=== PATIENT | female | born 1950 | race Caucasian/White ===

== ENCOUNTER 2021-09-08 10:32 | Inpatient (IN) | payer MEDICARE, BC, SELFPAY ==
--- NOTE | ~2021-09-08 | CT_ITS ---
EXAMINATION: CT ABDOMEN AND PELVIS WITHOUT CONTRAST CLINICAL INFORMATION: Right lower abdominal pain radiating to the back. COMPARISON: None TECHNIQUE: Multidetector volumetric imaging was performed from the superior aspect of the liver through the pubic symphysis. Sagittal and coronal reformatted images were obtained on the technologist's workstation. This CT examination was performed using dose optimization techniques as appropriate, variously including the following: *Automated exposure control *Adjustment of mA and/or kV according to patient size (this includes techniques or standardized protocols for targeted exams where dose is matched to indication/reason for exam; i.e. extremities or head) *Use of iterative reconstruction technique DLP: 562 mGy-cm FINDINGS: LUNG BASES: The visualized lung bases are unremarkable. LIVER, GALLBLADDER, AND BILIARY TREE: The liver is normal in size, shape, and attenuation. No focal hepatic lesion or biliary ductal dilatation is present. Nonvisualized gallbladder, likely surgically absent. PANCREAS: Unremarkable. SPLEEN: Unremarkable. ADRENAL GLANDS: The left adrenal gland is slightly thickened without discrete mass. The right adrenal gland is unremarkable. KIDNEYS AND URETERS: The kidneys are normal in size, shape, and attenuation. No hydronephrosis, hydroureter, or calculi seen. No perinephric stranding. BLADDER: Unremarkable. GASTROINTESTINAL TRACT: Focal mural thickening, pericolonic inflammatory changes and pericolonic soft tissue densities are noted involving proximal part of the sigmoid colon. Note is made of few underlying colonic diverticuli and subtle extraluminal tiny air pockets, most consistent with focal diverticulitis complicated with microperforation. No evidence of any definite fluid collection or air-fluid level identified. No evidence of any obstruction is seen. Follow-up direct visualization following visualization of inflammation is recommended to exclude any possibility of underlying neoplasm. The remainder of the large bowel otherwise appear unremarkable. Nonvisualized appendix without any inflammatory changes around the cecum. The small bowel loops are decompressed. Small sliding hiatal hernia. The stomach is decompressed. ABDOMINAL WALL: No significant hernia is appreciated. LYMPH NODES: There are no pathologically enlarged retroperitoneal, mesenteric, pelvic and/or groin lymphadenopathy present. VASCULAR: Mild diffuse atherosclerotic calcific disease of the aorta. No evidence of any aneurysm. PELVIC VISCERA: No pelvic mass is present. Left hemipelvic abnormality as described under gastrointestinal tract. No evidence of any free fluid or free air. OSSEOUS STRUCTURES: Moderate diffuse osteopenia. No suspicious focal lesion. CT/CT abdomen pelvis wo con IMPRESSION: 1. Abnormal CT scan of the abdomen and pelvis showing evidence of focal mural thickening, underlying colonic diverticuli, pericolonic inflammatory changes and pericolonic soft tissue density associated with extraluminal tiny air pockets, consistent with acute proximal sigmoid colonic diverticulitis complicated with microperforation. No evidence of any pericolonic drainable fluid collection or abscess formation or fistula formation or obstruction. A follow-up colonoscopy/direct visualization is recommended to exclude any possibility of underlying neoplasm once the inflammation is control. 2. Mild thickening of the left adrenal gland, indeterminate etiology. 3. Nonvisualized gallbladder likely surgically absent. 4. Moderate diffuse osteopenia. This critical result was discussed with Dr. Lincoln at 4:13 PM on 09/08/2021 and it was ascertained that the content and urgency of the report was understood at the time of direct communication.
[2021-09-08 10:54] VITALS: BP 122/56; PULSE 76; RESP 18; TEMP 36.7; O2SAT 96; BMI 25.4
[2021-09-08 13:19] LABS: MANUAL DIFF FLAG NO
[2021-09-08 13:21] LABS: Appearance Urine CLEAR; Color Urine YELLOW; Glucose Urine UA NEG (NEG); Leukocyte Esterase Urine NEG (NEG); Nitrite Urine NEG (NEG); UACC Culture Trigger NO; Urine Blood TRACE (NEG); Urine Ketones 15 MG/DL (NEG); Urine Protein NEG (NEG-TRACE)
[2021-09-08 13:21] LABS: Basophils Percent Auto 0.1 % (0-2); Eosinophils Percent Auto 0.2 % (0-4); Hematocrit 44.6 % (37.0-47.0); Hemoglobin 14.9 g/dl (12.0-16.0); Imm Gran Abs Auto 0.04 X10*3/uL (0.00-0.03); Imm Gran Pct Auto 0.3 % (0.0-0.4); Lymphocytes Absolute Auto 1.4 X10*3/uL (1.2-4.9); Lymphocytes Percent Auto 10.3 % (20-40); Mean Corpuscular HGB Conc 33.4 g/dl (31.0-35.0); Mean Corpuscular Hemoglobin 29.7 pg (27.0-33.0); Mean Corpuscular Volume 88.8 fL (80.0-98.0); Mean Platelet Volume 9.3 fL (9.4-12.3); Monocytes Absolute Auto 0.7 X10*3/uL (0.1-1.2); Monocytes Percent Auto 5.3 % (2-11); Neutrophils Absolute Auto 11.5 x10*3/uL (2.0-8.3); Neutrophils Percent Auto 83.8 % (45-73); Platelet Count 241 X10*3/uL (160-400); Red Blood Count 5.02 X10*6/uL (4.20-5.50); Red Cell Distribution Width 12.2 % (11.0-16.0); White Blood Count 13.7 X10*3/uL (4.8-10.8)
[2021-09-08 13:29] LABS: RBC Urine 0-2 /HPF (0); Squamous Epithelial Cell Urine TRACE /LPF; WBC Urine 0 /HPF (0-4)
[2021-09-08 13:38] LABS: Alanine Aminotransferase 11 U/L (0-31); Albumin Level 4.4 g/dL (3.5-5.0); Alkaline Phosphatase 93 U/L (39-117); Anion Gap 12 (12-20); Aspartate Amino Transferase 12 U/L (5-31); Bilirubin Direct 0.3 mg/dL (0.0-0.5); Bilirubin Total 0.6 mg/dL (0.0-1.0); Blood Urea Nitrogen 8 mg/dL (9-16); Calcium 10.3 mg/dL (8.4-10.2); Carbon Dioxide 29 mmol/L (22-29); Chloride 102 mmol/L (96-108); Creatinine Clr Calc Pharmacy 72.1; Estimated Glomerular Filt Rate > 60; Glucose Random 121 mg/dL (60-115); Lipase 18 U/L (8-78); Sodium 139 mmol/L (135-145)
--- NOTE | 2021-09-08 14:10 | ED.ABDPAIN ---
HPI - Abdominal Pain General Chief Complaint: Abdominal Pain Stated Complaint: abd pain Time Seen by Provider: 09/08/21 14:10 Source: patient Mode of arrival: ambulatory Limitations: no limitations History of Present Illness HPI narrative: Right lower abdominal pain, recently had a UDS study and a urinary tract infection. NO fever, some nausea and diarrhea. Patient with right flank pain no history of kidney stones.shelbie MATTHEWS elicited complaint: abdominal pain and flank pain Onset (ago): week(s) Pain Consistency: constant Location: RLQ and R flank Severity: moderate Quality: other (pulsating) Radiation: R flank Associated symptoms: nausea Related Data Home Medications Medication Instructions Recorded Confirmed cholecalciferol (vitamin D3) 25 25 mcg PO DAILY 09/08/21 mcg (1,000 unit) capsule docusate sodium 100 mg capsule 100 mg PO DAILY 09/08/21 (Colace) evolocumab 140 mg/mL subcutaneous mg SUBCUT 09/08/21 pen injector ([employer]) levothyroxine 125 mcg tablet 125 mcg PO DAILY 09/08/21 trazodone 50 mg tablet 50 - 150 mg PO BEDTIME PRN 09/08/21 Allergies Allergy/AdvReac Type Severity Reaction Status Date / Time albuterol AdvReac Headache Verified 09/08/21 10:54 atorvastatin AdvReac Muscle Pain Verified 09/08/21 10:54 codeine AdvReac Nausea and Verified 09/08/21 10:54 Vomiting cortisone AdvReac Rash Verified 09/08/21 09:41 niacin AdvReac Itching, Verified 09/08/21 09:38 rash oxycodone AdvReac Headache Verified 09/08/21 09:38 scopolamine AdvReac Headache Verified 09/08/21 09:40 Review of Systems Constitutional: Reports no additional constitutional complaints Eyes: Reports no additional eye complaints Denies dizziness Cardiovascular: Reports no additional cardiovascular complaints Respiratory: Reports as per HPI Gastrointestinal: Reports no additional gastrointestinal complaints Genitourinary: Reports no additional female genitourinary complaints Musculoskeletal: Reports no additional musculoskeletal complaints Skin/Breast: Denies rash Reports system reviewed and no additional complaints, except as documented, Denies dizziness and Denies Sensory deficit (Neuro) Psychiatric: Denies anxiety Physical Exam Vital Signs: Vital Signs: Last Vital Signs Temp 98.1 F 09/08/21 10:54 Pulse 76 09/08/21 10:54 Resp 18 09/08/21 10:54 BP 122/56 L 09/08/21 10:54 Pulse Ox 96 09/08/21 10:54 Body Mass Index 25.4 Const: General: healthy appearing Nutritional Appearance: average body habitus Orientation/consciousness: oriented to person and patient oriented x3 Limitations: no limitations HENMT: Head: Yes normal to inspection Ears: external ears normal General nose exam: Normal external nose present Mouth: Normal oral and palatal mucosa present and oropharynx normal Throat: Yes posterior oropharynx normal Eyes: General: appearance normal, both eyes and all related structures Neck: Other: supple Neck: Yes normal visual inspection Chest: Chest palpation & inspection: normal inspection of the chest Resp: Auscultation: clear to auscultation bilaterally Cardio: Jugular venous distension: no JVD Rate: regular rate Rhythm: regular rhythm Heart sounds: S1 normal heart sound present and S2 normal heart sound present GI: Other: right lower abdominal pain no guarding Palpation (GI): Tenderness to palpation present (GI) Auscultation: normal bowel sounds : General: Yes no CVA tenderness Back/Spine/Pelvis: Back: no CVA tenderness Skin: General skin exam: no rashes or lesions noted Neuro: General: oriented to person and patient oriented x3 Cranial nerves: Yes CN's II-XII intact bilaterally Motor exam (neuro): 5/5 motor strength present throughout Sensory Exam: No Sensory deficit (Neuro) Extrem: General: Yes normal to inspection Psych: Appearance: grossly normal Course Course Course Narrative: patient with RLQ pain radiating to the back, and history of right sided diverticulitis, WBC 13.[address] scan Reevaluation(s) Reevaluation #1: CT showed microperforation of diverticulitis of sigmoid colon will admit to surgery Time: 16:17 Reevaluation #2: Discussed with Dr. Connor Time: 16:44 MDM - Abdominal Pain Lab Data Result diagrams: 09/08/21 13:11 09/08/21 13:11 Labs: Lab Results 09/08/21 09/08/21 09/08/21 Range/Units 13:11 13:11 13:15 WBC 13.7 H (4.8-10.8) X10*3/uL RBC 5.02 (4.20-5.50) X10*6/uL Hgb 14.9 (12.0-16.0) g/dl Hct 44.6 (37.0-47.0) % MCV 88.8 (80.0-98.0) fL MCH 29.7 (27.0-33.0) pg MCHC 33.4 (31.0-35.0) g/dl RDW 12.2 (11.0-16.0) % Plt Count 241 (160-400) X10*3/uL MPV 9.3 L (9.4-12.3) fL Immature Gran % (Auto) 0.3 (0.0-0.4) % Neut % (Auto) 83.8 H (45-73) % Lymph % (Auto) 10.3 L (20-40) % [place] % (Auto) 5.3 (2-11) % Eos % (Auto) 0.2 (0-4) % Baso % (Auto) 0.1 (0-2) % Lymph # (Auto) 1.4 (1.2-4.9) X10*3/uL [place] # (Auto) 0.7 (0.1-1.2) X10*3/uL Eos # (Auto) 0.0 (0.0-0.4) X10*3/uL Baso # (Auto) 0.0 (0.0-0.2) X10*3/uL Abs Immat Gran (auto) 0.04 H (0.00-0.03) X10*3/uL Absolute Neuts (auto) 11.5 H (2.0-8.3) x10*3/uL Absolute Nucleated RBC 0.000 (0.0-0.012) X10*3/uL Nucleated RBC % (auto) 0.0 (0.0-0.2) /100WBC Sodium 139 (135-145) mmol/L Potassium 4.0 (3.3-5.1) mmol/L Chloride 102 (96-108) mmol/L Carbon Dioxide 29 (22-29) mmol/L Anion Gap 12 (12-20) BUN 8 L (9-16) mg/dL Creatinine 0.72 (0.5-1.4) mg/dL Estim Creat Clear Calc 72.1 Estimated GFR > 60 Random Glucose 121 H (60-115) mg/dL Calcium 10.3 H (8.4-10.2) mg/dL Total Bilirubin 0.6 (0.0-1.0) mg/dL Direct Bilirubin 0.3 (0.0-0.5) mg/dL AST 12 (5-31) U/L ALT 11 (0-31) U/L Alkaline Phosphatase 93 (39-117) U/L Total Protein 7.0 (6.5-8.0) g/dL Albumin 4.4 (3.5-5.0) g/dL Lipase 18 (8-78) U/L Urine Color YELLOW Urine Appearance CLEAR Urine pH 7.0 (5.0-8.0) Ur Specific [place] 1.010 (1.005-1.025) Urine Protein NEG (NEG-TRACE) MG/DL Urine Glucose (UA) NEG (NEG) MG/DL Urine Ketones 15 (NEG) MG/DL Urine Blood TRACE (NEG) Urine Nitrite NEG (NEG) Ur Leukocyte Esterase NEG (NEG) Urine RBC 0-2 (0) /HPF Urine WBC 0 (0-4) /HPF Ur Squamous Epith Cells TRACE /LPF Urine Bacteria NONE /LPF Imaging Data CT scan - abdomen: Radiologist's impression: diverticulitis with microperforation of sigmoid colon Discharge Plan Discharge Clinical Impression: Diverticulitis Patient Disposition: Admitted As Inpatient COUNT INCLUDES THE [facility] Past Medical History Medical History Abdominal pain Breast cancer Diabetes Diverticulitis High cholesterol Hypothyroid UTI (urinary tract infection) Social History Social History Advance Directives: No Advance Directives Information Provided: No
[2021-09-08] MEDS: levoFLOXacin/D5W 500 MG/100 ML PIGGYBACK 100 MG IV (16:51)
--- NOTE | 2021-09-08 16:55 | PM.HPGS ---
History of Present Illness History of Present Illness Date of Service: 09/08/21 Chief complaint: Sigmoid diverticulitis w micro perforation Narrative: Viola Navarro is a 70 year old female presenting with complaints of abdominal pain in the right lower quadrant over the last several days. She reports alternating constipation and diarrhea and has been taking fresh fruit including grapes without much relief. She has a history of diverticulitis with pain in the left lower quadrant but currently reports mild pain the left lower quadrant but mainly pain in the right lower quadrant. She denies nausea, vomiting, fever, chills. She previously underwent a cholecystectomy. Upon presentation to the emergency department, the WBC was noted to be elevated. Subsequent CT of the abdomen pelvis revealed sigmoid diverticulitis with a micro perforation. No abscess could be identified. Patient is admitted to the surgical service for IV antibiotics. She has a history of benign liver lesions (focal nodular hyperplasia) for which she is following Gastroenterology. Her last colonoscopy was approximately 2 years ago. Review of Systems Review of Systems: Yes all other systems are reviewed and are negative Constitutional: Constitutional: Reports anorexia, Denies chills, Denies fever(s) and Denies night sweats Cardiovascular: Cardiovascular: Reports Abdominal Distension, Denies chest pain, Denies irregular heart rhythm, Denies palpitations and Denies dyspnea Respiratory: Respiratory: Denies chest congestion, Denies cough and Denies dyspnea Gastrointestinal: Gastrointestinal: Reports as per HPI, Reports abdominal pain, Denies hematochezia and Reports change in stool character Endocrine: Endocrine: Denies palpitations PMFSH Past Medical History Medical History Abdominal pain Breast cancer Diabetes Diverticulitis High cholesterol Hypothyroid UTI (urinary tract infection) Social History Social History Advance Directives: No Advance Directives Information Provided: No Meds Allergies Allergy/AdvReac Type Severity Reaction Status Date / Time albuterol AdvReac Headache Verified 09/08/21 10:54 atorvastatin AdvReac Muscle Pain Verified 09/08/21 10:54 codeine AdvReac Nausea and Verified 09/08/21 10:54 Vomiting cortisone AdvReac Rash Verified 09/08/21 09:41 niacin AdvReac Itching, Verified 09/08/21 09:38 rash oxycodone AdvReac Headache Verified 09/08/21 09:38 scopolamine AdvReac Headache Verified 09/08/21 09:40 Active Medications: Current Medications Levofloxacin (Levaquin) 500 mg in 100 mls @ 100 mls/hr IV ONCE ONE Stop: 09/08/21 17:15 Last Admin: 09/08/21 16:51 Dose: 100 mls/hr Documented by: Metronidazole (Flagyl) 500 mg in 100 mls @ 100 mls/hr IV ONCE ONE Stop: 09/08/21 17:15 Home Medications Medication Instructions Recorded Confirmed Last Taken Type cholecalciferol (vitamin D3) 25 25 mcg PO DAILY 09/08/21 Unknown History mcg (1,000 unit) capsule docusate sodium 100 mg capsule 100 mg PO DAILY 09/08/21 Unknown History (Colace) evolocumab 140 mg/mL subcutaneous mg SUBCUT 09/08/21 Unknown History pen injector ([employer]) levothyroxine 125 mcg tablet 125 mcg PO DAILY 09/08/21 Unknown History trazodone 50 mg tablet 50 - 150 mg PO BEDTIME PRN 09/08/21 Unknown History Physical Exam Vital Signs: Vital Signs: Last Vital Signs Temp 98.1 F 09/08/21 10:54 Pulse 76 09/08/21 10:54 Resp 18 09/08/21 10:54 BP 122/56 L 09/08/21 10:54 Pulse Ox 96 09/08/21 10:54 Body Mass Index 25.4 Const: General: cooperative, comfortable and well developed Nutritional Appearance: well nourished Orientation/consciousness: patient oriented x3 Limitations: no limitations HENMT: Head: Yes normocephalic and Yes atraumatic Ears: hearing grossly normal bilaterally Neck: Neck: Yes trachea midline, Yes supple and No lymphadenopathy Resp: Effort & Inspection: normal respiratory effort, no audible wheezes, no cough and no respiratory distress Auscultation: clear to auscultation bilaterally Cardio: Rate: regular rate Rhythm: regular rhythm Heart sounds: S1 normal heart sound present and S2 normal heart sound present GI: Inspection: Yes normal to inspection Palpation (GI): Soft to palpation, Tenderness to palpation present (GI) in the LLQ and in the RLQ, no guarding, not rigid, hepatosplenomegaly present and No Rebound tenderness present Percussion: Yes normal to percussion Auscultation: normal bowel sounds Rectal Exam - Female: deferred Skin: General skin exam: no rashes or lesions noted Neuro: General: patient oriented x3 Extrem: General: Yes no clubbing, cyanosis or edema Results Results Labs: Short CBC 09/08/21 Range/Units 13:11 WBC 13.7 H (4.8-10.8) X10*3/uL Hgb 14.9 (12.0-16.0) g/dl Hct 44.6 (37.0-47.0) % Plt Count 241 (160-400) X10*3/uL BMP 09/08/21 13:11 Sodium 139 Potassium 4.0 Chloride 102 Carbon Dioxide 29 BUN 8 L Creatinine 0.72 Calcium 10.3 H Liver Function 09/08/21 Range/Units 13:11 Total Bilirubin 0.6 (0.0-1.0) mg/dL Direct Bilirubin 0.3 (0.0-0.5) mg/dL AST 12 (5-31) U/L ALT 11 (0-31) U/L Alkaline Phosphatase 93 (39-117) U/L Albumin 4.4 (3.5-5.0) g/dL Urine 09/08/21 Range/Units 13:15 Urine Color YELLOW Urine Appearance CLEAR Urine pH 7.0 (5.0-8.0) Ur Specific [place] 1.010 (1.005-1.025) Urine Protein NEG (NEG-TRACE) MG/DL Urine Glucose (UA) NEG (NEG) MG/DL Abdomen CT scan report/results: image reviewed CT scan - pelvis: image reviewed Assessment and Plan (1) Perforation of sigmoid colon due to diverticulitis: Status: Acute 70-year-old female patient presenting with complaints of abdominal pain in the right lower quadrant found on workup to have sigmoid diverticulitis with a micro perforation. Patient has a prior history of diverticulitis at least 8-10 years ago but denies any ongoing abdominal symptoms. Her current symptoms are mainly located in the right lower quadrant and upon evaluation of the CT, the right colon appears to be moderately distended with stool which may account further current discomfort. She will be admitted to the surgical service for IV antibiotics. As this is her 2nd episode of diverticulitis we will attempt non operative management. If she does not improve or if the perforation seems to extend however surgical intervention may be required. Patient understands and agrees with the plan. Quality Stroke Does the patient have a stroke diagnosis?: No VTE Prior VTE?: No VTE Risk Level:: Surgical - moderate VTE Device Contraindication: N/A - Device Ordered VTE Drug Contraindication: N/A - Med Ordered Procedures Date of Service Date of Service: 09/08/21
[2021-09-08 18:04] LABS: COVID-19 Test Negative (Negative); IDNOW Serial# 9DD0AD1C
[2021-09-08] MEDS: metroNIDAZOLE/NS 500 MG/100 ML PIGGYBACK 100 MG IV (18:29)
[2021-09-08 18:54] VITALS: BP 130/72; PULSE 71; RESP 16; TEMP 37.4; O2SAT 94
--- NOTE | 2021-09-08 19:21 | PHA.MEDREC ---
Pharmacy Consult ? Medication Reconciliation Pharmacy has completed the medication reconciliation. Patient was taking anastrazole but told to hold. atha is due 09/09
[2021-09-08 19:56] VITALS: BP 126/80; PULSE 74; RESP 14; TEMP 36.8; O2SAT 97
[2021-09-08 20:09] LABS: Glucose, Whole Blood 103 mg/dL (60-115)
[2021-09-08] MEDS: Piperacillin Sodium/Tazobactam 3.375 GM in 0.9 % Sodium Chloride 50 ML IV (20:14)
[2021-09-08] MEDS: Heparin Sodium,Porcine 5,000 UNIT/ML VIAL 5000 UNIT SUBCUT (20:15)
[2021-09-08] MEDS: Morphine Sulfate 4 MG/ML CARTRIDGE IVPUSH (20:33)
[2021-09-08] MEDS: ondansetron HCL 4 MG/2 ML VIAL IVPUSH (20:33)
[2021-09-08] MEDS: Dextrose 5 % and Lactated Ring 1,000 ML 125 ML IVCONT (20:52)
--- NOTE | 2021-09-08 23:21 | MHC.CM.PN ---
CM met with admitted patient with bed assignment pending. IMM reviewed and signed per protocol 09/08/21@5660. No HCP on file. HCP reviewed, completed, and signed. Copies given and uploaded into [facility] and [employer]. Fully vaccinated with Pfizer and received the booster. Live with . Retired. Uses no DME or Services. D/C plan is home without services. CM to follow for d/c needs.
[2021-09-09] MEDS: 0.9 % Sodium Chloride Flush 3 ML SYRINGE IVFLUSH ×3 (00:02→23:50)
[2021-09-09] MEDS: Piperacillin Sodium/Tazobactam 3.375 GM in 0.9 % Sodium Chloride 50 ML IV ×5 (01:56→23:37)
[2021-09-09] MEDS: Zolpidem Tartrate 5 MG TABLET PO ×2 (01:56→23:48)
[2021-09-09 06:00] VITALS: BP 126/59; PULSE 66; RESP 15; TEMP 36.8; O2SAT 97
[2021-09-09] MEDS: Dextrose 5 % and Lactated Ring 1,000 ML 125 ML IVCONT ×3 (06:10→22:59)
[2021-09-09] MEDS: Morphine Sulfate 4 MG/ML CARTRIDGE IVPUSH (06:17)
[2021-09-09] MEDS: ondansetron HCL 4 MG/2 ML VIAL IVPUSH (06:18)
[2021-09-09 06:31] LABS: MANUAL DIFF FLAG NO
[2021-09-09 06:57] LABS: Basophils Percent Auto 0.3 % (0-2); Eosinophils Absolute Auto 0.1 X10*3/uL (0.0-0.4); Eosinophils Percent Auto 1.5 % (0-4); Hematocrit 39.5 % (37.0-47.0); Hemoglobin 13.2 g/dl (12.0-16.0); Imm Gran Abs Auto 0.01 X10*3/uL (0.00-0.03); Imm Gran Pct Auto 0.1 % (0.0-0.4); Lymphocytes Absolute Auto 1.4 X10*3/uL (1.2-4.9); Mean Corpuscular HGB Conc 33.4 g/dl (31.0-35.0); Mean Corpuscular Hemoglobin 29.9 pg (27.0-33.0); Mean Corpuscular Volume 89.4 fL (80.0-98.0); Mean Platelet Volume 9.5 fL (9.4-12.3); Monocytes Absolute Auto 0.6 X10*3/uL (0.1-1.2); Monocytes Percent Auto 8.5 % (2-11); Neutrophils Absolute Auto 4.7 x10*3/uL (2.0-8.3); Neutrophils Percent Auto 68.6 % (45-73); Platelet Count 211 X10*3/uL (160-400); Red Blood Count 4.42 X10*6/uL (4.20-5.50); Red Cell Distribution Width 12.2 % (11.0-16.0); White Blood Count 6.8 X10*3/uL (4.8-10.8)
[2021-09-09] MEDS: Heparin Sodium,Porcine 5,000 UNIT/ML VIAL 5000 UNIT SUBCUT ×2 (07:23→19:06)
[2021-09-09 07:32] VITALS: BP 121/59; PULSE 68; RESP 18; TEMP 36.6; O2SAT 97
--- NOTE | 2021-09-09 08:02 | PM.PNGS ---
Subjective Subjective Date of Service: 09/09/21 Interval history: Patient denies pain in the right lower quadrant, pain is mainly in the left lower quadrant, but overall much improved. She denies fever or chills. She feels hungry and denies nausea or vomiting. Has not had a bowel movement but is passing flatus. She remains boarding in the ED. Physical Exam Vital Signs: Vital Signs: Last Vital Signs Temp 97.8 F 09/09/21 07:32 Pulse 68 09/09/21 07:32 Resp 18 09/09/21 07:32 BP 121/59 L 09/09/21 07:32 Pulse Ox 97 09/09/21 07:32 Body Mass Index 25.4 Const: General: cooperative, no acute distress and well developed Nutritional Appearance: well nourished Orientation/consciousness: patient oriented x3 Limitations: no limitations HENMT: Head: Yes normocephalic and Yes atraumatic Ears: hearing grossly normal bilaterally Resp: Effort & Inspection: normal respiratory effort, no audible wheezes, no cough and no respiratory distress GI: Inspection: Yes normal to inspection Palpation (GI): Soft to palpation, nontender, no guarding, not rigid and No Rebound tenderness present Skin: General skin exam: no rashes or lesions noted, dry skin and no erythema Neuro: General: patient oriented x3 Extrem: General: Yes no clubbing, cyanosis or edema Procedures Date of Service Date of Service: 09/09/21 Progress Note: A&P Assessment and plan (1) Perforation of sigmoid colon due to diverticulitis: Status: Acute Assessment and Plan: 70-year-old female patient admitted with a 2nd episode of diverticulitis with a possible micro perforation noted by CT. Patient feels much improved and her WBC is normal. Will continue the antibiotics today and start her on a diet. Will check back later today and if she is more comfortable and tolerating a regular diet will switch to oral antibiotics and discharged to home. Patient understands and agrees with the plan. Fall Risk Details Current Medications: Current Medications Acetaminophen (Acetaminophen 325 Mg Tablet) 650 mg PO Q6H PRN PRN Reason: Pain, Mild (Pain Scale 1-3) Acetaminophen/Codeine Phosphate (Acetaminophen With Codeine # 3 Tablet) 1 tab PO Q4H PRN PRN Reason: Pain, Moderate (Pain Scale 4-6 Heparin Sodium (Porcine) (Heparin Sodium,Porcine 5,000 Unit/Ml Vial) 5,000 unit SUBCUT Q12H [facility] Last Admin: 09/09/21 07:23 Dose: 5,000 unit Documented by: Dextrose/Lactated Ringer's ([email or web address]) 1,000 mls @ 125 mls/hr IVCONT .Q8H [facility] Last Admin: 09/09/21 06:10 Dose: 125 mls/hr Documented by: Piperacillin Sod/Tazobactam (Sod 3.375 gm/ Sodium Chloride) 50 mls @ 100 mls/hr IV Q6H [facility] Last Admin: 09/09/21 07:24 Dose: 100 mls/hr Documented by: Morphine Sulfate (Morphine Sulfate 4 Mg/Ml Cartridge) 4 mg IVPUSH Q3H PRN; Protocol PRN Reason: Pain, Severe (Pain Scale 7-10) Last Admin: 09/09/21 06:17 Dose: 4 mg Documented by: Ondansetron HCl (Ondansetron Hcl 4 Mg/2 Ml Vial) 4 mg IVPUSH Q8H PRN PRN Reason: Nausea and Vomiting Last Admin: 09/09/21 06:18 Dose: 4 mg Documented by: Pharmacy Consult (Consult Rx Perform Med Rec) 1 each MISCELLANE ONCE PRN PRN Reason: Consult order Sodium Chloride (0.9 % Sodium Chloride Flush 3 Ml Syringe) 3 ml IVFLUSH QSHIFT [facility] Last Admin: 09/09/21 07:30 Dose: 3 ml Documented by: Zolpidem Tartrate (Zolpidem Tartrate 5 Mg Tablet) 5 mg PO BEDTIME PRN PRN Reason: Insomnia Last Admin: 09/09/21 01:56 Dose: 5 mg Documented by: Time Spent With Patient Time: Total time spent is greater than 50% in coordination of care (as documented) at patient's floor/unit and/or counseling patient: Time with patient: 15 - 24 minutes Quality Stroke Does the patient have a stroke diagnosis?: No VTE Prior VTE?: No VTE Risk Level:: Surgical - moderate VTE Device Contraindication: N/A - Device Ordered VTE Drug Contraindication: N/A - Med Ordered
[2021-09-09 16:00] VITALS: BP 108/59; PULSE 60; RESP 18; TEMP 36.3; O2SAT 98
[2021-09-09 20:00] VITALS: BP 118/61; PULSE 62; RESP 18; TEMP 36.7; O2SAT 98
[2021-09-09] MEDS: traZODone HCL 50 MG TABLET PO (21:02)
[2021-09-09] MEDS: Acetaminophen 325 MG TABLET 650 MG PO (22:10)
--- NOTE | 2021-09-09 23:51 | PC.NURSE ---
Patient asking for medication to facilitate BM
[2021-09-10] VITALS: BP 114/59; PULSE 58; RESP 18; TEMP 36.7; O2SAT 99
[2021-09-10 04:00] VITALS: BP 130/63; PULSE 73; RESP 18; TEMP 36.6; O2SAT 98
--- NOTE | 2021-09-10 06:30 | PC.NURSE ---
Patient c/o inability to sleep around 2330, requested IV be turned off for the night to avoiding pump beeping and disturbing her despite education. Patient agreed to have antibiotic infused first and Ambien administered. IVF held from midnight.
[2021-09-10] MEDS: Levothyroxine Sodium 125 MCG TABLET PO (06:35)
[2021-09-10] MEDS: Cholecalciferol (Vitamin D3) 25 MCG TABLET PO (07:37)
[2021-09-10] MEDS: Heparin Sodium,Porcine 5,000 UNIT/ML VIAL 5000 UNIT SUBCUT (07:37)
[2021-09-10] MEDS: Fluticasone Propionate Nasal 16 GM SPRAY 2 SPRAY NOSTRIL-B (07:37)
[2021-09-10] MEDS: Piperacillin Sodium/Tazobactam 3.375 GM in 0.9 % Sodium Chloride 50 ML IV (07:38)
[2021-09-10] MEDS: 0.9 % Sodium Chloride Flush 3 ML SYRINGE IVFLUSH (07:40)
[2021-09-10 08:00] VITALS: BP 110/54; PULSE 76; RESP 18; TEMP 36.1; O2SAT 95
--- NOTE | 2021-09-10 11:22 | MHC.CM.PN ---
PATIENT IS DISCHARGED HOME - SELF CARE. RN AWARE OF PLAN.
[2021-09-10 12:00] VITALS: BP 126/57; PULSE 69; RESP 17; TEMP 36.3; O2SAT 95
--- NOTE | 2021-09-10 13:34 | PM.PNGS ---
Subjective Subjective Date of Service: 09/10/21 Interval history: Feels better, still has some left lower quadrant discomfort. Tolerating solid diet. Had a loose bowel movement. Feels ready for discharge home. Physical Exam Vital Signs: Vital Signs: Last Vital Signs Temp 97.3 F 09/10/21 12:00 Pulse 69 09/10/21 12:00 Resp 17 09/10/21 12:00 BP 126/57 L 09/10/21 12:00 Pulse Ox 95 09/10/21 12:00 Body Mass Index 25.4 Const: General: cooperative, no acute distress, alert and awake Resp: Effort & Inspection: normal respiratory effort Auscultation: clear to auscultation bilaterally Cardio: Rate: regular rate Rhythm: regular rhythm GI: Other: Soft, nondistended, normal bowel sounds, mild left lower quadrant and lower midline tenderness without rebound, no palpable masses Skin: Other: Normal color, warm and dry Objective Data Active Medications Acetaminophen (Acetaminophen 325 Mg Tablet) 650 mg PO Q6H PRN PRN Reason: Pain, Mild (Pain Scale 1-3) Last Admin: 09/09/21 22:10 Dose: 650 mg Documented by: MINNIE Acetaminophen/Codeine Phosphate (Acetaminophen With Codeine # 3 Tablet) 1 tab PO Q4H PRN PRN Reason: Pain, Moderate (Pain Scale 4-6 Fluticasone Propionate (Fluticasone Propionate Nasal 16 Gm [place]anson) 2 spray NOSTRIL-B DAILY [facility] Last Admin: 09/10/21 07:37 Dose: 2 spray Documented by: ROLANDA Heparin Sodium (Porcine) (Heparin Sodium,Porcine 5,000 Unit/Ml Vial) 5,000 unit SUBCUT Q12H [facility] Last Admin: 09/10/21 07:37 Dose: 5,000 unit Documented by: ROLANDA Dextrose/Lactated Ringer's (D5lr) 1,000 mls @ 125 mls/hr IVCONT .Q8H [facility] Last Infusion: 09/10/21 07:12 Dose: 0 mls/hr Documented by: ROLANDA Piperacillin Sod/Tazobactam (Sod 3.375 gm/ Sodium Chloride) 50 mls @ 100 mls/hr IV Q6H [facility] Last Infusion: 09/10/21 08:30 Dose: 0 mls/hr Documented by: ROLANDA Levothyroxine Sodium (Levothyroxine Sodium 125 Mcg Tablet) 125 mcg PO DAILY@0600 [facility] Last Admin: 09/10/21 06:35 Dose: 125 mcg Documented by: CAN Meclizine HCl (Meclizine Hcl 25 Mg Tablet) 25 mg PO TID PRN PRN Reason: Dizziness Morphine Sulfate (Morphine Sulfate 4 Mg/Ml Cartridge) 4 mg IVPUSH Q3H PRN; Protocol PRN Reason: Pain, Severe (Pain Scale 7-10) Last Admin: 09/09/21 06:17 Dose: 4 mg Documented by: MADELINE Omeprazole (Omeprazole 20 Mg Capsule.Dr) 20 mg PO DAILY PRN PRN Reason: Acid Reflux Ondansetron HCl (Ondansetron Hcl 4 Mg/2 Ml Vial) 4 mg IVPUSH Q8H PRN PRN Reason: Nausea and Vomiting Last Admin: 09/09/21 06:18 Dose: 4 mg Documented by: MADELINE Pharmacy Consult (Consult Rx Perform Med Rec) 1 each MISCELLANE ONCE PRN PRN Reason: Consult order Sodium Chloride (0.9 % Sodium Chloride Flush 3 Ml Syringe) 3 ml IVFLUSH QSHIFT [facility] Last Admin: 09/10/21 07:40 Dose: 3 ml Documented by: ROLANDA Trazodone HCl (Trazodone Hcl 50 Mg Tablet) 50 mg PO BEDTIME [facility] Last Admin: 09/09/21 21:02 Dose: 50 mg Documented by: ODRISLibia Vitamin D (Cholecalciferol (Vitamin D3) 25 Mcg Tablet) 25 mcg PO DAILY [facility] Last Admin: 09/10/21 07:37 Dose: 25 mcg Documented by: ROLANDA Zolpidem Tartrate (Zolpidem Tartrate 5 Mg Tablet) 5 mg PO BEDTIME PRN PRN Reason: Insomnia Last Admin: 09/09/21 23:48 Dose: 5 mg Documented by: CAN Labs CBC & Chem 7: 09/09/21 06:26 09/08/21 13:11 Microbiology Microbiology Results: Microbiology 09/08/21 16:39 Blood Culture - Preliminary Blood - Venous No growth after 24 hours. 09/08/21 16:39 Blood Culture - Preliminary Blood - Venous No growth after 24 hours. Procedures Date of Service Date of Service: 09/10/21 Progress Note: A&P Assessment and plan (1) Diverticulitis: Status: Acute Assessment and Plan: 70-year-old female with sigmoid diverticulitis with micro perforation, improving on Zosyn. Ready for discharge. Will continue antibiotic therapy at home with Augmentin and will follow up with Dr. Connor in the office. Questions answered. She will call the office if she has any concerns or questions prior to her scheduled appointment with Dr. Connor. Fall Risk Details Current Medications: Current Medications Acetaminophen (Acetaminophen 325 Mg Tablet) 650 mg PO Q6H PRN PRN Reason: Pain, Mild (Pain Scale 1-3) Last Admin: 09/09/21 22:10 Dose: 650 mg Documented by: Acetaminophen/Codeine Phosphate (Acetaminophen With Codeine # 3 Tablet) 1 tab PO Q4H PRN PRN Reason: Pain, Moderate (Pain Scale 4-6 Fluticasone Propionate (Fluticasone Propionate Nasal 16 Gm Ranson) 2 spray NOSTRIL-B DAILY [facility] Last Admin: 09/10/21 07:37 Dose: 2 spray Documented by: Heparin Sodium (Porcine) (Heparin Sodium,Porcine 5,000 Unit/Ml Vial) 5,000 unit SUBCUT Q12H [facility] Last Admin: 09/10/21 07:37 Dose: 5,000 unit Documented by: Dextrose/Lactated Ringer's (D5lr) 1,000 mls @ 125 mls/hr IVCONT .Q8H [facility] Last Infusion: 09/10/21 07:12 Dose: Infused Documented by: Piperacillin Sod/Tazobactam (Sod 3.375 gm/ Sodium Chloride) 50 mls @ 100 mls/hr IV Q6H [facility] Last Infusion: 09/10/21 08:30 Dose: Infused Documented by: Levothyroxine Sodium (Levothyroxine Sodium 125 Mcg Tablet) 125 mcg PO DAILY@0600 [facility] Last Admin: 09/10/21 06:35 Dose: 125 mcg Documented by: Meclizine HCl (Meclizine Hcl 25 Mg Tablet) 25 mg PO TID PRN PRN Reason: Dizziness Morphine Sulfate (Morphine Sulfate 4 Mg/Ml Cartridge) 4 mg IVPUSH Q3H PRN; Protocol PRN Reason: Pain, Severe (Pain Scale 7-10) Last Admin: 09/09/21 06:17 Dose: 4 mg Documented by: Omeprazole (Omeprazole 20 Mg Capsule.Dr) 20 mg PO DAILY PRN PRN Reason: Acid Reflux Ondansetron HCl (Ondansetron Hcl 4 Mg/2 Ml Vial) 4 mg IVPUSH Q8H PRN PRN Reason: Nausea and Vomiting Last Admin: 09/09/21 06:18 Dose: 4 mg Documented by: Pharmacy Consult (Consult Rx Perform Med Rec) 1 each MISCELLANE ONCE PRN PRN Reason: Consult order Sodium Chloride (0.9 % Sodium Chloride Flush 3 Ml Syringe) 3 ml IVFLUSH QSHIFT [facility] Last Admin: 09/10/21 07:40 Dose: 3 ml Documented by: Trazodone HCl (Trazodone Hcl 50 Mg Tablet) 50 mg PO BEDTIME [facility] Last Admin: 09/09/21 21:02 Dose: 50 mg Documented by: Vitamin D (Cholecalciferol (Vitamin D3) 25 Mcg Tablet) 25 mcg PO DAILY [facility] Last Admin: 09/10/21 07:37 Dose: 25 mcg Documented by: Zolpidem Tartrate (Zolpidem Tartrate 5 Mg Tablet) 5 mg PO BEDTIME PRN PRN Reason: Insomnia Last Admin: 09/09/21 23:48 Dose: 5 mg Documented by: Time Spent With Patient Time: Total time spent is greater than 50% in coordination of care (as documented) at patient's floor/unit and/or counseling patient: Time with patient: less than 15 minutes Quality Stroke Does the patient have a stroke diagnosis?: No VTE Prior VTE?: No VTE Risk Level:: Surgical - moderate VTE Device Contraindication: N/A - Device Ordered VTE Drug Contraindication: N/A - Med Ordered
--- NOTE | 2021-09-14 14:48 | PM.DS ---
DS: Providers Provider Date of Service: 09/10/21 Date of admission: 09/08/21 17:01 Date of discharge: 09/10/21 Primary care physician: ERICK Brooke Admitting clinician: Juan Connor Discharging clinician: Juan Connor DS: Diagnosis Discharge Diagnosis (1) Perforation of sigmoid colon due to diverticulitis: Status: Acute DS: Summary Hospital Course Hospital Course: Viola Navarro is a 70 year old female presenting with complaints of abdominal pain in the right lower quadrant over several days prior to admission. She reports alternating constipation and diarrhea and has been taking fresh fruit including grapes without much relief.? She has a history of diverticulitis with pain in the left lower quadrant but currently reports mild pain the left lower quadrant but mostly in the right lower quadrant.? She denies nausea, vomiting, fever, chills.? She previously underwent a cholecystectomy.? Upon presentation to the emergency department, the WBC was noted to be elevated.? Subsequent CT of the abdomen pelvis revealed sigmoid diverticulitis with a micro perforation.? No abscess could be identified.? Patient is admitted to the surgical service for IV antibiotics.? She has a history of benign liver lesions (focal nodular hyperplasia) for which she is following Gastroenterology.? Her last colonoscopy was approximately 2 years ago. On examination the patient was noted to be tender in the right lower quadrant and left lower quadrant without rebound or guarding. She was made NPO and started on IV antibiotics with Zosyn. By the 2nd hospital day the patient felt improved with decreased abdominal pain especially in the right lower quadrant. She was subsequently started on a regular diet (low residual). On the 2nd day she developed slight increase in abdominal pain therefore she was observed for another 24 hours. On the 3rd hospital day however she felt improved with decreased abdominal pain. She was evaluated by Dr. Haney and subsequently discharged to home on oral antibiotics (Augmentin). She is instructed to follow-up in the office in approximately 1-2 weeks. She should return to the hospital should the pain return. Status at Discharge Functional status at discharge: independent ambulation Overall status at discharge: patient is back to baseline Time Spent with Patient Time attestation: Total time spent providing and/or coordinating discharge services: Discharge coordination time: Less than 30 minutes Quality: Stroke Does the patient have a stroke diagnosis?: No Physical Exam Vital Signs: Vital Signs: Last Vital Signs Temp 97.3 F 09/10/21 12:00 Pulse 69 09/10/21 12:00 Resp 17 09/10/21 12:00 BP 126/57 L 09/10/21 12:00 Pulse Ox 95 09/10/21 12:00 Body Mass Index 25.4 Const: Other: General: no acute distress and well developed Nutritional Appearance: well nourished Orientation/consciousness: patient oriented x3 Limitations: no limitations Resp: Effort & Inspection: normal respiratory effort Auscultation: clear to auscultation bilaterally GI: Inspection: Yes normal to inspection Palpation (GI): Soft to palpation, nontender, no guarding, hepatosplenomegaly present and No Rebound tenderness present Percussion: Yes normal to percussion Auscultation: normal bowel sounds Skin: General skin exam: no rashes or lesions noted Neuro: General: patient oriented x3 Extrem: General: Yes no clubbing, cyanosis or edema Discharge Plan Discharge Patient Disposition: Home, Self-Care Discharge Diagnosis: Acute sigmoid diverticulitis Referrals: Juan Connor MD [Physician] - 2 Weeks Carmine Chaparro PA [Primary Care Provider] - 1 Week Discharge Medications: New amoxicillin-pot clavulanate [Augmentin] 875-125 mg tablet 1 tab PO Q12H Qty: 20 RF: 0 Continued meclizine 25 mg Tablet 25 mg PO TID PRN (Reason: Dizziness) RF: 0 omeprazole 20 mg Capsule,Delayed Release(Dr/Ec) 20 mg PO DAILY PRN (Reason: Acid Reflux) RF: 0 fluticasone propionate 50 mcg/actuation [place],Suspension 2 spray INTRANASAL DAILY RF: 0 trazodone 50 mg tablet 50 mg PO BEDTIME RF: 0 levothyroxine 125 mcg tablet 125 mcg PO DAILY RF: 0 Repatha SureClick 140 mg/mL pen injector 140 mg subcut Q2W RF: 0 cholecalciferol (vitamin D3) 25 mcg (1,000 unit) capsule 25 mcg PO DAILY RF: 0 No Action ondansetron HCl 4 mg tablet 4 mg PO Q8H PRN (Reason: nausea and vomiting) Qty: 20 RF: 1 Discharge Orders: Discharge Order (Routine); Ordered 09/10/21 Ordered By: Elaine Haney Diet: other Activity on Discharge: No heavy lifting Stand Alone Forms: Patient Portal Discharge page Activity Restrictions/Additional Instructions: Follow a low residue diet until you see Dr. Connor in the office. Avoid strenuous activity and heavy lifting until cleared to resume by Dr. Connor. Care Plan Goals: Resolution of diverticulitis, return to usual activities Health Concerns: Acute sigmoid diverticulitis Plan of Treatment: Complete course of oral antibiotics, follow up in office with Dr. Connor Assessment: Improved Discharge Date/Time: 09/10/21 13:50
== END 2021-09-10 13:50 | disposition home or self-care (01) | DRG 392 ==
LOC: HO.ED 16:19 → HO.EDOVER 17:06 → HO.S3 09-09 12:36
PROVIDERS: Admitting Provider Surgery; Emergency Provider Emergency Medicine; PCP Physician Assistant Medical; Visit Provider Surgery
DX: K57.20 Diverticulitis of large intestine with perforation and abscess without bleeding (principal); E03.9 Hypothyroidism, unspecified; Z20.822 Contact with and (suspected) exposure to COVID-19; Z87.891 Personal history of nicotine dependence; Z88.5 Allergy status to narcotic agent; Z79.51 Long term (current) use of inhaled steroids; Z79.890 Hormone replacement therapy; Z79.899 Other long term (current) drug therapy
CPT/HCPCS: 36415; 74176; 80048; 80076; 81001; 82947; 83690; 85025; 87040; 87635; 96365; 96375; 99285; J1956; J2270; J2405; J2543

== ENCOUNTER → 2021-09-29 09:44 | Outpatient (BNVA) | payer MEDICARE, BC, SELFPAY | PROVIDERS: PCP Physician Assistant Medical; Referring Provider Physician Assistant Medical; Visit Provider Surgery | DX: K57.92 Diverticulitis of intestine, part unspecified, without perforation or abscess without bleeding (principal); R10.9 Unspecified abdominal pain | CPT/HCPCS: 99212 ==

== ENCOUNTER 2021-10-04 | Outpatient (REF) | payer MEDICARE, BC, SELFPAY ==
--- NOTE | ~2021-10-04 | CT_ITS ---
EXAMINATION: CT ABDOMEN AND PELVIS WITH CONTRAST CLINICAL INFORMATION: Abdominal pain. Diverticulitis. COMPARISON: 09/08/2021 TECHNIQUE: Multidetector volumetric images were obtained from the superior aspect of the liver through the pubic symphysis following administration 85 mL of Omnipaque 350 intravenous contrast. Sagittal and coronal reformatted images were obtained on the technologist's workstation. Oral contrast: Yes This CT examination was performed using dose optimization techniques as appropriate, variously including the following: *Automated exposure control *Adjustment of mA and/or kV according to patient size (this includes techniques or standardized protocols for targeted exams where dose is matched to indication/reason for exam; i.e. extremities or head) *Use of iterative reconstruction technique DLP: 403 mGy-cm FINDINGS: LUNG BASES: The visualized lung bases are unremarkable. LIVER, GALLBLADDER, AND BILIARY TREE: The liver is normal in size, shape, and attenuation. There is a region of hypoattenuation centrally in the liver which is of uncertain etiology. This measures higher than simple fluid attenuation. Area measures approximately 3.2 x 3 cm. No biliary ductal dilatation. The gallbladder is not seen. PANCREAS: Unremarkable. SPLEEN: Unremarkable. ADRENAL GLANDS: The right adrenal gland is unremarkable. 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 KIDNEYS AND URETERS: The kidneys are normal in size, shape, and attenuation. No hydronephrosis, hydroureter, or calculi seen. No perinephric stranding. BLADDER: Unremarkable. GASTROINTESTINAL TRACT: The stomach is unremarkable. Normal caliber of the small bowel. There is no obstruction. Colonic diverticulosis is present. The prior sigmoid diverticulitis has resolved. No colonic wall thickening is definitively seen at this time, although the sigmoid colon is decompressed which limits the evaluation. No free air. No significant free fluid. ABDOMINAL WALL: No significant hernia is appreciated. LYMPH NODES: Normal. VASCULAR: Normal caliber aorta with mild atherosclerotic calcification. PELVIC VISCERA: The uterus and adnexa are unremarkable. OSSEOUS STRUCTURES: No acute or suspicious osseous abnormality. Mild degenerative changes of the spine and hips. CT/CT abdomen pelvis w con IMPRESSION: 1. Colonic diverticulosis. Resolution of the prior diverticulitis. No acute inflammatory change. 2. Area of hypoattenuation centrally in the liver of uncertain etiology. This is not cystic in nature. It is possible that this is a geographic area of fatty infiltration. Consider nonemergent MRI evaluation. Fleischner guidelines were followed.
[2021-10-04] MEDS: Barium Sulfate Oral (Berry) 450 ML ORAL.SUSP 900 ML PO (08:39)
[2021-10-04] MEDS: iohexoL 350 MG/ML 100 ML INFUS..BTL IV (08:40)
== END 2021-10-04 00:01 | disposition home or self-care (01) ==
LOC: HO.CT
PROVIDERS: Visit Provider Surgery
DX: R10.9 Unspecified abdominal pain (principal); K57.92 Diverticulitis of intestine, part unspecified, without perforation or abscess without bleeding
CPT/HCPCS: 74177; Q9967

== ENCOUNTER → 2021-10-06 10:01 | Outpatient (BNVA) | payer MEDICARE, BC, SELFPAY | PROVIDERS: PCP Physician Assistant Medical; Referring Provider Physician Assistant Medical; Visit Provider Surgery | DX: K57.92 Diverticulitis of intestine, part unspecified, without perforation or abscess without bleeding (principal) | CPT/HCPCS: 99212 ==

== ENCOUNTER 2022-05-19 11:25 | Emergency (ER) | payer MEDICARE, BC, SELFPAY ==
--- NOTE | 2022-05-19 | ECG_ITS ---
Test Reason : DIZINESS Blood Pressure : / mmHG Vent. Rate : 060 BPM Atrial Rate : 060 BPM P-R Int : 180 ms QRS Dur : 094 ms QT Int : 406 ms P-R-T Axes : 065 019 038 degrees QTc Int : 406 ms Normal sinus rhythm Normal ECG No previous ECGs available Referred By: Generic ED Physician Electronically Signed By:Tom Zarate
--- NOTE | ~2022-05-19 | MR_ITS ---
EXAMINATION: MR BRAIN WITHOUT CONTRAST CLINICAL INFORMATION: Loss of balance. COMPARISON: None available. TECHNIQUE: MRI of the brain was obtained using routine sequences without contrast. FINDINGS: No focal restricted diffusion is demonstrated to suggest acute or subacute cerebral ischemia. No evidence of acute or chronic hemorrhagic products on heme-sensitive imaging. Scattered periventricular and deep white matter T2 FLAIR hyperintensities consistent with mild underlying microangiopathy. Proportional prominence of the ventricles and sulcal spaces without evidence of obstructive hydrocephalus. No abnormal mass effect. No midline shift. Normal appearance of the pituitary gland. Normal positioning of the cerebellar tonsils. Normal arterial and venous vascular flow voids are present. Normal, homogeneous marrow signal. Mild degenerative spondyloarthropathy of the visualized upper cervical spine. Mild mucosal thickening of the paranasal sinuses. Mild leftward nasal septal deviation. No signal abnormalities within the mastoids. MR/MR head/brain wo con IMPRESSION: 1. No acute intracranial abnormalities. 2. Mild underlying microangiopathy and generalized cerebral volume loss.
[2022-05-19 11:41] VITALS: BP 131/58; PULSE 63; RESP 16; TEMP 36.2; O2SAT 98; BMI 24.1
[2022-05-19 12:57] LABS: MANUAL DIFF FLAG NO
[2022-05-19 13:01] LABS: Basophils Percent Auto 0.4 % (0-2); Eosinophils Absolute Auto 0.1 X10*3/uL (0.0-0.4); Eosinophils Percent Auto 1.2 % (0-4); Hematocrit 46.1 % (37.0-47.0); Hemoglobin 15.4 g/dl (12.0-16.0); Imm Gran Abs Auto 0.02 X10*3/uL (0.00-0.03); Imm Gran Pct Auto 0.2 % (0.0-0.4); Lymphocytes Absolute Auto 1.7 X10*3/uL (1.2-4.9); Lymphocytes Percent Auto 20.1 % (20-40); Mean Corpuscular HGB Conc 33.4 g/dl (31.0-35.0); Mean Corpuscular Hemoglobin 29.6 pg (27.0-33.0); Mean Corpuscular Volume 88.7 fL (80.0-98.0); Mean Platelet Volume 9.6 fL (9.4-12.3); Monocytes Absolute Auto 0.5 X10*3/uL (0.1-1.2); Monocytes Percent Auto 5.9 % (2-11); Neutrophils Percent Auto 72.2 % (45-73); Platelet Count 211 X10*3/uL (160-400); Red Cell Distribution Width 12.1 % (11.0-16.0); White Blood Count 8.3 X10*3/uL (4.8-10.8)
[2022-05-19 13:16] LABS: Anion Gap 10 (12-20); Blood Urea Nitrogen 14 mg/dL (9-16); Calcium 10.5 mg/dL (8.4-10.2); Carbon Dioxide 32 mmol/L (22-29); Chloride 103 mmol/L (96-108); Creatinine Clr Calc Pharmacy 61.1; Estimated Glomerular Filt Rate > 60; Glucose Random 116 mg/dL (60-115); Potassium 5.3 mmol/L (3.3-5.1); Sodium 140 mmol/L (135-145)
[2022-05-19 13:22] LABS: Troponin-I High Sensitivity < 3.5 ng/L (<3.5-17.0)
[2022-05-19 13:29] LABS: Glucose, Whole Blood 102 mg/dL (60-115)
[2022-05-19 20:20] VITALS: BP 150/57; PULSE 63; RESP 18; O2SAT 97
--- NOTE | 2022-05-19 20:20 | PC.NURSE ---
describes severe dizziness, bumping into [place] . hx of meniers. steady gait. no neuro deficits noted.
--- NOTE | 2022-05-19 20:39 | ED.DIZZY ---
HPI - Dizziness General Chief Complaint: Dizziness Stated Complaint: high BP Time Seen by Provider: 05/19/22 20:27 Source: patient Mode of arrival: ambulatory Limitations: no limitations History of Present Illness HPI Narrative: 71-year-old female presents for 3 days of dizziness, loss of balance, and elevated blood pressure. She presented to physical therapy, noted to have elevated blood pressure today. Has not taken blood pressure medications today because of her dizziness. She has a history of Meniere's disease, but has not had a dizziness attack in multiple years. She has never had loss of balance. She does not report changes in vision, headache, chest pain or pressure, palpitations, abdominal pain, abdominal distention, fevers or chills. MD elicited complaint: difficulty walking, vertigo and disequilibrium Pertinent past history: Meniere's disease Onset (ago): day(s) (3) Timing: gradual onset Severity: moderate Description: room spinning , off-balance and difficulty walking History of similar symptoms: No Exacerbating factors: movement/ambulation Relieving factors: remaining still Associated neuro symptoms: gait ataxia Related Data Home Medications Medication Instructions Recorded Confirmed cholecalciferol (vitamin D3) 25 25 mcg PO DAILY 09/08/21 10/06/21 mcg (1,000 unit) capsule evolocumab 140 mg/mL subcutaneous 140 mg subcut Q2W 09/08/21 10/06/21 pen injector (Lukas Stephen) fluticasone propionate 50 2 spray intranasal DAILY 09/08/21 10/06/21 mcg/actuation nasal spray,suspension levothyroxine 125 mcg tablet 125 mcg PO DAILY 09/08/21 10/06/21 meclizine 25 mg tablet 25 mg PO TID PRN Dizziness 09/08/21 10/06/21 omeprazole 20 mg capsule,delayed 20 mg PO DAILY PRN Acid Reflux 09/08/21 10/06/21 release trazodone 50 mg tablet 50 mg PO BEDTIME 09/08/21 10/06/21 amoxicillin 500 mg capsule mg PO 10/06/21 10/06/21 methylprednisolone 4 mg tablets in 0 mg PO 10/06/21 10/06/21 a dose pack Previous Rx's Medication Instructions Recorded ondansetron HCl 4 mg tablet 4 mg PO Q8H PRN nausea and 09/11/21 vomiting #20 tabs Allergies Allergy/AdvReac Type Severity Reaction Status Date / Time albuterol AdvReac Headache Verified 11/23/21 12:40 atorvastatin AdvReac Muscle Pain Verified 11/23/21 12:40 codeine AdvReac Nausea and Verified 11/23/21 12:40 Vomiting cortisone AdvReac Rash Verified 11/23/21 12:40 niacin AdvReac Itching, Verified 11/23/21 12:40 rash oxycodone AdvReac Headache Verified 11/23/21 12:40 scopolamine AdvReac Headache Verified 11/23/21 12:40 Review of Systems Review of Systems: Constitutional: No Fever, No Chills ENT/Mouth: No Ear Pain, No Hoarseness, No sore throat Eyes: No Eye Pain, No Swelling, No Redness, No Foreign Body Cardiovascular: No Chest Pain, No SOB Respiratory: No Cough, No Dyspnea Gastrointestinal: No Nausea, No Vomiting, No Diarrhea, No abdominal Pain Genitourinary: No Dysuria, No Hematuria Musculoskeletal: positive joint pain, No Myalgias, No Joint Swelling Skin: No Skin lacerations, No rash Neuro: No Weakness, No Numbness, No Paresthesias, No Loss of Consciousness, positive Dizziness, No Headache, positive loss of balance Psych: No Anxiety/Panic, No Depression Heme/Lymph: no easy bruising, no Lymphadenopathy Endocrine: No Polyuria, No Polydipsia Yes all other systems are reviewed and are negative [facility] Past Medical History Attestation statement: The following information was validated with the patient. Source: old records reviewed Medical History Abdominal pain Breast cancer Diabetes Diverticulitis Diverticulitis High cholesterol Hypothyroid Perforation of sigmoid colon due to diverticulitis UTI (urinary tract infection) Surgical History History of back surgery History of cholecystectomy (1972) History of lumpectomy of right breast History of repair of right rotator cuff History of root canal procedure History of tonsillectomy Family History Family History Father Colon cancer Social History Social History Household Members: Spouse Housing: House Do you presently have visiting nurse or other home services: No Patient Tobacco Use Status: Former Tobacco user Quit Date: 50 years ago Tobacco use type: Cigarette Cigarette Packs Per Day: 0.5 Cigarettes Per Day: 10.0 Years Smoked: 7 Second Hand Smoke Exposure: No Advance Directives: Yes Advance Directives on File: Yes Advance Directives Date on File: 09/09/21 service: No Current occupational status: retired Physical Exam Vital Signs: Vital Signs: Last Vital Signs Temp 97.2 F 05/19/22 11:41 Pulse 60 05/19/22 21:24 Resp 21 H 05/19/22 21:24 BP 121/56 L 05/19/22 21:24 Pulse Ox 97 05/19/22 21:24 O2 Del Method 05/19/22 21:24 BMI result Body Mass Index 24.1 Appearance: Alert. Oriented X3. No acute distress. Eyes: Pupils equal, round and reactive to light. EOMI. ENT: Pharynx normal. Neck: Normal inspection. Neck supple. CVS: Normal heart rate and rhythm. Pulses normal. Respiratory: No respiratory distress. Breath sounds normal. Abdomen: Soft and nontender. Skin: Skin warm and dry. Normal skin color. Normal skin turgor. Extremities: Moves all extremities against resistance. Gait not tested for safety. Neuro: No motor deficit. No sensory deficit. Cranial nerves 2-12 intact. NIH Stroke Scale Level of Consciousness: Alert Level of Consciousness Questions: Answers both questions correctly Level of Consciousness Commands: Performs both tasks correctly Best Gaze: Normal Visual: No visual loss Facial Palsy: Normal Motor Arm (Right): No drift Motor Arm (Left): No drift Motor Leg (Right): No drift Motor Leg (Left): No drift Limb Ataxia: Absent Sensory: Normal Best Language: No aphasia Dysarthia: Normal Extinction and Inattention: No abnormality Score: 0 Course Course Course Narrative: 71-year-old female presents for 3 days of dizziness with loss of balance. Has a history of Meniere's disease, has not had dizziness in several years, and has never had loss of balance. Patient has been in the waiting room for 9 hours. 20:39 patient to MRI. Has had dizziness, loss of balance with a sudden onset that started 3 days ago. Patient does have a history of Meniere's disease but has not had any dizziness or loss of balance with previous episodes. Has not had dizziness in multiple years. Concern for posterior stroke at this time. Patient is outside the tPA window, has also been in the waiting room for 9 hours. Potassium is 5.3, patient is able to eat and drink without difficulty. EKG is normal sinus. Troponins 0. 22:42 MRI is negative for acute findings. Plan of care is for patient follow-up with her primary care physician and Neurology patient verbalized understanding of and agrees plan of care discharge home. Verbalized understanding of signs and symptoms indicating need for emergent intervention. MDM - Dizziness Differential Diagnosis Differential diagnosis: Likely benign paroxysmal positional vertigo, orthostatic hypotension, vertebral basilar insufficiency, cerebrovascular accident, acute vestibular neuronitis and transient cerebral ischemia Medical Records Attestation: I reviewed the patient's medical records. Lab Data Attestation: I reviewed the patient's lab results. Result diagrams: 05/19/22 12:52 05/19/22 12:52 Labs: Lab Results 05/19/22 05/19/22 05/19/22 Range/Units 12:49 12:52 12:52 WBC 8.3 (4.8-10.8) X10*3/uL RBC 5.20 (4.20-5.50) X10*6/uL Hgb 15.4 (12.0-16.0) g/dl Hct 46.1 (37.0-47.0) % MCV 88.7 (80.0-98.0) fL MCH 29.6 (27.0-33.0) pg MCHC 33.4 (31.0-35.0) g/dl RDW 12.1 (11.0-16.0) % Plt Count 211 (160-400) X10*3/uL MPV 9.6 (9.4-12.3) fL Immature Gran % (Auto) 0.2 (0.0-0.4) % Neut % (Auto) 72.2 (45-73) % Lymph % (Auto) 20.1 (20-40) % [place] % (Auto) 5.9 (2-11) % Eos % (Auto) 1.2 (0-4) % Baso % (Auto) 0.4 (0-2) % Lymph # (Auto) 1.7 (1.2-4.9) X10*3/uL [place] # (Auto) 0.5 (0.1-1.2) X10*3/uL Eos # (Auto) 0.1 (0.0-0.4) X10*3/uL Baso # (Auto) 0.0 (0.0-0.2) X10*3/uL Abs Immat Gran (auto) 0.02 (0.00-0.03) X10*3/uL Absolute Neuts (auto) 6.0 (2.0-8.3) x10*3/uL Absolute Nucleated RBC 0.000 (0.0-0.012) X10*3/uL Nucleated RBC % (auto) 0.0 (0.0-0.2) /100WBC Sodium 140 (135-145) mmol/L Potassium 5.3 H D (3.3-5.1) mmol/L Chloride 103 (96-108) mmol/L Carbon Dioxide 32 H (22-29) mmol/L Anion Gap 10 L (12-20) BUN 14 (9-16) mg/dL Creatinine 0.77 (0.5-1.4) mg/dL Estim Creat Clear Calc 61.1 Estimated GFR > 60 POC Glucose 102 (60-115) mg/dL Random Glucose 116 H (60-115) mg/dL Calcium 10.5 H (8.4-10.2) mg/dL Troponin I High Sens (<3.5-17.0) ng/L 05/19/22 Range/Units 12:52 WBC (4.8-10.8) X10*3/uL RBC (4.20-5.50) X10*6/uL Hgb (12.0-16.0) g/dl Hct (37.0-47.0) % MCV (80.0-98.0) fL MCH (27.0-33.0) pg MCHC (31.0-35.0) g/dl RDW (11.0-16.0) % Plt Count (160-400) X10*3/uL MPV (9.4-12.3) fL Immature Gran % (Auto) (0.0-0.4) % Neut % (Auto) (45-73) % Lymph % (Auto) (20-40) % [place] % (Auto) (2-11) % Eos % (Auto) (0-4) % Baso % (Auto) (0-2) % Lymph # (Auto) (1.2-4.9) X10*3/uL [place] # (Auto) (0.1-1.2) X10*3/uL Eos # (Auto) (0.0-0.4) X10*3/uL Baso # (Auto) (0.0-0.2) X10*3/uL Abs Immat Gran (auto) (0.00-0.03) X10*3/uL Absolute Neuts (auto) (2.0-8.3) x10*3/uL Absolute Nucleated RBC (0.0-0.012) X10*3/uL Nucleated RBC % (auto) (0.0-0.2) /100WBC Sodium (135-145) mmol/L Potassium (3.3-5.1) mmol/L Chloride (96-108) mmol/L Carbon Dioxide (22-29) mmol/L Anion Gap (12-20) BUN (9-16) mg/dL Creatinine (0.5-1.4) mg/dL Estim Creat Clear Calc Estimated GFR POC Glucose (60-115) mg/dL Random Glucose (60-115) mg/dL Calcium (8.4-10.2) mg/dL Troponin I High Sens < 3.5 (<3.5-17.0) ng/L Imaging Data MRI - head: Attestation: I personally reviewed and interpreted this imaging study as follows: Radiologist's impression: EXAMINATION: MR BRAIN WITHOUT CONTRAST CLINICAL INFORMATION: Loss of balance.? COMPARISON: None available.? TECHNIQUE: MRI of the brain was obtained using routine sequences without contrast. FINDINGS: No focal restricted diffusion is demonstrated to suggest acute or subacute cerebral ischemia. No evidence of acute or chronic hemorrhagic products on heme-sensitive imaging. Scattered periventricular and deep white matter T2 FLAIR hyperintensities consistent with mild underlying microangiopathy. Proportional prominence of the ventricles and sulcal spaces without evidence of obstructive hydrocephalus. No abnormal mass effect. No midline shift. Normal appearance of the pituitary gland. Normal positioning of the cerebellar tonsils. Normal arterial and venous vascular flow voids are present. Normal, homogeneous marrow signal. Mild degenerative spondyloarthropathy of the visualized upper cervical spine. Mild mucosal thickening of the paranasal sinuses. Mild leftward nasal septal deviation. No signal abnormalities within the mastoids. MR/MR head/brain wo con IMPRESSION: 1. No acute intracranial abnormalities. 2. Mild underlying microangiopathy and generalized cerebral volume loss. ECG Data Attestation: I personally reviewed and interpreted this ECG as follows: ECG interpretation date: 05/19/22 ECG interpretation time: 13:03 Prior ECG tracings: available for review Interpretation: Vent. rate 60 BPM AL interval 180 ms QRS duration 94 ms QT/QTc 406/406 ms P-R-T axes 65 19 38 Normal sinus rhythm Normal ECG No previous ECGs available Scores Heart Score History: -0- slightly suspicious ECG: -0- normal Age: -2- > or = 65 Risk factory: -0- no risk factors known Troponin: -0- < or = normal limit Score: 2 Risk: 1.7% Discharge Plan Discharge Clinical Impression: Dizziness Patient Disposition: Home, Self-Care Instructions: Vertigo (ED), Dizziness (ED) Additional Instructions: You were evaluated for dizziness loss of balance. MRI of the head is negative for acute findings. I have referred you for Dr. Gilman. Please call and request an appointment for evaluation. EKG is normal sinus. Cardiac enzymes are negative. Please drink plenty of fluids. Please follow-up with primary care physician. Prescriptions: No Action ondansetron HCl 4 mg tablet 4 mg PO Q8H PRN (Reason: nausea and vomiting) Qty: 20 1RF meclizine 25 mg Tablet 25 mg PO TID PRN (Reason: Dizziness) omeprazole 20 mg Capsule,Delayed Release(Dr/Ec) 20 mg PO DAILY PRN (Reason: Acid Reflux) fluticasone propionate 50 mcg/actuation [place],Suspension 2 spray INTRANASAL DAILY trazodone 50 mg tablet 50 mg PO BEDTIME levothyroxine 125 mcg tablet 125 mcg PO DAILY Repatha SureClick 140 mg/mL pen injector 140 mg subcut Q2W cholecalciferol (vitamin D3) 25 mcg (1,000 unit) capsule 25 mcg PO DAILY methylprednisolone 4 mg tablets,dose pack 0 mg PO amoxicillin 500 mg capsule PO Referrals: Gerald Gilman MD [Physician] - (Dizziness and loss of balance, negative MRI) Carmine Chaparro PA [Primary Care Provider] - 1 week (Follow-up for dizziness, negative MRI)
[2022-05-19 21:24] VITALS: BP 121/56; PULSE 60; RESP 21; O2SAT 97
== END 2022-05-19 23:06 | disposition home or self-care (01) ==
PROVIDERS: Emergency Provider Emergency Medicine; PCP Physician Assistant Medical
DX: R42 Dizziness and giddiness (principal); R27.0 Ataxia, unspecified; R26.81 Unsteadiness on feet; I10 Essential (primary) hypertension; E87.8 Other disorders of electrolyte and fluid balance, not elsewhere classified; E11.9 Type 2 diabetes mellitus without complications; E78.5 Hyperlipidemia, unspecified; Z87.891 Personal history of nicotine dependence
CPT/HCPCS: 36415; 70551; 80048; 82947; 84484; 85025; 93005; 99285

== ENCOUNTER 2025-05-20 09:43 | Outpatient (AMB) | payer MEDICARE, BC, SELFPAY ==
--- OUTSIDE RECORDS SUMMARY | 2025-05-11 06:15 | XMS_ITS ---
Author Organization [facility] Address [address] [place] [address] Care Team Providers Care Pearl Glue Operator Name Role Phone Carmine Castro Primary Care Provider Unav ailable Black, Skye Unavailable [phone] Isis Young Unavailable [phone] Encounters Encounter Location Date Provider Diagnosis [facility] [address] [place] [address] 05/11/2025 Isis Young Plan Of Treatment No Information Progress Notes * Viola NAVARRO MDOB:1949 (74 yo F)Acc No.[id number]:05/11/2025 Progress Notes Patient: Naeem RODRIGUEZise [place] Provider: Reji Young DPM :1950 A ge:74 Y S ex:Female Date:05/11/2025 Address:[address] [place] Pcp:ERICK Brooke Subjective: * Chief Complaints: * [...] Date: 05/11/2025 Generated for Paulina cody/Art/Olegarioransmitting on: 05/20/2025 10:18 AM EDT
--- OUTSIDE RECORDS SUMMARY | 2025-05-20 10:18 | XMS_ITS ---
Author Organization [facility] Address [address] [place] [address] Phone Care Team Providers Care Yacht Captain Name Role Phone Carmine Chaparro Primary Care Provider [phone] Active Problems Problem Noted Date Diagnosed Date Claudication of both lower extremities (CMS/[facility] V24) 01/29/2025 Assessment & Plan (01/29/2025 8:22 AM EDT): The patient is able to walk through her discomfort in both calfs, and I encouraged her to continue to do so to encourage formation of collateral circulation. We will evaluate this further with an arterial duplex with ELDER of both lower extremities and readdress as needed. Orders: Lipid panel with reflex to direct LDL; Future Vascular US duplex lower extremity arteries bilateral with ELDER; Future Mixed hyperlipidemia 01/29/2025 Assessment & Plan (01/29/2025 8:22 AM EDT): The patient's most recent lipid panel completed in September 2024 revealed an LDL of 39 and triglycerides of 226; she will continue with Repatha. We discussed lifestyle modifications including a diet low in simple carbohydrates and increasing activity as tolerated to assist with further decreasing her triglyceride levels; she is planning to increase her activity as the weather continues to get better and as such we will check a lipid panel mid-summer. I have reviewed with the patient the importance of a heart healthy lifestyle which includes eating a low-fat low-salt diet, getting regular exercise, maintaining a healthy weight, not smoking, and following up with routine medical care. Orders: Lipid panel with reflex to direct LDL; Future Vascular US duplex lower extremity arteries bilateral with ELDER; Future Lung nodule 11/04/2024 Adrenal nodule ([facility] V24) 11/04/2024 Breast cancer ([facility] V24, [facility] V28) 024 Diabetes mellitus ([facility] V24, [facility] V28) Diverticulitis 10/13/2024 Fatty liver 10/13/2024 Hyperparathyroidism ([place] [id number]) 10/07/2024 Parathyroid adenoma 10/07/2024 Age related osteoporosis 07/29/2024 Acute deep vein thrombosis ( DVT) of distal vein of left lower extremity ([facility] V24, [facility] V28) 08/10/2022 TRESSA (obstructive sleep apnea) 05/18/2022 Overview (10/13/2024): Home sleep study date: 05/08/2022 BMI 24.1 Diagnostic sleep study, even though less than 3 hours, showed sufficient respiratory disturbances to meet diagnostic criteria for obstructive sleep apnea JEROMY 24 events per hour. Average oxygen saturation was 90% and oxygen katey was 80%. Patient had desaturations below 88% for 119 minutes or 31% of the study. Last Assessment & Plan: Treatment: Auto CPAP 6 to 16 cm H2O sent to [facility]. Hyperparathyroidism ([facility] V24) 10/17/2021 Hand arthritis 10/08/2019 Type 2 diabetes mellitus wit hout complication, without long-term current use of insulin ([facility] V24, [facility] V28) 07/16/2019 Bilateral carotid bruits 05/14/2018 Gastroesophageal reflux disease without esophagi tis 04/02/2018 Family history of chronic ischemic heart disease 12/05/2011 Hypothyroidism 12/12/2005 Pure hypercholesterolemia 12/02/2005 Overview (10/13/2024): UNABLE TO TOLERATE MULTIPLE MEDS STATINS NIACIN ZETIA Last Assessment & Plan: Last Lipid panel as above LDL 83, 8 years ago LDL was in the 200s. On Repatha, can not tolerate statins. Her TG were elevated however she does tell me this was not fasting and did change a few things in her diet. She will adjust her diet and start walking again. Current Oncology Plans No current plan information found. Past Plans No past plan information found. Radiation Treatments * No radiation treatments are documented for this patient in [facility]. Treatments may have been administered in another system. Lifetime Dose Tracking * Chemical Lifetime Dose Automatic Entry Manual Entr y CTDIvol 17.99 mGy 17.99 mGy 0 mGy
--- OUTSIDE RECORDS SUMMARY | 2025-05-20 10:18 | XMS_ITS | Clinical Summary ---
Author Organization [facility] Address [address] [place] [address] Care Team Providers Care Nuclear Radiation Engineer Name Role Phone Carmine Chaparro PA-C Primary Care Provider Allergies Active Allergy Reactions Criticality Noted Date Comments Albuterol Other (See Comments) 09/15/2020 Headaches Atorvastatin Other (See Comments) 09/15/2020 Muscle weakness Cortisone Other (See Comments) 03/07/2019 Skin redness Niacin Itching,Rash Low 09/15/2020 Oxycodone 08/06/2019 Scopolamine 09/15/2020 Acetaminophen-Codeine 08/06/2019 Medications Medication Sig Dispensed Refills Start Date End Date Status ciclopirox (PENLAC) 8 % solution PLEASE SEE ATTACHED FOR DETAILED DIRECTIONS 0 04/30/2019 Active Levothyroxine Sodium 125 MCG CAPS Take 112 mcg by mouth. 0 01/14/2019 Active ONETOUCH DELICA LANCETS FINE MISC USE TO TEST BLOOD SUGAR ONCE DAILY 07/28/2019 Active ONETOUCH VERIO test strip USE TO CHECK BLOOD SUGARS ONCE DAILY 1 07/19/2019 Active omeprazole (PriLOSEC) 20 MG capsule Take 1 capsule (20 mg total) by mouth as needed. 0 Active fluticasone (FLONASE) 50 MCG/ACT nasal spray spray/apply 1 spray in each nostril daily. 0 Active meclizine (ANTIVERT) 25 MG tablet Take 1 tablet (25 mg total) by mouth as needed. 0 Active Evolocumab (REPATHA SC) Inject under the skin. 0 Active traZODone (DESYREL) 100 MG tablet Take 1.5 tablets (150 mg total) by mouth every night at bedtime. 0 Active estradiol (ESTRACE) 0.1 MG/GM vaginal cream Place 2 g vaginally daily. 0 Active cycloSPORINE (RESTASIS) 0.05 % ophthalmic emulsion 1 drop 2 (two) times a day. 0 Active Active Problems Problem Noted Date Diagnosed Date Age related osteoporosis 07/29/2024 Hand arthritis right 10/08/2019 Family History Medical History Relation Name Comments Anesthesia problems Brother Diabetes Brother Blood Clots Father Cancer Father Diabetes Father Heart disease Father Hyperlipidemia Father Arthritis Mother Heart disease Mother Hyperlipidemia Mother Hypertension Mother Rheumatologic disease Mother Relation Name Status Comments Brother Father Mother Social History Tobacco Use Types Packs/Day Years Used Date Smoking Tobacco: Former Cigarettes 0.5 1 1970 Smokeless Tobacco: Never Alcohol Use Standard Drinks/Week Comments Yes 3 (1 standard drink = 0.6 oz pur e alcohol) Sex and Gender Information Value Date Recorded Sex Assigned at Not on file Gender Identity Not on file Sexual Orientation Not on file Job Start Date Occupation Industry Not on file Not on file Not on file Last Filed Vital Signs Vital Sign Reading Time Taken Comments Blood Pressure 124/47 07/30/2024 1:08 PM EDT Pulse 77 07/30/2024 1:08 PM EDT Temperature 37.3 C (99.2 F) 07/30/2024 1:08 PM EDT Respiratory Rate - - Oxygen Saturation 100% 07/30/2024 1:08 PM EDT Inhaled Oxygen Concentration - - Weight 61.4 kg (135 lb 5.8 oz) 07/30/2024 1:08 P M EDT Height 163.8 cm (5' 4.5 ) 10/04/2023 8:56 AM EST Body Mass Index 22.88 10/04/2023 8:56 AM EST Plan of Treatment Health Maintenance Due Date Last Done Comments Hepatitis C Screening 1950 Depression Screening 1963 BMI Counseling 1969 Preventative Health Evaluation 1969 Colon Cancer Screening (Colonoscopy) 1996 Breast Cancer Screening (Mammogram) 2001 Fall Risk Assessment 2016 Osteoporosis Screening (DEXA Scan) 2016 COVID-19 Vaccine ( season) 2024 07/18/2022, 02/13/2022, 07/22/2021, Additional history exists Influenza Vaccine (#1) 2025 4, 06/22/2023, 07/19/2022 RSV Adult > 60+ Yrs or (1 - 1-dose 75+ series) 2026 DTap / Tdap / Td (3 - Td or Tdap) 07/19/2031 07/19/2021, 11/28/2010 Pneumococcal Vaccine Completed 04/02/2018, 01/19/20 17 Shingrix-Zoster Vaccine Completed 04/28/20 19, 02/14/2019, 02/13/2019 Hepatitis B Vaccines Aged Out No long er eligible based on patient's age to complete this topic RSV Ped < 20 months Aged Out No longe r eligible based on patient's age to complete this topic Care Teams Nuclear Radiation Engineer Relationship Specialty Start Date End Date Carmine Chaparro PA-C PCP - General Medical Services 04/13/21
--- NOTE | 2025-05-20 10:19 | A.OFFVIS_ITS ---
Vital Signs 05/20/25 10:20 Height 5 ft 5 in Weight 135 lb BMI 22.5 BP 131/60 Blood Pressure Location Lt brachial Position Sitting Respiration 18 Pulse 69 Pulse Source Pulse Oximeter Pulse Oximetry (%) 98 Oxygen Delivery Method Room Air Intake Visit Reasons: Age related osteoporosis Sewing Machine Operator Zipper Required: No Allergies albuterol Adverse Reaction (Verified 11/23/21 12:40) Headache atorvastatin Adverse Reaction (Verified 11/23/21 12:40) Muscle Pain codeine Adverse Reaction (Verified 11/23/21 12:40) Nausea and Vomiting cortisone Adverse Reaction (Verified 11/23/21 12:40) Rash niacin Adverse Reaction (Verified 11/23/21 12:40) Itching, rash oxycodone Adverse Reaction (Verified 05/15/25 13:22) Headache scopolamine Adverse Reaction (Verified 11/23/21 12:40) Headache HPI Comments Details: Viola Navarro is very pleasant 74 years old female who presents in my office with complains on lower back pain on the left side. She reports that her pain started many years ago she relates it to distant history of fall. She reports flexing forward aggravates her pain and prolonged sitting makes her pain worse. Because of her pain she can not sleep normally, but she can do activities of daily living, she can take care of herself, she can function normally. She re ports that weather changes and called aggravate her pain and she reports that application of cold compresses to her back makes her pain better. In terms of tissue damage he reports her pain as burning, dull, sore, hurting, aching, heavy, radiating sensation. She reports minimal radiation of the pain into the right lower extremity and the area of the hip thigh but not below that level. She also reports some discomfort in the groin. She had x-rays of her hip joint done and according to her it demonstrated no arthritis. She reports that MRI was performed on her back and results of the MRI dictated as below. She went for EMG which demonstrated radiculopathy of L5 on the left. She went for every year for physical therapy from 1825-7908. She reported no help from physical therapy. She tried NSAIDs without help she tried home exercise program which aggravated her pain only. Her past medical history significant for headaches, dizziness and fainting, asthma, diabetes which is diet controlled, her hemoglobin A1c is 5.9, history of UTIs, history of gallstones, and history of digestive problems. Her past surgical history significant for distant history of minimally invasive back surgery in 1985, shoulder surgery in 2018, tonsillectomy as a child gallbladder in 1972 parathyroid surgery in 2024 and lumpectomy and radiation for breast cancer in 2020. She admits smoking cigarettes 1/2 a pack per day, she admits drinking 2 drinks per month of cocktail 0 beer, she drinks 1 coffee a day and she denies recreational drugs. [facility] Medical History Abdominal pain Breast cancer Diabetes Diverticulitis Diverticulitis High cholesterol Hypothyroid Perforation of sigmoid colon due to diverticulitis UTI (urinary tract infection) Surgical History History of back surgery History of cholecystectomy (1972) History of lumpectomy of right breast History of repair of right rotator cuff History of root canal procedure History of tonsillectomy Family History Father Colon cancer Social History Household Members: Spouse Housing: House Do you presently have visiting nurse or other home services: No Patient Tobacco Use Status: Former Tobacco user Tobacco use type: Cigarette Cigarette Packs Per Day: 0.5 Cigarettes Per Day: 10.0 Years Smoked: 7 Second Hand Smoke Exposure: No Advance Directives Date on File: 09/09/21 service: No Current occupational status: retired Review of Systems Const All systems reviewed & are unremarkable except as noted in HPI and below ENT Reports Normal hearing present Neuro Reports Normal hearing present, Denies Abnormal speech present, Denies confusion and Denies Sensory deficit (Neuro) Psych Denies confusion Physical Exam Vital Signs: Last Vital Signs Pulse 69 05/20/25 10:20 Resp 18 05/20/25 10:20 BP 131/60 05/20/25 10:20 Pulse Ox 98 05/20/25 10:20 Oxygen Delivery Method Room Air 05/20/25 10:20 BMI result Body Mass Index 22.5 Const General: no acute distress; No confusion Orientation/consciousness: patient oriented x3 and No confusion Eyes General: appearance normal, both eyes and all related structures Pupils: Equal, round and reactive pupils present EOM: EOMs intact bilaterally Neck Neck: Yes full ROM Chest Chest palpation & inspection: normal inspection of the chest Resp Effort & Inspection: normal respiratory effort, able to speak in complete sentences, normal respiratory pattern, no audible wheezes and no cough Cardio Jugular venous distension: no JVD GI Inspection: Yes normal to inspection Back/Spine/Pelvis Other: Flexing forward and flexing backwards aggravate her pain however flexing forward aggravate her pain more than flexing backwards. Mark test is positive on the left, Gaenslen test is positive on the left, pelvis distraction test but not pelvic compression test is positive on the last, SLR is negative bilaterally, Lasegue test is negative bilaterally. Neuro General: patient oriented x3, gait normal and No confusion Cranial nerves: Yes CN's II-XII intact bilaterally, Yes Equal, round and reactive pupils present, Yes Normal hearing present and Yes Ability to bilaterally elevate shoulders present Speech: No Abnormal speech present Gait exam (Neuro): Normal gait present Motor exam (neuro): 5/5 motor strength present throughout Sensory Exam: No Sensory deficit (Neuro) Extrem General: No pedal edema Psych Speech and movement: Normal speech and movement present Affect: normal affect Attitude: cooperative Thought process: Normal thought process present Thought content: Normal thought content present Insight: Good insight present (Psych) Judgement: Good judgement present (Psych) Results Reviewed Results Reviewed: MRI lumbar spine without contrast 03/18/2024 Bones normal marrow signal is noted. Cord the cord appears within normal limits. Normal signal is noted. Facets: Mild degenerative changes in the posterior facets. Soft tissues visible soft tissues appear within normal limits. Lumbar spine levels: L1-L2 appears normal without significant changes no stenosis, L2-L3 minimal degenerative disc bulge and facet changes minimal spinal canal stenosis. Mild bilateral foraminal stenosis. L3-L4: Minimal degenerative disc bulge and facet changes with minimal spinal canal stenosis. Degenerative changes contribute to mild bilateral foraminal stenosis. L4-5 minimal degenerative disc bulge and degenerative changes in the posterior facets. Slight asymmetric effacement of the left lateral recess that may exert some mass effect on the budding left L5 nerve root. Mild spinal canal stenosis. Degenerative changes contribute to mild bilateral foraminal stenosis. L5-S1 degenerative disc osteophyte with minimal spinal canal stenosis. Degenerative changes contribute to mild bilateral foraminal stenosis. Assessment & Plan Assessment & Plan (1) Postlaminectomy syndrome: Code(s): M96.1 - Postlaminectomy syndrome, not elsewhere classified Category: Medical (2) Chronic pain syndrome: Code(s): G89.4 - Chronic pain syndrome Category: Medical (3) Sacroiliitis: Code(s): M46.1 - Sacroiliitis, not elsewhere classified Category: Medical (4) SI (sacroiliac) joint dysfunction: Code(s): M53.3 - Sacrococcygeal disorders, not elsewhere classified Category: Medical (5) Vertebrogenic low back pain: Code(s): M54.51 - Vertebrogenic low back pain Category: Medical Plan With complains on prolonged sitting pain and flexing forward pain my initial differential diagnosis for this patient would be sacroiliitis versus vertebra genic pain syndrome. She had remote history of laminotomy of the lumbar spine as well as L5 left radiculopathy chronic demonstrated on the EMG. However her strength of the bilateral lower extremities is equal and she reports no numbness in bilateral lower extremities, her gait is not changed. I offered the patient to go for diagnostic left sacroiliac joint injection. I also requested her to bring me the MRI of the lumbar spine disc for my personal evaluation to rule out Modic type changes in the lower lumbar vertebra. If the diagnostic left SI joint injection will not be helpful to control her pain I would consider intercept RFA if the Modic type changes are present in her lumbar spine. I will see this patient after diagnostic left sacroiliac joint injection and I will evaluate her MRI at that time. Coding Level of Care Code New Pt Level 3 (37523) Diagnoses Postlaminectomy syndrome M96.1 Chronic pain syndrome G89.4 Sacroiliitis M46.1 SI (sacroiliac) joint dysfunction M53.3 Vertebrogenic low back pain M54.51
--- OUTSIDE RECORDS SUMMARY | 2025-05-20 10:19 | XMS_ITS | Patient Health Record ---
Author Organization [facility] Address [address] [place] [address] Care Team Providers Care Senior Network Administrator Name Role Phone Jeff Lu Primary Care Provider Unavailabl e Allergies Allergen (clinical drug ingredient) Drug/Non Drug Allergy documented on EMR Reaction Allergy Type Onset Date Status Niacin rash Drug Allergy Active oxycodone Oxycodone HCl Unknown Drug Allergy Act corbin Cortisone Unknown Drug Allergy Active scopolamine Scopolamine Unknown Drug Allergy Act corbin albuterol Albuterol Unknown Drug Allergy Active atorvastatin Atorvastatin muscle weakness Drug Allergy Active cortisone Cortisone Unknown Drug Allergy Active Reason For Referral No Information Medications Medication SIG (Take, Route, Frequency, Duration) Notes Start Date End Date Status Repatha 140 MG/ML 1 ml Subcutaneous Active Triamcinolone & Emollient 1% lotion Active Levothyroxine Sodium 112 MCG 1 tablet in the morning on an empty stomach Orally Once a day Active Omeprazole 20 MG 1 capsule 30 minutes before morning meal Orally Once a day Active Estradiol 0.1 MG/GM as directed Vaginal Active Meclizine HCl 25 MG 1 tablet as needed Orally Once a day Active Vitamin D 25 MCG (1000 UT) 1 tablet Orally Once a day Active Fluticasone Propionate 50 MCG/ACT 2 sprays in each nostril Nasally Once a day Active Blood Glucose Monitor Active Glucose Blood - as directed In Vitro Active Amitriptyline HCl 10 MG 1 tablet at bedt yoli Orally Once a day Active One Touch Delica Lancets Active Plan Of Treatment No Information Insurance Providers Payer Name Payer Address Payer Phone Subscriber Number Group Number Insured Name Patient Relationship to Insured Coverage Start Date Coverage End Date [employer] of [place] [address] [place] [phone] [id number] Viola Navarro Self - patient is the insured [facility] [address] [place] [address] [phone] [id number] Viola Navarro Self - patient is the insured Medical (General) History Medical History History ICD Code Fungal nail infection Migraine headaches Family history of ischemic heart disease Positive PEPE (antinuclear antibody) Bilateral carotid bruits Hyperlipidemia Underactive thyroid Prolapse of vaginal wall Increased fasting blood sugar Type 2 diabetes mellitus wit hout complication, without long-term current use of insulin Arthritis Dysplastic nevus Diverticulosis of colon (without mention of hemorrhage) Acid reflux disease Surgical History Surgery Date(Month/Year) Historical Tonsillectomy Right Shoulder Surgery 2018 cholecystectomy 1970 Lumbar laminectomy 1986
[2025-05-20 10:20] VITALS: BP 131/60; PULSE 69; RESP 18; O2SAT 98; BMI 22.5
== END 2025-05-20 11:05 | disposition home or self-care (01) ==
LOC: HO.PMC 09:43
PROVIDERS: PCP Physician Assistant Medical; Referring Provider Physician Assistant Medical; Visit Provider Anesthesiology
DX: M96.1 Postlaminectomy syndrome, not elsewhere classified (principal); G89.4 Chronic pain syndrome; M46.1 Sacroiliitis, not elsewhere classified; M53.3 Sacrococcygeal disorders, not elsewhere classified; M54.51 Vertebrogenic low back pain
CPT/HCPCS: 99203

== ENCOUNTER → 2025-05-20 09:43 | Outpatient (BNVA) | payer MEDICARE, BC, SELFPAY | PROVIDERS: PCP Physician Assistant Medical; Referring Provider Physician Assistant Medical; Visit Provider Anesthesiology | DX: M96.1 Postlaminectomy syndrome, not elsewhere classified (principal); G89.4 Chronic pain syndrome; M46.1 Sacroiliitis, not elsewhere classified; M53.3 Sacrococcygeal disorders, not elsewhere classified; M54.51 Vertebrogenic low back pain | CPT/HCPCS: 99202 ==

== ENCOUNTER 2025-06-26 10:02 | Outpatient (AMB) | payer MEDICARE, BC, SELFPAY ==
--- OUTSIDE RECORDS SUMMARY | 2024-07-30 13:00 | XMS_ITS | Encounter Summary ---
Author Organization [employer] Address [address] [place] [address] Care Team Providers Care Insurance Claims Clerk Name Role Phone Carmine Chaparro Primary Care Provider Un available Encounter Details Date Type Department Care Team [...] your loved ones. For example, early childhood teacher or elderly care for an older [...] Orientation Straight 11/19/2024 3: 16 PM EST Travel History Travel Start Travel End [place] 05/24/2025 05/29/2025 documented as of this encounter Last Filed [...] 07/24/2025 12:00 PM EDT Ancillary Procedure [facility] - [facility] 101 300 [facility] 101 [place] [address] 07/30/2025 10:00 AM EDT Appointment [facility] [address] [address] 08/05/2025 9:30 AM EDT Office Visit Vascular Surgery - [place] [address] [place] [address] Ashley Ortiz MD [address] [place] [address] 08/27/2025 11:00 AM EDT Appointment [facility] at [facility] [address] [place] [address] 10/06/2025 9:30 AM EST Office Visit [facility] Hematology Oncology [address] [place] [address] Philly Cameron MD [address] [place] [address] 10/12/2025 11:00 AM EST Office Visit [facility] 444 [place] [address] Adriana Morgan PA 444 [place] [address] 01/27/2026 10:35 AM EDT Office Visit Pul[facility] 175 [facility] 200 [place] [phone] Liliana Jameson NP 230 [place] [address] 06/16/2026 1:30 PM EDT Office Visit [facility] [address] [place] [address] Ginna Del Real MD 230 [place] [address] documented as of this encounter Procedures Procedure Name Priority Date/Time Associated Diagnosis Comments ..MISCELLANEOUS REFERENCE LAB TEST 07/30/2024 documented in this encounter Results * Miscellaneous reference lab test (07/30/2024) us Provider Onbase LAB BLOOD ORDERABLES Final Re sult documented in this encounter Visit Diagnoses Diagnosis Age-related osteoporosis without current pathological fracture documented in this encounter Care Teams Insurance Claims Clerk Relationship Specialty Start Date End Date Carmine Chaparro PA PCP - General Internal Medicine 01/03/21 09/02/24 documented as of this encounter
--- OUTSIDE RECORDS SUMMARY | 2024-09-18 10:30 | XMS_ITS ---
Author Organization [facility] Address [address] [place] [address] Care Team Providers Care Dye Mixer Name Role Phone Carmine Castro Primary Care Provider Unav ailable Black, Skye Unavailable [phone] Isis Young Unavailable [phone] Medications Medication SIG (Take, Route, Frequency, Duration) [...] Active Encounters Encounter Location Date Provider Diagnosis [facility] [place] [address] [place] [address] 09/18/2024 Isis Young Plan Of Treatment No Information Progress Notes * Viola NAVARRO MDOB:1949 (74 yo F)Acc No.[id number]:09/18/2024 Progress Note Patient: Abbe Viloa SCHULER Libia Provider: Reji Young DPM :1950 A ge:73 Y S ex:Female Date:09/18/2024 Address:[address] [place] [address] , [facility] Pcp:ERICK Brooke Subjective: * Chief Complaints: * [...] 11/18/2023 Generated for Paulina cody/Art/Kelechi on: 0 06/26/2025 10:45 AM EDT
--- OUTSIDE RECORDS SUMMARY | 2025-05-11 06:15 | XMS_ITS ---
Author Organization [facility] Address [address] [place] [address] Care Team Providers Care Pediatric Physical Therapist Name Role Phone Carmine Castro Primary Care Provider Unav ailable Black, Skye Unavailable [phone] Isis Young Unavailable [phone] Encounters Encounter Location Date Provider Diagnosis [facility] [address] [place] [address] 05/11/2025 Isis Young Plan Of Treatment No Information Progress Notes * Viola NAVARRO MDOB:1949 (74 yo F)Acc No.[id number]:05/11/2025 Progress Notes Patient: Naeem RODRIGUEZise Libia Provider: Reji Young DPM :1950 A ge:74 Y S ex:Female Date:05/11/2025 Address:[address] [id number] Pcp:ERICK Brooke Subjective: * Chief Complaints: * [...] Date: 05/11/2025 Generated for Paulina cody/Art/Olegarioransmitting on: 06/26/2025 10:45 AM EDT
--- OUTSIDE RECORDS SUMMARY | 2025-06-26 10:45 | XMS_ITS | Clinical Summary ---
Author Organization [facility] Address [address] [place] [address] Care Team Providers Care Car Top Bolter Name Role Phone Carmine Chaparro PA-C Primary [...] age to complete this topic Care Teams Car Top Bolter Relationship Specialty Start Date End Date Carmine Chaparro PA-C PCP - General Medical Services 04/13/21
--- OUTSIDE RECORDS SUMMARY | 2025-06-26 10:45 | XMS_ITS ---
Author Organization [facility] Address [address] [place] [address] Phone Care Team Providers Care Business Developer Name Role Phone Carmine Chaparro Primary Care Provider [phone] Active Problems Problem Noted Date Diagnosed Date Claudication of both lower extremities ([facility] V24) 01/29/2025 Assessment & Plan [...] ELDER; Future Lung nodule 11/04/2024 Adrenal nodule ([facility] V24) 11/04/2024 Breast cancer ([facility] V24, [facility] V28) 024 Diabetes mellitus ([facility] V24, [facility] V28) Diverticulitis 10/13/2024 Fatty liver 10/13/2024 Hyperparathyroidism ([place] [id number]) 10/07/2024 Parathyroid adenoma 10/07/2024 Age related osteoporosis 07/29/2024 Acute deep vein thrombosis ( DVT) of distal vein of left lower extremity ([facility] V24, [facility] V28) 08/10/2022 TRESSA (obstructive sleep [...] 6 to 16 cm H2O sent to [facility] [place]. Hyperparathyroidism ([facility] V24) 10/17/2021 Hand arthritis 10/08/2019 Type 2 diabetes mellitus wit hout complication, without long-term current use of insulin ([facility] V24, [facility] V28) 07/16/2019 Bilateral carotid bruits [...] treatments are documented for this patient in [facility]. Treatments may have been administered in another system. Lifetime Dose Tracking * Chemical Lifetime Dose Automatic Entry Manual Entr y CTDIvol 17.99 mGy 17.99 mGy 0 mGy
--- OUTSIDE RECORDS SUMMARY | 2025-06-26 10:45 | XMS_ITS | Encounter Summary ---
Author Organization [place] [address] Care Team Providers Care Cell Tuber Hand Name Role Phone Carmine Chaparro Primary Care Provider [phone] Reason for Visit * Reason Onset Date Comments Nasal Congestion 06/26/2025 Epistaxis (Nose Bleed) 06/26/2025 Encounter Details Date Type Department Care Team ([facility] Contact Info) Description 06/26/2025 Telephone Adult Medicine [address] [phone] Carmine Chaparro PA [address] [place] [address] Social History Tobacco Use Types Packs/Day Years [...] your loved ones. For example, child care development specialist or elderly care for an older adult? [...] EST Travel History Travel Start Travel End [place] 05/24/2025 05/29/2025 documented as of this encounter Progress Notes * Celine Carroll RN - 06/26/2025 10:14 AM EDT Called to the # given and goes to busy signal Called to the home number, spoke with the and LM for the pt to call the office * Christine Pool - 06/26/2025 9:00 AM EDT Patient call requires triage: Symptoms patient is presenting: sinus infection? Getting some nose bleeds, crusty. Patient is asking to be seen. Using Neti Pot, saline spray. Uses a CPAP. How long has patient had these symptoms?: more than a week For ALL patients calling to schedule any appointment (routine, sick visit, follow up, consult, etc.) in the outpatient setting please ask the following questions: Do you have fever of higher than 101, sore throat with difficulty swallowing or severe shortness ofbreath? no If YES to any of these above symptoms, send a message to triage and do not book. Red dot. If no, an audio or video visit should be booked. Have you had close contact with someone with Coronavirus in the last 14 days? no Have you traveled abroad? no Have you traveled recently to another state outside of [place], [place], [place], [place], [place], [place], [place]? no o If yes, did you quarantine for 14 days or have a negative covid test? no If yes to any of the above, patient is not to be scheduled in office until after 14 day quarantine or negative covid test. If pain or injury related was it due to an accident at work or from a motor vehicle accident? If yes, date of accident/Injury: No If yes, gather 3rd green party insurance information Third Libertarian Information: not applicable PCP: ERICK Cortez Payor: MEDICARE / Plan: MEDICARE PART A & B / Product Type: Medicare / documented in this encounter Plan of Treatment Upcoming Encounters Date Type Department Care Team (Late st Contact Info) Description 07/24/2025 12:00 PM EDT Ancillary Procedure [facility] [address] [facility] [address] [place] [address] 07/30/2025 10:00 AM EDT Appointment Bone Density - [place] [address] [place] [address] 08/05/2025 9:30 AM EDT Office Visit Vascular Surgery - [place] [address] [place] [address] Ashley Ortiz MD [address] [place] [address] 08/27/2025 11:00 AM EDT [facility]ointment [facility] [address] [address] 10/06/2025 9:30 AM EST Office Visit [facility] Hematology Oncology [address] [place] [phone] Philly Cameron MD [address] [place] [address] 10/12/2025 11:00 AM EST Office Visit Endocrinology - [place] [address] [place] [address] Adriana Morgan PA [address] [place] [address] 01/27/2026 10:35 AM EDT Office Visit Pulmonolgy - [place] [address] [facility] [address] [place] [id number] Liliana Jameson NP [address] [place] [address] 06/16/2026 1:30 PM EDT Office Visit [facility] [place] [address] [place] [address] Ginna Del Real MD [address] [place] [address] documented as of this encounter Visit Diagnoses Not on filedocumented in this encounter Additional Health Concerns Assessment Noted Time PHQ-9 Depression Total Score: 0 04/22/20 25 10:32 AM EDT documented as of this encounter Care Teams Cell Tuber Hand Relationship Specialty Start Date End Date Carmine Chaparro PA [address] [place] [address] PCP - General Internal Medicine 09/03/24 documented as of this encounter
--- OUTSIDE RECORDS SUMMARY | 2025-06-26 10:45 | XMS_ITS | Clinical Summary ---
Author Organization [facility] Address [address] [place] [phone] Phone Care Team Providers Care Photographer Still Name Role Phone Carmine Chaparro Primary Care Provider [phone] Allergies Active Allergy Reactions Criticality Noted Date Comments Acetaminophen-Codeine Nausea And Vomiting 08/06 Albuterol Headache,Other 12/01/2014 SIDE EFFECT Headaches Atorvastatin Other,Weakness 01/25/2015 Muscle pain Muscle weakness Calcium Headache 10/09/2024 Cortisone Other 08/01/2017 Injection in hip : No rash, no trouble breathing, no vomiting or diarrhea She developed her menses 8 days after which lasted 10 days and weight loss for several days Also developed paresthesias after injection in foot Skin redness Ezetimibe 07/04/2024 Niacin Itching,Rash Low 12/12/2005 Within minutes developed hives and redness as soon as outdoor exposure. Oxycodone Headache 12/05/2007 Scopolamine Headache 08/01/2017 Severe migraine Medications meclizine (ANTIVERT) 25 mg tablet Take 1 tablet (25 mg total) by mouth as needed. Active blood sugar diagnostic (OrthobondTouch Verio test strips) test strip USE TO CHECK BLOOD SUGARS ONCE DAILY 07/19/20 Active lancets 30 gauge misc USE TO TEST BLOOD SUGAR ONCE DAILY 07/28/20 Active zoledronic acid (RECLAST) 5 mg/100 mL piggyback Infuse 100 mL (5 mg total) into a venous catheter 1 (one) time. 06/27/20 Active omeprazole (PriLOSEC) [address] capsule TAKE 1 CAPSULE BY MOUTH TWICE A DAY 180 capsule 1 09/26/20 Active cholecalciferol (VITAMIN D-3) 25 mcg (1,000 unit) capsule 2 capsules (2,000 Units total) 1 (one) time each day at the same time. 09/27/20 Active triamcinolone (KENALOG) 0.1 % lotion External for 30 Active ammonium lactate (AMLACTIN) 12 % cream 1 APPLICATION EXTERNALLY TWICE A DAY 30 DAYS for 30 Active sodium chloride (OCEAN) 0.65 % nasal spray Administer 1 spray into each nostril if needed for congestion. Active ondansetron ODT (ZOFRAN-ODT) 8 mg disintegrating tablet Dissolve 1 tablet (8 mg total) on top of the tongue every 8 (eight) hours if needed for nausea or vomiting. 12 tablet 11/25/19 Active cyclobenzaprine (FLEXERIL) 10 mg tablet Take 1 tablet (10 mg total) by mouth if needed. Active levothyroxine (SYNTHROID, LEVOTHROID) 125 mcg tablet TAKE 1 TABLET BY MOUTH EVERY DAY 90 tablet 1 02/20/20 25 Active evolocumab (Repatha SureClick) 140 mg/mL pen injector injectionIndications:C hest discomfort,Type 2 diabetes mellitus without complication, without long-term current use of insulin ([facility] V24, [facility] V28),Hypothyroidism, unspecified type,Hyperparathyroidi sm ([facility] V24),Acute deep vein thrombosis (DVT) of distal vein of left lower extremity ([facility] V24, [facility] V28),Age related osteoporosis, unspecified pathological fracture presence,Mixed hyperlipidemia Inject 1 mL (140 mg total) under the skin every 14 (fourteen) days. 6 mL 3 04/22/20 25 Active colesevelam (WelChoL) 625 mg tablet Take 2 tablets (1,250 mg total) by mouth 1 (one) time each day in the morning. Take with meal(s) and a liquid. 60 each 11 05/05/20 25 Active traZODone (DESYREL) 50 mg tablet Take 2 tablets (100 mg total) by mouth at bedtime as needed for sleep. 90 tablet 11 05/11/20 25 Active fluticasone propionate (FLONASE) 50 mcg/actuation nasal spray Administer 1 spray into each nostril 1 (one) time each day. spray/apply 1 spray in each nostril daily. 48 g 05/11/20 25 Active estradioL (ESTRACE) 0.01 % (0.1 mg/gram) vaginal cream 02/28/20 19 Active Active Problems Problem Noted Date Diagnosed Date Claudication of both lower extremities ([facility] V24) 01/29/2025 Assessment & Plan (01/29/2025 8:22 [...] ELDER; Future Lung nodule 11/04/2024 Adrenal nodule ([facility] V24) 11/04/2024 Breast cancer [place] [place], [facility] V28) 024 Diabetes mellitus ([facility] [place], [facility] [place]28) Diverticulitis 10/13/2024 Fatty liver 10/13/2024 Hyperparathyroidism ([facility] V24) 10/07/2024 Parathyroid adenoma 10/07/2024 Age related osteoporosis 07/29/2024 Acute deep vein thrombosis ( DVT) of distal vein of left lower extremity ([facility] V24, [facility] V28) 08/10/2022 TRESSA (obstructive sleep apnea) 05/18/2022 [...] cm H2O sent to [facility]. Hyperparathyroidism ([facility] V24) 10/17/2021 Hand arthritis 10/08/2019 Type 2 diabetes mellitus wit hout complication, without long-term current use of insulin ([facility] [place], [facility] [place]) 07/16/2019 Bilateral carotid bruits 05/14/2018 Gastroesophageal [...] adjust her diet and start walking again. Encounters Date Type Department Care Team Description 06/26/2025 Telephone Adult Medicine [address] [phone] Carmine Chaparro PA 06/10/2025 1:45 PM EDT Office Visit Breast Care Center [facility] [address] [place] [phone] Ginna Del Real MD History of invasive breast cancer (Primary Dx); History of therapeutic radiation; Acute back pain, unspecified back location, unspecified back pain laterality; Encounter for screening mammogram for malignant neoplasm of breast 05/07/2025 9:15 AM EDT Ancillary Procedure [facility] [address] [facility] [address] [place] [phone] Chest discomfort; Type 2 diabetes mellitus without complication, without long-term current use of insulin ([facility] V24, CMS/HCC V28); Hypothyroidism, unspecified type; Hyperparathyroidism (CMS/HCC V24); Acute deep vein thrombosis (DVT) of distal vein of left lower extremity (CMS/HCC V24, CMS/HCC V28); Age related osteoporosis, unspecified pathological fracture presence; Mixed hyperlipidemia 04/30/2025 11:30 AM EDT Consult Vascular Surgery - [place] [address] [facility] [address] [place] [phone] Ashley Ortiz MD Varicose veins of lower extremity with pain, bilateral (Primary Dx); Mixed hyperlipidemia 04/22/2025 10:30 AM EDT Office Visit Adult Medicine [address] [phone] Carmine Chaparro PA Chest discomfort (Primary Dx); Type 2 diabetes mellitus without complication, without long-term current use of insulin (CMS/HCC V24, CMS/HCC V28); Hypothyroidism, unspecified type; Hyperparathyroidism (CMS/HCC V24); Acute deep vein thrombosis (DVT) of distal vein of left lower extremity (CMS/HCC V24, CMS/HCC V28); Age related osteoporosis, unspecified pathological fracture presence; Mixed hyperlipidemia; SI joint arthritis ([facility] V24) from Last 3 Months Immunizations Name Administration Dates Next Due Influenza trivalent, 0.5mL ( Fluzone High-dose) 65yo and older 07/04/2024,07/10/2019,08/02/2018,07/19 Pfizer SARS-CoV-2 COVID-19, mRNA, LNP-S, preservative free 02/13/2022 Pneumococcal conjugate 13 va lent (Prevnar 13, PCV13) 2mo and older 01/18/2017 Pneumococcal polysaccharide 23 valent (Pneumovax 23) 2yo and older 04/02/2018 Td Tetanus diptheria (Tdvax) 7yo and older 07/19/2021 Tdap Tetanus diptheria acell ular pertussis (Boostrix; Adacel) 7yo and older 11/28/2010 Zoster Live 03/06/2013 Zoster recombinant (Shingrix ) 19yo and older 04/28/2019,02/14/2019,02/13/2019 Surgical History Surgery Date Site/Laterality Comments CHOLECYSTECTOMY 1970 PROCEDURE: HISTORICAL CHOLECYSTECTOMY TONSILLECTOMY PROCEDURE: HISTORICAL TONSILLECTOMY MOLE REMOVAL PROCEDURE: HISTORICAL MOLE (REMOVAL OF) COLONOSCOPY 03/07/2004 PROCEDURE: AK COLONOSCOPY FLX DX W/COLLJ SPEC WHEN PFRMD; COMMENT: diverticulosis SHOULDER SURGERY 2017 Right PROCEDURE: HISTORICAL SHOULDER SURGERY; COMMENT: dr. bang, RTC BACK SURGERY dr lou PROCEDURE: HISTORICAL BACK SURGERY; COMMENT: disc surgery laminectemy lumbar approx 1986, then 2013 APPENDECTOMY CATARACT EXTRACTION, BILATERAL Medical History Medical History Date Comments Pure hypercholesterolemia 12/12/2005 DX:Pur e hypercholesterolemia Generalized osteoarthrosis, involving hand 12/12/2005 DX:Generalized osteoarthrosi s, involving hand Migraine without aura, witho ut mention of intractable migraine without mention of status migrainosus 12/12/2005 DX:Migraine with out aura, without mention of intractable migraine without mention of status migrainosus Nevus, non-neoplastic DX:Nevus, non-neoplastic Unspecified hypothyroidism 12/12/2005 DX:Un specified hypothyroidism Vaginal prolapse 05/13/2012 DX:Vaginal prol apse Diverticulosis of colon (wit hout mention of hemorrhage) 06/03/2012 DX:Diverticulosis of colon ( without mention of hemorrhage) PEPE positive 03/06/2013 DX:PEPE positive; COMMENT: Of uncertain signig Impaired fasting glucose 03/10/2013 DX:Impa ired fasting glucose Gastroesophageal reflux dise ase without esophagitis 04/02/2018 DX:Gastroesophageal reflux d isease without esophagitis Malignant neoplasm of right breast in female, estrogen receptor positive (CMS/HCC V24, CMS/HCC V28) 09/20/2020 DX:Malignant neoplasm of ri ght breast in female, estrogen receptor positive (HCC) PONV (postoperative nausea a nd vomiting) Hyperparathyroidism (CMS/HCC V24) Family History Medical History Relation Name Comments Colon cancer Father Glaucoma Father Heart attack Father Arthritis Mother hx RA Basal cell carcinoma Mother Nose... probable BCC by pts. description Heart attack Mother cad, stent Breast cancer Other 1 m & p aunts& p aunts Breast cancer Other 2 Squamous cell carcinoma Son Blindness Neg Hx Cataracts Neg Hx Macular degeneration Neg Hx Strabismus Neg Hx Relation Name Status Comments Brother 1 Alive dm Brother 2 Alive Brother 3 Alive Brother 4 Alive Brother 5 Alive Father (Age 74) cancer col on, [place], DM Mother Alive rheumatoid arth ritis Other 1 m & p aunts& p aunts Other Other 2 Son Social History Tobacco Use Types Packs/Day Years Used Date Smoking Tobacco: Former Cigarettes 0.3 2.6 0 04/02/1967 - 10/29/1969 Smokeless Tobacco: Never Tobacco Cessation:Counseling Given: Not Answered Alcohol Use Standard Drinks/Week Comments Not Currently [...] care for your loved ones. For example, children teacher or elderly care for an older [...] Travel Start Travel End Polina 05/24/2025 05/29/2025 Obstetrics History Last Filed Vital Signs Vital Sign Reading Time Taken Comments Blood Pressure 98/60 06/10/2025 1:54 PM EDT Pulse 65 06/10/2025 1:54 PM EDT Temperature 36.8 C (98.2 F) 06/10/2025 1:54 PM EDT Respiratory Rate 14 04/22/2025 10:33 AM EDT Oxygen Saturation 95% 01/29/2025 7:45 AM EDT Inhaled Oxygen Concentration - - Weight 63 kg (139 lb) 06/10/2025 1:54 PM EDT Height 165.1 cm (5' 5 ) 05/07/2025 9:02 AM EDT Body Mass Index 23.13 05/07/2025 9:02 AM EDT Plan of Treatment Upcoming Encounters Date Type Department Care Team (Late st Contact Info) Description 07/24/2025 12:00 PM EDT Ancillary Procedure [facility] [address] [facility] [address] [place] [phone] 07/30/2025 10:00 AM EDT Appointment Bone Density - [place] [address] [place] [phone] 08/05/2025 9:30 AM EDT Office Visit Vascular Surgery - [place] [address] [facility] [address] [place] [phone] Ashley Ortiz MD [address] [place] [phone] 08/27/2025 11:00 AM EDT Appointment [facility] [address] [place] [phone] 10/06/2025 9:30 AM EST Office Visit [facility] Hematology Oncology [address] [place] [phone] Philly Perales MD [address] [place] [address] 10/12/2025 11:00 AM EST Office Visit Endocrinology - [place] [address] [place], [place] [phone] Adriana Morgan PA [address] [place], [place] 01/27/2026 10:35 AM EDT Office Visit Pulmonolgy - [place] [address] [facility] [address] [place] [phone] Liliana Jameson NP [address] [place] [phone] 06/16/2026 1:30 PM EDT Office Visit [facility] - [place] [address] [place] [phone] Ginna Del Real MD [address] [place] [phone] Health Maintenance Due Date Last Done Comments Diabetes: Annual Foot Exam 1961 Hepatitis A Vaccines (1 of 2 - Risk 2-dose series) 1970 Hepatitis B Vaccines (1 of 3 - Risk 3-dose series) 2011 RSV Immunization Adult Patients (1 - Risk 60-74 years 1-dose series) 2011 Medicare Annual Wellness Visit 10/07/2022 COVID-19 Vaccine ( season) 2024 07/19/2022, 07/18/2022, 02/13/2022, Additional history exists Influenza Vaccine (#1) 2025 , 06/30/2024, 06/22/2023, Additional history exists Diabetes: Annual Retina Eye Exam 10/02/2025 10/02/2024 Diabetes: Blood Sugar Control Test (HGBA1C) 10/22/2025 04/22/2025, 10/13/2024 Falls Risk Assessment 11/27/2025 11/27/2024 Diabetes: Annual Urine Albumin-Creatinine Ratio (uACR) 04/22/2026 04/22/2025, 10/13/2024 Diabetes: Annual GFR (Glomerular Filtration Rate) 04/22/2026 04/22/2025, 12/22/2024, 10/13/2024, Additional history exists Social Influencers of Health Screening 04/22/2026 04/22/2025 Breast Cancer Screening 08/26/2026 08/26/20, 08/23/2020, 08/17/2020, Additional history exists Colorectal Cancer Screening: Colonoscopy 11/02/2027 Postponed from 10/07/2022 (Not clinically appropriate to address at this time) Cholesterol Screening (Lipid Panel) 04/22/2030 04/22/2025, 02/10/2025, 10/13/2024 DTaP,Tdap,and Td Vaccines (3 - Td or Tdap) 07/19/2031 07/19/2021, 11/28/2010 Osteoporosis Screening (Bone Density Screening) 03/20/2033 03/20/2023, 07/07/2021, 10/30/2017 Pneumococcal Vaccine: 50+ Years Completed 04/02/2018, 01/18/2017 Zoster Vaccines Completed 04/28/2019, 01/27, 02/13/2019, Additional history exists Hepatitis C Screening Completed 10/13/2024 Depression Screening Completed 04/22/2025 HIB Vaccines Aged Out No longer eligi ble based on patient's age to complete this topic HPV Vaccines Aged Out No longer eligi ble based on patient's age to complete this topic IPV Vaccines Aged Out No longer eligi ble based on patient's age to complete this topic MMR Vaccines Aged Out No longer eligi ble based on patient's age to complete this topic Meningococcal ACWY Vaccine Aged Out N o longer eligible based on patient's age to complete this topic Meningococcal B Vaccine Aged Out No l onger eligible based on patient's age to complete this topic RSV Immunization Patients Under 20 months Aged Out No longer eligible b ased on patient's age to complete this topic Varicella Vaccines Aged Out No longer eligible based on patient's age to complete this topic Medical Devices Implanted Type Area Housekeeping Supervisor Hotel Device Identifier Shelf Expiration Date Model / Serial / Lot Dental Implants Dental Implants Bilateral: Mouth Hemostat Flour Collgn 1gm [facility] - na - [id number] Implanted:Qty : 1 on 11/27/2024 by Ginna Del Real MD at [facility] Hemostasis Left: Parathyroid CR BARD - DAVOL DIV 08/25/2027 [id number] / [id number] / [id number] Procedures Procedure Name Priority Date/Time Associated Diagnosis Comments STRESS TEST ONLY EXERCISE Routine 05/07/2025 9:21 AM EDT Chest discomfort Type 2 diabetes mellitus without complication, without long-term current use of insulin ([facility] V24, [facility] V28) Hypothyroidism, unspecified type Hyperparathyroidism ([facility] V24) Acute deep vein thrombosis (DVT) of distal vein of left lower extremity ([facility] V24, [facility] V28) Age related osteoporosis, unspecified pathological fracture presence Mixed hyperlipidemia LIPID PANEL WITH REFLEX TO DIRECT LDL Routine 04/22/2025 11:17 AM EDT Chest discomfort Type 2 diabetes mellitus without complication, without long-term current use of insulin ([facility] V24, [facility] V28) Hypothyroidism, unspecified type Hyperparathyroidism ([facility] V24) Acute deep vein thrombosis (DVT) of distal vein of left lower extremity ([facility] V24, [facility] V28) Age related osteoporosis, unspecified pathological fracture presence Mixed hyperlipidemia MICROALBUMIN CREATININE URINE RATIO Routine 04/22/2025 11:17 AM EDT Chest discomfort Type 2 diabetes mellitus without complication, without long-term current use of insulin ([facility] V24, [facility] V28) Hypothyroidism, unspecified type Hyperparathyroidism ([facility] V24) Acute deep vein thrombosis (DVT) of distal vein of left lower extremity ([facility] V24, [facility] V28) Age related osteoporosis, unspecified pathological fracture presence Mixed hyperlipidemia COMPREHENSIVE METABOLIC PANEL Routine 04/22/2025 11:17 AM EDT Chest discomfort Type 2 diabetes mellitus without complication, without long-term current use of insulin ([facility] V24, [facility] V28) Hypothyroidism, unspecified type Hyperparathyroidism ([facility] V[facility]) Acute deep vein thrombosis (DVT) of distal vein of left lower extremity ([facility] V24, [facility] V28) Age related osteoporosis, unspecified pathological fracture presence Mixed hyperlipidemia HEMOGLOBIN A1C Routine 04/22/2025 11:17 AM EDT Chest discomfort Type 2 diabetes mellitus without complication, without long-term current use of insulin ([facility] V[facility], [facility] V28) Hypothyroidism, unspecified type Hyperparathyroidism ([facility] V[facility]) Acute deep vein thrombosis (DVT) of distal vein of left lower extremity ([facility] V24, [facility] V28) Age related osteoporosis, unspecified pathological fracture presence Mixed hyperlipidemia PARATHYROID HORMONE INTACT Routine 04/22/2025 11:17 AM EDT Chest discomfort Type 2 diabetes mellitus without complication, without long-term current use of insulin ([facility] [place], [facility] V28) Hypothyroidism, unspecified type Hyperparathyroidism ([facility] V[facility]) Acute deep vein thrombosis (DVT) of distal vein of left lower extremity ([facility] V[facility], [facility] V28) Age related osteoporosis, unspecified pathological fracture presence Mixed hyperlipidemia THYROID STIMULATING HORMONE WITH REFLEX TO FREE T4 AND FREE T3 Routine 04/22/2025 11:17 AM EDT Chest discomfort Type 2 diabetes mellitus without complication, without long-term current use of insulin ([facility] V[facility], [facility] V[facility]) Hypothyroidism, unspecified type Hyperparathyroidism ([facility] V24) Acute deep vein thrombosis (DVT) of distal vein of left lower extremity ([facility] V[facility], [facility] V28) Age related osteoporosis, unspecified pathological fracture presence Mixed hyperlipidemia HEPATITIS C ANTIBODY Routine 10/13/2024 11:20 AM EST Hyperparathyroidism ([facility] V[facility]) Parathyroid adenoma Age related osteoporosis, unspecified pathological fracture presence Type 2 diabetes mellitus without complication, without long-term current use of insulin ([facility] V24, [facility] V28) Hypothyroidism, unspecified type Pure hypercholesterolemia TRESSA (obstructive sleep apnea) Fatty liver Adrenal adenoma, unspecified laterality Lung nodule Primary insomnia [facility] SCREENING DIGITAL Routine 08/26/2024 5:21 PM EDT [facility] DEXA AXIAL SKELETON Routine 03/20/2023 7:33 AM EDT Age-related osteoporosis without current pathological fracture from Last 3 Months or Most Recently Relevant to Health Maintenance Results * Exercise stress test (05/07/2025 9:21 AM EDT) Target HR 125 bpm CV STRESS ONLY Baseline HR 70 bpm CV STRES S ONLY Baseline SBP 112 mmHg CV STRE SS ONLY Baseline DBP 60 mmHg CV STRE SS ONLY O2 sat rest 97 % CV STRES S ONLY Peak HR 131 bpm CV STRESS ONLY Peak SBP 140 mmHg CV STRESS ONLY Peak DBP 80 mmHg CV STRESS ONLY Estimated workload 7.1 METS CV STRESS ONLY Rate Pressure Product 18,340.0 mmHg*bpm CV STRESS ONLY Percent HR 89 % CV STRESS ONLY Exercise/injec tion duration (min) 4 min CV STRESS ONLY Exercise/injec tion duration (sec) 31 sec CV STRESS ONLY Max HR Percent 89 % CV ST RESS ONLY Anatomical Region Laterality Modality Cardiac Diagnost ic Narrative 05/07/2025 11:27 AM EDT Normal exercise EKG stress test at a target heart rate and adequate functional capacity. Stress ECG was normal. Exercise capacity was above average. Normal blood pressure response. No chest pain reported. Stress Findings A Paulo protocol stress test was performed. Overall, the patient's exercise capacity was above average. The patient reached stage 2. Total stress time was 4 min and 31 sec. The patient's hemodynamic response was adequate for diagnosis. Blood pressure demonstrated a normal response. Heart rate demonstrated a normal response. Leg fatigue ECG 74-year-old female with past medical history significant for diabetes and hyperlipidemia who presents today for an exercise stress test in the setting of atypical chest discomfort with radiation to her scapula. She is not on any beta-blockers or calcium channel blockers. The ECG shows normal sinus rhythm. There were no arrhythmias during stress. There is no significant ST abnormalities during stress. There were no arrhythmias during recovery. The result of the stress ECG was negative for ischemia. Procedure Note Makenzie Hall NP / Ami Suárez MD - 05/07/2025 Normal exercise EKG stress test at a target heart rate and adequatefunctional capacity. Stress ECG was normal. Exercise capacity was above average. Normal blood pressure response.No chest pain reported. Carmine SUAREZ CV STRESS PROCEDURES Nanette l Result * Thyroid stimulating hormone with reflex to free t4 and free t3 (04/22/2025 11:17 AM EDT) TSH 3.76 0.40 - 4.00 mcIU/mL LAB CHEMISTRY METHOD 04/22/2025 7:13 PM EDT [facility] Blood Venous blood specimen / Unknown Venipuncture / Unknown 04/22/2025 11:17 AM EDT 04/22/2025 11:17 AM EDT Carmine SUAREZ LAB BLOOD ORDERABLES Nanette l Result [facility] [address] [place] [address], * (ABNORMAL) Lipid panel with reflex to direct LDL (04/22/2025 11:17 AM EDT) Cholesterol 166 0 - 200 mg/dL LAB CHEMISTRY METHOD 04/22/2025 5:01 PM EDT [facility] Triglycerides 179(H) 0 - 150 mg/dL LAB CHEMISTRY METHOD 04/22/2025 5:01 PM EDT [facility] HDL 65 >=40 mg/dL LAB CHEMISTRY METHOD 04/22/2025 5:01 PM EDT [facility] LDL Calculated 65 0 - 100 mg/dL LAB CHEMISTRY METHOD 04/22[facility]2025 5:[facility] VLDL Cholesterol [place] 35.8 mg/dL LAB CHEMISTRY METHOD 04/22/2025 5:01 PM [facility] Non HDL Chol. (LDL+VLDL) 101 <145 mg/dL LAB CHEMISTRY METHOD 04/22/2025 5:[facility] Chol/HDL Ratio 2.6 0.0 - 4.4 LAB CHEMISTRY METHOD 04/22/2025 5:01 PM [facility] Blood Venous blood specimen / Unknown Venipuncture / Unknown 04/22/2025 11:17 AM EDT 04/22/2025 11:17 AM EDT us Carmine SUAREZ LAB BLOOD ORDERABLES Nanette l Result [facility] [address] [place] [address], * Microalbumin creatinine urine ratio (04/22/2025 11:17 AM EDT) Creatinine, Urine 47.0 mg/dL LAB CHEMISTRY METHOD 04/22/2025 3:59 PM EDT [facility] Microalb, Ur 8.0 0.0 - 29.0 mg/L LAB CHEMISTRY METHOD 04/22/2025 3:59 PM EDT [facility] Microalb/Creat Ratio 17 <30 mg/g creat LAB CHEMISTRY METHOD 04/22/2025 3:59 PM EDT [facility] Urine Urine specimen obtained by clean catch procedure / Unknown Non-blood Collection / Unknown 04/22/2025 11:17 AM EDT 04/22/2025 11:17 AM EDT [facility] Girish Chaparro [place] LAB URINE ORDERABLES Nanette l Result Performing Organization Address City/[facility]/ZIP Co de Phone Number [facility] [address] [place] [address], [place] [phone] * Parathyroid hormone intact (04/22/2025 11:17 AM EDT) Pathologist [facility] PTH 51.9 18.5 - 88.0 pcg/mL LAB CHEMISTRY METHOD 04/22/2025 5:59 PM EDT [facility] Blood Venous blood specimen / Unknown Venipuncture / Unknown 04/22/2025 11:17 AM EDT 04/22/2025 11:17 AM EDT [facility] Girish Chaparro [place] LAB BLOOD ORDERABLES Nanette l Result Performing Organization Address City/[facility]/ZIP Co de Phone Number [facility] [address] [place] [address], [place] [phone] * Hemoglobin A1c (04/22/2025 11:17 AM EDT) Hemoglobin A1C 5.9 <6.5 % LAB CHEMISTRY METHOD 04/22/2025 2:37 PM EDT [facility] Mean Bld Glu Estim. 123 mg/dL LAB CHEMISTRY METHOD 04/22/2025 2:37 PM EDT [facility] Blood Venous blood specimen / Unknown Venipuncture / Unknown 04/22/2025 11:17 AM EDT 04/22/2025 11:17 AM EDT us Carmine SUAREZ LAB BLOOD ORDERABLES Nanette shelbie Result [facility] [address] [place] [address], * (ABNORMAL) Comprehensive metabolic panel (04/22/2025 11:17 AM EDT) Sodium 140 133 - 145 mmol/L LAB CHEMISTRY METHOD 04/22/2025 5:01 PM [facility] Potassium 4.3 3.5 - 5.5 mmol/L LAB CHEMISTRY METHOD 04/22/2025 5:01 PM [facility] Chloride 103 96 - 110 mmol/L LAB CHEMISTRY METHOD 04/22/2025 5:01 PM [facility] CO2 32 21 - 32 mmol/L LAB CHEMISTRY METHOD 04/22/2025 5:01 PM [facility] Anion Gap 5 3 - 11 LAB CHEMISTRY METHOD 04/22/2025 5:01 PM [facility] Glucose 85 70 - 100 mg/dL LAB CHEMISTRY METHOD 04/22/2025 5:01 PM [facility] BUN 19 5 - 25 mg/dL LAB CHEMISTRY METHOD 04/22/2025 5:01 PM [facility] Creatinine 0.67 0.50 - 1.10 mg/dL LAB CHEMISTRY METHOD 04/22/2025 5:01 PM [facility] eGFR 92 >=60 mL/min/1. 73m2 LAB CHEMISTRY METHOD 04/22/2025 5:01 PM [facility] Comment:Calculation based on the Chronic Kidney Disease Epidemiology Collaboration (CKD-EPI) equation refit without adjustment for race. BUN/Creatinine Ratio 28.4 LAB CHEMISTRY METHOD 04/22/2025 5:01 PM [facility] Calcium 9.1 8.5 - 10.5 mg/dL LAB CHEMISTRY METHOD 04/22[facility]25 [facility] AST (SGOT) 8(L) 10 - 42 unit/L LAB CHEMISTRY METHOD 04/22/2025 5:01 PM [facility] ALT (SGPT) 19 10 - 60 unit/L LAB CHEMISTRY METHOD 04/22/2025 5:01 PM [facility] Alkaline Phosphatase 44 42 - 121 unit/L LAB CHEMISTRY METHOD 04/22/2025 5:[facility] Total Protein 7.2 6.0 - 8.0 g/dL LAB CHEMISTRY METHOD 04/22/2025 5:01 PM [facility] Albumin 4.2 3.2 - 5.0 g/dL LAB CHEMISTRY METHOD 04/22/2025 5:01 PM [facility] Total Bilirubin 0.4 0.0 - 1.4 mg/dL LAB CHEMISTRY METHOD 04/22/2025 5:01 PM [facility] Blood Venous blood specimen / Unknown Venipuncture / Unknown 04/22/2025 11:17 AM EDT 04/22/2025 11:17 AM EDT Carmine SUAREZ LAB BLOOD ORDERABLES Nanette l Result [facility] [address] [place] [address], * Hepatitis C antibody (10/13/2024 11:20 AM EST) Hepatitis C Antibody Negative Negative LAB CHEMISTRY METHOD 10/13/2024 8:04 PM EST [facility] Blood Venous blood specimen / Unknown Venipuncture / Unknown 10/13/2024 11:20 AM EST 10/13/2024 11:20 AM EST Carmine SUAREZ LAB BLOOD ORDERABLES Nanette l Result [facility] [address] [place] [address], * JUANA SCREENING DIGITAL (08/26/2024 5:21 PM EDT) Anatomical Region Laterality Modality Mammography 08/26/2024 1:49 PM EDT Narrative 08/26/2024 5:21 PM EDT [facility] Diagnostic Imaging Department [address] [place] [address] Patient: VAUGHN FU /Age/Sex: 1950 - 73 - F Unit#: [id number] Location/Status: SPDIMAM/REG CLI Mnemonic/Ordering Site: [facility] Ordering Physician: ISIAH MCCORMACK [facility] Screening Digital - 08/26/24 - [id number] Report Status:Signed EXAM: SCREENING MAMMOGRAPHY, BILATERAL HISTORY: SCREENING. Personal history of right breast cancer. Previous reports indicate lumpectomy radiation and chemotherapy for right breast cancer. Family history of breast cancer. COMPARISON: 08/17/2023, 08/15/2022, 08/11/2021, 08/17/2020, 08/11/2020 TECHNIQUE: Synthesized CC and MLO projections of each breast. Tomosynthesis of each breast in the CC and MLO projections. ADDITIONAL IMAGING: None Computer-aided detection was employed with the iCAD profound AI 3-D. TISSUE DENSITY: There are scattered areas of fibroglandular density. (BI-RADS category B) FINDINGS: RIGHT BREAST: No suspicious mass. The postoperative change from lumpectomy has nearly completely resolved. No additional suspicious right breast findings LEFT BREAST: No suspicious mass. No suspicious calcification. No distortion. No additional suspicious left breast findings IMPRESSION: No mammographic evidence of malignancy. No suspicious interval change. A negative mammogram in the presence of a clinically suspicious palpable abnormality does not preclude the possibility of malignancy or alter the indications for biopsy. ASSESSMENT: BI-RADS 2: BENIGN RECOMMENDATION(S): 1: Routine screening mammogram BILATERAL in 1 year. Dictating Physician: Renetta PICKENS BRET MD Electronically Signed by: Renetta PICKENS BRET MD Dic Date/Time: 08/26/241712 Sign date/Time: 08/26/241720 Procedure Note Steven Pickens MD - 08/30/2024 [facility] Diagnostic Imaging Department [address] [place] [address] Patient: VAUGHN FU Libia SernaB./Age/Sex: 1950 - 73 - F Unit#: [id number] [facility]ing Site[facility] Ordering Physician: ISIAH MCCORMACK [facility] Screening Digital - 08/26/24 - [id number] Report Status:Signed EXAM: SCREENING MAMMOGRAPHY, BILATERAL HISTORY: SCREENING. Personal history of right breast cancer. Previous reports indicate lumpectomy radiation and chemotherapy for right breastcancer. Family history of breast cancer. COMPARISON: 08/17/2023, 08/15/2022, 08/11/2021, 08/17/2020, 08/11/2020 TECHNIQUE: Synthesized CC and MLO projections of each breast.Tomosynthesis of each breast in the CC and MLO projections. ADDITIONAL IMAGING: None Computer-aided detection was employed with the iCAD profound AI 3-D. TISSUE DENSITY: There are scattered areas of fibroglandular density.(BI-RADS category B) FINDINGS: RIGHT BREAST: No suspicious mass. The postoperative change from lumpectomy has nearly completely resolved. No additional suspicious right breast findings LEFT BREAST: No suspicious mass. No suspicious calcification. No distortion. Noadditional suspicious left breast findings IMPRESSION: No mammographic evidence of malignancy. No suspicious interval change. A negative mammogram in the presence of a clinically suspicious palpable abnormality does not preclude the possibility of malignancy or alter the indications for biopsy. ASSESSMENT: BI-RADS 2: BENIGN RECOMMENDATION(S): 1: Routine screening mammogram BILATERAL in 1 year. Dictating Physician: Renetta PICKENS BRET MD Electronically Signed by: Renetta PICKENS BRET MD Dic Date/Time: 08/26/241712 Sign date/Time: 08/26/24 172 us Isiah Mccormack MD IMG BI PROCEDURES Final Resu lt * JUANA DEXA AXIAL SKELETON (03/20/2023 7:33 AM EDT) Anatomical Region Laterality Modality Mammography 03/19/2023 1:45 PM EDT Narrative 03/20/2023 7:33 AM EDT [facility] Diagnostic Imaging Department [address] [place] [address] Patient: FU,VAUGHNSHABBIR Reza D.O.B./Age/Sex: 1950 - 72 - F Unit#: [id number] Location/Status: [facility] CLI Mnemonic[facility] Ordering Physician: PHILLY PERALES MD [facility] Dexa Axial Skeleton - 03/19/231424 HISTORY: The patient is a 72-year-old postmenopausal female with clinical concern for metabolic bone disease. FINDINGS: Dual energy x-ray absorptiometry of the lumbar spine and femurs is performed. The mean bone mineral density at L1-L4 is 0.949 gm/cm2 which is 80% of that of young normals and 98% of that of age matched controls. This yields a T-score of -1.9 and a Z-score of -0.2 which is diagnostic of osteopenia. The mean bone mineral density of the femurs bilaterally is 0.714 gm/cm2 which is 71% of that of young normals and 88% of that of age matched controls. This yields a T-score of -2.3 and a Z-score of -0.7 which is diagnostic of osteopenia. However, the T-score of the right femoral neck is -2.6 which is diagnostic of osteoporosis. IMPRESSION: 1. Osteoporosis. 2. FRAX analysis yields a 10-year probability of major osteoporotic fracture of 25.2% and a 10-year probability of hip fracture of 11.2%. Code 03510 Dictating Physician: PATRICE HOBSON MD Electronically Signed by: PATRICE HOBSON MD Dic Date/Time: 03/20/23731 Sign date/Time: 03/20/23732 Procedure Note Patrice Hobson MD - 11/30/2023 [facility] Diagnostic Imaging Department [address] [place], [place] [id number] Patient: VAUGHN UF /Age/Sex: 1950 72 - F Unit#: [id number] Location/Status: SPDIMAM/REG CLI [facility] Ordering Physician: PHILLY PERALES MD [facility] Dexa Axial Skeleton - 03/19/231424 HISTORY: The patient is a 72-year-old postmenopausal female withclinical concern for metabolic bone disease. FINDINGS: Dual energy x-ray absorptiometry of the lumbar spine and femursis performed. The mean bone mineral density at L1-L4 is 0.949 gm/cm2 which is80% of that of young normals and 98% of that of age matched controls. Thisyields a T-score of -1.9 and a Z-score of -0.2 which is diagnostic of osteopenia. The mean bone mineral density of the femurs bilaterally is 0.714 gm/ec9pjlmn is 71% of that of young normals and 88% of that of age matched controls.This yields a T-score of -2.3 and a Z-score of -0.7 which is diagnostic of osteopenia. However, the T-score of the right femoral neck is -2.6 whichis diagnostic of osteoporosis. IMPRESSION: 1. Osteoporosis. 2. FRAX analysis yields a 10-year probability of major osteoporoticfracture of 25.2% and a 10-year probability of hip fracture of 11.2%. Code 86287 Dictating Physician: PATRICE HOBSON MD Electronically Signed by: PATRICE HOBSON MD Dic Date/Time: 03/20/2332 Sign date/Time: 03/20/23732 Philly Perales MD IM BI PROCEDURES Final Resu lt from Last 3 Months or Most Recently Relevant to Health Maintenance Insurance MEDICARE [facility] Advance Directives Documents on File Type Date Recorded Patient Continuity Editor Expl anation Power of Gun Number 11/27/2024 6:05 AM HCP Health Care Decision (hx) 08/15/2022 HE ALTH CARE PROXY Health Care Decision (hx) 08/15/2022 HE ALTH CARE PROXY Health Care Decision (hx) 08/15/2022 HE ALTH CARE PROXY Health Care Decision (hx) 08/15/2022 HE ALTH CARE PROXY Health Care Decision (hx) 08/15/2022 HE ALTH CARE PROXY Health Care Decision (hx) 08/15/2022 HE ALTH CARE PROXY Health Care Decision (hx) 08/15/2022 HE ALTH CARE PROXY Health Care Decision (hx) 08/15/2022 HE ALTH CARE PROXY Health Care Decision (hx) 08/15/2022 HE ALTH CARE PROXY * Full Code - Default (Latest Code Status on File) Date Activated Date Inactivated Comments 11/27/2024 6:25 AM 11/27/2024 3:10 PM This is orde r is used when code status has not been discussed with the patient, or code status is otherwise unknown/unconfirmed To update the patient's code status, place a code status order. Do not modify or discontinue any currently active code status orders. Care Teams Photographer Still Relationship Specialty Start Date End Date Carmine Chaparro PA [address] [place] [address] PCP - General Internal Medicine 09/03/24
--- OUTSIDE RECORDS SUMMARY | 2025-06-26 10:46 | XMS_ITS | Patient Health Record ---
Author Organization [facility] Address [address] [place] [address] Care Team Providers Care Land Surveyor Manager Name Role Phone Carmine Castro Primary Care Provider Unav ailable Black, Skye Unavailable [phone] YoungIsis santo Unavailable [phone] Allergies Allergen (clinical drug ingredient) Drug/Non Drug Allergy documented on EMR Reaction Allergy Type Onset Date Status codeine Codeine Sulfate nausea and vomiting Drug Allergy Active oxycodone Oxycodone HCl headache Drug Allergy Act corbin albuterol Albuterol headache Drug Allergy Active atorvastatin Atorvastatin muscle weakness Drug Allergy Active cortisone Cortisone other Drug Allergy Active niacin Niacin rash Drug Allergy Active scopolamine Scopolamine headache Drug Allergy Act corbin Results Component Value Reference Range Notes HEMOGLOBIN A1C (GLYCOHEMOGLO BIN) Reviewed date:04/17/2025 09:58:57 AM Interpretation: Performing Lab: Notes/Report: HEMOGLOBIN A1C % (HH) 5.7 Reason For Referral No Information Medications Medication SIG (Take, Route, Frequency, Duration) Notes Start Date End Date Status Ketoconazole PRN Active Ammonium Lactate 12 % 1 APPLICATION EXTERNALLY TWICE A DAY 30 DAYS; Duration: 30 Active Clindamycin HCl PRN Acti ve Vitamin D (Cholecalciferol) 25 MCG (1000 UT) 1 capsule Orally Once a day; Duration: 30 day(s) 09/27/2020 Active Reclast Active traZODone HCl 100 MG 1 tablet at bedtime Orally Once a day Active Amitriptyline HCl 10 MG Oral; Duration: 90 Not-Taking [place] Saline Nasal Gel Active Triamcinolone Acetonide 0.1 % External; Duration: 30 PRN Active Anastrozole 1 MG 1 tablet Orally Once a day; Duration: 30 day(s) Not-Taking Repatha SureClick 140 MG/ML Subcutaneous; Duration: 84 Active Omeprazole 40 MG 1 capsule 30 minutes before morning meal Orally Once a day PRN Active Estradiol Not-Taking Ondansetron 4 MG 1 tablet on the tongue and allow to dissolve Orally Once a day; Duration: 30 day(s) Active Cyclobenzaprine HCl 10 MG 1 tablet at bedtime as needed Orally Once a day; Duration: 30 day(s) Active Restasis MultiDose 0.05 % 1 drop into affected eye Ophthalmic Twice a day Active Raloxifene HCl Not-T aking Fluticasone Propionate 50 MCG/ACT Nasal; Duration: 90 PRN Active Amoxicillin-Pot Clavulanate 875-125 MG as directed Orally Not-Taking Meclizine HCl 25 MG 1 tablet as needed Orally Once a day; Duration: 30 day(s) PRN 09/27/2020 Active Exemestane Not-Takin g Levothyroxine Sodium 125 MCG Oral; Duration: 90 Active eliquis 5 mg twice a day Not-T aking Cephalexin 500 MG 1 capsule Orally every 12 hrs; Duration: 10 days Not-Taking Immunizations Vaccine Route Administration Date Status Comme nts Influenza Unknown 06/29/2021 Administered Influenza Unknown 06/30/2024 Administered COVID-19 Pfizer BioNTech Vaccine Unknown 07/22/2021 Administered 1st 12/06/2020 2nd 01/08/21 Social History Tobacco Use: Social History Observation Description Date Details (start date - stop date) Never Smoker NA - NA Alcohol Screen Question Answer Notes Did you have a drink contain ing alcohol in the past year? Yes How often did you have a dri nk containing alcohol in the past year? Monthly or less (1 point) Points 1 Interpretation Negative Tobacco use other than smoking: Question Answer Notes Are you an other tobacco user? 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.521) Active confirmed Problem Information temporarily unavailable Primary osteoarthritis, right ankle and foot (M19.071) Active confirmed Problem Information temporarily unavailable Non-pressure chronic ulcer of other part of left foot with fat layer exposed (L97.522) Active confirmed Problem Information temporarily unavailable Other hammer toe(s) (acquired), right foot (M20.41) Active confirmed Problem Information temporarily unavailable Type 2 diabetes mellitus with diabetic polyneuropathy (E11.42) Active confirmed Problem Information temporarily unavailable PlantarFlexion of metatarsal of left foot (M21.6X2) Active confirmed Problem Information temporarily unavailable Arthritis of joint of lesser toe, left (M19.072) Active confirmed Problem Information temporarily unavailable Arthritis of joint of lesser toe, right (M19.071) Active confirmed Vital Signs Blood pressure diastolic 70 mm Hg 04/17/2025 Height 5ft 5in in 04/17/2025 Blood pressure systolic 126 mm Hg 04/17/2025 Weight 135 lbs 04/17/2025 BMI 22.46 kg/m2 04/17/2025 Procedures Procedure Date Ordered Date Performed Result Body Sit e [id number] 04/17/2025 N/A Encounters Encounter Location Date [facility] [address] [facility]/06/2024 Isis Young Dystrophic nail L60.3 and Type 2 diabetes mellitus with diabetic polyneuropathy E11.42 [facility] [address] [address] 04/17/2025 Isis Young Ingrown nail L60.[address] [address] 09/18/2024 Skye [facility]pedes [facility] [address] 04/17/2025 Isis Young [address] [address] 05/08/2025 Skye Cespedes Assessments Encounter Date Diagnosis (ICD Code) Assessment Notes Treatment Notes Treatment Clinical Notes Section Notes 10/06/2024 Dystrophic nail (ICD-10 - L60.3) 04/17/2025 Ingrown nail (ICD-10 - L60.0) 10/06/2024 Type 2 diabetes mellitus with diabetic polyneuropathy (ICD-10 - E11.42) Plan Of Treatment Pending Test Test Name Order Date [id number] Plate 09/30/2020 35454-Xwvkyhve Plate 06/05/2022 [id number] 08/11/2021 52204-TFO 04/17/2025 01478- Debride <25 sq cm 09/12/2021 78894- Debride <25 sq cm 10/14/2020 [id number]-FOGIDHN SKIN/TISSUE 08/29/2021 78189- I&D ABSCESS-COMPLICATED,MULTI 02/2023 70764-WKAE SKIN LESIONS, 2 TO 4 06/11/20 19097-BNKI NAIL(S) 06/11/2023 02718-IOZX NAIL(S) 06/05/2022 87354-MVUI NAIL(S) 12/04/2022 Insurance Providers Payer Name Payer Address Payer Phone Subscriber Number Group Number Insured Name Patient Relationship to Insured Coverage Start Date Coverage End Date Medicare National [employer] [address] [place] [address] [id number] Viola Navarro Self - patient is the insured [facility] [address] [place] [address] [id number] Alfred Navarro Spouse - patient is the spouse of the insured Medical (General) History Medical History History ICD Code Arthritis Back,Hip,and Knee pain Cancer Cataracts Diabetic Diverticulosis Gall bladder problems Menieres disease Reflux ( GERD) chronic sinusitis thyroid Measles DVT- Oct 2022 Surgical History Surgery Date(Month/Year) gall bladder 1973 rotator cuff tear repair 2018 laminectomy 1989 tonsillectomy lumpectomy 09/02/2020 colonoscopy parathyroid 10/2024 Hospitalization History Reason Date(Month/Year) Libby Villarreal- blood clot left leg 2024 [facility]- acute sigmoid diverticu litis- complications with a micropherferation 09/08/21-09/10/21
--- OUTSIDE RECORDS SUMMARY | 2025-06-26 10:46 | XMS_ITS ---
Author Name [facility] Organization Unknown Care Team Organization Name Specialty Phone Email Start Date End Da te [facility] ACO 06/17/2025 [facility] 03/31/2023 [facility] Carmine Chaparro Primary Care 03/05/2023 [facility] Sallie, PROVIDER Primary Care 01/03/202305/29 [facility] Annamaria Darnell Primary Care 09/05/2022 06/16/20 [facility] ABHI PERDOMO Primary Care
--- OUTSIDE RECORDS SUMMARY | 2025-06-26 10:46 | XMS_ITS | Patient Health Record ---
Author Organization [facility] Address [address] [place] [address] Care Team Providers Care Curtain Stitcher Name Role Phone Jeff Lu Primary Care Provider Unavailabl e Allergies Allergen (clinical drug ingredient) Drug/Non Drug Allergy documented on EMR Reaction Allergy Type Onset Date Status niacin Niacin rash Drug Allergy Active oxycodone Oxycodone [...] of [place] [address] [place] [phone] [id number] Navarro , Voila Self - patient is the insured [facility] [address] [place] [address] [phone] [id number] Viola Navarro Self - patient is the [...] Surgery Date(Month/Year) Historical Tonsillectomy Right Shoulder Surgery 2017 cholecystectomy 1970 Lumbar laminectomy 1986
[2025-06-26 10:54] VITALS: BP 116/64; PULSE 68; TEMP 36.7; O2SAT 96; BMI 23.1
--- NOTE | 2025-06-26 10:54 | MHC.OFFWIV ---
Intake Vital Signs 06/26/25 10:54 Height 5 ft 5 in Weight 139 lb BMI 23.1 BP 116/64 Blood Pressure Location Lt brachial Position Sitting Pulse 68 Pulse Source Pulse Oximeter Temp 98.1 F Temp Source Oral Pulse Oximetry (%) 96 Oxygen Delivery Method Room Air Intake Visit Reasons: EP infection in nose from CPAP??? Intake Note: pt presents with weeping and painful sore to left nostril Patient Tobacco Use Status: Former Tobacco user Allergies calcium Allergy (Unknown, Verified 06/26/25 10:56) Headache ezetimibe Allergy (Unknown, Verified 06/26/25 10:56) Unknown albuterol Adverse Reaction (Verified 06/26/25 10:56) Headache atorvastatin Adverse Reaction (Verified 06/26/25 10:56) Muscle Pain codeine Adverse Reaction (Verified 06/26/25 10:56) Nausea and Vomiting cortisone Adverse Reaction (Verified 06/26/25 10:56) Rash niacin Adverse Reaction (Verified 06/26/25 10:56) Itching, rash oxycodone Adverse Reaction (Verified 06/26/25 10:56) Headache scopolamine Adverse Reaction (Verified 06/26/25 10:56) Headache Do you need a note to return to daycare/school/sports/work: No HPI EP infection in nose from CPAP??? HPI Details This is a 74-year-old female patient who presents to the walk-in clinic today with report of possible infected area in her left nostril. She states that she recently got new CPAP equipment, and did not clean it prior to use. She states that she started to get irritation in her left nostril about 2 weeks ago. She has since used a Neti-pot, however did not used any distilled water, so feels this may be contributing to the problem. Area in her left nostril is now tender, and patient states there is a scab, and she can at times feel a little bit of drainage/bleeding from it. She is having a little bit of pain on the outside of her nose, however no facial pain or swelling. Denies any fevers/chills. [facility] Medical History TRESSA (obstructive sleep apnea) Lung nodule Hand arthritis GERD with apnea without esophagitis Fatty liver Claudication of both lower extremities Bilateral carotid bruits Age related osteoporosis Adrenal nodule DVT (deep venous thrombosis) Perforation of sigmoid colon due to diverticulitis Diverticulitis Diverticulitis UTI (urinary tract infection) Diabetes High cholesterol Breast cancer Hypothyroid Abdominal pain Surgical History History of root canal procedure History of tonsillectomy History of back surgery History of lumpectomy of right breast History of repair of right rotator cuff History of cholecystectomy (1972) Family History Father Colon cancer Social History Household Members: Spouse Housing: House Do you presently have visiting nurse or other home services: No Patient Tobacco Use Status: Former Tobacco user Tobacco use type: Cigarette Cigarette Packs Per Day: 0.5 Cigarettes Per Day: 10.0 Years Smoked: 7 Second Hand Smoke Exposure: No Advance Directives Date on File: 09/09/21 service: No Current occupational status: retired Review of Systems Const All systems reviewed & are unremarkable except as noted in HPI and below Physical Exam Vital Signs: Last Vital Signs Temp 98.1 F 06/26/25 10:54 Pulse 68 06/26/25 10:54 BP 116/64 06/26/25 10:54 Pulse Ox 96 06/26/25 10:54 Oxygen Delivery Method Room Air 06/26/25 10:54 BMI result Body Mass Index 23.1 Const General: cooperative, healthy appearing, comfortable and no acute distress HEENT Head: Yes normal to inspection Ears: hearing grossly normal bilaterally General nose exam: Normal external nose present and Abnormal mucous membranes and turbinates present erythematous on the left (no discharge noted) Face and sinus: Yes normal facial exam and Yes sinuses nontender Mouth: Normal oral and palatal mucosa present Throat: Yes posterior oropharynx normal Neck Neck: Yes no lymphadenopathy Resp Effort & Inspection: normal respiratory effort Skin General skin exam: no rashes or lesions noted Extrem General: Yes no clubbing, cyanosis or edema Psych Appearance: grossly normal Mental Status: mental status grossly normal Speech and movement: Normal speech and movement present Assessment & Plan Assessment & Plan (1) Infected nasal abrasion: Code(s): S00.31XA - Abrasion of nose, initial encounter; L08.9 - Local infection of the skin and subcutaneous tissue, unspecified Qualifiers: Encounter type: initial encounter Qualified Code(s): S00.31XA - Abrasion of nose, initial encounter; L08.9 - Local infection of the skin and subcutaneous tissue, unspecified Plan This appears to be an infection in her left Nare. There is no drainage at this time. I will start her on mupirocin ointment to apply b.i.d., however we discussed that if symptoms worsen or area starts to feel/appear larger, or if she develops any fevers or facial pain, she should return to clinic or go to the emergency department for evaluation. We discussed importance of using proper equipment/water for Neti pot, and also cleaning/sterilizing CPAP equipment regularly per manufacture's recommendations. She verbalizes understanding and agrees to plan. Medications: New mupirocin 2% (Centany) 1 appl topical BID 22 grams 1RF 5 days L73.9 - Follicular disorder, unspecified Coding Level of Care Code Est Pt Level 4 (92874) Diagnoses Abrasion of nose with infection, initial encounter S00.31XA; L08.9 Encounter type: initial encounter
== END 2025-06-26 11:25 | disposition home or self-care (01) ==
PROVIDERS: PCP Physician Assistant Medical; Visit Provider Nurse Practitioner Family
DX: S00.31XA Abrasion of nose, initial encounter (principal); L08.9 Local infection of the skin and subcutaneous tissue, unspecified

== ENCOUNTER → 2025-06-26 10:02 | Outpatient (BNVA) | payer MEDICARE, BC, SELFPAY | PROVIDERS: PCP Physician Assistant Medical; Visit Provider Nurse Practitioner Family | DX: S00.31XA Abrasion of nose, initial encounter (principal); L08.9 Local infection of the skin and subcutaneous tissue, unspecified | CPT/HCPCS: 99212 ==

== ENCOUNTER 2025-07-02 13:12 | Outpatient (AMB) | payer MEDICARE, BC, SELFPAY ==
--- OUTSIDE RECORDS SUMMARY | 2024-07-30 13:00 | XMS_ITS | Encounter Summary ---
Author Organization [place] [address] Care Team Providers Care Nutritional Services Director Name Role Phone Carmine Chaparro Primary [...] care for your loved ones. For example, assistant child care teacher or elderly care for an older [...] Description 07/24/2025 12:00 PM EDT Ancillary Procedure [facility] - [facility] 101 300 [facility] 101 [place] [address] 07/30/2025 10:00 AM EDT Appointment [facility] [address] [address] 08/05/2025 9:30 AM EDT Office Visit Vascular Surgery - [place] [address] [place] [address] Ashley Ortiz MD [address] [place] [address] 08/27/2025 11:00 AM EDT Appointment [facility] 271 [place] [address] 10/06/2025 9:30 AM EST Office Visit [facility] Hematology Oncology [address] [place] [address] Philly Cameron MD 271 [place] [address] 10/12/2025 11:00 AM EST Office Visit Endocrinology - [place] [address] [place] [address] Adriana Morgan PA 444 [place] [address] 01/27/2026 10:35 AM EDT Office Visit Pul[facility]gy [facility] 175 [facility] 200 [place] [address] Liliana Jameson NP 230 [place] [address] 06/16/2026 1:30 PM EDT Office Visit Breast Care Center [facility] 271 [place] [address] Ginna Del Real MD 230 [place] [address] documented as of this encounter Procedures Procedure Name Priority Date/Time Associated Diagnosis Comments ..MISCELLANEOUS REFERENCE LAB TEST 07/30/2024 documented in this encounter Results * Miscellaneous reference lab test (07/30/2024) us Provider Onbase LAB BLOOD ORDERABLES Final Re sult documented in this encounter Visit Diagnoses Diagnosis Age-related osteoporosis without current pathological fracture documented in this encounter Care Teams Nutritional Services Director Relationship Specialty Start Date End Date Carmine Chaparro PA PCP - General Internal Medicine 01/03/21 09/02/24 documented as of this encounter
--- OUTSIDE RECORDS SUMMARY | 2024-09-18 10:30 | XMS_ITS ---
Author Organization [facility] Address [address] [place] [address] Care Team Providers Care Costumer Assistant Name Role Phone Carmine Castro Primary Care Provider Unav ailable Black, Skye Unavailable [phone] Isis Young Unavailable [phone] Medications Medication SIG (Take, Route, Frequency, Duration) [...] Active Encounters Encounter Location Date Provider Diagnosis [facility] [place] [address] [place] [address] 09/18/2024 Isis Young Plan Of Treatment No Information Progress Notes * Viola NAVARRO MDOB:1949 (74 yo F)Acc No.[id number]:09/18/2024 Progress Note Patient: Abbe Viola SCHULER Lib[place] Provider: Reji Young DPM :1950 A ge:73 Y S ex:Female Date:09/18/2024 Address:[address] [place] [address] , [facility] Pcp:ERICK Brooke Subjective: * Chief Complaints: * [...] provider. Sign off status: Pending * Provider: Rjei Young DPM Date: 11/18/2023 Generated for Paulina cody/Art/Kelechi on: 0 07/02/2025 02:28 PM EDT
--- OUTSIDE RECORDS SUMMARY | 2025-05-11 06:15 | XMS_ITS ---
Author Organization [facility] Address [address] [place] [address] Care Team Providers Care Buffing Wheel Former Machine Name Role Phone Carmine Castro Primary Care Provider Unav ailable Black, Skye Unavailable [phone] Isis Young Unavailable [phone] Encounters Encounter Location Date Provider Diagnosis [facility] [address] [place] [address] 05/11/2025 Isis Young Plan Of Treatment No Information Progress Notes * Viola NAVARRO MDOB:1949 (74 yo F)Acc No.[id number]:05/11/2025 Progress Notes Patient: Naeem RODRIGUEZise [place] Provider: Reji Young DPM :1950 A ge:74 Y S ex:Female Date:05/11/2025 Address:[address] [place] Pcp:ERICK Brooke Subjective: * Chief Complaints: * * Medical History: Objective: * Vitals: Assessment: Plan: * Treatment: * Images: * The named appointment provid er may or may not be the originator of this progress note, and it is not deemed complete until electronically signed by the appointment provider. Sign off status: Pending * Provider: Reji Young DPM Date: 05/11/2025 Generated for Paulina cody/Art/Olegarioransmitting on: 07/02/2025 02:27 PM EDT
--- NOTE | 2025-07-02 13:27 | A.OFFVIS_ITS ---
Vital Signs 07/02/25 13:28 Height 5 ft 5 in Weight 139 lb 8 oz BMI 23.2 BP 104/64 Blood Pressure Location Rt brachial Position Sitting Pulse 74 Pulse Source Pulse Oximeter Pulse Oximetry (%) 95 Oxygen Delivery Method Room Air Intake Visit Reasons: ENP - Insomnia Intake Note: Patient presents pals nurse Insomnia. HST done 04/2022(AHI-24, MABEL 80%)On CPAP. Patient DME is [facility]. Patient states she uses machine every night. goes to bed around 9 and wakes up around 3:30am and is wide awake(like she just drank coffee). No fatigue during the day. States some forgetfulness. Accompanied by: Self / Same As Patient Allergies calcium Allergy (Unknown, Verified 07/02/25 13:32) Headache ezetimibe Allergy (Unknown, Verified 07/02/25 13:32) Unknown albuterol Adverse Reaction (Verified 07/02/25 13:32) Headache atorvastatin Adverse Reaction (Verified 07/02/25 13:32) Muscle Pain codeine Adverse Reaction (Verified 07/02/25 13:32) Nausea and Vomiting cortisone Adverse Reaction (Verified 07/02/25 13:32) Rash niacin Adverse Reaction (Verified 07/02/25 13:32) Itching, rash oxycodone Adverse Reaction (Verified 07/02/25 13:32) Headache scopolamine Adverse Reaction (Verified 07/02/25 13:32) Headache HPI Comments Details: 74 year old female referred to us by her pcp for an evaluation of sleep apnea. April 2022 TRESSA on cpap, DME is [facility] [place] Sep 2019 She had r. breast cancer with lumpectomy and radiation in remission. [facility]. She goes to bed at 9pm and falls asleep at 9:30 then wakes up at 12:30am to 3:30am, will fall back asleep after watching tv. Continues to have multiple arousals for weeks. Sleep has improved by 2 hours since using her cpap and she says she feels refreshed when she uses her cpap. When she takes her trazadone 100mg po at night she can have about 8 hours of sleep. She has daily morning headaches which go away with coffee. She has dizziness which can last all day. She has GERD and takes omeprazole 40mg po daily. She has hypothyroidism taking Levothyroxine 125mcg po daily. Her memory is poor she has difficulty remembering appointments, tasks, directions and names of people. She has difficulty with recalling words, loses attention and focus easily. She had a lower Back injury Laminectomy L5 in 1986- Sacro-iliac joint pain and now receives novacaine injections, tried cortisone with no improvement.RLS symptoms r. foot burst of heat on the plantar surface, like a heating pad is placed there, spreads out. Denies paresthesias. Had 2 DVTs on L. leg, superficial, treated with eliquis March 2025, and wears compression stockings. [facility] Medical History TRESSA (obstructive sleep apnea) Lung nodule Hand arthritis GERD with apnea without esophagitis Fatty liver Claudication of both lower extremities Bilateral carotid bruits Age related osteoporosis Adrenal nodule DVT (deep venous thrombosis) Perforation of sigmoid colon due to diverticulitis Diverticulitis Diverticulitis UTI (urinary tract infection) Diabetes High cholesterol Breast cancer Hypothyroid Abdominal pain Surgical History History of root canal procedure History of tonsillectomy History of back surgery History of lumpectomy of right breast History of repair of right rotator cuff History of cholecystectomy (1972) Family History Father Colon cancer Social History Household Members: Spouse Housing: House Do you presently have visiting nurse or other home services: No Patient Tobacco Use Status: Former Tobacco user Tobacco use type: Cigarette Cigarette Packs Per Day: 0.5 Cigarettes Per Day: 10.0 Years Smoked: 7 Second Hand Smoke Exposure: No Advance Directives Date on File: 09/09/21 service: No Current occupational status: retired Physical Exam Vital Signs: Last Vital Signs Pulse 74 07/02/25 13:28 BP 104/64 07/02/25 13:28 Pulse Ox 95 07/02/25 13:28 Oxygen Delivery Method Room Air 07/02/25 13:28 BMI result Body Mass Index 23.2 Const General: cooperative, comfortable and no acute distress Nutritional Appearance: average body habitus Orientation/consciousness: patient oriented x3 HEENT Face and sinus: Yes face symmetric (l. eye meibomian gland / ptosis) Teeth and gingiva: other (mallampti score of 4) Neck Neck: Yes full ROM Neuro General: patient oriented x3 and moves all extremities Cranial nerves: Yes Facial sensation intact/muscles of mastication intact, Yes Normal accommodation reflex present, Yes Normal facial strength present, Yes Midline tongue present, Yes Ability to bilaterally rotate head present and Yes Ability to bilaterally elevate shoulders present Cognition (Neuro): normal cognition Gait exam (Neuro): Normal gait present Motor exam (neuro): 5/5 motor strength present throughout and Normal motor muscle tone present throughout Psych Appearance: well kempt Mental Status: mental status grossly normal Thought process: Normal thought process present Thought content: Normal thought content present Assessment & Plan Assessment & Plan (1) Excessive daytime sleepiness: Code(s): G47.19 - Other hypersomnia Category: Medical (2) RLS (restless legs syndrome): Code(s): G25.81 - Restless legs syndrome Category: Medical (3) Bilateral headaches: Code(s): R51.9 - Headache, unspecified Category: Medical (4) Insomnia: Code(s): G47.00 - Insomnia, unspecified Category: Medical Qualifiers: Insomnia type: unspecified Qualified Code(s): G47.00 - Insomnia, unspecified Plan PSG to evaluate for insomnia and excessive daytime sleepiness. H/O Menieres Disease, pt education provided re: dietary modifications and Jon maneuvers with PT - Vestibular Headaches will monitor Orders: Orders RT PSG in-lab sleep study Today G25.81 - Restless legs syndrome, G47.19 - Other hypersomnia Patient Instructions: Sleep Hygiene provided: set a scheduled bedtime and wake time to help regulate the circadian rhythm and balance the release of pituitary hormones. Sleep in a dark room, temperatures below 68 degrees, and no devices n bed. Limit caffeinated products 6 hours prior to bed, and limit fluids 2-4 hours prior to bed. Gentle night yoga, diffusing essential oils, and playing soft music can be relaxing. Coding Level of Care Code New Pt Level 4 (28225) Diagnoses Excessive daytime sleepiness G47.19 RLS (restless legs syndrome) G25.81 Bilateral headaches R51.9 Insomnia, unspecified type G47.00 Insomnia type: unspecified Sleep Questionnaire Difficulty falling asleep: No Difficulty staying asleep?: Yes Number of arousals: 2-3 Snoring: Yes Witnessed apneas: Yes Gasping arousals: Yes Nocturia: No GERD: Yes Vivid dreams: No Acting out dreams: No Abnormal behavior in sleep: No Abnormal movements in sleep: No Morning headaches: No (dizziness) Excessive daytime sleepiness: No Daytime naps: No Restless legs: Yes Hallucinations: No Sleep paralysis: No Drop attacks: No Sleep Study: Yes () CPAP: Yes
[2025-07-02 13:28] VITALS: BP 104/64; PULSE 74; O2SAT 95; BMI 23.2
--- OUTSIDE RECORDS SUMMARY | 2025-07-02 14:28 | XMS_ITS | Encounter Summary ---
Author Organization [facility] Address [address] [place] [address] Care Team Providers Care Wine Cellar Stock Clerk Name Role Phone Carmine Chaparro Primary Care Provider [phone] Reason for Visit * Reason Onset Date Comments DME-cpap order 07/01/2025 Encounter Details Date Type Department Care Team ([facility] st Contact Info) Description 07/01/[address] [place] [address] Lea Anderson MA Social History Tobacco Use Types Packs/Day Years [...] for your loved ones. For example, child psychology teacher or elderly care for an older [...] PM EST documented as of this encounter Progress Notes * Lea Grider MA - 07/01/2025 8:16 AM EDT Order sent to [facility] documented in this encounter Plan of Treatment Upcoming Encounters Date Type Department Care Team (Late st Contact Info) Description 07/24/2025 12:00 PM EDT Ancillary Procedure [facility] - [facility] [address] [place] [address] 07/30/2025 10:00 AM EDT Appointment Bone Density - [place] [address] [place] [phone] 08/05/2025 9:30 AM EDT Office Visit Vascular Surgery - [place] [address] [place] [address] Ashley Ortiz MD [address] [place] [address] 08/27/2025 11:00 AM EDT Appointment [facility] [address] [place] [address] 10/06/2025 9:30 AM EST Office Visit [facility] Hematology Oncology [address] [place] [phone] Philly Cameron MD [address] [place] [address] 10/12/2025 11:00 AM EST Office Visit Endocrinology - [address] [phone] Adriana Morgan PA [address] [place], [place] 01/27/2026 10:35 AM EDT Office Visit Pulmonolgy - [place] [address] [facility] [address] [place] [phone] Liliana Jameson NP [address] [place] [address] 06/16/2026 1:30 PM EDT Office Visit [address] [phone] Ginna Del Real MD [address] [place] [phone] documented as of this encounter Visit Diagnoses Not on filedocumented in this encounter Additional Health Concerns Assessment Noted Time PHQ-9 Depression Total Score: 0 04/22/20 10:32 AM EDT documented as of this encounter Care Teams Wine Cellar Stock Clerk Relationship Specialty Start Date End Date Carmine Chaparro PA [address] [place] [address] PCP - General Internal Medicine 09/03/24 documented as of this encounter
--- OUTSIDE RECORDS SUMMARY | 2025-07-02 14:28 | XMS_ITS | Encounter Summary ---
Author Organization [place] [address] Care Team Providers Care Gate Agent Name Role Phone Carmine Chaparro Primary Care Provider [phone] Reason for Visit * Reason Onset Date Comments Nasal Congestion 06/26/2025 Epistaxis (Nose Bleed) 06/26/2025 Encounter Details Date Type Department Care Team ([facility] Contact Info) Description 06/26/2025 Telephone Adult Medicine [address] [phone] Carmine Chaparro PA [address] [place] [address] Social History Tobacco Use Types Packs/Day Years [...] care for your loved ones. For example, housekeeper child care or elderly care for an older adult? [...] traveled recently to another state outside of [place], [place], [place], [place], [place], [place], [place]? no o If yes, did you quarantine [...] of accident/Injury: No If yes, gather 3rd democrat insurance information Third Republican Information: not applicable PCP: ERICK Cortez Payor: MEDICARE / Plan: MEDICARE PART A & B / Product Type: Medicare / documented in this encounter Plan of Treatment Upcoming Encounters Date Type Department Care Team (Late st Contact Info) Description 07/24/2025 12:00 PM EDT Ancillary Procedure [facility] - [facility] [address] [place] [address] 07/30/2025 10:00 AM EDT Appointment Bone Density - [place] [address] [place] [address] 08/05/2025 9:30 AM EDT Office Visit Vascular Surgery - [place] [address] [facility] [address] [place] [address] Ashley Ortiz MD [address] [place], [place] 08/27/2025 11:00 AM EDT Appointment [facility] at [address] [phone] 10/06/2025 9:30 AM EST Office Visit [facility] Hematology Oncology [address] [place] [phone] Philly Cameron MD [address] [place] [address] 10/12/2025 11:00 AM EST Office Visit Endocrinology - [address] [phone] Adriana Morgan PA [address] [place] [address] 01/27/2026 10:35 AM EDT Office Visit Pulmonolgy - [place] 175 [facility] [address] [place] [phone] Liliana Jameson NP [address] [place], [place] 06/16/2026 1:30 PM EDT Office Visit [facility] - [place] [address] [place] [address] Ginna Del Real MD [address] [place], [place] documented as of this encounter Visit Diagnoses Not on filedocumented in this encounter Additional Health Concerns Assessment Noted Time PHQ-9 Depression Total Score: 0 04/22/20 25 10:32 AM EDT documented as of this encounter Care Teams Gate Agent Relationship Specialty Start Date End Date Carmine Chaparro PA [address] [place] [address] PCP - General Internal Medicine 09/03/24 documented as of this encounter
--- OUTSIDE RECORDS SUMMARY | 2025-07-02 14:28 | XMS_ITS | Clinical Summary ---
Author Organization [facility] Address [address] [place] [phone] Phone Care Team Providers Care Captain Room Service Name Role Phone Carmine Chaparro Primary Care Provider [phone] Allergies Active Allergy Reactions Criticality Noted Date [...] mouth as needed. Active blood sugar diagnostic (UlympixTouch Verio test strips) test strip USE TO [...] complication, without long-term current use of insulin ([facility] V24, [facility] V28),Hypothyroidism, unspecified type,Hyperparathyroidi sm ([facility] V24),Acute deep vein thrombosis (DVT) of distal vein of left lower extremity ([facility] V24, [facility] V28),Age related osteoporosis, unspecified pathological fracture presence,Mixed [...] Diagnosed Date Claudication of both lower extremities ([facility] V24) 01/29/2025 Assessment & Plan [...] US duplex lower extremity arteries bilateral with LEDER; Future Mixed hyperlipidemia 01/29/2025 Assessment & Plan [...] ELDER; Future Lung nodule 11/04/2024 Adrenal nodule ([facility] [place]) 11/04/2024 Breast cancer ([facility] V24, [facility] V28) 024 Diabetes mellitus ([facility] V24, [facility] V28) Diverticulitis 10/13/2024 Fatty liver 10/13/2024 Hyperparathyroidism ([facility] V24) 10/07/2024 Parathyroid adenoma 10/07/2024 Age related osteoporosis 07/29/2024 Acute deep vein thrombosis ( DVT) of distal vein of left lower extremity ([facility] V24, [facility] V28) 08/10/2022 TRESSA (obstructive sleep apnea) 05/18/2022 [...] 6 to 16 cm H2O sent to [facility]. Hyperparathyroidism ([facility] V24) 10/17/2021 Hand arthritis 10/08/2019 Type 2 diabetes mellitus wit hout complication, without long-term current use of insulin ([facility] V24, [facility] V28) 07/16/2019 Bilateral carotid bruits 05/14/2018 Gastroesophageal [...] Encounters Date Type Department Care Team Description 07/01/2025 Telephone Pulmonolgy - [place] [address] [facility] [address] [place] [phone] Joaquín Cheo [place], [place] 06/26/2025 Telephone Adult Medicine [address] [phone] Carmine Chaparro PA 06/10/2025 1:45 PM EDT Office Visit [facility] [address] [place] [phone] Ginna Del Real MD History of invasive breast cancer (Primary Dx); History of therapeutic radiation; Acute back pain, unspecified back location, unspecified back pain laterality; Encounter for screening mammogram for malignant neoplasm of breast 05/07/2025 9:15 AM EDT Ancillary Procedure [facility] - [facility] [address] [facility] [address] [place] [phone] Chest discomfort; Type 2 diabetes mellitus without complication, without long-term current use of insulin ([facility] V24, CMS/HCC V28); Hypothyroidism, unspecified type; Hyperparathyroidism (CMS/HCC V24); Acute deep vein thrombosis (DVT) of distal vein of left lower extremity (CMS/HCC V24, CMS/HCC V28); Age related osteoporosis, unspecified pathological fracture presence; Mixed hyperlipidemia 04/30/2025 11:30 AM EDT Consult Vascular Surgery - [place] [address] [facility] [address] [place] [phone] Ashley Ortiz MD Varicose veins of lower extremity with pain, bilateral (Primary Dx); Mixed hyperlipidemia 04/22/2025 10:30 AM EDT Office Visit Adult Medicine [address] [phone] Carmine Chaparro PA Chest discomfort (Primary Dx); Type 2 diabetes mellitus without complication, without long-term current use of insulin (CMS/HCC V24, CMS/HCC V28); Hypothyroidism, unspecified type; Hyperparathyroidism (CMS/HCC V24); Acute deep vein thrombosis (DVT) of distal vein of left lower extremity (CMS/HCC V24, CMS/HCC V28); Age related osteoporosis, unspecified pathological fracture presence; Mixed hyperlipidemia; SI joint arthritis (CMS/HCC V24) from Last 3 Months Immunizations Name [...] HISTORICAL MOLE (REMOVAL OF) COLONOSCOPY 03/07/2004 PROCEDURE: [place] COLONOSCOPY FLX DX W/COLLJ SPEC WHEN PFRMD; COMMENT: diverticulosis SHOULDER SURGERY 2018 Right PROCEDURE: HISTORICAL SHOULDER SURGERY; COMMENT: dr. [...] right breast in female, estrogen receptor positive ([facility] V24, [facility] V28) 09/20/2020 DX:Malignant neoplasm of ri ght breast in female, estrogen receptor positive (HCC) PONV (postoperative nausea a nd vomiting) Hyperparathyroidism ([facility] V24) Family History Medical History Relation Name [...] Alive Father (Age 74) cancer col on, MD, DM Mother Alive rheumatoid arth ritis Other [...] Orientation Straight 11/19/2024 3: 16 PM EST Obstetrics History Last Filed Vital Signs Vital [...] Description 07/24/2025 12:00 PM EDT Ancillary Procedure [facility] - [facility] [address] [facility] 101 [place] [address] 07/30/2025 10:00 AM EDT Appointment Bone Density - [place] [address] [place] [address] 08/05/2025 9:30 AM EDT Office Visit Vascular Surgery - [place] 300 [facility] [address] [place] [address] Ashley Ortiz MD [address] [place] [address] 08/27/2025 11:00 AM EDT Appointment [facility] [address] [place] [address] 10/06/2025 9:30 AM EST Office Visit [facility] Hematology Oncology [address] [place] [phone] Philly Perales MD [address] [place] [address] 10/12/2025 11:00 AM EST Office Visit Endocrinology - [place] [address] [place] [address] Adriana Morgan PA [address] [place] [address] 01/27/2026 10:35 AM EDT Office Visit Pulmonolgy - [place] 175 [facility] 200 [place] [phone] Liliana Jameson NP [address] [place] [address] 06/16/2026 1:30 PM EDT Office Visit Breast Care Center - [place] [address] [place] [phone] Ginna Del Real MD [address] [place] [phone] Health Maintenance Due Date Last Done Comments Diabetes: Annual Foot Exam 1961 Hepatitis A Vaccines (1 of 2 - Risk 2-dose series) 1970 Hepatitis B Vaccines (1 of 3 - Risk 3-dose series) 2011 RSV Immunization Adult Patients (1 - Risk 60-74 years 1-dose series) 2011 Medicare Annual Wellness Visit 10/07/2022 COVID-19 Vaccine ( season) 2025 07/19/2022, 07/18/2022, 02/13/2022, Additional history exists Influenza [...] this topic Medical Devices Implanted Type Area Machinist/Machine Builder Device Identifier Shelf Expiration Date Model / Serial / Lot Dental Implants Dental Implants Bilateral: Mouth Hemostat Flour Collgn 1gm [facility] - [id number] Implanted:Qty : 1 on 11/27/2024 by Ginna Del Real MD at [facility] Hemostasis Left: Parathyroid CR BARD - DAVOL DIV 08/25/2027 [id number] / SNA / [id number] Procedures Procedure Name Priority Date/Time Associated Diagnosis Comments STRESS TEST ONLY EXERCISE Routine 05/07/2025 9:21 AM EDT Chest discomfort Type 2 diabetes mellitus without complication, without long-term current use of insulin (CMS/HCC V24, CMS/HCC V28) Hypothyroidism, unspecified type Hyperparathyroidism (CMS/HCC V24) Acute deep vein thrombosis (DVT) of distal vein of left lower extremity (CMS/HCC V24, CMS/HCC V28) Age related osteoporosis, unspecified pathological fracture presence Mixed hyperlipidemia LIPID PANEL WITH REFLEX TO DIRECT LDL Routine 04/22/2025 11:17 AM EDT Chest discomfort Type 2 diabetes mellitus without complication, without long-term current use of insulin ([facility] V24, [facility] V28) Hypothyroidism, unspecified type Hyperparathyroidism ([facility] V24) Acute deep vein thrombosis (DVT) of distal vein of left lower extremity ([facility] V24, [facility] V28) Age related osteoporosis, unspecified pathological fracture presence Mixed hyperlipidemia MICROALBUMIN CREATININE URINE RATIO Routine 04/22/2025 11:17 AM EDT Chest discomfort Type 2 diabetes mellitus without complication, without long-term current use of insulin ([facility] V24, [facility] V28) Hypothyroidism, unspecified type Hyperparathyroidism ([facility] V24) Acute deep vein thrombosis (DVT) of distal vein of left lower extremity ([facility] V24, [facility] V28) Age related osteoporosis, unspecified pathological fracture presence Mixed hyperlipidemia COMPREHENSIVE METABOLIC PANEL Routine 04/22/2025 11:17 AM EDT Chest discomfort Type 2 diabetes mellitus without complication, without long-term current use of insulin ([facility] V24, [facility] V28) Hypothyroidism, unspecified type Hyperparathyroidism ([facility] V24) Acute deep vein thrombosis (DVT) of distal vein of left lower extremity ([facility] V24, [facility] V28) Age related osteoporosis, unspecified pathological fracture presence Mixed hyperlipidemia HEMOGLOBIN A1C Routine 04/22/2025 11:17 AM EDT Chest discomfort Type 2 diabetes mellitus without complication, without long-term current use of insulin ([facility] V24, [facility] V28) Hypothyroidism, unspecified type Hyperparathyroidism ([facility] V24) Acute deep vein thrombosis (DVT) of distal vein of left lower extremity ([facility] V24, [facility] V28) Age related osteoporosis, unspecified pathological fracture presence Mixed hyperlipidemia PARATHYROID HORMONE INTACT Routine 04/22/2025 11:17 AM EDT Chest discomfort Type 2 diabetes mellitus without complication, without long-term current use of insulin ([facility] V24, [facility] V28) Hypothyroidism, unspecified type Hyperparathyroidism ([facility] V24) Acute deep vein thrombosis (DVT) of distal vein of left lower extremity ([facility] V24, [facility] V28) Age related osteoporosis, unspecified pathological fracture presence Mixed hyperlipidemia THYROID STIMULATING HORMONE WITH REFLEX TO FREE T4 AND FREE T3 Routine 04/22/2025 11:17 AM EDT Chest discomfort Type 2 diabetes mellitus without complication, without long-term current use of insulin ([facility] V24, [facility] V28) Hypothyroidism, unspecified type Hyperparathyroidism ([facility] V24) Acute deep vein thrombosis (DVT) of distal vein of left lower extremity ([facility] V24, [facility] V28) Age related osteoporosis, unspecified pathological fracture presence Mixed hyperlipidemia HEPATITIS C ANTIBODY Routine 10/13/2024 11:20 AM EST Hyperparathyroidism ([facility] V24) Parathyroid adenoma Age related osteoporosis, unspecified pathological fracture presence Type 2 diabetes mellitus without complication, without long-term current use of insulin ([facility] V24, [facility] V28) Hypothyroidism, unspecified type Pure hypercholesterolemia TRESSA (obstructive sleep apnea) Fatty liver Adrenal adenoma, unspecified laterality Lung nodule Primary insomnia [facility] SCREENING DIGITAL Routine 08/26/2024 5:21 PM EDT [facility] DEXA AXIAL SKELETON Routine 03/20/2023 7:33 [...] LAB CHEMISTRY METHOD 04/22/2025 7:13 PM EDT [facility] Blood Venous blood specimen / Unknown Venipuncture / Unknown 04/22/2025 11:17 AM EDT 04/22/2025 11:17 AM EDT Carmine SUAREZ LAB BLOOD ORDERABLES Nanette l Result [facility] [address] [place] [address], [place] [phone] * (ABNORMAL) Lipid panel with reflex to direct LDL (04/22/2025 11:17 AM EDT) Cholesterol 166 0 - 200 mg/dL LAB CHEMISTRY METHOD 04/22/2025 5:01 PM EDT [facility] Triglycerides 179(H) 0 - 150 mg/dL LAB CHEMISTRY METHOD 04/22/2025 5:01 PM EDT [facility] HDL 65 >=40 mg/dL LAB CHEMISTRY METHOD 04/22/2025 5:01 PM EDT [facility] LDL Calculated 65 0 - 100 mg/dL LAB CHEMISTRY METHOD 04/22/2025 5:01 PM EDT [facility] VLDL Cholesterol [place] 35.8 mg/dL LAB CHEMISTRY METHOD 04/22/2025 5:01 PM EDT [facility] Non HDL Chol. (LDL+VLDL) 101 <145 mg/dL LAB CHEMISTRY METHOD 04/22/2025 5:01 PM EDT [facility] Chol/HDL Ratio 2.6 0.0 - 4.4 LAB CHEMISTRY METHOD 04/22/2025 5:01 PM T [facility] Blood Venous blood specimen / Unknown Venipuncture / Unknown 04/22/2025 11:17 AM EDT 04/22/2025 11:17 AM EDT Carmine SUAREZ LAB BLOOD ORDERABLES Nanette l Result [facility] [address] [place] [address], [place] [phone] * Microalbumin creatinine urine ratio (04/22/2025 11:17 AM EDT) Creatinine, Urine 47.0 mg/dL LAB CHEMISTRY METHOD 04/22/2025 3:59 PM EDT [facility] Microalb, Ur 8.0 0.0 - 29.0 mg/L LAB CHEMISTRY METHOD 04/22/2025 3:59 PM EDT [facility] Microalb/Creat Ratio 17 <30 mg/g creat LAB CHEMISTRY METHOD 04/22/2025 3:59 PM EDT [facility] Urine Urine specimen obtained by clean catch procedure / Unknown Non-blood Collection / Unknown 04/22/2025 11:17 AM EDT 04/22/2025 11:17 AM EDT Carmine SUAREZ LAB URINE ORDERABLES Nanette l Result [facility] [address] [place] [address], [place] [phone] * Parathyroid hormone intact (04/22/2025 11:17 AM EDT) PTH 51.9 18.5 - 88.0 pcg/mL LAB CHEMISTRY METHOD 04/22/2025 5:59 PM EDT [facility] Blood Venous blood specimen / Unknown Venipuncture / Unknown 04/22/2025 11:17 AM EDT 04/22/2025 11:17 AM EDT Carmine SUAREZ LAB BLOOD ORDERABLES Nanette l Result [facility] [address] [place] [address], [place] [phone] * Hemoglobin A1c (04/22/2025 11:17 AM EDT) Hemoglobin A1C 5.9 <6.5 % LAB CHEMISTRY METHOD 04/22/2025 2:37 PM EDT [facility] Mean Bld Glu Estim. 123 mg/dL LAB CHEMISTRY METHOD 04/22/2025 2:37 PM EDT [facility] Blood Venous blood specimen / Unknown Venipuncture / Unknown 04/22/2025 11:17 AM EDT 04/22/2025 11:17 AM EDT Carmine SUAREZ LAB BLOOD ORDERABLES Nanette morfin Result [facility] [address] [place] [address], [place] [phone] * (ABNORMAL) Comprehensive metabolic panel (04/22/2025 11:17 AM EDT) Sodium 140 133 - 145 mmol/L LAB CHEMISTRY METHOD 04/22/2025 5:01 PM [facility] Potassium 4.3 3.5 - 5.5 mmol/L LAB CHEMISTRY METHOD 04/22/2025 5:01 PM [facility] Chloride 103 96 - 110 mmol/L LAB CHEMISTRY METHOD 04/22/2025 5:01 PM [facility] CO2 32 21 - 32 mmol/L LAB CHEMISTRY METHOD 04/22/2025 5:01 PM [facility] Anion Gap 5 3 - 11 LAB CHEMISTRY METHOD 04/22/2025 5:01 PM [facility] Glucose 85 70 - 100 mg/dL LAB CHEMISTRY METHOD 04/22/2025 5:01 PM [facility] BUN 19 5 - 25 mg/dL LAB CHEMISTRY METHOD 04/22/2025 5:01 PM [facility] Creatinine 0.67 0.50 - 1.10 mg/dL LAB CHEMISTRY METHOD 04/22/2025 5:01 PM [facility] eGFR 92 >=60 mL/min/1. 73m2 LAB CHEMISTRY METHOD 04/22/2025 5:01 PM [facility] Comment:Calculation based on the Chronic Kidney Disease Epidemiology Collaboration (CKD-EPI) equation refit without adjustment for race. BUN/Creatinine Ratio 28.4 LAB CHEMISTRY METHOD 04/22/2025 5:01 PM [facility] Calcium 9.1 8.5 - 10.5 mg/dL LAB CHEMISTRY METHOD 04/22/2025 5:01 PM [facility] AST (SGOT) 8(L) 10 - 42 unit/L LAB CHEMISTRY METHOD 04/22/2025 5:01 PM [facility] ALT (SGPT) 19 10 - 60 unit/L LAB CHEMISTRY METHOD 04/22/2025 5:01 PM [facility] Alkaline Phosphatase 44 42 - 121 unit/L LAB CHEMISTRY METHOD 04/22/2025 5:01 PM [facility] Total Protein 7.2 6.0 - 8.0 g/dL LAB CHEMISTRY METHOD 04/22/2025 5:01 PM [facility] Albumin 4.2 3.2 - 5.0 g/dL LAB CHEMISTRY METHOD 04/22/2025 5:01 PM [facility] Total Bilirubin 0.4 0.0 - 1.4 mg/dL LAB CHEMISTRY METHOD 04/22/2025 5:01 PM [facility] Blood Venous blood specimen / Unknown Venipuncture / Unknown 04/22/2025 11:17 AM EDT 04/22/2025 11:17 AM EDT Carmine SUAREZ LAB BLOOD ORDERABLES Nanette l Result [facility] [address] [place] [address], * Hepatitis C antibody (10/13/2024 11:20 AM EST) Hepatitis C Antibody Negative Negative LAB CHEMISTRY METHOD 10/13/2024 8:04 PM EST [facility] Blood Venous blood specimen / Unknown Venipuncture / Unknown 10/13/2024 11:20 AM EST 10/13/2024 11:20 AM EST us Carmine SUAREZ LAB BLOOD ORDERABLES Nanette morfin Result [facility] [address] [place] [address], * JUANA SCREENING DIGITAL (08/26/2024 5:21 PM EDT) Anatomical Region Laterality Modality Mammography 08/26/2024 1:49 PM EDT Narrative 08/26/2024 5:21 PM EDT [facility] Diagnostic Imaging Department [address] [place] [address] Patient: VAUGHN FU /Age/Sex: 1950 - 73 - F Unit#: [id number] Location/Status: [facility] Mnemonic/Ordering Site: [facility] Ordering Physician: ISIAH MCCORMACK Juana Screening Digital - 08/26/24 - [id number] Report Status:Signed EXAM: SCREENING MAMMOGRAPHY, BILATERAL HISTORY: [...] Procedure Note Steven Pickens MD - 08/30/2024 [facility] Diagnostic Imaging Department [address] [place] [address] Patient: VAUGHN FU D.O.B./Age/Sex: 1950 - 73 - F Unit#: [id number] Location/Status: [facility]/REG CLI Mnemonic/Ordering Site: [facility] Ordering Physician: ISIAH MCCORMACK Juana Screening Digital - 08/26/24 - [id number] Report Status:Signed EXAM: SCREENING MAMMOGRAPHY, BILATERAL HISTORY: SCREENING. Personal history of right breast cancer. Previous reports indicate lumpectomy radiation and chemotherapy for right breastcancer. Family history of breast cancer. COMPARISON: 08/17/2023, 08/15/2022, 08/11/2021, 08/17/2020, 08/11/2020 TECHNIQUE: Synthesized CC and MLO projections of each breast.Tomosynthesis of each breast in the CC and MLO projections. ADDITIONAL IMAGING: None Computer-aided detection was employed with the [employer] AI 3-D. TISSUE DENSITY: There are scattered [...] MD Dic Date/Time: 08/26/241712 Sign date/Time: 08/26/241720 us Isiah Mccormack MD IMG BI PROCEDURES Final Resu lt * JUANA DEXA AXIAL SKELETON (03/20/2023 7:33 AM EDT) Anatomical Region Laterality Modality Mammography 03/19/2023 1:45 PM EDT Narrative 03/20/2023 7:33 AM EDT [facility] Diagnostic Imaging Department [address] [place] [id number] Patient: VAUGHN FU/Age/Sex: 1950 - 72 - F Unit#: [id number] Location/Status: [facility]/REG CLI Mnemonic[facility] Ordering Physician: PHILLY PERALES MD Juana Dexa [...] probability of hip fracture of 11.2%. Code 89636 Dictating Physician: PATRICE HOBSON MD Electronically Signed by: PATRICE HOBSON MD Dic Date/Time: 03/20/23731 Sign date/Time: 03/20/23732 Procedure Note Patrice Hobson MD - 11/30/2023 [facility] Diagnostic Imaging Department [address] [place], [place] [phone] Patient: VAUGHN FU /Age/Sex: 1950 - 72 - F Unit#: [id number] Location/Status: [facility] CLI Mnemonic/Ordering Site: [facility] Ordering Physician: PHILLY PERALES MD [facility] Dexa Axial Skeleton - 03/19/231424 HISTORY: [...] density of the femurs bilaterally is 0.714 gm/[id number] is 71% of that of young normals [...] probability of hip fracture of 11.2%. Code 56825 Dictating Physician: PATRICE HOBSON MD Electronically Signed by: PATRICE HOBSON MD Dic Date/Time: 03/20/23 0732 Sign date/Time: 03/20/23 0733 Philly Perales MD IMG BI PROCEDURES Final Resu lt from Last 3 Months or Most Recently Relevant to Health Maintenance Insurance MEDICARE [facility] Advance Directives Documents on File Type Date Recorded Patient Philosophy Faculty Expl anation Power of Cra Officer 11/27/2024 6:05 AM HCP Health Care Decision [...] currently active code status orders. Care Teams Captain Room Service Relationship Specialty Start Date End Date Carmine Chaparro PA [address] [place] [address] PCP - General Internal Medicine 09/03/24
--- OUTSIDE RECORDS SUMMARY | 2025-07-02 14:28 | XMS_ITS ---
Author Organization [facility] Address [address] [place] [address] Phone Care Team Providers Care Vibrator Operator Name Role Phone Carmine Chaparro Primary Care Provider [phone] Active Problems Problem Noted Date Diagnosed Date Claudication of both lower extremities (CMS/[facility] V24) 01/29/2025 Assessment & Plan (01/29/2025 8:22 [...] ELDER; Future Lung nodule 11/04/2024 Adrenal nodule ([facility] V24) 11/04/2024 Breast cancer ([facility] V24, [facility] V28) 024 Diabetes mellitus ([facility] V24, [facility] V28) Diverticulitis 10/13/2024 Fatty liver 10/13/2024 Hyperparathyroidism ([place] 132714) 10/07/2024 Parathyroid adenoma 10/07/2024 Age related osteoporosis 07/29/2024 Acute deep vein thrombosis ( DVT) of distal vein of left lower extremity ([facility] V24, [facility] V28) 08/10/2022 TRESSA (obstructive sleep apnea) 05/18/2022 [...] 6 to 16 cm H2O sent to [facility]. Hyperparathyroidism ([facility] V24) 10/17/2021 Hand arthritis 10/08/2019 Type 2 diabetes mellitus wit hout complication, without long-term current use of insulin ([facility] V24, [facility] V28) 07/16/2019 Bilateral carotid bruits 05/14/2018 Gastroesophageal [...] treatments are documented for this patient in [facility]. Treatments may have been administered in another system. Lifetime Dose Tracking * Chemical Lifetime Dose Automatic Entry Manual Entr y CTDIvol 17.99 mGy 17.99 mGy 0 mGy
--- OUTSIDE RECORDS SUMMARY | 2025-07-02 14:28 | XMS_ITS | Clinical Summary ---
Author Organization [facility] Address [address] [place] [address] Care Team Providers Care Consumer Marketing Manager Name Role Phone Carmine Chaparro PA-C Primary [...] age to complete this topic Care Teams Consumer Marketing Manager Relationship Specialty Start Date End Date Carmine Chaparro PA-C PCP - General Medical Services 04/13/21
--- OUTSIDE RECORDS SUMMARY | 2025-07-02 14:29 | XMS_ITS | Patient Health Record ---
Author Organization [facility] Address [address] [place] [address] Care Team Providers Care Drill Press Set Up Operator Name Role Phone Jeff Lu Primary Care [...] of [place] [address] [place] [phone] [id number] Navarro , Viola Self - patient is the insured [facility] [address] [place] [address] [phone] [id number] Viola Navarro Self - patient is the [...]
--- OUTSIDE RECORDS SUMMARY | 2025-07-02 14:29 | XMS_ITS | Patient Health Record ---
[facility] Address [address] [address] Care Team Providers Care Cam Maker Name Role Phone Carmine Castro Primary Care Provider Unav ailable Black, Skye Unavailable [phone] YoungIsis santo Unavailable [phone] Allergies Allergen (clinical drug ingredient) Drug/Non Drug [...] HCl 10 MG Oral; Duration: 90 Not-Taking Wilson Saline Nasal Gel Active Triamcinolone Acetonide 0.1 [...] Ordered Date Performed Result Body Sit e [id number] 04/17/2025 N/A Encounters Encounter Location Date Provider Diagnosis [facility] [address] 10/06/2024 Isis Young Dystrophic nail L60.3 and Type 2 diabetes mellitus with diabetic [facility]neuropathy E11.42 [facility] [address] [address] 04/17/2025 Isis Young Ingrown nail L60.[address] [address] 09/18/2024 [facility]e [facility]pedes [facility] [address] 04/17/2025 Isis Young [address] [address] 05/08/2025 Skye Cespedes Assessments Encounter Date Diagnosis (ICD Code) Assessment Notes Treatment Notes Treatment Clinical Notes Section Notes 10/06/2024 Dystrophic nail (ICD-10 - L60.3) 04/17/2025 Ingrown nail (ICD-10 - L60.0) 10/06/2024 Type 2 diabetes mellitus with diabetic polyneuropathy (ICD-10 - E11.42) Plan Of Treatment Pending Test Test Name Order Date [id number] Plate 09/30/2020 [id number] Plate 06/05/2022 [id number] 08/11/2021 [id number] 04/17/2025 66250- Debride <25 sq cm 09/12/2021 48097- Debride <25 sq cm 10/14/2020 [id number] SKIN/TISSUE 08/29/2021 68262- I&D ABSCESS-COMPLICATED,MULTI 02/2023 77654-CSBM SKIN LESIONS, 2 TO 4 06/11/20 98325-SZOD NAIL(S) 06/11/2023 17295-YAYY NAIL(S) 06/05/2022 74863-DRDC NAIL(S) 12/04/2022 Insurance Providers Payer Name Payer Address Payer Phone Subscriber Number Group Number Insured Name Patient Relationship to Insured Coverage Start Date Coverage End Date [employer] [address] [place] [address] [id number] Viola Navarro Self - patient is the insured [facility] [address] [place] [address] [id number] Alfred Navarro Spouse - patient is the [...] Libby Villarreal- blood clot left leg 2024 [facility]- acute sigmoid diverticu litis- complications with a micropherferation 09/08/21-09/10/21
== END 2025-07-02 14:48 | disposition home or self-care (01) ==
LOC: HO.HSMS 13:12
PROVIDERS: PCP Physician Assistant Medical; Visit Provider Physician Assistant Medical
DX: G47.19 Other hypersomnia (principal); G25.81 Restless legs syndrome; R51.9 Headache, unspecified; G47.00 Insomnia, unspecified
CPT/HCPCS: 99204

== ENCOUNTER → 2025-07-02 13:12 | Outpatient (BNVA) | payer MEDICARE, BC, SELFPAY | PROVIDERS: PCP Physician Assistant Medical; Visit Provider Physician Assistant Medical | DX: G47.00 Insomnia, unspecified (principal); R51.9 Headache, unspecified; G25.81 Restless legs syndrome; G47.19 Other hypersomnia | CPT/HCPCS: 99202 ==

== ENCOUNTER 2025-07-07 12:29 | Outpatient (REF) | payer MEDICARE, BC, SELFPAY ==
--- OUTSIDE RECORDS SUMMARY | 2024-07-30 13:00 | XMS_ITS | Encounter Summary ---
Author Organization [employer] Address [address] [place] [address] Care Team Providers Care Assembler Fluorescent Lights Name Role Phone Carmine Chaparro Primary Care Provider +1 [phone] Encounter Details Date Type Department Care Team [...] for your loved ones. For example, child care lead teacher or elderly care for an [...] Description 07/24/2025 12:00 PM EDT Ancillary Procedure [facility] - [facility] 101 300 [facility] 101 [place] [address] 07/30/2025 10:00 AM EDT Appointment [facility] [address] [address] 08/05/2025 9:30 AM EDT Office Visit Vascular Surgery - [place] [address] [place] [address] Ashley Ortiz MD [address] [place] [phone] 08/27/2025 11:00 AM EDT Appointment [facility] at [address] [phone] 10/06/2025 9:30 AM EST Office Visit [facility] Hematology Oncology [address] [place] [phone] Philly Cameron MD [address] [place] [address] 10/12/2025 11:00 AM EST Office Visit Endocrinology [facility] 444 [place] [address] Adriana Morgan PA [address] [place] [address] 01/27/2026 10:35 AM EDT Office Visit Pul[facility]olgy [facility] 175 [facility] 200 [place] [address] Liliana Jameson NP [address] [place] [phone] 06/16/2026 1:30 PM EDT Office Visit Breast Care Center [facility] 271 [place] [phone] Ginna Del Real MD [address] [place] [phone] documented as of this encounter Procedures Procedure Name Priority Date/Time Associated Diagnosis Comments ..MISCELLANEOUS REFERENCE LAB TEST 07/30/2024 documented in this encounter Results * Miscellaneous reference lab test (07/30/2024) us Provider Onbase LAB BLOOD ORDERABLES Final Re sult documented in this encounter Visit Diagnoses Diagnosis Age-related osteoporosis without current pathological fracture documented in this encounter Care Teams Assembler Fluorescent Lights Relationship Specialty Start Date End Date Carmine Chaparro PA PCP - General Internal Medicine 01/03/21 09/02/24 documented as of this encounter
--- OUTSIDE RECORDS SUMMARY | 2024-09-18 10:30 | XMS_ITS ---
Author Organization [facility] Address [address] [place] [address] Care Team Providers Care Acquisition Professional Name Role Phone Carmine Castro Primary Care Provider Unav ailable Black, Skye Unavailable [phone] Isis Young Unavailable [phone] Medications Medication SIG (Take, Route, Frequency, Duration) [...] Active Encounters Encounter Location Date Provider Diagnosis [facility] [place] [address] [place] [address] 09/18/2024 Isis Young Plan Of Treatment No Information Progress Notes * Viola NAVARRO MDOB:1949 (74 yo F)Acc No.[id number]:09/18/2024 Progress Note Patient: Abbe Viola SCHULER [place] Provider: Reji Young DPM :1950 A ge:73 Y S ex:Female Date:09/18/2024 Address:[address] [place] [address] , [facility] Pcp:ERICK Brooke Subjective: * Chief Complaints: * [...] 11/18/2023 Generated for Paulina cody/Art/Kelechi on: 0 07/07/2025 02:52 PM EDT
--- OUTSIDE RECORDS SUMMARY | 2025-05-11 06:15 | XMS_ITS ---
Author Organization [facility] Address [address] [place] [address] Care Team Providers Care Director Of Consumer Affairs Name Role Phone Carmine Castro Primary Care Provider Unav ailable Black, Skye Unavailable [phone] Isis Young Unavailable [phone] Encounters Encounter Location Date Provider Diagnosis [facility] [address] [place] [address] 05/11/2025 Isis Young Plan Of Treatment No Information Progress Notes * Viola NAVARRO MDOB:1949 (74 yo F)Acc No.[id number]:05/11/2025 Progress Notes Patient: Naeem RODRIGUEZise Libia Provider: Reji Young DPM :1950 A ge:74 Y S ex:Female Date:05/11/2025 Address:[address] [place] Pcp:ERICK Brooke Subjective: * Chief Complaints: * [...] Date: 05/11/2025 Generated for Paulina cody/Art/Olegarioransmitting on: 07/07/2025 02:52 PM EDT
[2025-07-07 12:55] LABS: Hematocrit 44.0 % (37.0-47.0); Hemoglobin 15.3 g/dl (12.0-16.0); Mean Corpuscular HGB Conc 34.8 g/dl (31.0-35.0); Mean Corpuscular Hemoglobin 30.4 pg (27.0-33.0); Mean Corpuscular Volume 87.3 fL (80.0-98.0); NRBC Abs Auto 0.000 X10*3/uL (0.0-0.012); NRBC Pct Auto 0.0 /100WBC (0.0-0.2); Platelet Count 246 X10*3/uL (160-400); Red Blood Count 5.04 X10*6/uL (4.20-5.50); White Blood Count 8.7 X10*3/uL (4.8-10.8)
[2025-07-07 13:03] LABS: Hemoglobin A1C 157.8898 umol/L; Total Hemoglobin (HGBA1C) 3822.4415 umol/L
[2025-07-07 13:14] LABS: Alanine Aminotransferase 12 U/L (0-31); Albumin Level 4.9 g/dL (3.5-5.0); Alkaline Phosphatase 47 U/L (39-117); Anion Gap 14 (12-20); Aspartate Amino Transferase 18 U/L (5-31); Blood Urea Nitrogen 14 mg/dL (9-16); Calcium 9.5 mg/dL (8.4-10.2); Carbon Dioxide 29 mmol/L (22-29); Chloride 105 mmol/L (96-108); Estimated Glomerular Filt Rate > 60; Magnesium 2.3 mg/dL (1.6-2.6); Potassium 5.0 mmol/L (3.3-5.1); Sodium 143 mmol/L (135-145); Total Protein 7.5 g/dL (6.5-8.0)
[2025-07-07 13:29] LABS: Ferritin 131 ng/mL (10-250)
[2025-07-07 13:42] LABS: Folate 12.1 ng/mL (> or = 4.0); Vitamin B12 525 pg/mL (200-900)
--- OUTSIDE RECORDS SUMMARY | 2025-07-07 14:52 | XMS_ITS | Clinical Summary ---
Author Organization [facility] Address [address] [place] [phone] Phone Care Team Providers Care Industrial Registered Nurse Name Role Phone Carmine Chaparro Primary Care Provider [phone] Allergies Active Allergy Reactions Criticality Noted Date [...] mouth as needed. Active blood sugar diagnostic (MemoropTouch Verio test strips) test strip USE TO [...] complication, without long-term current use of insulin ([facility] V24, [facility] V28),Hypothyroidism, unspecified type,Hyperparathyroidi sm ([facility] V24),Acute deep vein thrombosis (DVT) of distal vein of left lower extremity ([facility] V24, [facility] V28),Age related osteoporosis, unspecified pathological [...] Diagnosed Date Claudication of both lower extremities ([facility] V24) 01/29/2025 Assessment & Plan [...] ELDER; Future Lung nodule 11/04/2024 Adrenal nodule ([facility] V24) 11/04/2024 Breast cancer ([facility] V24, [facility] V28) 024 Diabetes mellitus ([facility] V24, [facility] V28) Diverticulitis 10/13/2024 Fatty liver 10/13/2024 Hyperparathyroidism ([facility] V24) 10/07/2024 Parathyroid adenoma 10/07/2024 Age related osteoporosis 07/29/2024 Acute deep vein thrombosis ( DVT) of distal vein of left lower extremity ([facility] V24, [facility] V28) 08/10/2022 TRESSA (obstructive sleep apnea) 05/18/2022 [...] cm H2O sent to [facility]. Hyperparathyroidism ([facility] V24) 10/17/2021 Hand arthritis 10/08/2019 Type 2 diabetes mellitus wit hout complication, without long-term current use of insulin ([facility] V24, [facility] V28) 07/16/2019 Bilateral carotid bruits 05/14/2018 Gastroesophageal [...] Care Team Description 07/01/2025 Telephone Pulmonolgy - [place] [address] [facility] [address] [place] [phone] Joaquín Cheo [place], [place] 06/26/2025 Telephone Adult Medicine [address] [phone] Carmine Chaparro PA 06/10/2025 1:45 PM EDT Office Visit [facility] [address] [place] [phone] Ginna Del Real MD History of invasive breast cancer (Primary Dx); History of therapeutic radiation; Acute back pain, unspecified back location, unspecified back pain laterality; Encounter for screening mammogram for malignant neoplasm of breast 05/07/2025 9:15 AM EDT Ancillary Procedure [facility] [address] [facility] [address] [place] [phone] Chest discomfort; Type 2 diabetes mellitus without complication, without long-term current use of insulin ([facility] V24, CMS/HCC V28); Hypothyroidism, unspecified type; Hyperparathyroidism (CMS/HCC V24); Acute deep vein thrombosis (DVT) of distal vein of left lower extremity (CMS/HCC V24, CMS/HCC V28); Age related osteoporosis, unspecified pathological fracture presence; Mixed hyperlipidemia 04/30/2025 11:30 AM EDT Consult Vascular Surgery - [place] [address] [facility] [address] [place] [phone] Ashley Ortiz MD Varicose veins of lower extremity with pain, bilateral (Primary Dx); Mixed hyperlipidemia 04/22/2025 10:30 AM EDT Office Visit Adult Medicine [address] [phone] Carmine Chaparro PA Chest discomfort (Primary Dx); [...] HISTORICAL MOLE (REMOVAL OF) COLONOSCOPY 03/07/2004 PROCEDURE: [place] COLONOSCOPY FLX DX W/COLLJ SPEC WHEN PFRMD; [...] right breast in female, estrogen receptor positive ([facility] V24, [facility] V28) 09/20/2020 DX:Malignant neoplasm of ri ght breast in female, estrogen receptor positive (HCC) PONV (postoperative nausea a nd vomiting) Hyperparathyroidism ([facility] V24) Family History Medical History [...] Alive Father (Age 74) cancer col on, [place], DM Mother Alive rheumatoid arth ritis Other [...] your loved ones. For example, child care teacher or elderly care for [...] Procedure [facility] [address] [facility] [address] [place] [address] 07/30/2025 10:00 AM EDT Appointment Bone Density - [place] [address] [place] [address] 08/05/2025 9:30 AM EDT Office Visit Vascular Surgery - [place] [address] [facility] [address] [place] [phone] Ashley Ortiz MD [address] [place] [phone] 08/27/2025 11:00 AM EDT Appointment [facility] [address] [place] [address] 10/06/2025 9:30 AM EST Office Visit [facility] Hematology Oncology [address] [place] [phone] Philly Perales MD [address] [place] [address] 10/12/2025 11:00 AM EST Office Visit Endocrinology - [place] [address] [place] [address] Adriana Morgan PA [address] [place] [address] 01/27/2026 10:35 AM EDT Office Visit Pulmonolgy - [place] [address] [facility] [address] [place] [phone] Liliana Jameson NP [address] [place] [phone] 06/16/2026 1:30 PM EDT Office Visit [facility] Care [address] [phone] Ginna Del Real MD [address] [place] [phone] Health Maintenance Due Date Last Done [...] this topic Medical Devices Implanted Type Area Rn Clinical Research Device Identifier Shelf Expiration Date Model / Serial / Lot Dental Implants Dental Implants Bilateral: Mouth Hemostat Flour Collgn [facility] [id number] Implanted:Qty : 1 on 11/27/2024 by Ginna Del Real MD at [facility] Hemostasis Left: Parathyroid CR BARD - DAVOL DIV 08/25/2027 [id number] / SNA / [id number] Procedures Procedure Name Priority Date/Time Associated Diagnosis Comments STRESS TEST ONLY EXERCISE Routine 05/07/2025 9:21 AM EDT Chest discomfort Type 2 diabetes mellitus without complication, without long-term current use of insulin ([facility] V24, [facility] V28) Hypothyroidism, unspecified type Hyperparathyroidism ([facility] V24) Acute deep vein thrombosis (DVT) of distal vein of left lower extremity ([facility] V24, [facility] V28) Age related osteoporosis, unspecified pathological fracture presence Mixed hyperlipidemia LIPID PANEL WITH REFLEX TO DIRECT LDL Routine 04/22/2025 11:17 AM EDT Chest discomfort Type 2 diabetes mellitus without complication, without long-term current use of insulin ([facility] V24, [facility] V28) Hypothyroidism, unspecified type Hyperparathyroidism ([facility] V24) Acute deep vein thrombosis (DVT) of distal vein of left lower extremity ([facility] V24, [facility] V28) Age related osteoporosis, unspecified pathological fracture presence Mixed hyperlipidemia MICROALBUMIN CREATININE URINE RATIO Routine 04/22/2025 11:17 AM EDT Chest discomfort Type 2 diabetes mellitus without complication, without long-term current use of insulin ([facility] V24, [facility] V28) Hypothyroidism, unspecified type Hyperparathyroidism ([facility] V24) Acute deep vein thrombosis (DVT) of distal vein of left lower extremity ([facility] V24, [facility] V28) Age related osteoporosis, unspecified pathological fracture presence Mixed hyperlipidemia COMPREHENSIVE METABOLIC PANEL Routine 04/22/2025 11:17 AM EDT Chest discomfort Type 2 diabetes mellitus without complication, without long-term current use of insulin ([facility] V24, [facility] V28) Hypothyroidism, unspecified type Hyperparathyroidism ([facility] V24) Acute deep vein thrombosis (DVT) of distal vein of left lower extremity ([facility] V24, [facility] V28) Age related osteoporosis, unspecified pathological fracture presence Mixed hyperlipidemia HEMOGLOBIN A1C Routine 04/22/2025 11:17 AM EDT Chest discomfort Type 2 diabetes mellitus without complication, without long-term current use of insulin ([facility] V24, [facility] V28) Hypothyroidism, unspecified type Hyperparathyroidism ([facility] V24) Acute deep vein thrombosis (DVT) of distal vein of left lower extremity ([facility] V24, [facility] V28) Age related osteoporosis, unspecified pathological fracture presence Mixed hyperlipidemia PARATHYROID HORMONE INTACT Routine 04/22/2025 11:17 AM EDT Chest discomfort Type 2 diabetes mellitus without complication, without long-term current use of insulin ([facility] V24, [facility] V28) Hypothyroidism, unspecified type Hyperparathyroidism ([facility] V24) Acute deep vein thrombosis (DVT) of distal vein of left lower extremity ([facility] V24, [facility] V28) Age related osteoporosis, unspecified pathological fracture presence Mixed hyperlipidemia THYROID STIMULATING HORMONE WITH REFLEX TO FREE T4 AND FREE T3 Routine 04/22/2025 11:17 AM EDT Chest discomfort Type 2 diabetes mellitus without complication, without long-term current use of insulin ([facility] V24, [facility] V28) Hypothyroidism, unspecified type Hyperparathyroidism ([facility] V24) Acute deep vein thrombosis (DVT) of distal vein of left lower extremity ([facility] V24, [facility] V28) Age related osteoporosis, unspecified pathological fracture presence Mixed hyperlipidemia HEPATITIS C ANTIBODY Routine 10/13/2024 11:20 AM EST Hyperparathyroidism ([facility] V24) Parathyroid adenoma Age related osteoporosis, unspecified pathological fracture presence Type 2 diabetes mellitus without complication, without long-term current use of insulin ([facility] V24, [facility] V28) Hypothyroidism, unspecified type Pure hypercholesterolemia TRESSA (obstructive sleep apnea) Fatty liver Adrenal adenoma, unspecified laterality Lung nodule Primary insomnia [facility] SCREENING DIGITAL Routine 08/26/2024 5:21 PM EDT [facility] DEXA AXIAL SKELETON Routine 03/20/2023 7:33 AM [...] Normal blood pressure response.No chest pain reported. us Carmine SUAREZ CV STRESS PROCEDURES Nanette l Result * Thyroid stimulating hormone with reflex to free t4 and free t3 (04/22/2025 11:17 AM EDT) TSH 3.76 0.40 - 4.00 mcIU/mL LAB CHEMISTRY METHOD 04/22/2025 7:[address] [facility] Blood Venous blood specimen / Unknown Venipuncture / Unknown 04/22/2025 11:17 AM EDT 04/22/2025 11:17 AM EDT us Carmine SUAREZ LAB BLOOD ORDERABLES Nanette l Result [facility] [address] [place] [address], [place] [phone] * (ABNORMAL) Lipid panel with reflex to direct LDL (04/22/2025 11:17 AM EDT) Cholesterol 166 0 - 200 mg/dL LAB CHEMISTRY METHOD 04/22/2025 5:01 PM EDT [facility] Triglycerides 179(H) 0 - 150 mg/dL LAB CHEMISTRY METHOD 04/22/2025 5:01 PM EDT [facility] HDL 65 >=40 mg/dL LAB CHEMISTRY METHOD 04/22/2025 5:01 PM EDT [facility] LDL Calculated 65 0 - 100 mg/dL LAB CHEMISTRY METHOD 04/22/2025 5:01 PM EDT [facility] VLDL Cholesterol [place] 35.8 mg/dL LAB CHEMISTRY METHOD 04/22/2025 5:01 PM EDT [facility] Non HDL Chol. (LDL+VLDL) 101 <145 mg/dL LAB CHEMISTRY METHOD 04/22/2025 5:01 PM EDT [facility] Chol/HDL Ratio 2.6 0.0 - 4.4 LAB CHEMISTRY METHOD 04/22/2025 5:01 PM [facility] Blood Venous blood specimen / Unknown Venipuncture / Unknown 04/22/2025 11:17 AM EDT 04/22/2025 11:17 AM EDT Carmine SUAREZ LAB BLOOD ORDERABLES Nanette l Result [facility] [address] [place] [address], [place] [phone] * Microalbumin creatinine urine ratio (04/22/2025 11:17 AM EDT) Creatinine, Urine 47.0 mg/dL LAB CHEMISTRY METHOD 04/22/2025 3:59 PM EDT [facility] Microalb, Ur 8.0 0.0 - 29.0 mg/L LAB CHEMISTRY METHOD 04/22/2025 3:59 PM EDT [facility] Microalb/Creat Ratio 17 <30 mg/g creat LAB CHEMISTRY METHOD 04/22/2025 3:59 PM EDT [facility] Urine Urine specimen obtained by clean catch procedure / Unknown Non-blood Collection / Unknown 04/22/2025 11:17 AM EDT 04/22/2025 11:17 AM EDT Carmine SUAREZ LAB URINE ORDERABLES Nanette l Result Performing Organization Address City/[facility]/ZIP Co de Phone Number [facility] [address] [place] [address], * Parathyroid hormone intact (04/22/2025 11:17 AM EDT) [facility] PTH 51.9 18.5 - 88.0 pcg/mL LAB CHEMISTRY METHOD 04/22/2025 5:59 PM EDT [facility] Blood Venous blood specimen / Unknown Venipuncture / Unknown 04/22/2025 11:17 AM EDT 04/22/2025 11:17 AM EDT Carmine SUAREZ LAB BLOOD ORDERABLES Nanette l Result [facility] [address] [place] [address], * Hemoglobin A1c (04/22/2025 11:17 AM EDT) [facility] Hemoglobin A1C 5.9 <6.5 % LAB CHEMISTRY METHOD 04/22/2025 2:37 PM EDT [facility] Mean Bld Glu Estim. 123 mg/dL LAB CHEMISTRY METHOD 04/22/2025 2:37 PM [facility] Blood Venous blood specimen / Unknown Venipuncture / Unknown 04/22/2025 11:17 AM EDT 04/22/2025 11:17 AM EDT us Carmine SUAREZ LAB BLOOD ORDERABLES Nanette l Result [facility] [address] [place] [address], [place] [phone] * (ABNORMAL) Comprehensive metabolic panel (04/22/2025 11:17 AM EDT) Sodium 140 133 - 145 mmol/L LAB CHEMISTRY METHOD 04/22/2025 5:01 PM [facility] Potassium 4.3 3.5 - 5.5 mmol/L LAB CHEMISTRY METHOD 04/22/2025 5:01 PM [facility] Chloride 103 96 - 110 mmol/L LAB CHEMISTRY METHOD 04/22/2025 5:01 PM [facility] CO2 32 21 - 32 mmol/L LAB CHEMISTRY METHOD 04/22/2025 5:01 PM [facility] Anion Gap 5 3 - 11 LAB CHEMISTRY METHOD 04/22/2025 5:01 PM [facility] Glucose 85 70 - 100 mg/dL LAB CHEMISTRY METHOD 04/22/2025 5:01 PM [facility] BUN 19 5 - 25 mg/dL LAB CHEMISTRY METHOD 04/22/2025 5:01 PM [facility] Creatinine 0.67 0.50 - 1.10 mg/dL LAB CHEMISTRY METHOD 04/22/2025 5:01 PM [facility] eGFR 92 >=60 mL/min/1. 73m2 LAB CHEMISTRY METHOD 04/22/2025 5:01 PM [facility] Comment:Calculation based on the Chronic Kidney Disease Epidemiology Collaboration (CKD-EPI) equation refit without adjustment for race. BUN/Creatinine Ratio 28.4 LAB CHEMISTRY METHOD 04/22/2025 5:01 PM [facility] Calcium 9.1 8.5 - 10.5 mg/dL LAB CHEMISTRY METHOD 04/22/2025 5:01 PM [facility] AST (SGOT) 8(L) 10 - 42 unit/L LAB CHEMISTRY METHOD 04/22/2025 5:01 PM [facility] ALT (SGPT) 19 10 - 60 unit/L LAB CHEMISTRY METHOD 04/22/2025 5:01 PM [facility] Alkaline Phosphatase 44 42 - 121 unit/L LAB CHEMISTRY METHOD 04/22/2025 5:01 PM [facility] Total Protein 7.2 6.0 - 8.0 g/dL LAB CHEMISTRY METHOD 04/22/2025 5:01 PM [facility] Albumin 4.2 3.2 - 5.0 g/dL LAB CHEMISTRY METHOD 04/22/2025 5:01 PM [facility] Total Bilirubin 0.4 0.0 - 1.4 mg/dL LAB CHEMISTRY METHOD 04/22/2025 5:01 PM [facility] Blood Venous blood specimen / Unknown Venipuncture / Unknown 04/22/2025 11:17 AM EDT 04/22/2025 11:17 AM EDT us Carmine SUAREZ LAB BLOOD ORDERABLES Nanette l Result [facility] [address] [place] [address], * Hepatitis C antibody (10/13/2024 11:20 AM EST) Hepatitis C Antibody Negative Negative LAB CHEMISTRY METHOD 10/13/2024 8:04 PM EST [facility] Blood Venous blood specimen / Unknown Venipuncture / Unknown 10/13/2024 11:20 AM EST 10/13/2024 11:20 AM EST Carmine SUAREZ LAB BLOOD ORDERABLES Nanette l Result [facility] [address] [place] [address], * JUANA SCREENING DIGITAL (08/26/2024 5:21 PM EDT) Anatomical Region Laterality Modality Mammography 08/26/2024 1:49 PM EDT Narrative 08/26/2024 5:21 PM EDT [facility] Diagnostic Imaging Department [address] [place] [address] Patient: VAUGHN FU/Age/Sex: 1950 - 73 - F Unit#: [id number] [facility] Ordering Physician: ISIAH MCCORMACK Juana Screening Digital - 08/26/24 - [id number] Report Status:Signed EXAM: SCREENING MAMMOGRAPHY, BILATERAL HISTORY: [...] Procedure Note Steven Pickens MD - 08/30/2024 [facility] Diagnostic Imaging Department [address] [place] [address] Patient: VAUGHN FU D.O.B./Age/Sex: 1950 - 73 - F Unit#: [id number] [facility] Mnemonic/Ordering Site: [facility] Ordering Physician: ISIAH MCCORMACK Juana Screening Digital - 08/26/24 - [id number] Report Status:Signed EXAM: SCREENING MAMMOGRAPHY, BILATERAL HISTORY: SCREENING. Personal history of right breast cancer. Previous reports indicate lumpectomy radiation and chemotherapy for right breastcancer. Family history of breast cancer. COMPARISON: 08/17/2023, 08/15/2022, 08/11/2021, 08/17/2020, 08/11/2020 TECHNIQUE: Synthesized CC and MLO projections of each breast.Tomosynthesis of each breast in the CC and MLO projections. 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 TISSUE DENSITY: There are scattered [...] PM EDT Narrative 03/20/2023 7:33 AM EDT [facility] Diagnostic Imaging Department [address] [place] [address] Patient: VAUGHN FU /Age/Sex: 1950 72 - F Unit#: [id number] Location/Status: [facility]AM/REG CLI Mnemonic[facility] Ordering Physician: PHILLY PERALES MD Juana Dexa Axial Skeleton - 03/19/23 - 1424 HISTORY: The patient is a 72-year-old postmenopausal [...] probability of hip fracture of 11.2%. Code 06836 Dictating Physician: PATRICE HOBSON MD Electronically Signed by: PATRICE HOBSON MD Dic Date/Time: 03/20/23731 Sign date/Time: 03/20/23732 Procedure Note Patrice Hobson MD - 11/30/2023 [facility] Diagnostic Imaging Department [address] [place] [address] Patient: VAUGHN FU./Age/Sex: 1950 - F Unit#: [id number] Location/Status: SPDIMAM/REG CLI Mnemonic[facility] Ordering Physician: PHILLY PERALES MD Juana Dexa [...] density of the femurs bilaterally is 0.714 gm/[id number] is 71% of that of young normals [...] probability of hip fracture of 11.2%. Code 22573 Dictating Physician: PATRICE HOBSON MD Electronically Signed by: PATRICE HOBSON MD Dic Date/Time: 03/20/23731 Sign date/Time: 03/20/23732 Philly Perales MD IMG BI PROCEDURES Final Resu lt from Last 3 Months or Most Recently Relevant to Health Maintenance Insurance MEDICARE [facility] Advance Directives Documents on File Type Date Recorded Patient Supervisor Pipeline Expl anation Power of Sports Agent 11/27/2024 6:05 AM HCP Health Care Decision [...] currently active code status orders. Care Teams Industrial Registered Nurse Relationship Specialty Start Date End Date Carmine Chaparro PA [address] [place] [address] PCP - General Internal Medicine 09/03/24
--- OUTSIDE RECORDS SUMMARY | 2025-07-07 14:52 | XMS_ITS ---
Author Organization [facility] Address [address] [place] [address] Phone Care Team Providers Care Traffic Maintenance Officer Name Role Phone Carmine Chaparro Primary Care Provider [phone] Active Problems Problem Noted Date Diagnosed Date Claudication of both lower extremities ([facility] V24) 01/29/2025 Assessment & Plan (01/29/2025 8:22 [...] ELDER; Future Lung nodule 11/04/2024 Adrenal nodule ([facility] V24) 11/04/2024 Breast cancer ([facility] V24, [facility] V28) 024 Diabetes mellitus ([facility] V24, [facility] V28) Diverticulitis 10/13/2024 Fatty liver 10/13/2024 Hyperparathyroidism ([place] [id number]) 10/07/2024 Parathyroid adenoma 10/07/2024 Age related osteoporosis 07/29/2024 Acute deep vein thrombosis ( DVT) of distal vein of left lower extremity ([facility] V24, [facility] V28) 08/10/2022 TRESSA (obstructive sleep apnea) 05/18/2022 [...] 6 to 16 cm H2O sent to [facility]. Hyperparathyroidism ([facility] V24) 10/17/2021 Hand arthritis 10/08/2019 Type 2 diabetes mellitus wit hout complication, without long-term current use of insulin ([facility] V24, [facility] V28) 07/16/2019 Bilateral carotid bruits 05/14/2018 Gastroesophageal [...] treatments [facility]. Treatments may have been administered in another system. Lifetime Dose Tracking * Chemical Lifetime Dose Automatic Entry Manual Entr y CTDIvol 17.99 mGy 17.99 mGy 0 mGy
--- OUTSIDE RECORDS SUMMARY | 2025-07-07 14:52 | XMS_ITS | Clinical Summary ---
Author Organization [facility] Address [address] [place] [address] Care Team Providers Care Medical Assembly Name Role Phone Carmine Chaparro PA-C Primary [...] (DEXA Scan) 2016 COVID-19 Vaccine ( season) 2025 07/18/2022, 02/13/2022, 07/22/2021, Additional history exists Influenza [...] age to complete this topic Care Teams Medical Assembly Relationship Specialty Start Date End Date Carmine Chaparro PA-C PCP - General Medical Services 04/13/21
--- OUTSIDE RECORDS SUMMARY | 2025-07-07 14:52 | XMS_ITS | Encounter Summary ---
Author Organization [place] [address] Care Team Providers Care Qa Tester Name Role Phone Carmine Chaparro Primary Care Provider [phone] Reason for Visit * Reason Onset Date Comments Nasal Congestion 06/26/2025 Epistaxis (Nose Bleed) 06/26/2025 Encounter Details Date Type Department Care Team ([facility] Contact Info) Description 06/26/2025 Telephone Adult Medicine [address] [phone] Carmine Chaparro PA [address] [place] [phone] Social History Tobacco Use Types Packs/Day Years [...] for your loved ones. For example, child neurologist or elderly care for an older adult? [...] traveled recently to another state outside of [place], [place], [place], [place], [place], [place], [place]? no o If yes, did you quarantine [...] Description 07/24/2025 12:00 PM EDT Ancillary Procedure [facility] [address] [facility] 101 [place] [address] 07/30/2025 10:00 AM EDT Appointment Bone Density - [place] [address] [place] [address] 08/05/2025 9:30 AM EDT Office Visit Vascular Surgery - [place] [address] [facility] [address] [place] [address] Ashley Ortiz MD [address] [place] [phone] 08/27/2025 11:00 AM EDT [facility]ment [facility] [address] [phone] 10/06/2025 9:30 AM EST Office Visit [facility] Hematology Oncology [address] [place] [phone] Philly Cameron MD [address] [place] [address] 10/12/2025 11:00 AM EST Office Visit [place]ocr[place]ology [facility] [address] [place] [address] Adriana Morgan PA [address] [place] [address] 01/27/2026 10:35 AM EDT Office Visit Pulmonolgy - [place] 175 [facility] 200 [place] [phone] Liliana Jameson NP [address] [place] [phone] 06/16/2026 1:30 PM EDT Office Visit [facility] [place] [address] [place] [address] Ginna Del Real MD [address] [place] [phone] documented as of this encounter Visit Diagnoses Not on filedocumented in this encounter Additional Health Concerns Assessment Noted Time PHQ-9 Depression Total Score: 0 04/22/20 10:32 AM EDT documented as of this encounter Care Teams Qa Tester Relationship Specialty Start Date End Date Carmine Chaparro PA [address] [place] [address] PCP - General Internal Medicine 09/03/24 documented as of this encounter
--- OUTSIDE RECORDS SUMMARY | 2025-07-07 14:52 | XMS_ITS | Patient Health Record ---
Author Organization [facility] Address [address] [facility] [address] [place] [address] Care Team Providers Care Safety Counselor Name Role Phone Jeff Lu Primary Care [...] of [place] [address] [place] [address] [phone] [id number] Navarro , Viola Self - patient is the insured [facility] and [facility] [address] [place] [address] [phone] [id number] Viola Navarro Self - patient is the [...]
--- OUTSIDE RECORDS SUMMARY | 2025-07-07 14:53 | XMS_ITS | Patient Health Record ---
Author Organization [facility] Address [address] [facility] [place] [address] Care Team Providers Care Gut Carrier Name Role Phone Carmine Castro Primary Care Provider Unav ailable Black, Skye Unavailable [phone] YoungIsis santo Unavailable [phone] Allergies Allergen (clinical drug ingredient) Drug/Non Drug [...] HCl 10 MG Oral; Duration: 90 Not-Taking Neches Saline Nasal Gel Active Triamcinolone Acetonide 0.1 [...] Ordered Date Performed Result Body Sit e 56264-LXE 04/17/2025 N/A Encounters Encounter Location Date Provider Diagnosis [facility] [address] 10/06/2024 Isis Young Dystrophic nail L60.3 and Type 2 diabetes mellitus with diabetic polyneuropathy E11.42 [facility] [address] [address] 04/17/2025 Isis Young Ingrown nail L60.[address] [address] 09/18/2024 Skye Cespedes [facility] [address] 04/17/2025 Isis Young [address] [address] 05/08/2025 Skye Cespedes Assessments Encounter Date Diagnosis (ICD Code) Assessment Notes Treatment Notes Treatment Clinical Notes Section Notes 10/06/2024 Dystrophic nail (ICD-10 - L60.3) 04/17/2025 Ingrown nail (ICD-10 - L60.0) 10/06/2024 Type 2 diabetes mellitus with diabetic polyneuropathy (ICD-10 - E11.42) Plan Of Treatment Pending Test Test Name Order Date 64791-Voepfbau Plate 09/30/2020 [id number]-Umsgalsm Plate 06/05/2022 [id number] 08/11/2021 36019-TRC 04/17/2025 67611- Debride <25 sq cm 09/12/2021 19312- Debride <25 sq cm 10/14/2020 [id number] SKIN/TISSUE 08/29/2021 14415- I&D ABSCESS-COMPLICATED,MULTI 02/2023 02611-VVJK SKIN LESIONS, 2 TO 4 06/11/20 73475-IYDY NAIL(S) 06/11/2023 26761-BESU NAIL(S) 06/05/2022 72519-RWFH NAIL(S) 12/04/2022 Insurance Providers Payer Name Payer Address Payer Phone Subscriber Number Group Number Insured Name Patient Relationship to Insured Coverage Start Date Coverage End Date Medicare [employer] [address] [place] [address] [id number] Viola Naavrro Self - patient is the insured [facility] [address] [place] [address] [id number] Alfred Navarro Spouse - patient is the [...] Libby Villarreal- blood clot left leg 2024 [facility]- acute sigmoid diverticu litis- complications with a micropherferation 09/08/21-09/10/21
== END 2025-07-07 12:30 | disposition home or self-care (01) ==
LOC: HO.LAB 12:29
PROVIDERS: PCP Physician Assistant Medical; Visit Provider Physician Assistant Medical
DX: R53.82 Chronic fatigue, unspecified (principal); G47.9 Sleep disorder, unspecified; Z13.1 Encounter for screening for diabetes mellitus; Z13.6 Encounter for screening for cardiovascular disorders
CPT/HCPCS: 36415; 80053; 82306; 82607; 82728; 82746; 83036; 83090; 83735; 83921; 84207; 84425; 84443; 85027

== ENCOUNTER 2025-07-11 10:19 | Outpatient (AMB) | payer MEDICARE, BC, SELFPAY ==
--- OUTSIDE RECORDS SUMMARY | 2024-07-30 13:00 | XMS_ITS | Encounter Summary ---
Author Organization [employer] Address [address] [place] [address] Care Team Providers Care Lost Charge Card Clerk Name Role Phone Carmine Chaparro Primary Care Provider +1 [phone] Encounter Details Date Type Department Care Team [...] for your loved ones. For example, child center assistant or elderly care for an older adult? [...] Description 07/24/2025 12:00 PM EDT Ancillary Procedure [facility] - [facility] 101 300 [facility] 101 [place] [address] 07/30/2025 10:00 AM EDT Appointment [facility] [address] [address] 08/05/2025 9:30 AM EDT Office Visit Vascular Surgery - [place] [address] [place] [address] Ashley Ortiz MD [address] [place] [phone] 08/27/2025 11:00 AM EDT [facility]ointment [facility] at [address] [phone] 10/06/2025 9:30 AM EST Office Visit [facility] Hematology Oncology [address] [place] [address] Philly Cameron MD [address] [place] [address] 10/12/2025 11:00 AM EST Office Visit [facility]ocrinology [facility] 444 [place] [address] Adriana Morgan PA [address] [place] [address] 01/27/2026 10:35 AM EDT Office Visit Pulmonolgy [facility] 175 [facility] 200 [place] [address] Liliana Jameson NP 230 [place] [phone] 06/16/2026 1:30 PM EDT Office Visit [facility] [address] [place] [phone] Ginna Del Real MD [address] [place] [phone] documented as of this encounter Procedures Procedure Name Priority Date/Time Associated Diagnosis Comments ..MISCELLANEOUS REFERENCE LAB TEST 07/30/2024 documented in this encounter Results * Miscellaneous reference lab test (07/30/2024) us Provider Onbase LAB BLOOD ORDERABLES Final Re sult documented in this encounter Visit Diagnoses Diagnosis Age-related osteoporosis without current pathological fracture documented in this encounter Care Teams Lost Charge Card Clerk Relationship Specialty Start Date End Date Carmine Chaparro PA PCP - General Internal Medicine 01/03/21 09/02/24 documented as of this encounter
--- OUTSIDE RECORDS SUMMARY | 2024-09-18 10:30 | XMS_ITS ---
Author Organization [facility] Address [address] [place] [address] Care Team Providers Care Senior Talent Management Consultant Name Role Phone Carmine Castro Primary Care Provider Unav ailable Black, Skye Unavailable [phone] Isis Young Unavailable [phone] Medications Medication SIG (Take, Route, Frequency, Duration) [...] Active Encounters Encounter Location Date Provider Diagnosis [facility] [place] [address] [place] [address] 09/18/2024 Isis Young Plan Of Treatment No Information Progress Notes * Viola NAVARRO MDOB:1949 (74 yo F)Acc No.[id number]:09/18/2024 Progress Note Patient: Abbe Viola SCHULER Libia Provider: Reji Young DPM :1950 A ge:73 Y S ex:Female Date:09/18/2024 Address:[address] [place] [address] , [facility] Pcp:ERICK Brooke Subjective: * Chief Complaints: * [...] 11/18/2023 Generated for Paulina cody/Art/Kelechi on: 0 07/11/2025 10:20 AM EDT
--- OUTSIDE RECORDS SUMMARY | 2025-05-11 06:15 | XMS_ITS ---
Author Organization [facility] Address [address] [place] [address] Care Team Providers Care Clinical Rehabilitation Liaison Name Role Phone Carmine Castro Primary Care Provider Unav ailable Black, Skye Unavailable [phone] Isis Young Unavailable [phone] Encounters Encounter Location Date Provider Diagnosis [facility] [address] [place] [address] 05/11/2025 Isis Young Plan Of Treatment No Information Progress Notes * Viola NAVARRO MDOB:1949 (74 yo F)Acc No.[id number]:05/11/2025 Progress Notes Patient: Naeem RODRIGUEZise [place] Provider: Reji Young DPM :1950 A ge:74 Y S ex:Female Date:05/11/2025 Address:[address] [place] Pcp:ERICK Brooke Subjective: * Chief Complaints: * [...] Date: 05/11/2025 Generated for Paulina cody/Art/eTransmitting on: 07/11/2025 10:20 AM EDT
--- OUTSIDE RECORDS SUMMARY | 2025-07-11 10:20 | XMS_ITS | Encounter Summary ---
Author Organization [place] [address] Care Team Providers Care Keyboard Teacher Name Role Phone Carmine Chaparro Primary Care Provider [phone] Reason for Visit * Reason Onset Date Comments Nasal Congestion 06/26/2025 Epistaxis (Nose Bleed) 06/26/2025 Encounter Details Date Type Department Care Team ([facility] Contact Info) Description 06/26/2025 Telephone Adult Medicine [address] [phone] Carmine Chaparro PA [address] [place] [address] Social History Tobacco Use Types Packs/Day Years [...] traveled recently to another state outside of [place], [place], [place], [place], [place], [place], [place]? no o If yes, did you quarantine [...] of accident/Injury: No If yes, gather 3rd constitution party insurance information Third Green Party Information: not applicable PCP: ERICK Cortez Payor: MEDICARE / Plan: MEDICARE PART A & B / Product Type: Medicare / documented in this encounter Plan of Treatment Upcoming Encounters Date Type Department Care Team (Late st Contact Info) Description 07/24/2025 12:00 PM EDT Ancillary Procedure [facility] [address] [facility] [address] [place] [address] 07/30/2025 10:00 AM EDT Appointment Bone Density - [place] [address] [place] [address] 08/05/2025 9:30 AM EDT Office Visit Vascular Surgery - [place] 300 [facility] [address] [place] [address] Ashley Ortiz MD [address] [place] [phone] 08/27/2025 11:00 AM EDT Appointment [facility] [address] [address] 10/06/2025 9:30 AM EST Office Visit [facility] Hematology Oncology [address] [place] [phone] Philly Cameron MD [address] [place] [address] 10/12/2025 11:00 AM EST Office Visit Endocrinology [facility] [address] [place] [address] Adriana Morgan PA [address] [place] [address] 01/27/2026 10:35 AM EDT Office Visit Pulmonolgy - [place] [address] [facility] 200 [place] [phone] Liliana Jameson NP [address] [place] [phone] 06/16/2026 1:30 PM EDT Office Visit [facility] [place] [address] [place] [address] Ginna Del Real MD [address] [place] [phone] documented as of this encounter Visit Diagnoses Not on filedocumented in this encounter Additional Health Concerns Assessment Noted Time PHQ-9 Depression Total Score: 0 04/22/20 10:32 AM EDT documented as of this encounter Care Teams Keyboard Teacher Relationship Specialty Start Date End Date Carmine Chaparro PA [address] [place] [address] PCP - General Internal Medicine 09/03/24 documented as of this encounter
--- OUTSIDE RECORDS SUMMARY | 2025-07-11 10:21 | XMS_ITS | Clinical Summary ---
Author Organization [facility] Address [address] [place] [phone] Phone Care Team Providers Care Foreign Clerk Name Role Phone Carmine Chaparro Primary Care Provider [phone] Allergies Active Allergy Reactions Criticality Noted Date [...] mouth as needed. Active blood sugar diagnostic (CashCashPinoyTouch Verio test strips) test strip USE TO [...] of insulin ([facility] V24, [facility] V28),Hypothyroidism, unspecified type,Hyperparathyroidi sm ([facility] V24),Acute deep vein thrombosis (DVT) of distal vein of left lower extremity ([facility] V24, [facility] V28),Age related osteoporosis, unspecified pathological fracture presence,Mixed [...] Diagnosed Date Claudication of both lower extremities ([facility] V24) 01/29/2025 Assessment & Plan (01/29/2025 [...] ELDER; Future Lung nodule 11/04/2024 Adrenal nodule ([facility] V24) 11/04/2024 Breast cancer ([facility] V24, [facility] V28) 024 Diabetes mellitus ([facility] V24, [facility] V28) Diverticulitis 10/13/2024 Fatty liver 10/13/2024 Hyperparathyroidism ([facility] V24) 10/07/2024 Parathyroid adenoma 10/07/2024 Age related osteoporosis 07/29/2024 Acute deep vein thrombosis ( DVT) of distal vein of left lower extremity ([facility] V24, [facility] V28) 08/10/2022 TRESSA (obstructive [...] 6 to 16 cm H2O sent to [facility]. Hyperparathyroidism ([facility] V24) 10/17/2021 Hand arthritis 10/08/2019 Type 2 diabetes mellitus wit hout complication, without long-term current use of insulin ([facility] V24, [facility] V28) 07/16/2019 Bilateral carotid [...] Care Team Description 07/01/2025 Telephone Pulmonolgy - [place] [address] [facility] [address] [place] [phone] Joaquín Cheo [place], [place] 06/26/2025 Telephone Adult Medicine [address] [phone] Carmine Chaparro PA 06/10/2025 1:45 PM EDT Office Visit [facility] [address] [place] [phone] Ginna Del Real MD History of invasive breast cancer (Primary Dx); History of therapeutic radiation; Acute back pain, unspecified back location, unspecified back pain laterality; Encounter for screening mammogram for malignant neoplasm of breast 05/07/2025 9:15 AM EDT Ancillary Procedure [facility] - [facility] [address] [facility] [address] [place] [phone] Chest discomfort; Type 2 diabetes mellitus without complication, without long-term current use of insulin ([facility] V24, CMS/HCC V28); Hypothyroidism, unspecified type; Hyperparathyroidism (CMS/HCC V24); Acute deep vein thrombosis (DVT) of distal vein of left lower extremity (CMS/HCC V24, CMS/HCC V28); Age related osteoporosis, unspecified pathological fracture presence; Mixed hyperlipidemia 04/30/2025 11:30 AM EDT Consult Vascular Surgery - [place] [address] [facility] [address] [place] [phone] Ashley Ortiz MD Varicose veins of lower extremity with pain, bilateral (Primary Dx); Mixed hyperlipidemia 04/22/2025 10:30 AM EDT Office Visit Adult Medicine [address] [phone] Carmine Chaparro PA Chest discomfort (Primary Dx); [...] HISTORICAL MOLE (REMOVAL OF) COLONOSCOPY 03/07/2004 PROCEDURE: WY COLONOSCOPY FLX DX W/COLLJ SPEC WHEN PFRMD; [...] right breast in female, estrogen receptor positive ([facility] V24, [facility] V28) 09/20/2020 DX:Malignant neoplasm of ri ght breast in female, estrogen receptor positive (HCC) PONV (postoperative nausea a nd vomiting) Hyperparathyroidism ([facility] V24) Family History Medical History Relation Name [...] Alive Father (Age 74) cancer col on, [place], DM Mother Alive rheumatoid arth ritis Other [...] Description 07/24/2025 12:00 PM EDT Ancillary Procedure [facility] - [facility] [address] [facility] [address] [place] [address] 07/30/2025 10:00 AM EDT Appointment Bone Density - [place] [address] [place] [address] 08/05/2025 9:30 AM EDT Office Visit Vascular Surgery - [place] 300 [facility] [address] [place] [phone] Ashley Ortiz MD [address] [place] [phone] 08/27/2025 11:00 AM EDT Appointment [facility] [address] [place] [address] 10/06/2025 9:30 AM EST Office Visit [facility] Hematology Oncology [address] [place] [phone] Philly Perales MD [address] [place] [address] 10/12/2025 11:00 AM EST Office Visit Endocrinology - [place] [address] [place] [phone] Adriana Morgan PA [address] [place] [address] 01/27/2026 10:35 AM EDT Office Visit Pulmonolgy - [place] 175 [facility] [address] [place] [phone] Liliana Jameson NP [address] [place] [phone] 06/16/2026 1:30 PM EDT Office Visit [facility] [address] [phone] Ginna Del Real MD [address] [place] [phone] Health Maintenance Due Date Last Done [...] this topic Medical Devices Implanted Type Area Cork Pressing Machine Operator Device Identifier Shelf Expiration Date Model / Serial / Lot Dental Implants Dental Implants Bilateral: Mouth Hemostat Flour Collgn [facility] [id number] Implanted:Qty : 1 on 11/27/2024 by Ginna Del Real MD at [facility] Hemostasis Left: Parathyroid CR BARD - DAVOL DIV 08/25/2027 [id number] / SNA / [id number] Procedures Procedure Name Priority Date/Time Associated Diagnosis Comments EXTERNAL CLINICAL LAB 07/07/2025 STRESS TEST ONLY EXERCISE Routine 05/07/2025 9:21 AM EDT Chest discomfort Type 2 diabetes mellitus without complication, without long-term current use of insulin ([facility] V24, [facility] V28) Hypothyroidism, unspecified type Hyperparathyroidism ([facility] V24) Acute deep vein thrombosis (DVT) of distal vein of left lower extremity ([facility] V24, [facility] V28) Age related osteoporosis, unspecified pathological fracture presence Mixed hyperlipidemia LIPID PANEL WITH REFLEX TO DIRECT LDL Routine 04/22/2025 11:17 AM EDT Chest discomfort Type 2 diabetes mellitus without complication, without long-term current use of insulin ([facility] V24, [facility] V28) Hypothyroidism, unspecified type Hyperparathyroidism ([facility] V24) Acute deep vein thrombosis (DVT) of distal vein of left lower extremity ([facility] V24, [facility] V28) Age related osteoporosis, unspecified pathological fracture presence Mixed hyperlipidemia MICROALBUMIN CREATININE URINE RATIO Routine 04/22/2025 11:17 AM EDT Chest discomfort Type 2 diabetes mellitus without complication, without long-term current use of insulin ([facility] V24, [facility] V28) Hypothyroidism, unspecified type Hyperparathyroidism ([facility] V24) Acute deep vein thrombosis (DVT) of distal vein of left lower extremity ([facility] V24, [facility] V28) Age related osteoporosis, unspecified pathological fracture presence Mixed hyperlipidemia COMPREHENSIVE METABOLIC PANEL Routine 04/22/2025 11:17 AM EDT Chest discomfort Type 2 diabetes mellitus without complication, without long-term current use of insulin ([facility] V24, [facility] V28) Hypothyroidism, unspecified type Hyperparathyroidism ([facility] V24) Acute deep vein thrombosis (DVT) of distal vein of left lower extremity ([facility] V24, [facility] V28) Age related osteoporosis, unspecified pathological fracture presence Mixed hyperlipidemia HEMOGLOBIN A1C Routine 04/22/2025 11:17 AM EDT Chest discomfort Type 2 diabetes mellitus without complication, without long-term current use of insulin ([facility] V24, [facility] V28) Hypothyroidism, unspecified type Hyperparathyroidism ([facility] V24) Acute deep vein thrombosis (DVT) of distal vein of left lower extremity ([facility] V24, [facility] V28) Age related osteoporosis, unspecified pathological fracture presence Mixed hyperlipidemia PARATHYROID HORMONE INTACT Routine 04/22/2025 11:17 AM EDT Chest discomfort Type 2 diabetes mellitus without complication, without long-term current use of insulin ([facility] V24, [facility] V28) Hypothyroidism, unspecified type Hyperparathyroidism ([facility] V24) Acute deep vein thrombosis (DVT) of distal vein of left lower extremity ([facility] V24, [facility] V28) Age related osteoporosis, unspecified pathological fracture presence Mixed hyperlipidemia THYROID STIMULATING HORMONE WITH REFLEX TO FREE T4 AND FREE T3 Routine 04/22/2025 11:17 AM EDT Chest discomfort Type 2 diabetes mellitus without complication, without long-term current use of insulin ([facility] V24, [facility] V28) Hypothyroidism, unspecified type Hyperparathyroidism ([facility] V24) Acute deep vein thrombosis (DVT) of distal vein of left lower extremity ([facility] V24, [facility] V28) Age related osteoporosis, unspecified pathological fracture presence Mixed hyperlipidemia HEPATITIS C ANTIBODY Routine 10/13/2024 11:20 AM EST Hyperparathyroidism ([facility] V24) Parathyroid adenoma Age related osteoporosis, unspecified pathological fracture presence Type 2 diabetes mellitus without complication, without long-term current use of insulin ([facility] V24, [facility] V28) Hypothyroidism, unspecified type Pure hypercholesterolemia TRESSA (obstructive sleep apnea) Fatty liver Adrenal adenoma, unspecified laterality Lung nodule Primary insomnia [facility] SCREENING DIGITAL Routine 08/26/2024 5:21 PM EDT [facility] DEXA AXIAL SKELETON Routine 03/20/2023 7:33 AM EDT Age-related osteoporosis without current pathological fracture from Last 3 Months or Most Recently Relevant to Health Maintenance Results * External clinical lab (07/07/2025) us Provider [facility] LAB BLOOD ORDERABLES Fin al Result * Exercise stress test (05/07/2025 9:21 AM [...] us Carmine SUAREZ CV STRESS PROCEDURES Nanette morfin Result * Thyroid stimulating hormone with reflex to free t4 and free t3 (04/22/2025 11:17 AM EDT) TSH 3.76 0.40 - 4.00 mcIU/mL LAB CHEMISTRY METHOD 04/22/2025 7:13 PM EDT [facility] Blood Venous blood specimen / Unknown Venipuncture / Unknown 04/22/2025 11:17 AM EDT 04/22/2025 11:17 AM EDT Carmine SUAREZ LAB BLOOD ORDERABLES Nanette l Result [facility] [address] [place] [address], * (ABNORMAL) Lipid panel with reflex to direct LDL (04/22/2025 11:17 AM EDT) Cholesterol 166 0 - 200 mg/dL LAB CHEMISTRY METHOD 04/22/2025 5:01 PM EDT [facility] Triglycerides 179(H) 0 - 150 mg/dL LAB CHEMISTRY METHOD 04/22/2025 5:01 PM EDT [facility] HDL 65 >=40 mg/dL LAB CHEMISTRY METHOD 04/22/2025 5:01 PM EDT [facility] LDL Calculated 65 0 - 100 mg/dL LAB CHEMISTRY METHOD 04/22/2025 5:01 PM EDT [facility] VLDL Cholesterol [place] 35.8 mg/dL LAB CHEMISTRY METHOD 04/22/2025 5:01 PM EDT [facility] Non HDL Chol. (LDL+VLDL) 101 <145 mg/dL LAB CHEMISTRY METHOD 04/22/2025 5:01 PM EDT [facility] Chol/HDL Ratio 2.6 0.0 - 4.4 LAB CHEMISTRY METHOD 04/22/2025 5:01 PM EDT [facility] Blood Venous blood specimen / Unknown Venipuncture / Unknown 04/22/2025 11:17 AM EDT 04/22/2025 11:17 AM EDT Carmine SUAREZ LAB BLOOD ORDERABLES Nanette l Result [facility] [address] [place] [address], [place] [phone] * Microalbumin creatinine urine ratio (04/22/2025 11:17 AM EDT) Creatinine, Urine 47.0 mg/dL LAB CHEMISTRY METHOD 04/22/2025 3:59 PM EDT [facility] Microalb, Ur 8.0 0.0 - 29.0 mg/L LAB CHEMISTRY METHOD 04/22/2025 3:59 PM EDT [facility] Microalb/Creat Ratio 17 <30 mg/g creat LAB CHEMISTRY METHOD 04/22/2025 3:59 PM EDT [facility] Urine Urine specimen obtained by clean catch procedure / Unknown Non-blood Collection / Unknown 04/22/2025 11:17 AM EDT 04/22/2025 11:17 AM EDT Carmine SUAREZ LAB URINE ORDERABLES Nanette l Result [facility] [address] [place] [address], * Parathyroid hormone intact (04/22/2025 11:17 AM EDT) PTH 51.9 18.5 - 88.0 pcg/mL LAB CHEMISTRY METHOD 04/22/2025 5:59 PM EDT [facility] Blood Venous blood specimen / Unknown Venipuncture / Unknown 04/22/2025 11:17 AM EDT 04/22/2025 11:17 AM EDT Carmine SUAREZ LAB BLOOD ORDERABLES Nanette l Result [facility] [address] [place] [address], [place] [phone] * Hemoglobin A1c (04/22/2025 11:17 AM EDT) [facility] Hemoglobin A1C 5.9 <6.5 % LAB CHEMISTRY METHOD 04/22/2025 2:37 PM EDT [facility] Mean Bld Glu Estim. 123 mg/dL LAB CHEMISTRY METHOD 04/22/2025 2:37 PM [facility] Blood Venous blood specimen / Unknown Venipuncture / Unknown 04/22/2025 11:17 AM EDT 04/22/2025 11:17 AM EDT Carmine SUAREZ LAB BLOOD ORDERABLES Nanette l Result [facility] [address] [place] [address], [place] [phone] * (ABNORMAL) Comprehensive metabolic panel (04/22/2025 11:17 AM EDT) [facility] Sodium 140 133 - 145 mmol/L LAB CHEMISTRY METHOD 04/22/2025 5:01 PM [facility] Potassium 4.3 3.5 - 5.5 mmol/L LAB CHEMISTRY METHOD 04/22/2025 5:01 PM [facility] Chloride 103 96 - 110 mmol/L LAB CHEMISTRY METHOD 04/22/2025 5:01 PM [facility] CO2 32 21 - 32 mmol/L LAB CHEMISTRY METHOD 04/22/2025 5:01 PM [facility] Anion Gap 5 3 - 11 LAB CHEMISTRY METHOD 04/22/2025 5:01 PM [facility] Glucose 85 70 - 100 mg/dL LAB CHEMISTRY METHOD 04/22/2025 5:01 PM [facility] BUN 19 5 - 25 mg/dL LAB CHEMISTRY METHOD 04/22/2025 5:01 PM [facility] Creatinine 0.67 0.50 - 1.10 mg/dL LAB CHEMISTRY METHOD 04/22/2025 5:01 PM [facility] eGFR 92 >=60 mL/min/1. 73m2 LAB CHEMISTRY METHOD 04/22/2025 5:01 PM [facility] Comment:Calculation based on the Chronic Kidney Disease Epidemiology Collaboration (CKD-EPI) equation refit without adjustment for race. BUN/Creatinine Ratio 28.4 LAB CHEMISTRY METHOD 04/22/2025 5:01 PM [facility] Calcium 9.1 8.5 - 10.5 mg/dL LAB CHEMISTRY METHOD 04/22/2025 5:01 PM [facility] AST (SGOT) 8(L) 10 - 42 unit/L LAB CHEMISTRY METHOD 04/22/2025 5:01 PM [facility] ALT (SGPT) 19 10 - 60 unit/L LAB CHEMISTRY METHOD 04/22/2025 5:01 PM [facility] Alkaline Phosphatase 44 42 - 121 unit/L LAB CHEMISTRY METHOD 04/22/2025 5:01 PM [facility] Total Protein 7.2 6.0 - 8.0 g/dL LAB CHEMISTRY METHOD 04/22/2025 5:01 PM [facility] Albumin 4.2 3.2 - 5.0 g/dL LAB CHEMISTRY METHOD 04/22/2025 5:01 PM [facility] Total Bilirubin 0.4 0.0 - 1.4 mg/dL LAB CHEMISTRY METHOD 04/22/2025 5:01 PM [facility] Blood Venous blood specimen / Unknown Venipuncture / Unknown 04/22/2025 11:17 AM EDT 04/22/2025 11:17 AM EDT us Carmine SUAREZ LAB BLOOD ORDERABLES Nanette l Result [facility] [address] [place] [address], * Hepatitis C antibody (10/13/2024 11:20 AM EST) Hepatitis C Antibody Negative Negative LAB CHEMISTRY METHOD 10/13/2024 8:04 PM EST [facility] Blood Venous blood specimen / Unknown Venipuncture / Unknown 10/13/2024 11:20 AM EST 10/13/2024 11:20 AM EST us Carmine SUAREZ LAB BLOOD ORDERABLES Nanette morfin Result [facility] [address] [place] [address], * JUANA SCREENING DIGITAL (08/26/2024 5:21 PM EDT) Anatomical Region Laterality Modality Mammography 08/26/2024 1:49 PM EDT Narrative 08/26/2024 5:21 PM EDT [facility] Diagnostic Imaging Department [address] [place] [address] Patient: VAUGHN FU D.O.B./Age/Sex: 1950 - 73 - F Unit#: [id number] Location/Status: SPDIMAM/REG CLI Mnemonic/Ordering Site: [facility] Ordering Physician: ISIAH MCCORMACK Juana Screening Digital - 08/26/24 - 5379 Report Status:Signed EXAM: SCREENING MAMMOGRAPHY, BILATERAL HISTORY: [...] None Computer-aided detection was employed with the iWatt[employer] Tapactive AI 3-D. TISSUE DENSITY: There are scattered [...] Dic Date/Time: 08/26/241712 Sign date/Time: 08/26/24 172 Procedure Note Steven Pickens MD - 08/30/2024 [facility] Diagnostic Imaging Department [address] [place] [id number] Patient: RADHA FUSHABBIR Gr/Age/Sex: 1950 - 73 - F Unit#: [id number] Location/Status: SPDIMAM/REG CLI Mnemonic/Ordering Site: DIGUT/SPMAM Ordering Physician: ISIAH MCCORMACK Juana Screening Digital - 08/26/24 - [id number] Report Status:Signed EXAM: SCREENING MAMMOGRAPHY, BILATERAL HISTORY: SCREENING. Personal history of right breast cancer. Previous reports indicate lumpectomy radiation and chemotherapy for right breastcancer. Family history of breast cancer. COMPARISON: 08/17/2023, 08/15/2022, 08/11/2021, 08/17/2020, 08/11/2020 TECHNIQUE: Synthesized CC and MLO projections of each breast.Tomosynthesis of each breast in the CC and MLO projections. ADDITIONAL IMAGING: None Computer-aided detection was employed with the iWattD Tapactive AI 3-D. TISSUE DENSITY: There are scattered [...] PM EDT Narrative 03/20/2023 7:33 AM EDT [facility] Diagnostic Imaging Department [address] [place], [place] [id number] Patient: VAUGHN FU Libia SernaB./Age/Sex: 1950 - F Unit#: [id number] Location/Status: SPDIMAM/REG CLI Mnemonic/Ordering Site: MAMDEXAAX/[facility]AM Ordering Physician: PHILLY PERALES MD Juana Dexa [...] probability of hip fracture of 11.2%. Code 12230 Dictating Physician: PATRICE HOBSON MD Electronically Signed by: PATRICE HOBSON MD Dic Date/Time: 03/20/23731 Sign date/Time: 03/20/23732 Procedure Note Patrice Hobson MD - 11/30/2023 [facility] Diagnostic Imaging Department [address] [place] [address] Patient: TANKVAUGHN Reza D.O.B./Age/Sex: 1950 - 72 - F Unit#: [id number] [facility] CLI Mnemonic/Ordering Site: [facility] Ordering Physician: PHILLY PERALES MD [facility] Dexa Axial Skeleton - 03/19/23 - 9531 HISTORY: The patient is a 72-year-old postmenopausal [...] density of the femurs bilaterally is 0.714 gm/mu8tyymd is 71% of that of young normals [...] probability of hip fracture of 11.2%. Code 62794 Dictating Physician: PATRICE HOBSON MD Electronically Signed by: PATRICE HOBSON MD Dic Date/Time: 03/20/2332 Sign date/Time: 03/20/23732 Philly Perales MD IMG BI PROCEDURES Final Resu lt from Last 3 Months or Most Recently Relevant to Health Maintenance Insurance MEDICARE [facility] Advance Directives Documents on File Type Date Recorded Patient Felt Strip Finisher Expl anation Power of Plane Tableman 11/27/2024 6:05 AM HCP Health Care Decision [...] currently active code status orders. Care Teams Foreign Clerk Relationship Specialty Start Date End Date Carmine Chaparro PA [address] [place] [address] PCP - General Internal Medicine 09/03/24
--- OUTSIDE RECORDS SUMMARY | 2025-07-11 10:21 | XMS_ITS | Patient Health Record ---
Author Organization [facility] Address [address] [facility] [address] [place] [address] Care Team Providers Care Application Designer Name Role Phone Jeff Lu Primary Care [...] of [place] [address] [place] [phone] [id number] Navarro , Viola Self - patient is the insured [facility] and [facility] [address] [place] [address] [phone] [id number] Viola Navarro Self - patient is the [...]
--- OUTSIDE RECORDS SUMMARY | 2025-07-11 10:21 | XMS_ITS | Clinical Summary ---
Author Organization [facility] Address [address] [place] [address] Care Team Providers Care Tier Truck Driver Name Role Phone Carmine Chaparro PA-C Primary [...] age to complete this topic Care Teams Tier Truck Driver Relationship Specialty Start Date End Date Carmine Chaparro PA-C PCP - General Medical Services 04/13/21
--- OUTSIDE RECORDS SUMMARY | 2025-07-11 10:21 | XMS_ITS ---
Author Organization [facility] Address [address] [place] [address] Phone Care Team Providers Care Mud Car Worker Name Role Phone Carmine Chaparro Primary Care Provider [phone] Active Problems Problem Noted Date Diagnosed Date [...] Adrenal nodule ([facility] V24) 11/04/2024 Breast cancer ([facility] V24, [facility] V28) 024 Diabetes mellitus ([facility] V24, [facility] V28) Diverticulitis 10/13/2024 Fatty liver 10/13/2024 Hyperparathyroidism ([place] [id number]) 10/07/2024 Parathyroid adenoma 10/07/2024 Age related osteoporosis 07/29/2024 Acute deep vein thrombosis ( DVT) of distal vein of left lower extremity ([facility] V24, [facility] V28) 08/10/2022 TRESSA (obstructive sleep [...] 6 to 16 cm H2O sent to [facility]. Hyperparathyroidism ([facility] V24) 10/17/2021 Hand arthritis 10/08/2019 Type 2 diabetes mellitus wit hout complication, without long-term current use of insulin ([facility] V24, [facility] V28) 07/16/2019 Bilateral carotid bruits [...] treatments are documented for this patient in [facility]. Treatments may have been administered in another system. Lifetime Dose Tracking * Chemical Lifetime Dose Automatic Entry Manual Entr y CTDIvol 17.99 mGy 17.99 mGy 0 mGy
--- OUTSIDE RECORDS SUMMARY | 2025-07-11 10:21 | XMS_ITS | Patient Health Record ---
Author [facility] Address [address] [place] [address] Care Team Providers Care Home Care Provider Name Role Phone Carmine Castro Primary Care Provider Unav ailable Black, Skye Unavailable [phone] YoungIsis santo Unavailable [phone] Allergies Allergen (clinical drug ingredient) Drug/Non Drug [...] HCl 10 MG Oral; Duration: 90 Not-Taking [place] Saline Nasal Gel Active Triamcinolone Acetonide 0.1 [...] Ordered Date Performed Result Body Sit e [id number] 04/17/2025 N/A Encounters Encounter Location Date Provider [facility] [address] 10/06/2024 Isis Escamillaaker Dystrophic nail L60.3 and Type 2 diabetes mellitus with diabetic polyneuropathy E11.42 [facility] [address] [address] 04/17/2025 Isis Young Ingrown nail L60.[address] [address] 09/18/2024 Skye Cespedes [facility] [address] 04/17/2025 Isis Young [address] [address] 05/08/2025 Skye Cespedes Assessments Encounter Date Diagnosis (ICD Code) Assessment Notes Treatment Notes Treatment Clinical Notes Section Notes 04/17/2025 Ingrown nail (ICD-10 - L60.0) 10/06/2024 Dystrophic nail (ICD-10 - L60.3) 10/06/2024 Type 2 diabetes mellitus with diabetic polyneuropathy (ICD-10 - E11.42) Plan Of Treatment Pending Test Test Name Order Date [id number] Plate 09/30/2020 [id number]-Xjzspcbn Plate 06/05/2022 [id number] 04/17/2025 [id number]-RRI 08/11/2021 34513- Debride <25 sq cm 10/14/2020 29169- Debride <25 sq cm 09/12/2021 [id number] SKIN/TISSUE 08/29/2021 07274- I&D ABSCESS-COMPLICATED,MULTI 02/2023 55145-WMBU SKIN LESIONS, 2 TO 4 06/11/20 03965-STTG NAIL(S) 06/11/2023 [id number] NAIL(S) 12/04/2022 [id number] NAIL(S) 06/05/2022 Insurance Providers Payer Name Payer Address Payer Phone Subscriber Number Group Number Insured Name Patient Relationship to Insured Coverage Start Date Coverage End Date [employer] [address] [place] [address] [id number] Viola Navarro Self - patient is the insured [facility] [address] [place] [address] [id number] Alfred Navarro Spouse - patient is the [...] Libby Villarreal- blood clot left leg 2024 [facility]- acute sigmoid diverticu litis- complications with a micropherferation 09/08/21-09/10/21
[2025-07-11 10:33] VITALS: BP 100/62; PULSE 78; RESP 15; TEMP 36.6; O2SAT 98; BMI 23.5
--- NOTE | 2025-07-11 10:33 | AM.OFFWIN_ITS ---
Intake Vital Signs 07/11/25 10:33 Height 5 ft 5 in Weight 141 lb BMI 23.5 BP 100/62 Blood Pressure Location Rt brachial Position Sitting Respiration 15 Pulse 78 Pulse Source Pulse Oximeter Temp 97.9 F Temp Source Oral Pulse Oximetry (%) 98 Oxygen Delivery Method Room Air Intake Visit Reasons: EP-Back pain W/ incontinence Intake Note: Pt is here today c/o back pain and issues with urinary incontience Patient Tobacco Use Status: Former Tobacco user Allergies calcium Allergy (Unknown, Verified 07/11/25 10:34) Headache ezetimibe Allergy (Unknown, Verified 07/11/25 10:34) Unknown albuterol Adverse Reaction (Verified 07/11/25 10:34) Headache atorvastatin Adverse Reaction (Verified 07/11/25 10:34) Muscle Pain codeine Adverse Reaction (Verified 07/11/25 10:34) Nausea and Vomiting cortisone Adverse Reaction (Verified 07/11/25 10:34) Rash niacin Adverse Reaction (Verified 07/11/25 10:34) Itching, rash oxycodone Adverse Reaction (Verified 07/11/25 10:34) Headache scopolamine Adverse Reaction (Verified 07/11/25 10:34) Headache HPI HPI Comments History of Present Illness Details This is a 74-year-old female presenting for evaluation of back pain and new incontinence. Patient states she has had lower back pain for approximately the past 4 weeks that has been worsening. Patient describes the pain as an aching sensation that does not radiate into her lower extremities. Patient has not been taking any medication for treatment of her discomfort and denies any injury or trauma preceding the onset of her symptoms 4 weeks ago. Patient does have a remote history of a L5 discectomy but denies any complications or concerns since the time of that surgery. Patient comes today because she woke up this morning and was incontinent of both stool and urine that has never happened to her previously. Patient denies any decreased sensation in her lower extremities bilaterally, denies any saddle paresthesias and also denies any recent fevers, chills or illness. 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 Fatty liver Claudication of both lower extremities Bilateral carotid bruits Age related osteoporosis Adrenal nodule DVT (deep venous thrombosis) Perforation of sigmoid colon due to diverticulitis Diverticulitis Diverticulitis UTI (urinary tract infection) Diabetes High cholesterol Breast cancer Hypothyroid Abdominal pain Surgical History History of root canal procedure History of tonsillectomy History of back surgery History of lumpectomy of right breast History of repair of right rotator cuff History of cholecystectomy (1972) Family History Father Colon cancer Social History Household Members: Spouse Housing: House Do you presently have visiting nurse or other home services: No Patient Tobacco Use Status: Former Tobacco user Tobacco use type: Cigarette Cigarette Packs Per Day: 0.5 Cigarettes Per Day: 10.0 Years Smoked: 7 Second Hand Smoke Exposure: No Advance Directives Date on File: 09/09/21 service: No Current occupational status: retired Review of Systems Const All systems reviewed & are unremarkable except as noted in HPI and below Denies body aches, Denies chills, Denies fatigue, Denies fever(s), Denies frequent falls and Denies weakness Eyes Reports no additional complaints ENT Reports no additional complaints Card Reports no additional complaints GI Reports fecal incontinence (once this morning) and Reports other Denies difficulty voiding, Denies nocturia, Denies dysuria, Reports urinary incontinence (once this morning), Denies urinary urgency and Denies vaginal discharge Musc Denies abnormal gait and Reports back pain (worsening over past 4 weeks) Skin/Breast Reports system reviewed and no additional complaints, except as documented Neuro Reports no additional complaints, Denies abnormal gait, Denies frequent falls, Denies focal weakness, Denies radicular pain, Denies paresthesias and Denies weakness Psych Reports no additional complaints Endo Denies fatigue Physical Exam Vital Signs: Last Vital Signs Temp 97.9 F 07/11/25 10:33 Pulse 78 07/11/25 10:33 Resp 15 07/11/25 10:33 BP 100/62 07/11/25 10:33 Pulse Ox 98 07/11/25 10:33 Oxygen Delivery Method Room Air 07/11/25 10:33 BMI result Body Mass Index 23.5 Const General: cooperative, healthy appearing, comfortable, no acute distress, well developed, alert, awake and Physically active; No ill appearing Nutritional Appearance: well nourished Orientation/consciousness: patient oriented x3 Limitations: no limitations and No physical limitations GI Palpation (GI): Soft to palpation, nontender and no guarding Rectal Exam - Female: deferred General: Yes Bimanual renal exam normal bilaterally, Yes bladder normal to palpation and Yes no CVA tenderness Bimanual exam- vagina & uterus: bladder normal to palpation Back/Spine/Pelvis Back: no CVA tenderness Thoracic/Lumbar Spine: thoracic and lumbar spine normal to inspection, Thoracic/lumbar spine scar(s), thoraco-lumbar ROM normal (normal ROM, pain when transitioning from supine to sitting), pain with thoraco-lumbar ROM, No paraspinal muscle tenderness, No thoracic spinal tenderness and No lumbar spinal tenderness Skin General skin exam: no rashes or lesions noted Neuro General: patient oriented x3, tone normal, moves all extremities and Normal light touch and pain sensation Cognition (Neuro): normal cognition Gait exam (Neuro): Normal gait present Motor exam (neuro): 5/5 motor strength present throughout and Normal motor muscle tone present throughout Psych Appearance: grossly normal Mental Status: mental status grossly normal Insight: Good insight present (Psych) Judgement: Good judgement present (Psych) Results AMB Urinalysis, Automated UA Leukoctes 0 [place]/uL Last Edit by Linda Martin CMA on 07/11/25 10:58 UA Nitrite Negative Last Edit by Linda Martin CMA on 07/11/25 10:58 UA Urobilinogen 0.2 mg/dL Last Edit by Linda Martin CMA on 07/11/25 10:58 UA Protein 0 mg/dL Last Edit by Linda Martin CMA on 07/11/25 10:58 UA pH 6.0 Last Edit by Linda Martin CMA on 07/11/25 10:58 UA Blood 0 [place]/uL Last Edit by Linda Martin CMA on 07/11/25 10:58 UA Specific [place] 1.005 Last Edit by Linda Martin CMA on 07/11/25 10:58 UA Ketone Negative Last Edit by Linda Martin CMA on 07/11/25 10:58 UA Bilirubin 0 mg/dL Last Edit by Linda Martin CMA on 07/11/25 10:58 UA Glucose 0 mg/dL Last Edit by Linda Martin CMA on 07/11/25 10:58 Results Reviewed Results Reviewed: Urinalysis is not consistent with an acute urinary tract infection. Assessment & Plan Assessment & Plan (1) Bladder incontinence: Comment: Urinalysis is not consistent with an acute urinary tract infection. Code(s): R32 - Unspecified urinary incontinence Qualifiers: Urinary Incontinence type: unspecified incontinence Qualified Code(s): R32 - Unspecified urinary incontinence Plan: Patient's history coupled with her examination is concerning for an evolving cauda equina. Rectal exam is deferred at this time as the patient will be referred to the [facility] for ongoing management and care. Expect called to KAREEM Tate at 11:14am. (2) Bowel incontinence: Comment: Single episode, patient states this has never occurred before. Code(s): R15.9 - Full incontinence of feces Qualifiers: Fecal incontinence type: unspecified Qualified Code(s): R15.9 - Full incontinence of feces Plan: Patient's history coupled with her examination is concerning for an evolving cauda equina. Rectal exam is deferred at this time as the patient will be referred to the [facility] for ongoing management and care. Expect called to KAREEM Tate at 11:14am. (3) Lumbar pain: Comment: Pain is not reproducible upon examination. Code(s): M54.50 - Low back pain, unspecified Plan: Patient's history coupled with her examination is concerning for an evolving cauda equina. Rectal exam is deferred at this time as the patient will be referred to the [facility] for ongoing management and care. Expect called to KAREEM Tate at 11:14am. Orders: Orders AMB Urinalysis Automated Today Z13.9 - Encounter for screening, unspecified Coding Level of Care Code Est Pt Level 4 (34396) Diagnoses Urinary incontinence, unspecified type R32 Urinary Incontinence type: unspecified incontinence Incontinence of feces, unspecified fecal incontinence type R15.9 Fecal incontinence type: unspecified Lumbar pain M54.50 Time Spent (min) 25
== END 2025-07-11 11:19 | disposition home or self-care (01) ==
LOC: HO.HMCWIC 10:19
PROVIDERS: PCP Physician Assistant Medical; Visit Provider Physician Assistant
DX: R32 Unspecified urinary incontinence (principal); R15.9 Full incontinence of feces; M54.50 Low back pain, unspecified; Z13.9 Encounter for screening, unspecified

== ENCOUNTER → 2025-07-11 10:19 | Outpatient (BNVA) | payer MEDICARE, BC, SELFPAY | PROVIDERS: PCP Physician Assistant Medical; Visit Provider Physician Assistant | DX: M54.50 Low back pain, unspecified (principal); R32 Unspecified urinary incontinence; R15.9 Full incontinence of feces | CPT/HCPCS: 81003; 99212 ==

== ENCOUNTER 2025-07-11 11:26 | Emergency (ER) | payer MEDICARE, BC, SELFPAY ==
--- NOTE | ~2025-07-11 | MR_ITS ---
CLINICAL HISTORY: worsening low back pain with incontinence MR lumbar spine without gadolinium Comparison: None Findings: Normal alignment. No acute fracture or pathologic bone lesion. Cauda equina and conus medullaris within normal limits. L4-5: Minimal broad-based disc bulge with minimal central canal stenosis and no significant foraminal stenosis. Mild facet arthropathy. L5-S1: Right central annular fissure. Minimal broad-based disc bulge with minimal central canal stenosis and mild bilateral neural foraminal stenosis. Mild impingement of the exiting L5 nerve. Paraspinous musculature intact. The filum terminale is at L2-3. L3-4: Right paracentral annular fissure. Mild facet arthropathy. IMPRESSION: 1. Mild bilateral neural foraminal stenosis at L5-S1 with mild impingement on the exiting L5 nerves. 2. Minimal disc bulges at L4-5 and L5-S1 with minimal central canal stenosis. 3. Right central annular fissure at L5-S1 and right paracentral annular fissure at L3-4. 4. Mild facet arthropathy at L3-4. This document has been electronically signed by: Sylvester Avelar MD on 07/11/2025 15:30:06
[2025-07-11 11:32] VITALS: BP 123/60; PULSE 74; RESP 18; TEMP 36.8; O2SAT 97; BMI 23.6
--- NOTE | 2025-07-11 11:33 | ED_ITS ---
HPI - General Adult General Chief complaint: Back Pain/Injury Stated complaint: back issue Time Seen by Provider: 07/11/25 11:39 Source: patient Mode of arrival: ambulatory Limitations: no limitations History of Present Illness ED Provider: MARIA LUISA ARGUELLO PA-C HPI narrative: 74-year-old female with pmhx significant for diverticulitis, SI joint dysfunction, restless legs syndrome presents to the ED today for evaluation of lower back pain x1 month. She reports pain has been constant since onset. Pain is localized to her lower back with occasional radiation into her right thigh/ groin. She has not been taking anything for her pain over the last month. Reports taking one dose of Motrin yesterday. She report she was on the toilet passing a BM this morning. She thought she had finished defecating when she stood up and found that she was still passing a BM. SHe did not realize. No other episodes of bowel or bladder incontinence. No retention. Reports following with pain management. She has an upcoming appointment with them on (in 5 days). Patient is status post minimally invasive back surgery in 1985. Denies hx IVDU. Denies saddle anesthesia, numbness/tingling/weakness of the LEs. Related Data Home Medications ?Medication ?Instructions ?Recorded ?Confirmed cholecalciferol (vitamin D3) 25 25 mcg PO DAILY 10/06/21 mcg (1,000 unit) capsule levothyroxine 125 mcg tablet 125 mcg PO DAILY 09/08/21 10/06/21 ammonium lactate 12 % topical cream 1 appl topical MARIO LY 05/20/25 evolocumab 140 mg/mL subcutaneous 140 mg subcut Q2W pen injector (Lukas Stephen) meclizine 25 mg tablet 25 mg PO DAILY PRN 05/20/25 omeprazole 40 mg capsule,delayed 40 mg PO DAILY release salt irrigation solution no.1 spray intranasal 5 sodium chloride 0.65 % nasal spray 1 spray intranasal ONCE PRN 06/25/25 aerosol (Nasal [place] (sodium chloride)) clindamycin phosphate 1 % topical 1 appl topical DAILY 06/26/25 gel cyclobenzaprine 10 mg tablet 10 mg PO BEDTIME PRN 05/30 07/23 fluticasone propionate 50 1 spray intranasal DAILY PRN 06/26/25 mcg/actuation nasal spray,suspension (Flonase Allergy Relief) trazodone 50 mg tablet 100 mg PO BEDTIME 06/26/25 zoledronic acid 5 mg/100 mL in ea IV .yearly 06/26/25 mannitol 5 %-water intravenous piggybck (Reclast) Previous Rx's ?Medication ?Instructions ?Recorded ondansetron HCl 4 mg tablet 4 mg PO Q8H PRN nausea and 09/11/21 vomiting #20 tabs mupirocin 2 % topical ointment 1 appl topical BID 5 da ys #22 grams 06/26/25 (Centany) lidocaine 5 % topical patch 1 patch topical DAILY #15 ea 07/11/25 (Lidoderm) prednisone 20 mg tablet 40 mg (2 x 20 mg) PO DAILY 4 days 07/11/25 #8 tabs Allergies Allergy/AdvReac Type Severity Reaction Status Date / Time calcium Allergy Unknown Headache Verified 07/16/25 10:13 ezetimibe Allergy Unknown Unknown Verified 07/16/25 10:13 albuterol AdvReac Headache Verified 07/16/25 10:13 atorvastatin AdvReac Muscle Pain Verified 07/16/25 10:13 codeine AdvReac Nausea and Verified 07/16/25 10:13 Vomiting cortisone AdvReac Rash Verified 07/16/25 10:13 niacin AdvReac Itching, Verified 07/16/25 10:13 rash oxycodone AdvReac Headache Verified 07/16/25 10:13 scopolamine AdvReac Headache Verified 07/16/25 10:13 Review of Systems 2 Review of Systems: Yes all other systems are reviewed and are negative [facility] Past Medical History Attestation statement: The following information was validated with the patient. Source: old records reviewed and nursing notes reviewed Medical History TRESSA (obstructive sleep apnea) Lung nodule Hand arthritis GERD with apnea without esophagitis Fatty liver Claudication of both lower extremities Bilateral carotid bruits Age related osteoporosis Adrenal nodule DVT (deep venous thrombosis) Perforation of sigmoid colon due to diverticulitis Diverticulitis Diverticulitis UTI (urinary tract infection) Diabetes High cholesterol Breast cancer Hypothyroid Abdominal pain Surgical History History of root canal procedure History of tonsillectomy History of back surgery History of lumpectomy of right breast History of repair of right rotator cuff History of cholecystectomy (1972) Family History Family History Father Colon cancer Social History Social History Household Members: Spouse Housing: House Do you presently have visiting nurse or other home services: No Patient Tobacco Use Status: Former Tobacco user Tobacco use type: Cigarette Cigarette Packs Per Day: 0.5 Cigarettes Per Day: 10.0 Years Smoked: 7 Second Hand Smoke Exposure: No Advance Directives Date on File: 09/09/21 service: No Current occupational status: retired Physical Exam ED Vital Signs: Vital Signs - 24 hr 07/11/25 11:32 07/11/25 12:02 07/11/25 14:26 Temperature 98.3 F 98.1 F Pulse Rate 74 66 56 Respiratory Rate 18 16 18 Blood Pressure 123/60 123/46 L 131/46 L Pulse Oximetry 97 97 98 Oxygen Delivery Method Room Air Room Air Room Air 07/11/25 16:23 Temperature 98.1 F Pulse Rate 56 Respiratory Rate 18 Blood Pressure 131/46 L Pulse Oximetry 98 Oxygen Delivery Method Room Air BMI result Body Mass Index 23.6 vital signs stable, afebrile General: Well appearing, in no acute distress. Skin: Warm, dry, intact. No rashes or lesions. Head: Normocephalic, atraumatic. EENT: Hearing is intact b/l. Conjunctiva clear. PERRLA. EOM intact. Moist mucous membranes.? Neck: Supple without LAD Cardiac: Chest wall symmetric. RRR Lungs: Normal respiratory effort without accessory muscle use. CTA bilaterally Back: No midline spinous or paraspinal tenderness. No step off deformity. positive straight leg raise on right. Rectal exam performed with Joyce SUAREZ student present in room to leather dresser. patient declining any other chaparone. slightly decreased rectal sphincter tone. No external masses or lesions. no palpable stool in rectal vault. Ext: Upper and lower extremities atraumatic, without tenderness, deformity, swelling or erythema Neuro: AOx3. Normal speech. Strength 5/5 intact throughout. No saddle anesthesia. Sensation intact to light touch. NV intact distally. Ambulating with steady gait Course Course Course Narrative: Rapid medical examination performed in triage by Angelita Higgins PA-C. Patient is a 74 year old assigned female at presenting to the emergency department with low back pain and incontinence that is new. Patient states she has had back pain over the last month and felt like she needed to go to the bathroom but couldn't. Patient states that she woke up this morning with incontinence. Detailed physical exam and review of systems are deferred to the medication manager. Labs ordered. Patient placed back in the waiting room pending room availability and results. Reevaluation(s) Reevaluation #1: CBC without leukocytosis or left shift. No anemia. H&H stable. Chemistry without acute electrolyte abnormality requiring intervention. No MARIBEL. Random glucose 120 without gap. Liver function WNL. Inflammatory markers WNL. Urine without infection. MRI lumbar spine showing mild bilateral neural foraminal stenosis at L5/S1 with mild impingement on the exiting L5 nerves, minimal disc bulges at L4/5 and L5/S1 with minimal central canal stenosis, right central annular fissure at L5/S1 and right paracentral annular fissure at L3/4, mild facet arthropathy at L3/4. Patient has a lumbar radiculopathy. Treated with Toradol and lidocaine in the ED with improvement. She is able to stand and ambulate without discomfort. She has a follow up with pain management this week. Advised to follow up. I feel she is stable for discharge home at this time. Patient has remained stable throughout ED visit today. Discussed worrisome signs and symptoms and when to return to the ED. All questions answered at this time. Patient is agreeable with disposition and stable for discharge. Medications Administered Discontinued Medications Generic Name Dose Route Start Last Admin Trade Name Freq PRN Reason Stop Dose Admin Ketorolac Tromethamine 15 mg 07/11/25 13:25 07/11/25 14:14 Ketorolac Tromethamine 15 Mg/Ml Vial IVPUSH 07/11/25 13:26 15 mg ONCE ONE Administration Lidocaine 1 patch 07/11/25 13:27 07/11/25 14:15 Lidocaine 4 % Patch Adh..Patch TRANSDERMA 07/11/25 13:28 1 patch ONCE ONE Administration Protocol Medical Decision Making Medical Decision Making MDM Narrative: 74-year-old female with pmhx significant for diverticulitis, SI joint dysfunction, restless legs syndrome presents to the ED today for evaluation of lower back pain x1 month. vital signs stable. afebrile. on exam, there is no midline spinous or paraspinal tenderness. No step off deformity. positive straight leg raise on right. Rectal exam performed with Joyce PA student present in room to leather dresser. patient declining any other leather dresser. slightly decreased rectal sphincter tone. No external masses or lesions. no palpable stool in rectal vault. Differential diagnosis includes MSK sprain/strain, sciatica, lumbar radiculopathy, arthritis, cauda equina, UTI. Unlikely epidural abscess, Guillain-Ivins, cord compression. Plan for labs, UA, MRI lumbar spine, pain control and re-evaluation. Differential Diagnosis Differential Diagnoses: The differential diagnosis associated with the presentation includes as above. Admission/Observation not indicated. Lab Data MDM Lab Attestation statement: I reviewed the patient's lab results. as above. 07/11/25 11:59 07/11/25 11:59 Labs: Lab Results 07/11/25 Range/Units 11:59 WBC 8.5 (4.8-10.8) X10*3/uL RBC 4.63 (4.20-5.50) X10*6/uL Hgb 14.0 (12.0-16.0) g/dl Hct 40.6 (37.0-47.0) % MCV 87.7 (80.0-98.0) fL MCH 30.2 (27.0-33.0) pg MCHC 34.5 (31.0-35.0) g/dl RDW 12.1 (11.0-16.0) % Plt Count 231 (160-400) X10*3/uL MPV 9.4 (9.4-12.3) fL Immature Gran % (Auto) 0.2 (0.0-0.4) % Neut % (Auto) 72.2 (45-73) % Lymph % (Auto) 19.6 L (20-40) % [place] % (Auto) 6.8 (2-11) % Eos % (Auto) 0.8 (0-4) % Baso % (Auto) 0.4 (0-2) % Lymph # (Auto) 1.7 (1.2-4.9) X10*3/uL [place] # (Auto) 0.6 (0.1-1.2) X10*3/uL Eos # (Auto) 0.1 (0.0-0.4) X10*3/uL Baso # (Auto) 0.0 (0.0-0.2) X10*3/uL Abs Immat Gran (auto) 0.02 (0.00-0.03) X10*3/uL Absolute Neuts (auto) 6.1 (2.0-8.3) x10*3/uL Absolute Nucleated RBC 0.000 (0.0-0.012) X10*3/uL Nucleated RBC % (auto) 0.0 (0.0-0.2) /100WBC ESR 2 (0-20) MM/HR Hold Purple Top SEE NOTE Sodium 141 (135-145) mmol/L Potassium 4.6 (3.3-5.1) mmol/L Chloride 103 (96-108) mmol/L Carbon Dioxide 28 (22-29) mmol/L Anion Gap 15 (12-20) BUN 15 (9-16) mg/dL Creatinine 0.72 (0.5-1.4) mg/dL Estim Creat Clear Calc 62.6 Estimated GFR > 60 Random Glucose 120 H (60-115) mg/dL Calcium 9.2 (8.4-10.2) mg/dL Magnesium 2.2 (1.6-2.6) mg/dL Total Bilirubin 0.3 (0.0-1.0) mg/dL AST 22 (5-31) U/L ALT 10 (0-31) U/L Alkaline Phosphatase 42 (39-117) U/L C-Reactive Protein 0.15 (< or = 0.50) mg/dL Total Protein 6.8 (6.5-8.0) g/dL Albumin 4.4 (3.5-5.0) g/dL Independent Interpretation I performed an independent interpretation of an: MRI Interpretation: MRI lumbar spine w/o encroachment on cauda nerve roots, no abscess Radiology Impression Discussion of test interpretation with radiology: I have reviewed the radiologist's reading. Radiologist Impression: Procedure(s): MR lumbar spine wo con Accession Number(s): [id number] cc: Maria Luisa Arguello; Carmine Chaparro~ Reason for Exam: worsening low back pain with incontinence CLINICAL HISTORY: worsening low back pain with incontinence MR lumbar spine without gadolinium Comparison: None Findings: Normal alignment. No acute fracture or pathologic bone lesion. Cauda equina and conus medullaris within normal limits. L4-5: Minimal broad-based disc bulge with minimal central canal stenosis and no significant foraminal stenosis. Mild facet arthropathy. L5-S1: Right central annular fissure. Minimal broad-based disc bulge with minimal central canal stenosis and mild bilateral neural foraminal stenosis. Mild impingement of the exiting L5 nerve. Paraspinous musculature intact. The filum terminale is at L2-3. L3-4: Right paracentral annular fissure. Mild facet arthropathy. IMPRESSION: 1. Mild bilateral neural foraminal stenosis at L5-S1 with mild impingement on the exiting L5 nerves. 2. Minimal disc bulges at L4-5 and L5-S1 with minimal central canal stenosis. 3. Right central annular fissure at L5-S1 and right paracentral annular fissure at L3-4. 4. Mild facet arthropathy at L3-4. This document has been electronically signed by: Sylvester Avelar MD on 07/11/2025 15:30:06 External Record Review External record reviewed: Inpatient record Prescription Management I considered prescription management with: Pain Medication Chronic Conditions Patient?s care impacted by: Other (chronic back pain) Social Determinants Patient?s care significantly limited by Social Determinants of Health including: Other Social Determinant of Health Critical Care Time Critical Care Time Critical Care Time: Yes Total Critical Care Time: 31 Attestation: Critical care time in the amount of 31 minutes has been provided to the patient in terms of direct patient care, frequent reevaluation, review and interpretation of medical data and results, and management of potentially life- threatening conditions. This is all outside of any medical procedures. Discharge Plan Discharge Clinical Impression: Lumbar radiculopathy Patient Disposition: Home, Self-Care Instructions: Lumbar Radiculopathy (ED) Additional Instructions: Your work up today is reassuring. The MRI of your low back shows the following: IMPRESSION: 1. Mild bilateral neural foraminal stenosis at L5-S1 with mild impingement on the exiting L5 nerves. 2. Minimal disc bulges at L4-5 and L5-S1 with minimal central canal stenosis. 3. Right central annular fissure at L5-S1 and right paracentral annular fissure at L3-4. 4. Mild facet arthropathy at L3-4. This does not require acute emergent intervention at this time. I am sending you home with a steroid (prednisone). As discussed, please monitor your sugars at home. If you find that these are elevating, please discontinue prednisone. I am also sending lidocaine patches to your pharmacy. You may take Tylenol/Motrin at home as needed. Keep your follow up appointment with pain management on . Return with any new or worsening symptoms. In the case of an emergency call 911. Prescriptions: New prednisone 20 mg tablet 40 mg PO DAILY 4 Days Qty: 8 0RF lidocaine [Lidoderm] 5 % adhesive patch,medicated 1 patch topical DAILY Qty: 15 0RF Rx Instructions: leave on most painful area for up to 12 hrs No Action ondansetron HCl 4 mg tablet 4 mg PO Q8H PRN (Reason: nausea and vomiting) Qty: 20 1RF levothyroxine 125 mcg tablet 125 mcg PO DAILY cholecalciferol (vitamin D3) 25 mcg (1,000 unit) capsule 25 mcg PO DAILY trazodone 50 mg tablet 100 mg PO BEDTIME Nasal [place] (sodium chloride) 0.65 % aerosol,spray 1 spray intranasal ONCE PRN clindamycin phosphate 1 % gel 1 appl topical DAILY mupirocin [Centany] 2 % ointment 1 appl topical BID 5 Days Qty: 22 1RF omeprazole 40 mg capsule,delayed release(DR/EC) 40 mg PO DAILY meclizine 25 mg tablet 25 mg PO DAILY PRN ammonium lactate 12 % cream 1 appl topical DAILY salt irrigation solution no.1 Aerosol intranasal Repatha SureClick 140 mg/mL pen injector 140 mg subcut Q2W cyclobenzaprine 10 mg tablet 10 mg PO BEDTIME PRN fluticasone propionate [Flonase Allergy Relief] 50 mcg/actuation spray,suspension 1 spray intranasal DAILY PRN Rx Instructions: administer into each nostril zoledronic [id number] [Reclast] 5 mg/100 mL piggyback IV .yearly Referrals: Carmine Chaparro PA [Primary Care Provider, Internal Medicine] Interventions: ED Discharge Assessment Last Done: 07/11/25 16:23 Discharge Date/Time: 07/11/25 16:25 Print Language: Persian
[2025-07-11 12:02] VITALS: BP 123/46; PULSE 66; RESP 16; O2SAT 97
[2025-07-11 12:08] LABS: MANUAL DIFF FLAG NO
[2025-07-11 12:12] LABS: Hematocrit 40.6 % (37.0-47.0); Hemoglobin 14.0 g/dl (12.0-16.0); Imm Gran Abs Auto 0.02 X10*3/uL (0.00-0.03); Imm Gran Pct Auto 0.2 % (0.0-0.4); Lymphocytes Absolute Auto 1.7 X10*3/uL (1.2-4.9); Mean Corpuscular HGB Conc 34.5 g/dl (31.0-35.0); Mean Corpuscular Hemoglobin 30.2 pg (27.0-33.0); Mean Corpuscular Volume 87.7 fL (80.0-98.0); NRBC Abs Auto 0.000 X10*3/uL (0.0-0.012); NRBC Pct Auto 0.0 /100WBC (0.0-0.2); Platelet Count 231 X10*3/uL (160-400); Red Blood Count 4.63 X10*6/uL (4.20-5.50); White Blood Count 8.5 X10*3/uL (4.8-10.8)
[2025-07-11 12:31] LABS: Alanine Aminotransferase 10 U/L (0-31); Albumin Level 4.4 g/dL (3.5-5.0); Alkaline Phosphatase 42 U/L (39-117); Anion Gap 15 (12-20); Aspartate Amino Transferase 22 U/L (5-31); Blood Urea Nitrogen 15 mg/dL (9-16); Calcium 9.2 mg/dL (8.4-10.2); Carbon Dioxide 28 mmol/L (22-29); Chloride 103 mmol/L (96-108); Creatinine Clr Calc Pharmacy 62.6; Estimated Glomerular Filt Rate > 60; Magnesium 2.2 mg/dL (1.6-2.6); Potassium 4.6 mmol/L (3.3-5.1); Sodium 141 mmol/L (135-145); Total Protein 6.8 g/dL (6.5-8.0)
[2025-07-11] MEDS: Lidocaine 4 % Patch ADH..PATCH 1 PATCH TRANSDERMA (14:15)
[2025-07-11 14:26] VITALS: BP 131/46; PULSE 56; RESP 18; TEMP 36.7; O2SAT 98
[2025-07-11 16:23] VITALS: BP 131/46; PULSE 56; RESP 18; TEMP 36.7; O2SAT 98
== END 2025-07-11 16:25 | disposition home or self-care (01) ==
PROVIDERS: Physician Assistant Medical; Emergency Provider Emergency Medicine; PCP Physician Assistant Medical
DX: M54.16 Radiculopathy, lumbar region (principal); M54.50 Low back pain, unspecified; E11.9 Type 2 diabetes mellitus without complications; E03.9 Hypothyroidism, unspecified; Z79.899 Other long term (current) drug therapy
CPT/HCPCS: 36415; 72148; 80053; 83735; 85025; 85652; 86140; 96374; 99284; J1885

== ENCOUNTER → 2025-07-11 11:55 | Outpatient (BNV) | payer MEDICARE, BC, SELFPAY | PROVIDERS: Emergency Provider Emergency Medicine; PCP Physician Assistant Medical; Visit Provider Radiology Diagnostic Radiology | DX: M51.A4 Intervertebral annulus fibrosus defect, small, lumbosacral region (principal) | CPT/HCPCS: 72148 ==

== ENCOUNTER 2025-07-14 06:30 | Outpatient (REF) | payer MEDICARE, BC, SELFPAY ==
--- OUTSIDE RECORDS SUMMARY | 2024-07-30 13:00 | XMS_ITS | Encounter Summary ---
Author Organization [employer] Address [address] [place] [address] Care Team Providers Care Dramatic Director Name Role Phone Carmine Chaparro Primary Care Provider +1 [phone] Encounter Details Date Type Department Care Team (Latest Contact Info) Description 07/30/2024 1:00 PM EDT Hospital Encounter TH HISTORIC ENCOUNTERS EASTERN CONVERSION ONLY Age-related osteoporosis without current pathological fracture Social History Tobacco Use Types Packs/Day Years Used Date Smoking Tobacco: Former Cigarettes 0.3 2.6 0 04/02/1967 - 10/29/1969 Smokeless Tobacco: Never Alcohol Use Standard Drinks/Week Comments Not Currently 0 (1 standard drink = 0.6 oz pur e alcohol) rarely Housing Instability Answer Date Recorde d Are you worried that in the next 2 months you may not have stable housing? No 04/22/2025 Food Access & Nutrition Answer Date Rec orded Do you have access to a vari ety of food including fruits and vegetables? Yes 04/22/2025 Health Literacy Answer Date Recorded How often do you need to hav e someone help you when you read instructions, pamphlets, or other written material from your doctor or pharmacy? Never 04/22/2025 Caregiver: How often do you need to have someone help you when you read instructions, pamphlets, or other written material from your doctor or pharmacy? Not on file 04/22/2025 Financial Risk Answer Date Recorded How hard is it for you to pa y for the very basics like food, housing, medical care, and air conditioning / heating? Not very hard 04/22/2025 Transportation Answer Date Recorded Has the lack of transportati on kept you from meetings, work, or from getting things needed for daily living? No Has the lack of transportati on kept you from medical appointments or from getting medications? No 04/22/2025 Social Isolation Answer Date Recorded How often do you feel lonely or isolated from th ose around you? Never 04/22/2025 Food Risk Answer Date Recorded Within the past 12 months we worried whether our food would run out before we got money to buy more. Never true 04/22/2025 Within the past 12 months th e food we bought just didn't last and we didn't have money to get more. Never true 04/22/2025 Dependent Care Answer Date Recorded Do you need help finding or paying for care for your loved ones. For example, children's librarian or elderly care for an older adult? No 04/22/2025 Education Answer Date Recorded Do you think completing more education or training, like finishing a GED, going to college, or learning a trade, would be helpful for you? N/A 04/22/2025 Employment and Income Answer Date Recor ded During the last four weeks, have you been actively looking for work? No 04/22/2025 Living Situation Answer Date Recorded What is your living situation? 0 04/22/2025 Interpersonal Safety Answer Date Record ed Physical Abuse 11/27/2024 Verbal Abuse 11/27/2024 Comments No Sex and Gender Information [...] Care Team (Late st Contact Info) Description 07/24/2025 12:00 PM EDT Ancillary Procedure [facility] - [facility] 101 300 [facility] 101 [place] [address] 07/30/2025 10:00 AM EDT Appointment [facility] [address] [address] 08/05/2025 9:30 AM EDT Office Visit Vascular Surgery - [place] [address] [place] [address] Ashley Ortiz MD [address] [place] [phone] 08/27/2025 11:00 AM EDT [facility]ointment [facility] [address] [phone] 10/06/2025 9:30 AM EST Office Visit [facility] Hematology Oncology [address] [place] [phone] Philly Cameron MD [address] [place] [address] 10/12/2025 11:00 AM EST Office Visit [facility]ocrinology [facility] [address] [place] [address] Adriana Morgan PA 444 [place] [address] 01/27/2026 10:35 AM EDT Office Visit Pulmon[facility] 175 [facility] 200 [place] [address] Liliana Jameson NP 230 [place] [phone] 06/16/2026 1:30 PM EDT Office Visit Breast [facility] Center [facility] [address] [place] [phone] Ginna Del Real MD 230 [place] [phone] documented as of this encounter Procedures Procedure Name Priority Date/Time Associated Diagnosis Comments ..MISCELLANEOUS REFERENCE LAB TEST 07/30/2024 documented in this encounter Results * Miscellaneous reference lab test (07/30/2024) us Provider Onbase LAB BLOOD ORDERABLES Final Re sult documented in this encounter Visit Diagnoses Diagnosis Age-related osteoporosis without current pathological fracture documented in this encounter Care Teams Dramatic Director Relationship Specialty Start Date End Date Carmine Chaparro PA PCP - General Internal Medicine 01/03/21 09/02/24 documented as of this encounter
--- OUTSIDE RECORDS SUMMARY | 2024-09-18 10:30 | XMS_ITS ---
Author Organization [facility] Address [address] [place] [address] Care Team Providers Care Superintendent Meter Tests Name Role Phone Carmine Castro Primary Care Provider Unav ailable Black, Skye Unavailable [phone] Isis Young Unavailable [phone] Medications Medication SIG (Take, Route, Frequency, Duration) [...] Active Encounters Encounter Location Date Provider Diagnosis [facility] [place] [address] [place] [address] 09/18/2024 Isis Young Plan Of Treatment No Information Progress Notes * Viola NAVARRO MDOB:1949 (74 yo F)Acc No.[id number]:09/18/2024 Progress Note Patient: Abbe Viola SCHULER [place] Provider: Reji Young DPM :1950 A ge:73 Y S ex:Female Date:09/18/2024 Address:[address] [place] [address] , [facility] Pcp:ERICK Brooke Subjective: * Chief Complaints: * [...] Date: 11/18/2023 Generated for Paulina cody/Art/Kelechi on: 0 07/14/2025 06:32 AM EDT
--- OUTSIDE RECORDS SUMMARY | 2025-05-11 06:15 | XMS_ITS ---
Author Organization [facility] Address [address] [place] [address] Care Team Providers Care Career Technical Counselor Name Role Phone Carmine Castro Primary Care Provider Unav ailable Black, Skye Unavailable [phone] Isis Young Unavailable [phone] Encounters Encounter Location Date Provider Diagnosis [facility] [address] [place] [address] 05/11/2025 Isis Young Plan Of Treatment No Information Progress Notes * Viola NAVARRO MDOB:1949 (74 yo F)Acc No.[id number]:05/11/2025 Progress Notes Patient: Naeem RODRIGUEZise Libia Provider: Reji Young DPM :1950 A ge:74 Y S ex:Female Date:05/11/2025 Address:[address] [place] Pcp:ERICK Brooke Subjective: * Chief Complaints: * * Medical History: Objective: * Vitals: Assessment: Plan: * Treatment: * Images: * The named appointment provid er may or may not be the originator of this progress note, and it is not deemed complete until electronically signed by the appointment provider. Sign off status: Pending * Provider: Reji Young DPM Date: 05/11/2025 Generated for Paulina cody/Art/eTransmitting on: 07/14/2025 06:32 AM EDT
--- NOTE | ~2025-07-14 | FL_ITS ---
EXAMINATION: FL GUIDANCE ONLY HISTORY: M53.3 - Sacrococcygeal disorders, not elsewhere classified COMPARISON: None available. TECHNIQUE: Fluoroscopy time: 8.2 seconds. Cumulative Dose: 2.78 mGy. Images: 2. FINDINGS: Fluoroscopic spot films of the left hemipelvis demonstrate a needle and contrast material in the region of the sacroiliac joint. FL/FL guidance in treatment room IMPRESSION: Fluoroscopy during procedure. Please see procedure report for additional information. Electronically signed by: Jamel Zuleta MD 07/14/2025 02:27 PM EDT
--- OUTSIDE RECORDS SUMMARY | 2025-07-14 06:32 | XMS_ITS ---
Author Organization [facility] Address [address] [place] [address] Phone Care Team Providers Care High Raw Sugar Boiler Name Role Phone Carmine Chaparro Primary Care Provider [phone] Active Problems Problem Noted Date Diagnosed Date Claudication of both lower extremities (CMS/[facility] V24) 01/29/2025 Assessment & Plan (01/29/2025 8:22 AM EDT): The patient is able to walk through her discomfort in both calfs, and I encouraged her to continue to do so to encourage formation of collateral circulation. We will evaluate this further with an arterial duplex with ELDRE of both lower extremities and readdress as [...] ELDER; Future Lung nodule 11/04/2024 Adrenal nodule ([facility] V24) 11/04/2024 Breast cancer ([facility] V24, [facility] V28) 024 Diabetes mellitus ([facility] V24, [facility] V28) Diverticulitis 10/13/2024 Fatty liver 10/13/2024 Hyperparathyroidism ([place] 232094) 10/07/2024 Parathyroid adenoma 10/07/2024 Age related osteoporosis 07/29/2024 Acute deep vein thrombosis ( DVT) of distal vein of left lower extremity ([facility] V24, [facility] V28) 08/10/2022 TRESSA (obstructive sleep apnea) 05/18/2022 [...] 6 to 16 cm H2O sent to [facility] [place]. Hyperparathyroidism ([facility] V24) 10/17/2021 Hand arthritis 10/08/2019 Type 2 diabetes mellitus wit hout complication, without long-term current use of insulin ([facility] V24, [facility] V28) 07/16/2019 Bilateral carotid bruits 05/14/2018 Gastroesophageal [...] treatments are documented for this patient in [facility]. Treatments may have been administered in another system. Lifetime Dose Tracking * Chemical Lifetime Dose Automatic Entry Manual Entr y CTDIvol 17.99 mGy 17.99 mGy 0 mGy
--- OUTSIDE RECORDS SUMMARY | 2025-07-14 06:32 | XMS_ITS | Clinical Summary ---
Author Organization [facility] Address [address] [place] [phone] Phone Care Team Providers Care Auto Fleet Maintenance Manager Name Role Phone Carmine Chaparro Primary Care Provider [phone] Allergies Active Allergy Reactions Criticality Noted Date [...] mouth as needed. Active blood sugar diagnostic (NewHoundTouch Verio test strips) test strip USE TO [...] complication, without long-term current use of insulin ([facility] V24, [facility] V28),Hypothyroidism, unspecified type,Hyperparathyroidi sm ([facility] V24),Acute deep vein thrombosis (DVT) of distal vein of left lower extremity ([facility] V24, [facility] V28),Age related osteoporosis, unspecified pathological [...] Diagnosed Date Claudication of both lower extremities ([facility] V24) 01/29/2025 Assessment & Plan [...] ELDER; Future Lung nodule 11/04/2024 Adrenal nodule ([facility] V24) 11/04/2024 Breast cancer ([facility] V24, [facility] V28) 024 Diabetes mellitus ([facility] V24, [facility] V28) Diverticulitis 10/13/2024 Fatty liver 10/13/2024 Hyperparathyroidism ([facility] V24) 10/07/2024 Parathyroid adenoma 10/07/2024 Age related osteoporosis 07/29/2024 Acute deep vein thrombosis ( DVT) of distal vein of left lower extremity ([facility] V24, [facility] V28) 08/10/2022 TRESSA (obstructive sleep apnea) 05/18/2022 [...] cm H2O sent to [facility]. Hyperparathyroidism ([facility] V24) 10/17/2021 Hand arthritis 10/08/2019 Type 2 diabetes mellitus wit hout complication, without long-term current use of insulin ([facility] V24, [facility] V28) 07/16/2019 Bilateral carotid bruits 05/14/2018 Gastroesophageal [...] Care Team Description 07/01/2025 Telephone Pulmonolgy - [place] [address] [facility] [address] [place] [phone] Joaquín Cheo [place], [place] 06/26/2025 Telephone Adult Medicine [address] [phone] Carmine Chaparro PA 06/10/2025 1:45 PM EDT Office Visit [facility] [address] [place] [phone] Ginna Del Real MD History of invasive breast cancer (Primary Dx); History of therapeutic radiation; Acute back pain, unspecified back location, unspecified back pain laterality; Encounter for screening mammogram for malignant neoplasm of breast 05/07/2025 9:15 AM EDT Ancillary Procedure [facility] - [facility] [address] [facility] [address] [place] [phone] Chest discomfort; Type 2 diabetes mellitus without complication, without long-term current use of insulin ([facility] V24, CMS/HCC V28); Hypothyroidism, unspecified type; Hyperparathyroidism (CMS/HCC V24); Acute deep vein thrombosis (DVT) of distal vein of left lower extremity (CMS/HCC V24, CMS/HCC V28); Age related osteoporosis, unspecified pathological fracture presence; Mixed hyperlipidemia 04/30/2025 11:30 AM EDT Consult Vascular Surgery - [place] [address] [facility] [address] [place] [phone] Ashley Ortiz MD Varicose veins of lower extremity with pain, bilateral (Primary Dx); Mixed hyperlipidemia 04/22/2025 10:30 AM EDT Office Visit Adult Medicine [address] [phone] Carmine Chaparro PA Chest discomfort (Primary Dx); [...] HISTORICAL MOLE (REMOVAL OF) COLONOSCOPY 03/07/2004 PROCEDURE: TN COLONOSCOPY FLX DX W/COLLJ SPEC WHEN PFRMD; [...] right breast in female, estrogen receptor positive ([facility] V24, [facility] V28) 09/20/2020 DX:Malignant neoplasm of ri ght breast in female, estrogen receptor positive (HCC) PONV (postoperative nausea a nd vomiting) Hyperparathyroidism ([facility] V24) Family History Medical History [...] Alive Father (Age 74) cancer col on, [place], DM Mother Alive rheumatoid arth ritis Other [...] for your loved ones. For example, child welfare counselor or elderly care for an older adult? [...] Description 07/24/2025 12:00 PM EDT Ancillary Procedure [facility] - [facility] [address] [facility] [address] [place] [address] 07/30/2025 10:00 AM EDT Appointment Bone Density - [place] [address] [place] [address] 08/05/2025 9:30 AM EDT Office Visit Vascular Surgery - [place] 300 [facility] [address] [place] [phone] Ashley Ortiz MD [address] [place] [phone] 08/27/2025 11:00 AM EDT Appointment [facility] [address] [place] [address] 10/06/2025 9:30 AM EST Office Visit [facility] Hematology Oncology [address] [place] [phone] Philly Perales MD [address] [place] [address] 10/12/2025 11:00 AM EST Office Visit Endocrinology - [place] [address] [place] [address] Adriana Morgan PA [address] [place] [address] 01/27/2026 10:35 AM EDT Office Visit Pulmonolgy - [place] 175 [facility] [address] [place] [phone] Liliana Jameson NP [address] [place] [phone] 06/16/2026 1:30 PM EDT [facility] Visit [facility] [address] [phone] Ginna Del Real MD [address] [place] [phone] Health Maintenance Due Date Last Done [...] this topic Medical Devices Implanted Type Area Electrical Manager Device Identifier Shelf Expiration Date Model / Serial / Lot Dental Implants Dental Implants Bilateral: Mouth Hemostat Flour Collgn [facility] [id number] Implanted:Qty : 1 on 11/27/2024 by Ginna Del Real MD at [facility] Hemostasis Left: Parathyroid CR BARD - DAVOL DIV 08/25/2027 [id number] / SNA / [id number] Procedures Procedure Name Priority Date/Time Associated Diagnosis Comments EXTERNAL CLINICAL LAB 07/07/2025 STRESS TEST ONLY EXERCISE Routine 05/07/2025 9:21 AM EDT Chest discomfort Type 2 diabetes mellitus without complication, without long-term current use of insulin ([facility] V24, [facility] V28) Hypothyroidism, unspecified type Hyperparathyroidism ([facility] V24) Acute deep vein thrombosis (DVT) of distal vein of left lower extremity ([facility] V24, [facility] V28) Age related osteoporosis, unspecified pathological fracture presence Mixed hyperlipidemia LIPID PANEL WITH REFLEX TO DIRECT LDL Routine 04/22/2025 11:17 AM EDT Chest discomfort Type 2 diabetes mellitus without complication, without long-term current use of insulin ([facility] V24, [facility] V28) Hypothyroidism, unspecified type Hyperparathyroidism ([facility] V24) Acute deep vein thrombosis (DVT) of distal vein of left lower extremity ([facility] V24, [facility] V28) Age related osteoporosis, unspecified pathological fracture presence Mixed hyperlipidemia MICROALBUMIN CREATININE URINE RATIO Routine 04/22/2025 11:17 AM EDT Chest discomfort Type 2 diabetes mellitus without complication, without long-term current use of insulin ([facility] V24, [facility] V28) Hypothyroidism, unspecified type Hyperparathyroidism ([facility] V24) Acute deep vein thrombosis (DVT) of distal vein of left lower extremity ([facility] V24, [facility] V28) Age related osteoporosis, unspecified pathological fracture presence Mixed hyperlipidemia COMPREHENSIVE METABOLIC PANEL Routine 04/22/2025 11:17 AM EDT Chest discomfort Type 2 diabetes mellitus without complication, without long-term current use of insulin ([facility] V24, [facility] V28) Hypothyroidism, unspecified type Hyperparathyroidism ([facility] V24) Acute deep vein thrombosis (DVT) of distal vein of left lower extremity ([facility] V24, [facility] V28) Age related osteoporosis, unspecified pathological fracture presence Mixed hyperlipidemia HEMOGLOBIN A1C Routine 04/22/2025 11:17 AM EDT Chest discomfort Type 2 diabetes mellitus without complication, without long-term current use of insulin ([facility] V24, [facility] V28) Hypothyroidism, unspecified type Hyperparathyroidism ([facility] V24) Acute deep vein thrombosis (DVT) of distal vein of left lower extremity ([facility] V24, [facility] V28) Age related osteoporosis, unspecified pathological fracture presence Mixed hyperlipidemia PARATHYROID HORMONE INTACT Routine 04/22/2025 11:17 AM EDT Chest discomfort Type 2 diabetes mellitus without complication, without long-term current use of insulin ([facility] V24, [facility] V28) Hypothyroidism, unspecified type Hyperparathyroidism ([facility] V24) Acute deep vein thrombosis (DVT) of distal vein of left lower extremity ([facility] V24, [facility] V28) Age related osteoporosis, unspecified pathological fracture presence Mixed hyperlipidemia THYROID STIMULATING HORMONE WITH REFLEX TO FREE T4 AND FREE T3 Routine 04/22/2025 11:17 AM EDT Chest discomfort Type 2 diabetes mellitus without complication, without long-term current use of insulin ([facility] V24, [facility] V28) Hypothyroidism, unspecified type Hyperparathyroidism ([facility] V24) Acute deep vein thrombosis (DVT) of distal vein of left lower extremity ([facility] V24, [facility] V28) Age related osteoporosis, unspecified pathological fracture presence Mixed hyperlipidemia HEPATITIS C ANTIBODY Routine 10/13/2024 11:20 AM EST Hyperparathyroidism ([facility] V[facility]) Parathyroid adenoma Age related osteoporosis, unspecified pathological fracture presence Type 2 diabetes mellitus without complication, without long-term current use of insulin ([facility] V24, [facility] V28) Hypothyroidism, unspecified type Pure hypercholesterolemia TRESSA (obstructive sleep apnea) Fatty liver Adrenal adenoma, unspecified laterality Lung nodule Primary insomnia [facility] SCREENING DIGITAL Routine 08/26/2024 5:21 PM EDT [facility] DEXA AXIAL SKELETON Routine 03/20/2023 [...] l Result [facility] [address] [place] [address], * (ABNORMAL) Lipid panel with reflex to [...] l Result [facility] [address] [place] [address], [place] [phone] * Microalbumin creatinine urine ratio (04/22/2025 11:17 [...] l Result [facility] [address] [place] [address], * Parathyroid hormone intact (04/22/2025 11:17 AM EDT) PTH 51.9 18.5 - 88.0 pcg/mL LAB CHEMISTRY METHOD 04/22/2025 5:59 PM EDT [facility] Blood Venous blood specimen / Unknown Venipuncture / Unknown 04/22/2025 11:17 AM EDT 04/22/2025 11:17 AM EDT Carmine SUAREZ LAB BLOOD ORDERABLES Nanette l Result [facility] [address] [place] [address], [place] [phone] * Hemoglobin A1c (04/22/2025 11:17 AM EDT) [facility] Hemoglobin A1C 5.9 <6.5 % LAB CHEMISTRY METHOD 04/22/2025 2:37 PM EDT [facility] Mean Bld Glu Estim. 123 mg/dL LAB CHEMISTRY METHOD 04/22/2025 2:37 PM [facility] Blood Venous blood specimen / Unknown Venipuncture / Unknown 04/22/2025 11:17 AM EDT 04/22/2025 11:17 AM EDT Carmine SUAREZ LAB BLOOD ORDERABLES Nanette l Result [facility] [address] [place] [address], [place] [phone] * (ABNORMAL) Comprehensive metabolic panel (04/22/2025 11:17 AM EDT) [facility] Sodium 140 133 - 145 mmol/L LAB CHEMISTRY METHOD 04/22/2025 5:01 PM [facility] Potassium 4.3 3.5 - 5.5 mmol/L LAB CHEMISTRY METHOD 04/22/2025 5:01 PM [facility] Chloride 103 96 - 110 mmol/L LAB CHEMISTRY METHOD 04/22/2025 5:01 PM [facility] CO2 32 21 - 32 mmol/L LAB CHEMISTRY METHOD 04/22/2025 5:01 PM [facility] Anion Gap 5 3 - 11 LAB CHEMISTRY METHOD 04/22/2025 5:01 PM [facility] Glucose 85 70 - 100 mg/dL LAB CHEMISTRY METHOD 04/22/2025 5:01 PM [facility] BUN 19 5 - 25 mg/dL LAB CHEMISTRY METHOD 04/22/2025 5:01 PM [facility] Creatinine 0.67 0.50 - 1.10 mg/dL LAB CHEMISTRY METHOD 04/22/2025 5:01 PM [facility] eGFR 92 >=60 mL/min/1. 73m2 LAB CHEMISTRY METHOD 04/22/2025 5:01 PM [facility] Comment:Calculation based on the Chronic Kidney Disease Epidemiology Collaboration (CKD-EPI) equation refit without adjustment for race. BUN/Creatinine Ratio 28.4 LAB CHEMISTRY METHOD 04/22/2025 5:01 PM [facility] Calcium 9.1 8.5 - 10.5 mg/dL LAB CHEMISTRY METHOD 04/22/2025 5:01 PM [facility] AST (SGOT) 8(L) 10 - 42 unit/L LAB CHEMISTRY METHOD 04/22/2025 5:01 PM [facility] ALT (SGPT) 19 10 - 60 unit/L LAB CHEMISTRY METHOD 04/22/2025 5:01 PM [facility] Alkaline Phosphatase 44 42 - 121 unit/L LAB CHEMISTRY METHOD 04/22/2025 5:01 PM [facility] Total Protein 7.2 6.0 - 8.0 g/dL LAB CHEMISTRY METHOD 04/22/2025 5:01 PM [facility] Albumin 4.2 3.2 - 5.0 g/dL LAB CHEMISTRY METHOD 04/22/2025 5:01 PM [facility] Total Bilirubin 0.4 0.0 - 1.4 mg/dL LAB CHEMISTRY METHOD 04/22/2025 5:01 PM [facility] Blood Venous blood specimen / Unknown Venipuncture / Unknown 04/22/2025 11:17 AM EDT 04/22/2025 11:17 AM EDT us Carmine SUAREZ LAB BLOOD ORDERABLES Nanette l Result [facility] [address] [place] [address], * Hepatitis C antibody (10/13/2024 11:20 AM EST) Hepatitis C Antibody Negative Negative LAB CHEMISTRY METHOD 10/13/2024 8:04 PM EST [facility] Blood Venous blood specimen / Unknown Venipuncture / Unknown 10/13/2024 11:20 AM EST 10/13/2024 11:20 AM EST us Carmine SUAREZ LAB BLOOD ORDERABLES Nanette morfin Result [facility] [address] [place] [address], * JUANA SCREENING DIGITAL (08/26/2024 5:21 PM EDT) Anatomical Region Laterality Modality Mammography 08/26/2024 1:49 PM EDT Narrative 08/26/2024 5:21 PM EDT [facility] Diagnostic Imaging Department [address] [place] [address] Patient: VAUGHN FU D.O.B./Age/Sex: 1950 - 73 - F Unit#: [id number] Location/Status: SPDIMAM/REG CLI Mnemonic/[facility]ing [facility] Ordering Physician: ISIAH MCCORMACK Juana Screening Digital - 08/26/24 - 1500 Report Status:Signed EXAM: SCREENING MAMMOGRAPHY, BILATERAL HISTORY: [...] None Computer-aided detection was employed with the [employer] AI 3-D. TISSUE DENSITY: There are scattered [...] Procedure Note Steven Pickens MD - 08/30/2024 [facility] Diagnostic Imaging Department [address] [place] [address] Patient: RADHA FUSHABBIR Gr/Age/Sex: 1950 - 73 - F Unit#: [id number] Location/Status: SPDIMAM/REG CLI Mnemonic/Ordering Site: DIGWI/SPMAM Ordering Physician: ISIAH MCCORMACK Juana Screening Digital - 08/26/24 - 2065 Report Status:Signed EXAM: SCREENING MAMMOGRAPHY, BILATERAL HISTORY: SCREENING. Personal history of right breast cancer. Previous reports indicate lumpectomy radiation and chemotherapy for right breastcancer. Family history of breast cancer. COMPARISON: 08/17/2023, 08/15/2022, 08/11/2021, 08/17/2020, 08/11/2020 TECHNIQUE: Synthesized CC and MLO projections of each breast.Tomosynthesis of each breast in the CC and MLO projections. ADDITIONAL IMAGING: None Computer-aided detection was employed with the [employer] Expression AI 3-D. TISSUE DENSITY: There are scattered [...] PM EDT Narrative 03/20/2023 7:33 AM EDT [facility] Diagnostic Imaging Department [address] [place], [place] [id number] Patient: VAUGHN FU Libia SernaB./Age/Sex: 1950 - F Unit#: [id number] Location/Status: SPDIMAM/REG CLI Mnemonic/Ordering Site: MAMDEXAAX/SPMAM Ordering [...] probability of hip fracture of 11.2%. Code 68855 Dictating Physician: PATRICE HOBSON MD Electronically Signed by: PATRICE HOBSON MD Dic Date/Time: 03/20/23731 Sign date/Time: 03/20/23732 Procedure Note Patrice Hobson MD - 11/30/2023 [facility] Diagnostic Imaging Department [address] [place] [address] Patient: TANKVAUGHN Reza D.O.B./Age/Sex: 1950 - 72 - F Unit#: [id number] [facility] CLI Mnemonic/Ordering Site: [facility] Ordering Physician: PHILLY PERALES MD [facility] Dexa Axial Skeleton - 03/19/23 - 2060 HISTORY: The patient is a 72-year-old postmenopausal [...] density of the femurs bilaterally is 0.714 gm/qd3uicwa is 71% of that of young normals [...] probability of hip fracture of 11.2%. Code 65998 Dictating Physician: PATRICE HOBSON MD Electronically Signed by: PATRICE HOBSON MD Dic Date/Time: 03/20/2332 Sign date/Time: 03/20/23732 Philly Perales MD IMG BI PROCEDURES Final Resu lt from Last 3 Months or Most Recently Relevant to Health Maintenance Insurance MEDICARE [facility] Advance Directives Documents on File Type Date Recorded Patient Station Cashier Expl anation Power of Radio Broadcaster 11/27/2024 6:05 AM HCP Health Care Decision [...] currently active code status orders. Care Teams Auto Fleet Maintenance Manager Relationship Specialty Start Date End Date Carmine Chaparro PA [address] [place] [address] PCP - General Internal Medicine 09/03/24
--- OUTSIDE RECORDS SUMMARY | 2025-07-14 06:32 | XMS_ITS | Encounter Summary ---
Author Organization [employer] [place] [address] Care Team Providers Care Choir Member Name Role Phone Carmine Chaparro Primary Care Provider [phone] Reason for Visit * Reason Onset Date Comments Nasal Congestion 06/26/2025 Epistaxis (Nose Bleed) 06/26/2025 Encounter Details Date Type Department Care Team ([facility] Contact Info) Description 06/26/2025 Telephone Adult Medicine [address] [phone] Carmine Chaparro PA [address] [place] [phone] Social History Tobacco Use Types Packs/Day Years [...] for your loved ones. For example, children's choir director or elderly care for an older adult? [...] traveled recently to another state outside of [place], [place], [place], [place], [place], [place], [place]? no o If yes, did you quarantine [...] yes, gather 3rd democrat insurance information Third Democrat Information: not applicable PCP: ERICK Cortez Payor: MEDICARE / Plan: MEDICARE PART A & B / Product Type: Medicare / documented in this encounter Plan of Treatment Upcoming Encounters Date Type Department Care Team (Late st Contact Info) Description 07/24/2025 12:00 PM EDT Ancillary Procedure [facility] - [facility] [address] [facility] [address] [place] [address] 07/30/2025 10:00 AM EDT Appointment Bone Density - [place] [address] [place] [address] 08/05/2025 9:30 AM EDT Office Visit Vascular Surgery - [place] 300 [facility] [address] [place] [address] Ashley Ortiz MD [address] [place] [phone] 08/27/2025 11:00 AM EDT Appointment [facility] at [address] [address] 10/06/2025 9:30 AM EST Office Visit [facility] Hematology Oncology [address] [place] [phone] Philly Cameron MD [address] [place] [address] 10/12/2025 11:00 AM EST Office Visit Endocrinology [facility] [address] [place] [address] Adriana Morgan PA [address] [place] [address] 01/27/2026 10:35 AM EDT Office Visit Pulmonolgy - [place] 175 [facility] 200 [place] [phone] Liliana Jameson NP [address] [place] [phone] 06/16/2026 1:30 PM EDT Office Visit [facility] - [place] [address] [place] [address] Ginna Del Real MD [address] [place] [phone] documented as of this encounter Visit Diagnoses Not on filedocumented in this encounter Additional Health Concerns Assessment Noted Time PHQ-9 Depression Total Score: 0 04/22/20 10:32 AM EDT documented as of this encounter Care Teams Choir Member Relationship Specialty Start Date End Date Carmine Chaparro PA [address] [place] [address] PCP - General Internal Medicine 09/03/24 documented as of this encounter
--- OUTSIDE RECORDS SUMMARY | 2025-07-14 06:32 | XMS_ITS | Patient Health Record ---
Author Organization [facility] Address [address] [facility] [address] [place] [address] Care Team Providers Care Manager Terminal Name Role Phone Jeff Lu Primary Care [...] of [place] [address] [place] [phone] [id number] Navarro , Viola Self - patient is the insured [facility] and [facility] [address] [place] [address] [phone] [phone] Viola Navarro Self - patient is the [...]
--- OUTSIDE RECORDS SUMMARY | 2025-07-14 06:33 | XMS_ITS | Patient Health Record ---
[facility] Address [address] [facility] [place] [address] Care Team Providers Care Color Blender Name Role Phone Carmine Castro Primary Care Provider Unav ailable Black, Skye Unavailable [phone] YoungIsis santo Unavailable [phone] Allergies Allergen (clinical drug ingredient) Drug/Non Drug [...] HCl 10 MG Oral; Duration: 90 Not-Taking [place] Saline Nasal Gel Active Triamcinolone Acetonide 0.1 [...] Ordered Date Performed Result Body Sit e 34037-IDZ 04/17/2025 N/A Encounters Encounter Location Date Provider Diagnosis [facility] [address] 10/06/2024 Isis Escamillaaker Dystrophic nail L60.3 and Type 2 diabetes mellitus with diabetic polyneuropathy E11.42 [facility] [address] [address] 04/17/2025 Isis Young Ingrown nail L60.[address] [address] 09/18/2024 Skye Cespedes [facility] [address] 04/17/2025 Isis Young [address] [address] 05/08/2025 Skye Cespedes Assessments Encounter Date Diagnosis (ICD Code) Assessment Notes Treatment Notes Treatment Clinical Notes Section Notes 04/17/2025 Ingrown nail (ICD-10 - L60.0) 10/06/2024 Dystrophic nail (ICD-10 - L60.3) 10/06/2024 Type 2 diabetes mellitus with diabetic polyneuropathy (ICD-10 - E11.42) Plan Of Treatment Pending Test Test Name Order Date [id number] Plate 09/30/2020 [id number]-Saqpqcgo Plate 06/05/2022 [id number] 08/11/2021 [id number] 04/17/2025 59037- Debride <25 sq cm 09/12/2021 59272- Debride <25 sq cm 10/14/2020 [id number] SKIN/TISSUE 08/29/2021 66169- I&D ABSCESS-COMPLICATED,MULTI 02/2023 43844-WAZI SKIN LESIONS, 2 TO 4 06/11/20 15341-BGBO NAIL(S) 06/11/2023 63173-EIUX NAIL(S) 06/05/2022 72104-NLMO NAIL(S) 12/04/2022 Insurance Providers Payer Name Payer Address Payer Phone Subscriber Number Group Number Insured Name Patient Relationship to Insured Coverage Start Date Coverage End Date Medicare [employer] [address] [place] [phone] [id number] Viola Navarro Self - patient is the insured [facility] [address] [place] [address] [id number] Alfred Navarro Spouse - patient is the [...] Libby Villarreal- blood clot left leg 2024 [facility] [place]- acute sigmoid diverticu litis- complications with a micropherferation 09/08/21-09/10/21
== END 2025-07-14 06:31 | disposition home or self-care (01) ==
LOC: CF 06:30
PROVIDERS: Visit Provider Anesthesiology
DX: M46.1 Sacroiliitis, not elsewhere classified (principal); M53.3 Sacrococcygeal disorders, not elsewhere classified; M96.1 Postlaminectomy syndrome, not elsewhere classified; G89.4 Chronic pain syndrome; M54.51 Vertebrogenic low back pain
CPT/HCPCS: 27096; J2003; J2795; Q9967

== ENCOUNTER 2025-07-14 13:18 | Outpatient (AMB) | payer MEDICARE, BC, SELFPAY ==
--- OUTSIDE RECORDS SUMMARY | 2024-07-30 13:00 | XMS_ITS | Encounter Summary ---
Author Organization [employer] Address [address] [place] [address] Care Team Providers Care Manager Development Name Role Phone Carmine Chaparro Primary Care Provider +1 -[phone] Encounter Details Date Type Department Care Team [...] your loved ones. For example, child care team lead or elderly care for an older adult? [...] Description 07/24/2025 12:00 PM EDT Ancillary Procedure [facility] - [facility] 101 300 [facility] 101 [place] [address] 07/30/2025 10:00 AM EDT Appointment [facility] Density [address] [address] 08/27/2025 11:00 AM EDT Appointment [facility] at [address] [address] 09/28/2025 1:30 PM EST Office Visit Vascular Surgery - [place] [address] [place] [address] Jag Loera MD [address] [place] [address] 10/06/2025 9:30 AM EST Office Visit [facility] Hematology Oncology [address] [place] [address] Philly Cameron MD [address] [place] [address] 10/12/2025 11:00 AM EST Office Visit Endocrinology [facility] 444 [place] [address] Adriana Morgan PA 444 [place] [address] 01/27/2026 10:35 AM EDT Office Visit Pulmonolgy [facility] 175 [facility] 200 [place] [address] Liliana Jameson NP 230 [place] [address] 06/16/2026 1:30 PM EDT Office Visit [facility] [address] [place] [phone] Ginna Del Real MD 230 [place] [address] documented as of this encounter Procedures Procedure Name Priority Date/Time Associated Diagnosis Comments ..MISCELLANEOUS REFERENCE LAB TEST 07/30/2024 documented in this encounter Results * Miscellaneous reference lab test (07/30/2024) us Provider Onbase LAB BLOOD ORDERABLES Final Re sult documented in this encounter Visit Diagnoses Diagnosis Age-related osteoporosis without current pathological fracture documented in this encounter Care Teams Manager Development Relationship Specialty Start Date End Date Carmine Chaparro PA PCP - General Internal Medicine 01/03/21 09/02/24 documented as of this encounter
[2025-07-14 13:34] VITALS: BP 138/63; PULSE 74; RESP 18; O2SAT 97; BMI 23.5
--- NOTE | 2025-07-14 13:34 | A.OFFVIS_ITS ---
Vital Signs 07/14/25 13:34 Height 5 ft 5 in Weight 141 lb BMI 23.5 BP 138/63 Blood Pressure Location Lt brachial Position Sitting Respiration 18 Pulse 74 Pulse Source Pulse Oximeter Pulse Oximetry (%) 97 Oxygen Delivery Method Room Air Intake Visit Reasons: Left Diagnostic SIJ Injection Strike On Machine Operator Required: No Allergies calcium Allergy (Unknown, Verified 07/11/25 11:34) Headache ezetimibe Allergy (Unknown, Verified 07/11/25 11:34) Unknown albuterol Adverse Reaction (Verified 07/11/25 11:34) Headache atorvastatin Adverse Reaction (Verified 07/11/25 11:34) Muscle Pain codeine Adverse Reaction (Verified 07/11/25 11:34) Nausea and Vomiting cortisone Adverse Reaction (Verified 07/11/25 11:34) Rash niacin Adverse Reaction (Verified 07/11/25 11:34) Itching, rash oxycodone Adverse Reaction (Verified 07/11/25 11:34) Headache scopolamine Adverse Reaction (Verified 07/11/25 11:34) Headache PFSH Medical History TRESSA (obstructive sleep apnea) Lung nodule Hand arthritis GERD with apnea without esophagitis Fatty liver Claudication of both lower extremities Bilateral carotid bruits Age related osteoporosis Adrenal nodule DVT (deep venous thrombosis) Perforation of sigmoid colon due to diverticulitis Diverticulitis Diverticulitis UTI (urinary tract infection) Diabetes High cholesterol Breast cancer Hypothyroid Abdominal pain Surgical History History of root canal procedure History of tonsillectomy History of back surgery History of lumpectomy of right breast History of repair of right rotator cuff History of cholecystectomy (1972) Family History Father Colon cancer Social History Household Members: Spouse Housing: House Do you presently have visiting nurse or other home services: No Patient Tobacco Use Status: Former Tobacco user Tobacco use type: Cigarette Cigarette Packs Per Day: 0.5 Cigarettes Per Day: 10.0 Years Smoked: 7 Second Hand Smoke Exposure: No Advance Directives Date on File: 09/09/21 service: No Current occupational status: retired Physical Exam Vital Signs: Last Vital Signs Pulse 74 07/14/25 13:34 Resp 18 07/14/25 13:34 BP 138/63 07/14/25 13:34 Pulse Ox 97 07/14/25 13:34 Oxygen Delivery Method Room Air 07/14/25 13:34 BMI result Body Mass Index 23.5 Assessment & Plan Assessment & Plan (1) Postlaminectomy syndrome: Code(s): M96.1 - Postlaminectomy syndrome, not elsewhere classified Category: Medical (2) Chronic pain syndrome: Code(s): G89.4 - Chronic pain syndrome Category: Medical (3) Sacroiliitis: Code(s): M46.1 - Sacroiliitis, not elsewhere classified Category: Medical (4) SI (sacroiliac) joint dysfunction: Code(s): M53.3 - Sacrococcygeal disorders, not elsewhere classified Category: Medical (5) Vertebrogenic low back pain: Code(s): M54.51 - Vertebrogenic low back pain Category: Medical Plan Left Diagnostic Sacroiliac joint injection. Informed consent was explained thoroughly to the patient.? All questions about benefits and risks for the procedure were answered. Patient came to the operating room and was positioned prone on the operating table with the pillow under the abdomen.? The lower back and buttocks of the patient were prepped with ChloraPrep prepped and draped with sterile utility towels.? Sterilely draped C-arm was brought over the operating field and sq picture of patient's pelvis was demonstrated on the screen.? For the left joint tilting C-arm contralateral to the site of the joint the most posterior portion of the joints was superimposed with anterior silh ouette of the joint.? Skin was injected in the projection of the joint slightly medial to the location of the joint with 25 gauge 1/2 inch needle using local lidocaine 2% mixed with ropivacaine 0.5% one to one. After that 22 gauge 3 and 1/2 inch needle was driven to the left joint in tunnel vision fashion.? When needle entered the joint capsule injection of the contrast was performed demonstrating intra-articular and minimally periarticular spread of the contrast.? After that 5 cc. of ropivacaine 0.5% was injected into each joint. Upon completion of the injections the needles were removed, Band- Aids were applied.? Upon completion of the injection patient was taken outside of the operating room to the recovery room where recovered uneventfully. Orders: Orders FL guidance in treatment room Today M53.3 - Sacrococcygeal disorders, not elsewhere classified Coding Level of Care Code Procedure Only Diagnoses Postlaminectomy syndrome M96.1 Chronic pain syndrome G89.4 Sacroiliitis M46.1 SI (sacroiliac) joint dysfunction M53.3 Vertebrogenic low back pain M54.51
--- OUTSIDE RECORDS SUMMARY | 2025-07-14 17:13 | XMS_ITS | Encounter Summary ---
Author Organization [employer] [address] Care Team Providers Care Client Resource Specialist Name Role Phone Carmine Chaparro Primary Care Provider [phone] Reason for Visit * Reason Onset Date Comments Nasal Congestion 06/26/2025 Epistaxis (Nose Bleed) 06/26/2025 Encounter Details Date Type Department Care Team ([facility] Contact Info) Description 06/26/2025 Telephone Adult Medicine [address] [phone] Carmine Chaparro PA [address] [place] [address] Social History Tobacco Use Types Packs/Day Years [...] for your loved ones. For example, children's service worker or elderly care for an older [...] traveled recently to another state outside of [place], [place], [place], [place], [place], [place], [place]? no o If yes, did you quarantine [...] 07/24/2025 12:00 PM EDT Ancillary Procedure [facility] [address] [facility] [address] [place] [address] 07/30/2025 10:00 AM EDT Appointment Bone Density - [place] [address] [place] [address] 08/27/2025 11:00 AM EDT Appointment [facility] [address] [place] [phone] 09/28/2025 1:30 PM EST Office Visit Vascular Surgery - [place] [address] [facility] [address] [place] [address] Jag Loera MD [address] [place] [phone] 10/06/2025 9:30 AM EST Office Visit [facility] Hematology Oncology [address] [place] [phone] Philly Cameron MD [address] [place] [address] 10/12/2025 11:00 AM EST Office Visit Endocrinology - [place] [address] [place] [phone] Adriana Morgan PA [address] [place] [address] 01/27/2026 10:35 AM EDT Office Visit Pulmonolgy - [place] [address] [facility] [address] [place] [phone] Liliana Jameson NP [address] [place] [phone] 06/16/2026 1:30 PM EDT Office Visit [facility] [place] [address] [place] [address] Ginna Del Real MD [address] [place] [phone] documented as of this encounter Visit Diagnoses Not on filedocumented in this encounter Additional Health Concerns Assessment Noted Time PHQ-9 Depression Total Score: 0 04/22/20 25 10:32 AM EDT documented as of this encounter Care Teams Client Resource Specialist Relationship Specialty Start Date End Date Carmine Chaparro PA [address] [place] [address] PCP - General Internal Medicine 09/03/24 documented as of this encounter
--- OUTSIDE RECORDS SUMMARY | 2025-07-14 17:13 | XMS_ITS | Clinical Summary ---
Author Organization [facility] Address [address] [place] [phone] Phone Care Team Providers Care Property Assessment Monitor Name Role Phone Carmine Chaparro Primary Care Provider [phone] Allergies Active Allergy Reactions Criticality Noted Date [...] mouth as needed. Active blood sugar diagnostic (3DR [employer] Verio test strips) test strip USE TO [...] complication, without long-term current use of insulin ([facility] V24, [facility] V28),Hypothyroidism, unspecified type,Hyperparathyroidi sm ([facility] V24),Acute deep vein thrombosis (DVT) of distal vein of left lower extremity ([facility] V24, [facility] V28),Age related osteoporosis, unspecified pathological fracture presence,Mixed [...] Diagnosed Date Claudication of both lower extremities ([facility] V24) 01/29/2025 Assessment & Plan (01/29/2025 8:22 [...] ELDER; Future Lung nodule 11/04/2024 Adrenal nodule ([facility] V24) 11/04/2024 Breast cancer ([facility] V24, [facility] V28) 024 Diabetes mellitus ([facility] V24, [facility] V28) Diverticulitis 10/13/2024 Fatty liver 10/13/2024 Hyperparathyroidism ([facility] V24) 10/07/2024 Parathyroid adenoma 10/07/2024 Age related osteoporosis 07/29/2024 Acute deep vein thrombosis ( DVT) of distal vein of left lower extremity ([facility] V24, [facility] V28) 08/10/2022 TRESSA (obstructive sleep apnea) 05/18/2022 [...] to 16 cm H2O sent to [facility]. Hyperparathyroidism ([facility] V24) 10/17/2021 Hand arthritis 10/08/2019 Type 2 diabetes mellitus wit hout complication, without long-term current use of insulin ([facility] V24, [facility] V28) 07/16/2019 Bilateral carotid bruits 05/14/2018 Gastroesophageal [...] Care Team Description 07/01/2025 Telephone Pulmonolgy - [place] [address] [facility] [address] [place] [phone] Joaquín Cheo [place], [place] 06/26/2025 Telephone Adult Medicine [address] [phone] Carmine Chaparro PA 06/10/2025 1:45 PM EDT Office Visit [facility] [address] [place] [phone] Ginna Del Real MD History of invasive breast cancer (Primary Dx); History of therapeutic radiation; Acute back pain, unspecified back location, unspecified back pain laterality; Encounter for screening mammogram for malignant neoplasm of breast 05/07/2025 9:15 AM EDT Ancillary Procedure [facility] - [facility] [address] [facility] [address] [place] [phone] Chest discomfort; Type 2 diabetes mellitus without complication, without long-term current use of insulin ([facility] V24, CMS/HCC V28); Hypothyroidism, unspecified type; Hyperparathyroidism (CMS/HCC V24); Acute deep vein thrombosis (DVT) of distal vein of left lower extremity (CMS/HCC V24, CMS/HCC V28); Age related osteoporosis, unspecified pathological fracture presence; Mixed hyperlipidemia 04/30/2025 11:30 AM EDT Consult Vascular Surgery - [place] [address] [facility] [address] [place] [phone] Ashley Ortiz MD Varicose veins of lower extremity with pain, bilateral (Primary Dx); Mixed hyperlipidemia 04/22/2025 10:30 AM EDT Office Visit Adult Medicine [address] [phone] Carmine Chaparro PA Chest discomfort (Primary Dx); [...] HISTORICAL MOLE (REMOVAL OF) COLONOSCOPY 03/07/2004 PROCEDURE: MD COLONOSCOPY FLX DX W/COLLJ SPEC WHEN PFRMD; [...] right breast in female, estrogen receptor positive ([facility] V24, [facility] V28) 09/20/2020 DX:Malignant neoplasm of ri ght breast in female, estrogen receptor positive (HCC) PONV (postoperative nausea a nd vomiting) Hyperparathyroidism ([facility] V24) Family History Medical History Relation Name [...] Alive Father (Age 74) cancer col on, [place], DM Mother Alive rheumatoid arth ritis Other [...] care for your loved ones. For example, summer child caregiver or elderly care for an older adult? [...] Description 07/24/2025 12:00 PM EDT Ancillary Procedure [facility] - [facility] [address] [facility] [address] [place] [address] 07/30/2025 10:00 AM EDT Appointment Bone Density - [place] [address] [place] [address] 08/27/2025 11:00 AM EDT [facility]ointment [facility] [address] [place] [address] 09/28/2025 1:30 PM EST Office Visit Vascular Surgery - [place] [address] [facility] [address] [place] [address] Jag Loera MD [address] [place] [phone] 10/06/2025 9:30 AM EST Office Visit [facility] Hematology Oncology [address] [place] [phone] Philly Perales MD [address] [place] [address] 10/12/2025 11:00 AM EST Office Visit Endocrinology - [place] [address] [place] [address] Adriana Morgan PA [address] [place] [address] 01/27/2026 10:35 AM EDT Office Visit Pulmonolgy - [place] [address] [facility] [address] [place] [phone] Liliana Jameson NP [address] [place] [phone] 06/16/2026 1:30 PM EDT Office Visit [facility] [address] [phone] Ginna Del Real MD [address] [place] [phone] Health Maintenance Due Date Last Done [...] this topic Medical Devices Implanted Type Area Plastics Sheet Finishing Press Operator Device Identifier Shelf Expiration Date Model / Serial / Lot Dental Implants Dental Implants Bilateral: Mouth Hemostat Flour Collgn 1gm [facility] - na - [id number] Implanted:Qty : 1 on 11/27/2024 by Ginna Del Real MD at [facility] Hemostasis Left: Parathyroid CR BARD - DAVOL DIV 08/25/2027 [id number] / SNA / [id number] Procedures Procedure Name Priority Date/Time Associated Diagnosis Comments EXTERNAL CLINICAL LAB 07/07/2025 STRESS TEST ONLY EXERCISE Routine 05/07/2025 9:21 AM EDT Chest discomfort Type 2 diabetes mellitus without complication, without long-term current use of insulin ([facility] V24, [facility] V28) Hypothyroidism, unspecified type Hyperparathyroidism ([facility] V24) Acute deep vein thrombosis (DVT) of distal vein of left lower extremity ([facility] V24, [facility] V28) Age related osteoporosis, unspecified pathological fracture presence Mixed hyperlipidemia LIPID PANEL WITH REFLEX TO DIRECT LDL Routine 04/22/2025 11:17 AM EDT Chest discomfort Type 2 diabetes mellitus without complication, without long-term current use of insulin ([facility] V24, [facility] V28) Hypothyroidism, unspecified type Hyperparathyroidism ([facility] V24) Acute deep vein thrombosis (DVT) of distal vein of left lower extremity ([facility] V24, [facility] V28) Age related osteoporosis, unspecified pathological fracture presence Mixed hyperlipidemia MICROALBUMIN CREATININE URINE RATIO Routine 04/22/2025 11:17 AM EDT Chest discomfort Type 2 diabetes mellitus without complication, without long-term current use of insulin ([facility] V24, [facility] V28) Hypothyroidism, unspecified type Hyperparathyroidism ([facility] V24) Acute deep vein thrombosis (DVT) of distal vein of left lower extremity ([facility] V24, [facility] V28) Age related osteoporosis, unspecified pathological fracture presence Mixed hyperlipidemia COMPREHENSIVE METABOLIC PANEL Routine 04/22/2025 11:17 AM EDT Chest discomfort Type 2 diabetes mellitus without complication, without long-term current use of insulin ([facility] V24, [facility] V28) Hypothyroidism, unspecified type Hyperparathyroidism ([facility] V24) Acute deep vein thrombosis (DVT) of distal vein of left lower extremity ([facility] V24, [facility] V28) Age related osteoporosis, unspecified pathological fracture presence Mixed hyperlipidemia HEMOGLOBIN A1C Routine 04/22/2025 11:17 AM EDT Chest discomfort Type 2 diabetes mellitus without complication, without long-term current use of insulin ([facility] V24, [facility] V28) Hypothyroidism, unspecified type Hyperparathyroidism ([facility] V24) Acute deep vein thrombosis (DVT) of distal vein of left lower extremity ([facility] V24, [facility] V28) Age related osteoporosis, unspecified pathological fracture presence Mixed hyperlipidemia PARATHYROID HORMONE INTACT Routine 04/22/2025 11:17 AM EDT Chest discomfort Type 2 diabetes mellitus without complication, without long-term current use of insulin ([facility] V24, [facility] V28) Hypothyroidism, unspecified type Hyperparathyroidism ([facility] V24) Acute deep vein thrombosis (DVT) of distal vein of left lower extremity ([facility] V24, [facility] V28) Age related osteoporosis, unspecified pathological fracture presence Mixed hyperlipidemia THYROID STIMULATING HORMONE WITH REFLEX TO FREE T4 AND FREE T3 Routine 04/22/2025 11:17 AM EDT Chest discomfort Type 2 diabetes mellitus without complication, without long-term current use of insulin ([facility] V24, [facility] V28) Hypothyroidism, unspecified type Hyperparathyroidism ([facility] V24) Acute deep vein thrombosis (DVT) of distal vein of left lower extremity ([facility] V24, [facility] V28) Age related osteoporosis, unspecified pathological fracture presence Mixed hyperlipidemia HEPATITIS C ANTIBODY Routine 10/13/2024 11:20 AM EST Hyperparathyroidism ([facility] V24) Parathyroid adenoma Age related osteoporosis, unspecified pathological fracture presence Type 2 diabetes mellitus without complication, without long-term current use of insulin ([facility] V24, [facility] V28) Hypothyroidism, unspecified type Pure hypercholesterolemia TRESSA (obstructive sleep apnea) Fatty liver Adrenal adenoma, unspecified laterality Lung nodule Primary insomnia [facility] SCREENING DIGITAL Routine 08/26/2024 5:21 PM EDT [facility] DEXA AXIAL SKELETON Routine 03/20/2023 7:33 [...] Nanette l Result [facility] [address] [place] [address], * (ABNORMAL) Lipid panel with reflex to direct LDL (04/22/2025 11:17 AM EDT) Cholesterol 166 0 - 200 mg/dL LAB CHEMISTRY METHOD 04/22/2025 5:01 PM EDT [facility] Triglycerides 179(H) 0 - 150 mg/dL LAB CHEMISTRY METHOD 04/22/2025 5:01 PM [facility] HDL 65 >=40 mg/dL LAB CHEMISTRY METHOD 04/22/2025 5:01 PM EDT [facility] LDL Calculated 65 0 - 100 mg/dL LAB CHEMISTRY METHOD 04/22/2025 5:01 PM EDT [facility] VLDL Cholesterol [place] 35.8 mg/dL LAB CHEMISTRY METHOD 04/22/2025 5:01 PM T [facility] Non HDL Chol. (LDL+VLDL) [...] Nanette l Result [facility] [address] [place] [address], [place] [phone] * Microalbumin creatinine urine ratio (04/22/2025 11:17 [...] Nanette l Result [facility] [address] [place] [address], * Parathyroid hormone intact (04/22/2025 11:17 AM EDT) PTH 51.9 18.5 - 88.0 pcg/mL LAB CHEMISTRY METHOD 04/22/2025 5:59 PM EDT [facility] Blood Venous blood specimen / Unknown Venipuncture / Unknown 04/22/2025 11:17 AM EDT 04/22/2025 11:17 AM EDT Carmine SUAREZ LAB BLOOD ORDERABLES Nanette l Result [facility] [address] [place] [address], [place] [phone] * Hemoglobin A1c (04/22/2025 11:17 AM EDT) [facility] Hemoglobin A1C 5.9 <6.5 % LAB CHEMISTRY METHOD 04/22/2025 2:37 PM T [facility] Mean Bld Glu Estim. 123 mg/dL LAB CHEMISTRY METHOD 04/22/2025 2:37 PM [facility] Blood Venous blood specimen / Unknown Venipuncture / Unknown 04/22/2025 11:17 AM EDT 04/22/2025 11:17 AM EDT Carmine SUAREZ LAB BLOOD ORDERABLES Nanette l Result [facility] [address] [place] [address], * (ABNORMAL) Comprehensive metabolic panel (04/22/2025 11:17 AM EDT) [facility] Sodium 140 133 - 145 mmol/L LAB [...] Nanette l Result [facility] [address] [place] [address], * Hepatitis C antibody (10/13/2024 11:20 AM EST) Hepatitis C Antibody Negative Negative LAB CHEMISTRY METHOD 10/13/2024 8:04 PM EST [facility] Blood Venous blood specimen / Unknown Venipuncture / Unknown 10/13/2024 11:20 AM EST 10/13/2024 11:20 AM EST us Carmine SUAREZ LAB BLOOD ORDERABLES Nanette morfin Result [facility] [address] [place] [address], * JUANA SCREENING DIGITAL (08/26/2024 5:21 PM EDT) Anatomical Region Laterality Modality Mammography 08/26/2024 1:49 PM EDT Narrative 08/26/2024 5:21 PM EDT [facility] Diagnostic Imaging Department [address] [place] [address] Patient: VAUGHN FU D.O.B./Age/Sex: 1950 73 - F Unit#: [id number] Location/Status: SPDIMAM/REG CLI Mnemonic[facility] Ordering Physician: ISIAH MCCORMACK Juana Screening Digital - 08/26/24 - [id number] Report Status:Signed EXAM: SCREENING MAMMOGRAPHY, BILATERAL HISTORY: [...] None 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 TISSUE DENSITY: There are scattered [...] Procedure Note Steven Pickens MD - 08/30/2024 [facility] Diagnostic Imaging Department [address] [place] [address] Patient: FURADHA HARRISSHABBIR Reza D.O.B./Age/Sex: 1950 - 73 - F Unit#: [id number] Location/Status: SPDIMAM/REG CLI Mnemonic/Ordering Site[facility] Ordering Physician: ISIAH MCCORMACK Juana Screening Digital - 08/26/24 - [id number] Report Status:Signed EXAM: SCREENING MAMMOGRAPHY, BILATERAL HISTORY: SCREENING. Personal history of right breast cancer. Previous reports indicate lumpectomy radiation and chemotherapy for right breastcancer. Family history of breast cancer. COMPARISON: 08/17/2023, 08/15/2022, 08/11/2021, 08/17/2020, 08/11/2020 TECHNIQUE: Synthesized CC and MLO projections of each breast.Tomosynthesis of each breast in the CC and MLO projections. 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 TISSUE DENSITY: There are scattered [...] PM EDT Narrative 03/20/2023 7:33 AM EDT [facility] Diagnostic Imaging Department [address] [place] [address] Patient: VAUGHN FU Libia /Age/Sex: 1950 72 - F Unit#: [id number] Location/Status: SPDIMAM/REG CLI Mnemonic/Ordering Site: [facility] Ordering [...] probability of hip fracture of 11.2%. Code 22483 Dictating Physician: PATRICE HOBSON MD Electronically Signed by: PATRICE HOBSON MD Dic Date/Time: 03/20/2332 Sign date/Time: 03/20/23732 Procedure Note Patrice Hobson MD - 11/30/2023 [facility] Diagnostic Imaging Department [address] [place] [address] Patient: FURADHA HARRISSHABBIR Reza D.O.B./Age/Sex: 1950 72 - Unit#: [id number] Location/Status: SPDIMA/[facility] CLI Mnemonic/Ordering Site: [facility] Ordering Physician: PHILLY PERALES MD Juana Dexa Axial Skeleton - 03/19/23 - [id number] HISTORY: The patient is a 72-year-old postmenopausal [...] density of the femurs bilaterally is 0.714 gm/ae4dpaas is 71% of that of young normals [...] probability of hip fracture of 11.2%. Code 08634 Dictating Physician: PATRICE HOBSON MD Electronically Signed by: PATRICE HOBSON MD Dic Date/Time: 03/20/2332 Sign date/Time: 03/20/23732 Philly Perales MD IMG BI PROCEDURES Final Resu lt from Last 3 Months or Most Recently Relevant to Health Maintenance Insurance MEDICARE [facility] Advance Directives Documents on File Type Date Recorded Patient Photo Lab Manager Expl anation Power of Drupal Architect 11/27/2024 6:05 AM HCP Health Care Decision [...] currently active code status orders. Care Teams Property Assessment Monitor Relationship Specialty Start Date End Date Carmine Chaparro PA [address] [place] [id number] PCP - General Internal Medicine 09/03/24
--- OUTSIDE RECORDS SUMMARY | 2025-07-14 17:13 | XMS_ITS ---
Author Organization [facility] Address [address] [place] [address] Phone Care Team Providers Care Sifter And Miller Name Role Phone Carmine Chaparro Primary Care Provider [phone] Active Problems Problem Noted Date Diagnosed Date [...] ELDER; Future Lung nodule 11/04/2024 Adrenal nodule ([facility] V24) 11/04/2024 Breast cancer ([facility] V24, [facility] V28) 024 Diabetes mellitus ([facility] V24, [facility] V28) Diverticulitis 10/13/2024 Fatty liver 10/13/2024 Hyperparathyroidism ([place] 239194) 10/07/2024 Parathyroid adenoma 10/07/2024 Age related osteoporosis 07/29/2024 Acute deep vein thrombosis ( DVT) of distal vein of left lower extremity ([facility] V24, [facility] V28) 08/10/2022 TRESSA (obstructive sleep [...] sent to [facility] Hyperparathyroidism ([facility] V24) 10/17/2021 Hand arthritis 10/08/2019 Type 2 diabetes mellitus wit hout complication, without long-term current use of insulin ([facility] V24, [facility] V28) 07/16/2019 Bilateral carotid bruits [...] treatments are documented for this patient in [facility]. Treatments may have been administered in another system. Lifetime Dose Tracking * Chemical Lifetime Dose Automatic Entry Manual Entr y CTDIvol 17.99 mGy 17.99 mGy 0 mGy
== END 2025-07-14 14:41 | disposition home or self-care (01) ==
LOC: HO.PMCPRC 13:18
PROVIDERS: PCP Physician Assistant Medical; Visit Provider Anesthesiology
DX: M46.1 Sacroiliitis, not elsewhere classified (principal); M53.3 Sacrococcygeal disorders, not elsewhere classified; M96.1 Postlaminectomy syndrome, not elsewhere classified; G89.4 Chronic pain syndrome; M54.51 Vertebrogenic low back pain
CPT/HCPCS: 27096

== ENCOUNTER 2025-07-16 09:55 | Outpatient (AMB) | payer MEDICARE, BC, SELFPAY ==
--- OUTSIDE RECORDS SUMMARY | 2024-07-30 13:00 | XMS_ITS | Encounter Summary ---
Author Organization [id number] Address [address] [place] [address] Care Team Providers Care Peanut Farmer Name Role Phone Carmine Chaparro Primary Care Provider +1 -[phone] Encounter Details Date Type Department Care Team [...] care for your loved ones. For example, registered nurse maternal child or elderly care for an older adult? [...] Description 07/24/2025 12:00 PM EDT Ancillary Procedure [facility]iology Associates - [facility] 101 300 [facility] 101 [place] [address] 07/30/2025 10:00 AM EDT Appointment [facility] [address] [address] 08/27/2025 11:00 AM EDT Appointment [facility] at [address] [address] 09/28/2025 1:30 PM EST Office Visit Vascular Surgery - [place] [address] [place] [address] Jag Loera MD [address] [place] [address] 10/06/2025 9:30 AM EST Office Visit [facility] Hematology Oncology [address] [place] [address] Philly Cameron MD [address] [place] [address] 10/12/2025 11:00 AM EST Office Visit Endocrinology [facility] 444 [place] [address] Adriana Morgan PA 444 [place] [address] 01/27/2026 10:35 AM EDT Office Visit Pulmonolgy [facility] 175 [facility] 200 [place] [address] Liliana Jameson NP 230 [place] [address] 06/16/2026 1:30 PM EDT Office Visit [facility] [address] [place] [phone] Ginna Del Real MD 230 [place] [phone] documented as of this encounter Procedures Procedure Name Priority Date/Time Associated Diagnosis Comments ..MISCELLANEOUS REFERENCE LAB TEST 07/30/2024 documented in this encounter Results * Miscellaneous reference lab test (07/30/2024) us Provider Onbase LAB BLOOD ORDERABLES Final Re sult documented in this encounter Visit Diagnoses Diagnosis Age-related osteoporosis without current pathological fracture documented in this encounter Care Teams Peanut Farmer Relationship Specialty Start Date End Date Carmine Chaparro PA PCP - General Internal Medicine 01/03/21 09/02/24 documented as of this encounter
--- OUTSIDE RECORDS SUMMARY | 2024-09-18 10:30 | XMS_ITS ---
Author Organization [facility] Address [address] [place] [address] Care Team Providers Care Inspector Hot Forgings Name Role Phone Carmine Castro Primary Care Provider Unav ailable Black, Skye Unavailable [phone] Isis Young Unavailable [phone] Medications Medication SIG (Take, Route, Frequency, Duration) [...] Active Encounters Encounter Location Date Provider Diagnosis [facility] [place] [address] [place] [address] 09/18/2024 Isis Young Plan Of Treatment No Information Progress Notes * Viola NAVARRO MDOB:1949 (74 yo F)Acc No.[id number]:09/18/2024 Progress Note Patient: Abbe Viola SCHULER [place] Provider: Reji Young DPM :1950 A ge:73 Y S ex:Female Date:09/18/2024 Address:[address] [place] [address] , [facility] Pcp:ERICK Brooke Subjective: * Chief Complaints: * [...] 11/18/2023 Generated for Paulina cody/Art/Kelechi on: 0 07/16/2025 11:37 AM EDT
--- OUTSIDE RECORDS SUMMARY | 2025-05-11 06:15 | XMS_ITS ---
Author Organization [facility] Address [address] [place] [address] Care Team Providers Care International Travel Consultant Name Role Phone Carmine Castro Primary Care Provider Unav ailable Black, Skye Unavailable [phone] Isis Young Unavailable [phone] Encounters Encounter Location Date Provider Diagnosis [facility] [address] [place] [address] 05/11/2025 Isis Young Plan Of Treatment No Information Progress Notes * Viola NAVARRO MDOB:1949 (74 yo F)Acc No.[id number]:05/11/2025 Progress Notes Patient: Naeem RODRIGUEZise Libia Provider: Reji Young DPM :1950 A ge:74 Y S ex:Female Date:05/11/2025 Address:[address] [id number] Pcp:ERICK Brooke Subjective: * Chief Complaints: * [...] Date: 05/11/2025 Generated for Paulina cody/Art/eTransmitting on: 07/16/2025 11:37 AM EDT
[2025-07-16 10:14] VITALS: BP 123/58; PULSE 73; RESP 18; O2SAT 95
--- NOTE | 2025-07-16 10:14 | MHC.OFFVIS ---
Vital Signs 07/16/25 10:14 Weight 140 lb BP 123/58 L Blood Pressure Location Lt brachial Position Sitting Respiration 18 Pulse 73 Pulse Source Pulse Oximeter Pulse Oximetry (%) 95 Oxygen Delivery Method Room Air Intake Visit Reasons: S/P Left Diagnostic SIJ Injection [employer] Required: No Allergies calcium Allergy (Unknown, Verified 07/16/25 10:13) Headache ezetimibe Allergy (Unknown, Verified 07/16/25 10:13) Unknown albuterol Adverse Reaction (Verified 07/16/25 10:13) Headache atorvastatin Adverse Reaction (Verified 07/16/25 10:13) Muscle Pain codeine Adverse Reaction (Verified 07/16/25 10:13) Nausea and Vomiting cortisone Adverse Reaction (Verified 07/16/25 10:13) Rash niacin Adverse Reaction (Verified 07/16/25 10:13) Itching, rash oxycodone Adverse Reaction (Verified 07/16/25 10:13) Headache scopolamine Adverse Reaction (Verified 07/16/25 10:13) Headache HPI Comments Details: Viola is back in my office after diagnostic left sacroiliac joint injection. She reported significant improvement with mobility after the procedure. She reported 75-80% pain reduction after the procedure. She reports good activities of daily living and good social interactions, she was able to walk her dog which was not possible for her before the injection she was washing floor in her house and that would not be done before the injection and she was managing up and down the stairs with minimal difficulty of pain 3/10. Usually this pain would be 10/10 if she would attempt to do those activities. Therefore I am convinced that the source of the pain of this patient is sacroiliitis. I offered the patient trial of cure on X PNS left, I explained to her that she needs to go for psychological evaluation. As soon as we receive the psychological evaluation we will be scheduling her for the procedure. However I will write a booking order for the procedure today because patient assured me that her psychological evaluation from her psychiatrist will be very soon in our disposal. Sacroiliac joint fusion for this patient is also possibility to try. Prior: complains on lower back pain on the left side. her pain started many years ago she relates it to distant history of fall. She reports flexing forward aggravates her pain and prolonged sitting makes her pain worse. She reports minimal radiation of the pain into the right lower extremity and the area of the hip thigh but not below that level. She also reports some discomfort in the groin. She had x-rays of her hip joint done and according to her it demonstrated no arthritis. She reports that MRI was performed on her back and results of the MRI dictated as below. She went for EMG which demonstrated radiculopathy of L5 on the left. She went for every year for physical therapy from [id number]. She reported no help from physical therapy. She tried NSAIDs without help she tried home exercise program which aggravated her pain only. 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 esophagitis Fatty liver Claudication of both lower extremities Bilateral carotid bruits Age related osteoporosis Adrenal nodule DVT (deep venous thrombosis) Perforation of sigmoid colon due to diverticulitis Diverticulitis Diverticulitis UTI (urinary tract infection) Diabetes High cholesterol Breast cancer Hypothyroid Abdominal pain Surgical History History of root canal procedure History of tonsillectomy History of back surgery History of lumpectomy of right breast History of repair of right rotator cuff History of cholecystectomy (1972) Family History Father Colon cancer Social History Household Members: Spouse Housing: House Do you presently have visiting nurse or other home services: No Patient Tobacco Use Status: Former Tobacco user Tobacco use type: Cigarette Cigarette Packs Per Day: 0.5 Cigarettes Per Day: 10.0 Years Smoked: 7 Second Hand Smoke Exposure: No Advance Directives Date on File: 09/09/21 service: No Current occupational status: retired Review of Systems Const All systems reviewed & are unremarkable except as noted in HPI and below ENT Reports Normal hearing present Neuro Reports Normal hearing present, Denies Abnormal speech present, Denies confusion and Denies Sensory deficit (Neuro) Psych Denies confusion Physical Exam Vital Signs: Last Vital Signs Pulse 73 07/16/25 10:14 Resp 18 07/16/25 10:14 BP 123/58 L 07/16/25 10:14 Pulse Ox 95 07/16/25 10:14 Oxygen Delivery Method Room Air 07/16/25 10:14 Const General: no acute distress; No confusion Orientation/consciousness: patient oriented x3 and No confusion Eyes General: appearance normal, both eyes and all related structures Pupils: Equal, round and reactive pupils present EOM: EOMs intact bilaterally Neck Neck: Yes full ROM Chest Chest palpation & inspection: normal inspection of the chest Resp Effort & Inspection: normal respiratory effort, able to speak in complete sentences, normal respiratory pattern, no audible wheezes and no cough Cardio Jugular venous distension: no JVD GI Inspection: Yes normal to inspection Back/Spine/Pelvis Other: Flexing forward and flexing backwards aggravate her pain however flexing forward aggravate her pain more than flexing backwards. Mark test is positive on the left, Gaenslen test is positive on the left, pelvis distraction test but not pelvic compression test is positive on the last, SLR is negative bilaterally, Lasegue test is negative bilaterally. Neuro General: patient oriented x3, gait normal and No confusion Cranial nerves: Yes CN's II-XII intact bilaterally, Yes Equal, round and reactive pupils present, Yes Normal hearing present and Yes Ability to bilaterally elevate shoulders present Speech: No Abnormal speech present Gait exam (Neuro): Normal gait present Motor exam (neuro): 5/5 motor strength present throughout Sensory Exam: No Sensory deficit (Neuro) Extrem General: No pedal edema Psych Speech and movement: Normal speech and movement present Affect: normal affect Attitude: cooperative Thought process: Normal thought process present Thought content: Normal thought content present Insight: Good insight present (Psych) Judgement: Good judgement present (Psych) Assessment & Plan Assessment & Plan (1) Postlaminectomy syndrome: Code(s): M96.1 - Postlaminectomy syndrome, not elsewhere classified Category: Medical (2) Chronic pain syndrome: Code(s): G89.4 - Chronic pain syndrome Category: Medical (3) Sacroiliitis: Code(s): M46.1 - Sacroiliitis, not elsewhere classified Category: Medical (4) SI (sacroiliac) joint dysfunction: Code(s): M53.3 - Sacrococcygeal disorders, not elsewhere classified Category: Medical (5) Vertebrogenic low back pain: Code(s): M54.51 - Vertebrogenic low back pain Category: Medical Plan With complains on prolonged sitting pain and flexing forward pain my initial differential diagnosis for this patient would be sacroiliitis versus vertebra genic pain syndrome. She had remote history of laminotomy of the lumbar spine as well as L5 left radiculopathy chronic demonstrated on the EMG. However her strength of the bilateral lower extremities is equal and she reports no numbness in bilateral lower extremities, her gait is not changed. Diagnostic sacroiliac joint injection resulted in 75-80% pain improvement. See my note as above. I will schedule her for cure on X PNS she promised with in few days to provide us the psychological evaluation from her psychiatrist. Patient Instructions: I here by testify that I spent 32 minutes in conversation with this patient as well as planning her care and organizing this note. Coding Level of Care Code Est Pt Level 4 (56738) Diagnoses Postlaminectomy syndrome M96.1 Chronic pain syndrome G89.4 Sacroiliitis M46.1 SI (sacroiliac) joint dysfunction M53.3 Vertebrogenic low back pain M54.51
--- OUTSIDE RECORDS SUMMARY | 2025-07-16 11:37 | XMS_ITS ---
Author Organization [facility] Address [address] [place] [address] Phone Care Team Providers Care Mission Manager Name Role Phone Carmine Chaparro Primary Care Provider [phone] Active Problems Problem Noted Date Diagnosed Date Claudication of both lower extremities ([facility] V24) 01/29/2025 Assessment & Plan (01/29/2025 [...] ELDER; Future Lung nodule 11/04/2024 Adrenal nodule ([facility] V24) 11/04/2024 Breast cancer ([facility] V24, [facility] V28) 024 Diabetes mellitus ([facility] V24, [facility] V28) Diverticulitis 10/13/2024 Fatty liver 10/13/2024 Hyperparathyroidism ([place] [id number]) 10/07/2024 Parathyroid adenoma 10/07/2024 Age related osteoporosis 07/29/2024 Acute deep vein thrombosis ( DVT) of distal vein of left lower extremity ([facility] V24, [facility] V28) 08/10/2022 TRESSA (obstructive sleep apnea) [...] sent to [facility]. Hyperparathyroidism ([facility] V24) 10/17/2021 Hand arthritis 10/08/2019 Type 2 diabetes mellitus wit hout complication, without long-term current use of insulin ([facility] V24, [facility] V28) 07/16/2019 Bilateral carotid bruits 05/14/2018 [...] documented for this patient in [facility]. Treatments may have been administered in another system. Lifetime Dose Tracking * Chemical Lifetime Dose Automatic Entry Manual Entr y CTDIvol 17.99 mGy 17.99 mGy 0 mGy
--- OUTSIDE RECORDS SUMMARY | 2025-07-16 11:37 | XMS_ITS | Clinical Summary ---
Author Organization [facility] Address [address] [place] [phone] Phone Care Team Providers Care Vial Gauger Name Role Phone Carmine Chaparro Primary Care Provider [phone] Allergies Active Allergy Reactions Criticality Noted Date [...] mouth as needed. Active blood sugar diagnostic (SpotjournalTouch Verio test strips) test strip USE TO [...] complication, without long-term current use of insulin ([facility] V24, [facility] V28),Hypothyroidism, unspecified type,Hyperparathyroidi sm ([facility] V24),Acute deep vein thrombosis (DVT) of distal vein of left lower extremity ([facility] V24, [facility] V28),Age related osteoporosis, unspecified [...] Diagnosed Date Claudication of both lower extremities ([facility] V24) 01/29/2025 Assessment & [...] ELDER; Future Lung nodule 11/04/2024 Adrenal nodule ([facility] V24) 11/04/2024 Breast cancer ([facility] V24, [facility] V28) 024 Diabetes mellitus ([facility] V24, [facility] V28) Diverticulitis 10/13/2024 Fatty liver 10/13/2024 Hyperparathyroidism ([facility] V24) 10/07/2024 Parathyroid adenoma 10/07/2024 Age related osteoporosis 07/29/2024 Acute deep vein thrombosis ( DVT) of distal vein of left lower extremity ([facility] V24, [facility] V28) 08/10/2022 TRESSA (obstructive sleep [...] sent to [facility] [place]. Hyperparathyroidism ([facility] V24) 10/17/2021 Hand arthritis 10/08/2019 Type 2 diabetes mellitus wit hout complication, without long-term current use of insulin ([facility] V24, [facility] V28) 07/16/2019 Bilateral carotid bruits [...] Care Team Description 07/01/2025 Telephone Pulmonolgy - [place] [address] [facility] [address] [place] [phone] Joaquín Cheo [place], [place] 06/26/2025 Telephone Adult Medicine [address] [phone] Carmine Chaparro PA 06/10/2025 1:45 PM EDT Office Visit [facility] [address] [place] [phone] Ginna Del Real MD History of invasive breast cancer (Primary Dx); History of therapeutic radiation; Acute back pain, unspecified back location, unspecified back pain laterality; Encounter for screening mammogram for malignant neoplasm of breast 05/07/2025 9:15 AM EDT Ancillary Procedure [facility] - [facility] [address] [facility] [address] [place] [phone] Chest discomfort; Type 2 diabetes mellitus without complication, without long-term current use of insulin ([facility] V24, CMS/HCC V28); Hypothyroidism, unspecified type; Hyperparathyroidism (CMS/HCC V24); Acute deep vein thrombosis (DVT) of distal vein of left lower extremity (CMS/HCC V24, CMS/HCC V28); Age related osteoporosis, unspecified pathological fracture presence; Mixed hyperlipidemia 04/30/2025 11:30 AM EDT Consult Vascular Surgery - [place] [address] [facility] [address] [place] [phone] Ashley Ortiz MD Varicose veins of lower extremity with pain, bilateral (Primary Dx); Mixed hyperlipidemia 04/22/2025 10:30 AM EDT Office Visit Adult Medicine [address] [phone] Carmine Chaparro PA Chest discomfort (Primary Dx); [...] HISTORICAL MOLE (REMOVAL OF) COLONOSCOPY 03/07/2004 PROCEDURE: [place] COLONOSCOPY FLX DX W/COLLJ SPEC WHEN PFRMD; [...] right breast in female, estrogen receptor positive ([facility] V24, [facility] V28) 09/20/2020 DX:Malignant neoplasm of ri ght breast in female, estrogen receptor positive (HCC) PONV (postoperative nausea a nd vomiting) Hyperparathyroidism ([facility] V24) Family History Medical [...] your loved ones. For example, child care supervisor or elderly care for an older adult? [...] Ancillary Procedure [facility] - [facility] [address] [facility] [address] [place] [address] 07/30/2025 10:00 AM EDT Appointment Bone Density - [place] [address] [place] [address] 08/27/2025 11:00 AM EDT Appointment [facility] [address] [place] [address] 09/28/2025 1:30 PM EST Office Visit Vascular Surgery - [place] [address] [facility] [address] [place] [address] Jag Loera MD [address] [place] [phone] 10/06/2025 9:30 AM EST Office Visit [facility] Hematology Oncology [address] [place] [phone] Philly Perales MD [address] [place] [address] 10/12/2025 11:00 AM EST Office Visit Endocrinology - [place] [address] [place] [address] Adriana Morgan PA [address] [place] [address] 01/27/2026 10:35 AM EDT Office Visit Pulmonolgy - [place] [address] [facility] [address] [place] [phone] Liliana Jameson NP [address] [place] [phone] 06/16/2026 1:30 PM EDT Office Visit [facility] [address] [phone] Ginna Del Real MD [address] [place] [phone] Health Maintenance Due Date Last Done [...] this topic Medical Devices Implanted Type Area Cutter Banana Room Device Identifier Shelf Expiration Date Model / Serial / Lot Dental Implants Dental Implants Bilateral: Mouth Hemostat Flour Collgn 1gm [facility] - na - [id number] Implanted:Qty : 1 on 11/27/2024 by Ginna Del Real MD at [facility] Hemostasis Left: Parathyroid CR BARD - DAVOL DIV 08/25/2027 [id number] / SNA / [id number] Procedures Procedure Name Priority Date/Time Associated Diagnosis Comments EXTERNAL CLINICAL LAB 07/07/2025 EXTERNAL CLINICAL LAB 07/07/2025 EXTERNAL CLINICAL LAB 07/07/2025 STRESS TEST ONLY EXERCISE Routine 05/07/2025 9:21 AM EDT Chest discomfort Type 2 diabetes mellitus without complication, without long-term current use of insulin ([facility] V24, [facility] V28) Hypothyroidism, unspecified type Hyperparathyroidism ([facility] V24) Acute deep vein thrombosis (DVT) of distal vein of left lower extremity ([facility]/HCC V24, CMS/HCC V28) Age related osteoporosis, unspecified pathological fracture presence Mixed hyperlipidemia LIPID PANEL WITH REFLEX TO DIRECT LDL Routine 04/22/2025 11:17 AM EDT Chest discomfort Type 2 diabetes mellitus without complication, without long-term current use of insulin ([facility] V24, [facility] V28) Hypothyroidism, unspecified type Hyperparathyroidism ([facility] V24) Acute deep vein thrombosis (DVT) of distal vein of left lower extremity ([facility]/HCC V24, CMS/HCC V28) Age related osteoporosis, unspecified pathological fracture presence Mixed hyperlipidemia MICROALBUMIN CREATININE URINE RATIO Routine 04/22/2025 11:17 AM EDT Chest discomfort Type 2 diabetes mellitus without complication, without long-term current use of insulin ([facility] V24, [facility] V28) Hypothyroidism, unspecified type Hyperparathyroidism ([facility] V24) Acute deep vein thrombosis (DVT) of distal vein of left lower extremity ([facility] V24, [facility] V28) Age related osteoporosis, unspecified pathological fracture presence Mixed hyperlipidemia COMPREHENSIVE METABOLIC PANEL Routine 04/22/2025 11:17 AM EDT Chest discomfort Type 2 diabetes mellitus without complication, without long-term current use of insulin ([facility] V24, [facility] V28) Hypothyroidism, unspecified type Hyperparathyroidism ([facility] V24) Acute deep vein thrombosis (DVT) of distal vein of left lower extremity ([facility] V24, [facility] V28) Age related osteoporosis, unspecified pathological fracture presence Mixed hyperlipidemia HEMOGLOBIN A1C Routine 04/22/2025 11:17 AM EDT Chest discomfort Type 2 diabetes mellitus without complication, without long-term current use of insulin ([facility] V24, [facility] V28) Hypothyroidism, unspecified type Hyperparathyroidism ([facility] V24) Acute deep vein thrombosis (DVT) of distal vein of left lower extremity ([facility] V24, [facility] V28) Age related osteoporosis, unspecified pathological fracture presence Mixed hyperlipidemia PARATHYROID HORMONE INTACT Routine 04/22/2025 11:17 AM EDT Chest discomfort Type 2 diabetes mellitus without complication, without long-term current use of insulin ([facility] V24, [facility] V28) Hypothyroidism, unspecified type Hyperparathyroidism ([facility] V24) Acute deep vein thrombosis (DVT) of distal vein of left lower extremity ([facility] V24, [facility] V28) Age related osteoporosis, unspecified pathological fracture presence Mixed hyperlipidemia THYROID STIMULATING HORMONE WITH REFLEX TO FREE T4 AND FREE T3 Routine 04/22/2025 11:17 AM EDT Chest discomfort Type 2 diabetes mellitus without complication, without long-term current use of insulin ([facility] V24, [facility] V28) Hypothyroidism, unspecified type Hyperparathyroidism ([facility] V24) Acute deep vein thrombosis (DVT) of distal vein of left lower extremity ([facility] V24, [facility] V28) Age related osteoporosis, unspecified pathological fracture presence Mixed hyperlipidemia HEPATITIS C ANTIBODY Routine 10/13/2024 11:20 AM EST Hyperparathyroidism ([facility] V24) Parathyroid adenoma Age related osteoporosis, unspecified pathological fracture presence Type 2 diabetes mellitus without complication, without long-term current use of insulin ([facility] V24, [facility] V28) Hypothyroidism, unspecified type Pure hypercholesterolemia TRESSA (obstructive sleep apnea) Fatty liver Adrenal adenoma, unspecified laterality Lung nodule Primary insomnia [facility] SCREENING DIGITAL Routine 08/26/2024 5:21 PM EDT [facility] DEXA AXIAL SKELETON Routine 03/20/2023 7:33 AM EDT Age-related osteoporosis without current pathological fracture from Last 3 Months or Most Recently Relevant to Health Maintenance Results * External clinical lab (07/07/2025) Only the most recent of3 resultswithin the time period is included. us Provider [facility] LAB BLOOD ORDERABLES [...] reported. Carmine SUAREZ CV STRESS PROCEDURES Nanette morfin Result * Thyroid stimulating hormone with reflex to free t4 and free t3 (04/22/2025 11:17 AM EDT) TSH 3.76 0.40 - 4.00 mcIU/mL LAB CHEMISTRY METHOD 04/22/2025 7:13 PM EDT [facility] Blood Venous blood specimen / Unknown Venipuncture / Unknown 04/22/2025 11:17 AM EDT 04/22/2025 11:17 AM EDT Carmine SUAREZ LAB BLOOD ORDERABLES Nanette l Result [facility] [address] [place] [address], [place] [phone] * (ABNORMAL) Lipid panel with reflex to direct LDL (04/22/2025 11:17 AM EDT) Cholesterol 166 0 - 200 mg/dL LAB CHEMISTRY METHOD 04/22/2025 5:01 PM EDT [facility] Triglycerides 179(H) 0 - 150 mg/dL LAB CHEMISTRY METHOD 04/22/2025 5:01 PM EDT [facility] HDL 65 >=40 mg/dL LAB CHEMISTRY METHOD 04/22/2025 5:01 PM EDT [facility] LDL Calculated 65 0 - 100 mg/dL LAB CHEMISTRY METHOD 04/22/2025 5:01 PM T [facility] VLDL Cholesterol [place] 35.8 mg/dL LAB CHEMISTRY METHOD 04/22/2025 5:01 PM EDT [facility] Non HDL Chol. (LDL+VLDL) 101 <145 mg/dL LAB CHEMISTRY METHOD 04/22/2025 5:01 PM EDT [facility] Chol/HDL Ratio 2.6 0.0 - 4.4 LAB CHEMISTRY METHOD 04/22/2025 5:01 PM [facility] Blood Venous blood specimen / Unknown Venipuncture / Unknown 04/22/2025 11:17 AM EDT 04/22/2025 11:17 AM EDT Carmine SUAREZ LAB BLOOD ORDERABLES Nanette l Result Performing Organization Address [facility]/ZIP Co de Phone Number [facility] [address] [place] [address], * Microalbumin creatinine urine ratio (04/22/2025 11:17 AM EDT) Creatinine, Urine 47.0 mg/dL LAB CHEMISTRY METHOD 04/22/2025 3:59 PM EDT [facility] Microalb, Ur 8.0 0.0 - 29.0 mg/L LAB CHEMISTRY METHOD 04/22/2025 3:59 PM EDT [facility] Microalb/Creat Ratio 17 <30 mg/g creat LAB CHEMISTRY METHOD 04/22/2025 3:59 PM EDT [facility] Urine Urine specimen obtained by clean catch procedure / Unknown Non-blood Collection / Unknown 04/22/2025 11:17 AM EDT 04/22/2025 11:17 AM EDT Carmine SUAREZ LAB URINE ORDERABLES Nanette l Result Performing Organization Address [facility] de Phone Number [facility] [address] [place] [address], * Parathyroid hormone intact (04/22/2025 11:17 AM EDT) PTH 51.9 18.5 - 88.0 pcg/mL LAB CHEMISTRY METHOD 04/22/2025 5:59 PM EDT [facility] Blood Venous blood specimen / Unknown Venipuncture / Unknown 04/22/2025 11:17 AM EDT 04/22/2025 11:17 AM EDT Carmine SUAREZ LAB BLOOD ORDERABLES Nanette l Result Performing Organization Address City/[facility]/ZIP Co de Phone Number [facility] [address] [place] [address], [place] [phone] * Hemoglobin A1c (04/22/2025 11:17 AM EDT) Pathologist [facility] Hemoglobin A1C 5.9 <6.5 % LAB CHEMISTRY METHOD 04/22/2025 2:37 PM EDT [facility] Mean Bld Glu Estim. 123 mg/dL LAB CHEMISTRY METHOD 04/22/2025 2:37 PM T [facility] Blood Venous blood specimen / Unknown Venipuncture / Unknown 04/22/2025 11:17 AM EDT 04/22/2025 11:17 AM EDT Carmine SUAREZ LAB BLOOD ORDERABLES Nanette morfin Result [facility] [address] [place] [address], * (ABNORMAL) Comprehensive metabolic panel (04/22/2025 11:17 AM EDT) [facility] Sodium 140 133 - 145 mmol/L LAB CHEMISTRY METHOD 04/22/2025 5:01 PM [facility] Potassium 4.3 3.5 - 5.5 mmol/L LAB CHEMISTRY METHOD 04/22/2025 5:01 PM [facility] Chloride 103 96 - 110 mmol/L LAB CHEMISTRY METHOD 04/22/2025 5:01 PM [facility] CO2 32 21 - 32 mmol/L LAB CHEMISTRY METHOD 04/22/2025 5:01 PM [facility] Anion Gap 5 3 - 11 LAB CHEMISTRY METHOD 04/22/2025 5:01 PM [facility] Glucose 85 70 - 100 mg/dL LAB CHEMISTRY METHOD 04/22/2025 5:01 PM [facility] BUN 19 5 - 25 mg/dL LAB CHEMISTRY METHOD 04/22/2025 5:01 PM [facility] Creatinine 0.67 0.50 - 1.10 mg/dL LAB CHEMISTRY METHOD 04/22/2025 5:01 PM [facility] eGFR 92 >=60 mL/min/1. 73m2 LAB CHEMISTRY METHOD 04/22/2025 5:01 PM [facility] Comment:Calculation based on the Chronic Kidney Disease Epidemiology Collaboration (CKD-EPI) equation refit without adjustment for race. BUN/Creatinine Ratio 28.4 LAB CHEMISTRY METHOD 04/22/2025 5:01 PM [facility] Calcium 9.1 8.5 - 10.5 mg/dL LAB CHEMISTRY METHOD 04/22/2025 5:01 PM [facility] AST (SGOT) 8(L) 10 - 42 unit/L LAB CHEMISTRY METHOD 04/22/2025 5:01 PM [facility] ALT (SGPT) 19 10 - 60 unit/L LAB CHEMISTRY METHOD 04/22/2025 5:01 PM [facility] Alkaline Phosphatase 44 42 - 121 unit/L LAB CHEMISTRY METHOD 04/22/2025 5:01 PM [facility] Total Protein 7.2 6.0 - 8.0 g/dL LAB CHEMISTRY METHOD 04/22/2025 5:01 PM [facility] Albumin 4.2 3.2 - 5.0 g/dL LAB CHEMISTRY METHOD 04/22/2025 5:01 PM [facility] Total Bilirubin 0.4 0.0 - 1.4 mg/dL LAB CHEMISTRY METHOD 04/22/2025 5:01 PM [facility] Blood Venous blood specimen / Unknown Venipuncture / Unknown 04/22/2025 11:17 AM EDT 04/22/2025 11:17 AM EDT us Carmine SUAREZ LAB BLOOD ORDERABLES Nanette morfin Result [facility] [address] [place] [address], * Hepatitis C antibody (10/13/2024 11:20 AM EST) Hepatitis C Antibody Negative Negative LAB CHEMISTRY METHOD 10/13/2024 8:04 PM EST [facility] Blood Venous blood specimen / Unknown Venipuncture / Unknown 10/13/2024 11:20 AM EST 10/13/2024 11:20 AM EST us Carmine SUAREZ LAB BLOOD ORDERABLES Nanette morfin Result [facility] [address] [place] [address], * JUANA SCREENING DIGITAL (08/26/2024 5:21 PM EDT) Anatomical Region Laterality Modality Mammography 08/26/2024 1:49 PM EDT Narrative 08/26/2024 5:21 PM EDT [facility] Diagnostic Imaging Department [address] [place] [address] Patient: VAUGHN UF D.O.B./Age/Sex: 1950 - 73 - F Unit#: [id number] Location/Status: SPDIMAM/REG CLI Mnemonic/Ordering Site: DIGSC/SPMAM Ordering Physician: ISIAH MCCORMACK Juana Screening Digital - 08/26/24 - [id number] Report Status:Signed EXAM: SCREENING MAMMOGRAPHY, BILATERAL HISTORY: [...] None 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 TISSUE DENSITY: There are scattered [...] by: Renetta PICKENS BRET MD Dic Date/Time: 08/26/24 171 Sign date/Time: 08/26/24 172 Procedure Note Steven Pickens MD - 08/30/2024 [facility] Diagnostic Imaging Department [address] [place] [address] Patient: VAUGHN FU D.O.B./Age/Sex: 1950 - 73 - F Unit#: [id number] Location/Status: SPDIMAM/REG CLI Mnemonic/Ordering Site: [facility] Ordering Physician: ISIAH MCCORMACK Juana Screening Digital - 08/26/24 - [id number] Report Status:Signed EXAM: SCREENING MAMMOGRAPHY, BILATERAL HISTORY: SCREENING. Personal history of right breast cancer. Previous reports indicate lumpectomy radiation and chemotherapy for right breastcancer. Family history of breast cancer. COMPARISON: 08/17/2023, 08/15/2022, 08/11/2021, 08/17/2020, 08/11/2020 TECHNIQUE: Synthesized CC and MLO projections of each breast.Tomosynthesis of each breast in the CC and MLO projections. 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 TISSUE DENSITY: There are scattered [...] PM EDT Narrative 03/20/2023 7:33 AM EDT [facility] Diagnostic Imaging Department [address] [place] [id number] Patient: VAUGHN FU Libia Stone/Age/Sex: 1950 - 72 - F Unit#: [id number] Location/Status: SPDIMA/REG CLI Mnemonic[facility] Ordering Physician: PHILLY PERALES MD Juana Dexa [...] probability of hip fracture of 11.2%. Code 82534 Dictating Physician: PATRICE HOBSON MD Electronically Signed by: PATRICE HOBSON MD Dic Date/Time: 03/20/23731 Sign date/Time: 03/20/23732 Procedure Note Patrice Hobson MD - 11/30/2023 [facility] Diagnostic Imaging Department [address] [place] [address] Patient: FURADHA LYONSHABBIR Haines./Age/Sex: 1950 - 72 - F Unit#: [id number] Location/Status: [facility] Mnemonic/[facility] Ordering Physician: PHILLY PERALES MD [facility] Dexa Axial Skeleton - 03/19/23 2688 HISTORY: The patient is a 72-year-old postmenopausal [...] density of the femurs bilaterally is 0.714 gm/rk0kselx is 71% of that of young normals [...] probability of hip fracture of 11.2%. 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 Care Teams Vial Gauger Relationship Specialty Start Date End Date Carmine Chaparro PA [address] [place] [address] PCP - General Internal Medicine 09/03/24
--- OUTSIDE RECORDS SUMMARY | 2025-07-16 11:37 | XMS_ITS | Clinical Summary ---
Author Organization [facility] Address [address] [place] [address] Care Team Providers Care Ship'S Carpenter Name Role Phone Carmine Chaparro PA-C Primary [...] age to complete this topic Care Teams Ship'S Carpenter Relationship Specialty Start Date End Date Carmine Chaparro PA-C PCP - General Medical Services 04/13/21
--- OUTSIDE RECORDS SUMMARY | 2025-07-16 11:37 | XMS_ITS | Encounter Summary ---
Author Organization [email or web address] Address [address] [place] [address] Care Team Providers Care Cpr Instructor Name Role Phone Carmine Chaparro Primary Care Provider [phone] Reason for Visit * Reason Onset Date Comments Nasal Congestion 06/26/2025 Epistaxis (Nose Bleed) 06/26/2025 Encounter Details Date Type Department Care Team ([facility] Contact Info) Description 06/26/2025 Telephone Adult Medicine [address] [phone] Carmine Chaparro PA [address] [place] [address] Social History Tobacco Use Types Packs/Day Years [...] care for your loved ones. For example, childcare center administrator or elderly care for an older adult? [...] traveled recently to another state outside of [place], [place], [place], [place], [place], [place], [place]? no o If yes, did you quarantine [...] of accident/Injury: No If yes, gather 3rd republican insurance information Third Libertarian Information: not applicable PCP: ERICK Cortez Payor: MEDICARE / Plan: MEDICARE PART A & B / Product Type: Medicare / documented in this encounter Plan of Treatment Upcoming Encounters Date Type Department Care Team (Late st Contact Info) Description 07/24/2025 12:00 PM EDT Ancillary Procedure [facility] - [facility] [address] [facility] [address] [place] [address] 07/30/2025 10:00 AM EDT Appointment Bone Density - [place] [address] [place] [address] 08/27/2025 11:00 AM EDT Appointment [facility] [address] [place] [phone] 09/28/2025 1:30 PM EST Office Visit Vascular Surgery - [place] [address] [facility] [address] [place] [address] Jag Loera MD [address] [place] [phone] 10/06/2025 9:30 AM EST Office Visit [facility] Hematology Oncology [address] [place] [phone] Philly Cameron MD [address] [place] [address] 10/12/2025 11:00 AM EST Office Visit Endocrinology - [place] [address] [place] [phone] Adriana Morgan PA [address] [place] [address] 01/27/2026 10:35 AM EDT Office Visit Pulmonolgy - [place] [address] [facility] [address] [place] [phone] Liliana Jameson NP [address] [place] [phone] 06/16/2026 1:30 PM EDT Office Visit [facility] - [place] [address] [place] [address] Ginna Del Real MD [address] [place] [phone] documented as of this encounter Visit Diagnoses Not on filedocumented in this encounter Additional Health Concerns Assessment Noted Time PHQ-9 Depression Total Score: 0 04/22/20 25 10:32 AM EDT documented as of this encounter Care Teams Cpr Instructor Relationship Specialty Start Date End Date Carmine Chaparro PA [address] [place] [address] PCP - General Internal Medicine 09/03/24 documented as of this encounter
--- OUTSIDE RECORDS SUMMARY | 2025-07-16 11:38 | XMS_ITS | Patient Health Record ---
[facility] Address [address] [facility] [place] [address] Care Team Providers Care Adult Crossing Guard Name Role Phone Carmine Castro Primary Care Provider Unav ailable Black, Skye Unavailable [phone] YoungIsis santo Unavailable [phone] Allergies Allergen (clinical drug ingredient) Drug/Non Drug [...] HCl 10 MG Oral; Duration: 90 Not-Taking [place] Saline Nasal Gel Active Triamcinolone Acetonide 0.1 [...] Ordered Date Performed Result Body Sit e 79406-ZII 04/17/2025 N/A Encounters Encounter Location Date Provider Diagnosis [facility] [address] 10/06/2024 Isis Young Dystrophic nail L60.3 and Type 2 diabetes mellitus with diabetic polyneuropathy E11.42 [facility] [address] [address] 04/17/2025 Isis Young Ingrown nail L60.[address] [address] 09/18/2024 Skye Cespedes [facility] [address] 04/17/2025 Isis Young [address] [address] 05/08/2025 Skye Cespedes Assessments Encounter Date Diagnosis (ICD Code) Assessment Notes Treatment Notes Treatment Clinical Notes Section Notes 10/06/2024 Dystrophic nail (ICD-10 - L60.3) 04/17/2025 Ingrown nail (ICD-10 - L60.0) 10/06/2024 Type 2 diabetes mellitus with diabetic polyneuropathy (ICD-10 - E11.42) Plan Of Treatment Pending Test Test Name Order Date [id number]-Gixyhvmg Plate 09/30/2020 [id number]-Vubwplop Plate 06/05/2022 [id number] 08/11/2021 39239-QSO 04/17/2025 17676- Debride <25 sq cm 09/12/2021 96046- Debride <25 sq cm 10/14/2020 [id number]-RFFFENK SKIN/TISSUE 08/29/2021 97824- I&D ABSCESS-COMPLICATED,MULTI 02/2023 77573-RCGU SKIN LESIONS, 2 TO 4 06/11/20 42037-SIUO NAIL(S) 06/11/2023 82736-QEIZ NAIL(S) 06/05/2022 34576-TJKF NAIL(S) 12/04/2022 Insurance Providers Payer Name Payer Address Payer Phone Subscriber Number Group Number Insured Name Patient Relationship to Insured Coverage Start Date Coverage End Date Medicare [employer] [address] [place] [address] [id number] Viola Navarro Self - patient is the insured [facility] [address] [place] [address] [id number] Alfred Navarro Spouse - patient is the [...] Libby Villarreal- blood clot left leg 2024 [facility]- acute sigmoid diverticu litis- complications with a micropherferation 09/08/21-09/10/21
--- OUTSIDE RECORDS SUMMARY | 2025-07-16 11:38 | XMS_ITS | Patient Health Record ---
Author Organization [facility] Address [address] [facility] [address] [place] [address] Care Team Providers Care Post Acute Care Nurse Name Role Phone Jeff Lu Primary Care [...] of [place] [address] [place] [phone] [id number] Navarro , Viola Self - patient is the insured [facility] [address] [place] [address] [phone] [id number] Viola Navarro Self - patient is the [...]
== END 2025-07-16 10:47 | disposition home or self-care (01) ==
LOC: HO.PMC 09:55
PROVIDERS: PCP Physician Assistant Medical; Visit Provider Anesthesiology
DX: M96.1 Postlaminectomy syndrome, not elsewhere classified (principal); G89.4 Chronic pain syndrome; M46.1 Sacroiliitis, not elsewhere classified; M53.3 Sacrococcygeal disorders, not elsewhere classified; M54.51 Vertebrogenic low back pain
CPT/HCPCS: 99214

== ENCOUNTER → 2025-07-16 09:55 | Outpatient (BNVA) | payer MEDICARE, BC, SELFPAY | PROVIDERS: PCP Physician Assistant Medical; Visit Provider Anesthesiology | DX: M96.1 Postlaminectomy syndrome, not elsewhere classified (principal); M46.1 Sacroiliitis, not elsewhere classified; M53.3 Sacrococcygeal disorders, not elsewhere classified; M54.51 Vertebrogenic low back pain; G89.4 Chronic pain syndrome | CPT/HCPCS: 99212 ==

== ENCOUNTER → 2025-08-11 19:30 | Outpatient (REF) | payer MEDICARE, BC, SELFPAY ==
--- OUTSIDE RECORDS SUMMARY | 2024-07-30 13:00 | XMS_ITS | Encounter Summary ---
Author Organization [employer] Address [address] [place] [address] Care Team Providers Care Amusement Park Ride Mechanic Name Role Phone Carmine Chaparro Primary Care Provider +1 -[phone] Encounter Details Date Type Department Care Team [...] or isolated from ose around you? Never 04/22/2025 Food Risk [...] your loved ones. For example, early childhood worker or elderly care for an older adult? [...] is your living situation? Unrecognized valu e 04/22/2025 Interpersonal Safety Answer Date Record ed [...] Care Team (Late st Contact Info) Description 08/27/2025 11:00 AM EDT Appointment [facility] at [address] [phone] 09/28/2025 1:30 PM EST Office Visit Vascular Surgery - [place] [address] [place] [phone] Jag Loera MD [address] [place] [address] 10/06/2025 9:30 AM EST [facility] Hematology Oncology [address] [place] [phone] Philly Cameron MD 271 [place] [address] 10/12/2025 11:00 AM EST Office Visit Endocrinology [place] 444 [place] [address] Adriana Morgan PA 444 [place] [address] 01/27/2026 10:35 AM EDT Office Visit Pulmonology - [place] 175 [facility] [address] [place] [address] Liliana Jameson NP 230 [place] [address] 06/16/2026 1:30 PM EDT Office Visit [facility] [place] [address] [place] [address] Ginna Del Real MD 230 [place] [phone] documented as of this encounter Procedures Procedure Name Priority Date/Time Associated Diagnosis Comments ..MISCELLANEOUS REFERENCE LAB TEST 07/30/2024 documented in this encounter Results * Miscellaneous reference lab test (07/30/2024) us Provider Onbase LAB BLOOD ORDERABLES Final Re sult documented in this encounter Visit Diagnoses Diagnosis Age-related osteoporosis without current pathological fracture documented in this encounter Care Teams Amusement Park Ride Mechanic Relationship Specialty Start Date End Date Carmine Chaparro PA PCP - General Internal Medicine 01/03/21 09/02/24 documented as of this encounter
--- OUTSIDE RECORDS SUMMARY | 2024-09-18 10:30 | XMS_ITS ---
Author Organization [facility] Address [address] [place] [address] Care Team Providers Care Sound Engineering Technician Name Role Phone Carmine Castro Primary Care Provider Unav ailable Black, Skye Unavailable [phone] Isis Young Unavailable [phone] Medications Medication SIG (Take, Route, Frequency, Duration) [...] Active Encounters Encounter Location Date Provider Diagnosis [facility] [place] [address] [place] [address] 09/18/2024 Isis Young Plan Of Treatment No Information Progress Notes * Viola NAVARRO MDOB:1949 (74 yo F)Acc No.[id number]:09/18/2024 Progress Note Patient: Abbe Viola SCHULER [place] Provider: Reji Young DPM :1950 A ge:73 Y S ex:Female Date:09/18/2024 Address:[address] [place] [address] , [facility] Pcp:ERICK Brooke Subjective: * Chief Complaints: * [...] Date: 11/18/2023 Generated for Paulina cody/Art/Kelechi on: 10:31 PM EDT
--- OUTSIDE RECORDS SUMMARY | 2025-05-11 06:15 | XMS_ITS ---
Author Organization [facility] Address [address] [place] [address] Care Team Providers Care Nuclear Physician Name Role Phone Carmine Castro Primary Care Provider Unav ailable Black, Skye Unavailable [phone] Isis Young Unavailable [phone] Encounters Encounter Location Date Provider Diagnosis [facility] [address] [place] [address] 05/11/2025 Isis Young Plan Of Treatment No Information Progress Notes * Viola NAVARRO MDOB:1949 (74 yo F)Acc No.[id number]:05/11/2025 Progress Notes Patient: Naeem RODRIGUEZise [place] Provider: Reji Young DPM :1950 A ge:74 Y S ex:Female Date:05/11/2025 Address:[address] [place] Pcp:ERICK Brooke Subjective: * Chief Complaints: * [...] 0 05/11/2025 Generated for Paulina cody/Art/Olegarioransmitting on: 10:31 PM EDT
--- OUTSIDE RECORDS SUMMARY | 2025-08-11 22:31 | XMS_ITS | Clinical Summary ---
Author Organization [facility] Address [address] [place] [address] Care Team Providers Care Business Reporting Developer Name Role Phone Carmine Chaparro PA-C Primary [...] age to complete this topic Care Teams Business Reporting Developer Relationship Specialty Start Date End Date Carmine Chaparro PA-C PCP - General Medical Services 04/13/21
--- OUTSIDE RECORDS SUMMARY | 2025-08-11 22:31 | XMS_ITS | Clinical Summary ---
Author Organization [facility] Address [address] [place] [phone] Phone Care Team Providers Care Advertising Account Representative Name Role Phone Carmine Chaparro Primary Care Provider [phone] Allergies Active Allergy Reactions Criticality Noted Date [...] mouth as needed. Active blood sugar diagnostic (OneTouch Verio test strips) test strip USE TO CHECK BLOOD SUGARS ONCE DAILY Active lancets 30 gauge misc USE TO TEST BLOOD SUGAR ONCE DAILY Active zoledronic acid (RECLAST) 5 mg/100 mL piggyback Infuse 100 mL (5 mg total) into a venous catheter 1 (one) time. 024 Active cholecalciferol (VITAMIN D-3) 25 mcg (1,000 unit) capsule 2 capsules (2,000 Units total) 1 (one) time each day at the same time. Active triamcinolone (KENALOG) 0.1 % lotion External [...] needed for nausea or vomiting. 12 tablet 025 Active cyclobenzaprine (FLEXERIL) 10 mg tablet Take 1 tablet (10 mg total) by mouth if needed. Active levothyroxine (SYNTHROID, LEVOTHROID) 125 mcg tablet TAKE 1 TABLET BY MOUTH EVERY DAY 90 tablet 1 025 Active evolocumab (Repatha SureClick) 140 mg/mL pen injector injectionIndications:C hest discomfort,Type 2 diabetes mellitus without complication, without long-term current use of insulin ([facility]/HCC V24, [facility] V28),Hypothyroidism, unspecified type,Hyperparathyroidi sm (CMS/HCC V24),Acute deep vein thrombosis (DVT) of distal vein of left lower extremity (CMS/HCC V24, [facility] V28),Age related osteoporosis, unspecified pathological fracture presence,Mixed hyperlipidemia Inject 1 mL (140 mg total) under the skin every 14 (fourteen) days. 6 mL 3 025 Active colesevelam (WelChoL) 625 mg tablet Take 2 tablets (1,250 mg total) by mouth 1 (one) time each day in the morning. Take with meal(s) and a liquid. 60 each 11 025 Active traZODone (DESYREL) 50 mg tablet Take 2 tablets (100 mg total) by mouth at bedtime as needed for sleep. 90 tablet 11 025 Active estradioL (ESTRACE) 0.01 % (0.1 mg/gram) vaginal cream 019 Active omeprazole (PriLOSEC) [address] capsuleIndications:Gas troesophageal reflux disease without esophagitis Take 1 capsule (40 mg total) by mouth 2 (two) times a day. 180 capsule 1 025 Active fluticasone propionate (FLONASE) 50 mcg/actuation nasal spray Administer 1 spray into each nostril 1 (one) time each day. spray/apply 1 spray in each nostril daily. 48 g 1 025 Active omeprazole (PriLOSEC) [address] capsule TAKE 1 CAPSULE BY MOUTH TWICE A DAY 180 capsule 1 024 2024 Disconti nued(Reo rder) fluticasone propionate (FLONASE) 50 mcg/actuation nasal spray Administer 1 spray into each nostril 1 (one) time each day. spray/apply 1 spray in each nostril daily. 48 g 025 2024 Disconti nued(Reo rder) Active Problems Problem Noted Date Diagnosed Date Claudication of both lower extremities ([facility] V24) 01/29/2025 Assessment & Plan (01/29/2025 8:22 [...] ELDER; Future Lung nodule 11/04/2024 Adrenal nodule ([facility] V24) 11/04/2024 Breast cancer ([facility] V24, [facility] V28) 024 Diabetes mellitus ([facility] V24, [facility] V28) Diverticulitis 10/13/2024 Fatty liver 10/13/2024 Hyperparathyroidism ([place] [id number]) 10/07/2024 Parathyroid adenoma 10/07/2024 Age related osteoporosis 07/29/2024 Acute deep vein thrombosis ( DVT) of distal vein of left lower extremity ([facility] V24, [facility] V28) 08/10/2022 TRESSA (obstructive sleep apnea) 05/18/2022 [...] sent to [facility] [place]. Hyperparathyroidism ([facility] V24) 10/17/2021 Hand arthritis 10/08/2019 Type 2 diabetes mellitus wit hout complication, without long-term current use of insulin ([facility] V24, [facility] V28) 07/16/2019 Bilateral carotid bruits 05/14/2018 Gastroesophageal [...] Encounters Date Type Department Care Team Description 07/30/2025 9:32 AM EDT - 07/30/2025 11:59 PM EDT Hospital Encounter Bone Density - [address] [phone] Age related osteoporosis, unspecified pathological fracture presence Discharge Disposition: Home or Self Care 07/30/2025 Results Follow-Up Endocrinology - [address] [phone] Chayo Howard [place] 07/29/2025 Results Follow-Up Vascular Surgery - [employer] [address] [facility] [address] [place] [address] Ashley Oritz MD 07/24/2025 12:00 PM EDT Ancillary Procedure [facility] [address] [facility] [address] [place] [phone] Varicose veins of lower extremity with pain, bilateral 07/21/2025 1:02 PM EDT - 07/21/2025 11:59 PM EDT Hospital Encounter XRAY - [address] [phone] Right hip pain Discharge Disposition: Home or Self Care 07/21/2025 12:30 PM EDT Office Visit [facility] - [address] [phone] Annamaria Darnell PA Chronic left SI joint pain (Primary Dx); Right hip pain; Need for prophylactic vaccination and inoculation against influenza 07/01/2025 Telephone Pulmonology - [employer] [address] [facility] [address] [place] [phone] Joaquín AllenLea arteaga MEGHA 06/26/2025 Telephone Adult Medicine [address] [phone] Carmine Chaparro PA 06/10/2025 1:45 PM EDT Office Visit [facility] [address] [place] [address] Ginna Del Real MD History of invasive breast cancer (Primary Dx); History of therapeutic radiation; Acute back pain, unspecified back location, unspecified back pain laterality; Encounter for screening mammogram for malignant neoplasm of breast from Last 3 Months Immunizations Immunization Administration Dates Next Due Influenza trivalent, 0.5mL ( Fluad) 65yo and older 07/21/2025 Influenza trivalent, 0.5mL ( Fluzone High-dose) 65yo and older 07/04/2024,07/10/2019,08/02/2018,07/19 [facility] SARS-CoV-2 COVID-19, mRNA, LNP-S, preservative free 02/13/2022 [...] HISTORICAL MOLE (REMOVAL OF) COLONOSCOPY 03/07/2004 PROCEDURE: MI COLONOSCOPY FLX DX W/COLLJ SPEC WHEN PFRMD; COMMENT: diverticulosis SHOULDER SURGERY 2018 Right PROCEDURE: HISTORICAL SHOULDER SURGERY; COMMENT: dr. bang, C BACK SURGERY dr lou PROCEDURE: HISTORICAL BACK [...] ght breast in female, estrogen receptor positive ([facility]) PONV (postoperative nausea a nd vomiting) Hyperparathyroidism [...] Alive Father (Age 74) cancer col on, [place], DM Mother Alive rheumatoid arth ritis Other [...] for your loved ones. For example, child life assistant or elderly care for an older [...] Sign Reading Time Taken Comments Blood Pressure 106/62 07/21/2025 12:29 PM EDT Pulse 69 07/21/2025 12:29 PM EDT Temperature 36.1 C (96.9 F) 07/21/2025 12:29 PM EDT Respiratory Rate 14 07/21/2025 12:2 9 PM EDT Oxygen Saturation 96% 07/21/2025 12: 29 PM EDT Inhaled Oxygen Concentration - - Weight 63.4 kg (139 lb 12.8 oz) 025 12:29 PM EDT Height 165.1 cm (5' 5 ) 07/21/2025 12:2 9 PM EDT Body Mass Index 23.26 07/21/2025 12:29 PM EDT Plan of Treatment Upcoming Encounters Date Type Department Care Team (Late st Contact Info) Description 08/27/2025 11:00 AM EDT [facility]ointment [facility] [address] [phone] 09/28/2025 1:30 PM EST Office Visit Vascular Surgery - [employer] [address] [place] [address] Jag Loera MD [address] [place] [phone] 10/06/2025 9:30 AM EST Office Visit [facility] Hematology Oncology [address] [place] [phone] Philly Cameron MD [address] [place] [address] 10/12/2025 11:00 AM EST Office Visit Endocrinology [address] [phone] Adriana Morgan PA [address] [place] [phone] 01/27/2026 10:35 AM EDT Office Visit Pulmonology [facility] [address] [facility] [address] [place] [phone] Liliana Jameson NP [address] [place] [phone] 06/16/2026 1:30 PM EDT Office Visit [facility] - [employer] [address] [place] [phone] Ginna Del Real MD [address] [place] [address] Health Maintenance Due Date Last Done Comments Diabetes: Annual Foot Exam 1961 Hepatitis A Vaccines (1 of 2 - Risk 2-dose series) 1970 Hepatitis B Vaccines (1 of 3 - Risk 3-dose series) 2011 RSV Immunization Adult Patients (1 - Risk 60-74 years 1-dose series) 2011 Medicare Annual Wellness Visit 10/07/2022 COVID-19 Vaccine ( season) 2025 07/19/2022, 07/18/2022, 02/13/2022, Additional history exists Diabetes: Annual Retina Eye Exam 10/02/2025 10/02/2024 Diabetes: Blood Sugar Control Test (HGBA1C) 10/22/2025 04/22/2025, 10/13/2024 Falls Risk Assessment 11/27/2025 11/27/2024 Diabetes: Annual Urine Albumin-Creatinine Ratio (uACR) 04/22/2026 04/22/2025, 10/13/2024 Diabetes: Annual GFR (Glomerular Filtration Rate) 04/22/2026 04/22/2025, 12/22/2024, 10/13/2024, Additional history exists Social Influencers of Health Screening 04/22/2026 04/22/2025 Breast Cancer Screening 08/26/2026 08/26/20, 08/23/2020, 08/17/2020, Additional history exists Cholesterol Screening (Lipid Panel) 04/22/2030 04/22/2025, 02/10/2025, 10/13/2024 DTaP,Tdap,and Td Vaccines (3 - Td or Tdap) 07/19/2031 07/19/2021, 11/28/2010 Osteoporosis Screening (Bone Density Screening) 07/30/2035 07/30/2025, 03/20/2023, 07/07/2021, Additional history exists Pneumococcal Vaccine: 50+ Years Completed 04/02/2018, 01/18/2017 Zoster Vaccines Completed 04/28/2019, 01/27, 02/13/2019, Additional history exists Hepatitis C Screening Completed 10/13/2024 Depression Screening Completed 04/22/2025 Influenza Vaccine Completed 07/21/2025, , 06/30/2024, Additional history exists Colorectal Cancer Screening: Colonoscopy Discontinued HIB Vaccines Aged Out No longer eligi [...] 20 months Aged Out No longer eligible based on patient's age to complete this topic Varicella Vaccines Aged Out No longer eligible based on patient's age to complete this topic Medical Devices Implanted Type Area Network Support Engineer Device Identifier Shelf Expiration Date Model / Serial / Lot Dental Implants Dental Implants Bilateral: Mouth Hemostat Flour Collgn 1gm Avitene - Ssna - [id number] Implanted:Qty : 1 on 11/27/2024 by Ginna Del Real MD at [facility] Hemostasis Left: Parathyroid CR BARD - DAVOL DIV 08/25/2027 [id number] / SNA / [id number] Procedures Procedure Name Priority Date/Time Associated Diagnosis Comments BD BONE DENSITY DXA AXIAL SKELETON Routine 07/30/2025 10:04 AM EDT Age related osteoporosis, unspecified pathological fracture presence VAS US DUPLEX LOWER EXT VENOUS INSUFFICIENCY BILATERAL Routine 07/24/2025 12:20 PM EDT Varicose veins of lower extremity with pain, bilateral XR HIP 2-3 VIEWS RIGHT Routine 07/21/2025 1:09 PM EDT Right hip pain EXTERNAL MRI REPORT Routine 07/11/2025 8 :23 AM EDT ..LAB TO CALL RESULTS Routine 07/11/2025 8:21 AM EDT EXTERNAL CLINICAL LAB 07/07/2025 EXTERNAL CLINICAL LAB 07/07/2025 EXTERNAL CLINICAL LAB 07/07/2025 MICROALBUMIN CREATININE URINE RATIO Routine 04/22/2025 11:17 AM EDT Chest discomfort Type 2 diabetes mellitus without complication, without long-term current use of insulin ([facility] V24, CMS/HCC V28) Hypothyroidism, unspecified type Hyperparathyroidism ([facility]/HCC V24) Acute deep vein thrombosis (DVT) of [...] complication, without long-term current use of insulin ([facility] V24, [facility] V28) Hypothyroidism, unspecified type Hyperparathyroidism ([facility] V24) Acute deep vein thrombosis (DVT) of distal vein of left lower extremity ([facility] V24, [facility] V28) Age related osteoporosis, unspecified pathological fracture presence Mixed hyperlipidemia HEPATITIS C ANTIBODY Routine 10/13/2024 11:20 AM EST Hyperparathyroidism ([facility] V24) Parathyroid adenoma Age related osteoporosis, unspecified pathological fracture presence Type 2 diabetes mellitus without complication, without long-term current use of insulin ([facility] V24, [facility] V28) Hypothyroidism, unspecified type Pure hypercholesterolemia TRESSA (obstructive sleep apnea) Fatty liver Adrenal adenoma, unspecified laterality Lung nodule Primary insomnia JUANA SCREENING DIGITAL Routine 08/26/2024 5:21 PM EDT from Last 3 Months or Most Recently Relevant to Health Maintenance Results * BD Bone Density DXA Axial Skeleton (07/30/2025 10:04 AM EDT) Anatomical Region Laterality Modality Wrist, Hip, L-spine Bone Densito metry 07/30/2025 3:07 PM EDT Impressions 07/30/2025 3:09 PM EDT Impression: This patient is considered to have osteopenia by WHO criteria. FRAX not reported since the patient is being treated for osteoporosis. The [facility] Department of Internal Medicine recommends using National Osteoporosis Foundation (NOF) guidelines in treatment decisions related to osteoporosis. NOF guidelines suggest considering treatment for postmenopausal women and men aged 50 or older presenting with the following: History of hip or vertebral fracture. T-score = -2.5 (DXA) at the femoral neck, total hip, or spine, after appropriate evaluation to exclude secondary causes. Low bone mass (T-score between -1.0 and -2.5 at the femoral neck or spine) AND a 10-year probability of a hip fracture = 3% OR a 10-year probability of a major osteoporosis-related fracture = 20% based on the [place]-adapted WHO algorithm Please note that all treatment decisions require clinical judgment and consideration of individual patient factors, including patient preferences, co-morbidities, previous drug use, risk factors not captured in the FRAX model (e.g., frailty, falls, vitamin D deficiency, increased bone turnover, interval significant decline in bone density) and possible under- or over-estimation of fracture risk by FRAX. Optional alternative screening schedule based on alcon Tello., [facility] November 16, 2011 for patients with osteopenia (based on hip BMD T-score) is as follows: * advanced osteopenia (T scores -2.00 to -2.49), BMD testing every year * moderate osteopenia (T scores -1.50 to -1.99), BMD testing every 5 years mild osteopenia or normal BMD (T scores -1.50 and higher), BMD testing every 15 years -------- FINAL REPORT -------- Dictated By: Nancy Goss Dictated Date: 07/30/2025 15:07 ET Assigned Physician: Nancy Goss Reviewed and Electronically Signed By: Nancy Goss Signed Date: 07/30/2025 15:09 ET Workstation ID: [id number] Transcribed By: Self Edit Transcribed Date: 07/30/2025 15:07 ET Narrative 07/30/2025 3:09 PM EDT BONE DENSITY (DEXA) Lumbar Spine T-score is -1.9. (SD relative to 20-29 y/o adult) Z-score is 0.4. (SD relative to age matched peers) This is considered osteopenia by WHO criteria. Left Hip T-score is -2.4. Z-score is -0.4. This is considered osteopenia by WHO criteria. Procedure Note Nancy Goss MD - 07/30/2025 BONE DENSITY (DEXA) Lumbar Spine T-score is -1.9. (SD relative to 20-29 y/o adult) Z-score is 0.4. (SD relative to age matched peers) This is considered osteopenia by WHO criteria. Left Hip T-score is -2.4. Z-score is -0.4. This is considered osteopenia by WHO criteria. IMPRESSION: Impression: This patient is considered to have osteopenia by WHO criteria. FRAX notreported since the patient is being treated for osteoporosis. The [facility] Department of Internal Medicine recommendsusing National Osteoporosis Foundation (NOF) guidelines in treatmentdecisions related to osteoporosis. NOF guidelines suggest consideringtreatment for postmenopausal women and men aged 50 or older presentingwith the following: History of hip or vertebral fracture. T-score = -2.5 (DXA) at the femoral neck, total hip, or spine, afterappropriate evaluation to exclude secondary causes. Low bone mass (T-score between -1.0 and -2.5 at the femoral neck or spine)AND a 10-year probability of a hip fracture = 3% OR a 10-year probabilityof a major osteoporosis-related fracture = 20% based on the [place]-adapted WHOalgorithm Please note that all treatment decisions require clinical judgment andconsideration of individual patient factors, including patientpreferences, co-morbidities, previous drug use, risk factors not capturedin the FRAX model (e.g., frailty, falls, vitamin D deficiency, increasedbone turnover, interval significant decline in bone density) and possibleunder- or over-estimation of fracture risk by FRAX. Optional alternative screening schedule based on alcon Tello., NEJMJanuary 2011 for patients with osteopenia (based on hip BMD T-score)is as follows: * advanced osteopenia (T scores -2.00 to -2.49), BMD testing every year * moderate osteopenia (T scores -1.50 to -1.99), BMD testing every 5years mild osteopenia or normal BMD (T scores -1.50 and higher), BMD testingevery 15 years -------- FINAL REPORT -------- Dictated By: Nancy Goss Dictated Date: 07/30/2025 15:07 ET Assigned Physician: Nancy Goss Reviewed and Electronically Signed By: Nancy Goss Signed Date: 07/30/2025 15:09 ET Workstation ID: [id number] Transcribed By: Self Edit Transcribed Date: 07/30/2025 15:07 ET us Adriana SUAREZ IMG DXA PROCEDURES Final Result * Vascular US duplex lower extremity venous insufficiency bilateral (07/24/2025 12:20 PM EDT) Left fem mid reflux 1,028 ms CV VAS LAB Left GSK jacobo 0.76 cm CV VAS LAB Left GSDC jacobo 0.38 cm CV VAS LAB Left GSMT jacobo 0.65 cm CV VAS LAB Left GSPC jacobo 0.44 cm CV VAS LAB Left GSPT jacobo 0.56 cm CV VAS LAB Left pop reflux 1,050 ms CV VAS LAB Left SFJ Diameter 0.84 cm CV VAS LAB Left SSMC jacobo 0.30 cm CV VAS LAB Left SSPC jacobo 0.59 cm CV VAS LAB Right GSK jacobo 0.23 cm CV VAS LAB Right GSDC jacobo 0.23 cm CV VAS LAB Right GSMT jacobo 0.16 cm CV VAS LAB Right GSPC jacobo 0.19 cm CV VAS LAB Right GSPT jacobo 0.34 cm CV VAS LAB Right SFJ Diameter 0.82 cm CV VAS LAB Right SSMC jacobo 0.19 cm CV VAS LAB Right SSPC jacobo 0.66 cm CV VAS LAB Right SFJ Reflux Time 510 ms CV VAS LAB Left GSPT reflux 1,700 ms CV VAS LAB Left GSMT reflux 4,072 ms CV VAS LAB Left GSK reflux 4,417 ms CV VAS LAB Left GSPC reflux 4,522 ms CV VAS LAB Left GSDC reflux 2,006 ms CV VAS LAB Anatomical Region Laterality Modality Vascular, Abdomen Ultrasound Narrative 07/28/2025 7:23 PM EDT Left intramuscular calf vein: A(n) non-occlusive deep vein thrombosis is present. Right: 1. The right lower extremity veins are compressible and there is no evidence of DVT in the right lower extremity venous system. 2. The GSV has mild reflux of 0.5 seconds at the saphenofemoral junction 3. The SSV has no significant reflux. Left: 1. The left intramuscular calf vein is partially compressible with echogenic structure noted inside the lumen indicating nonocclusive subacute thrombus of the left calf vein. The gastrocnemius veins were free from any thrombosis. There is also no evidence of thrombosis in the left common femoral vein, deep femoral vein, proximal mid and distal femoral vein, popliteal vein, posterior tibial veins and peroneal veins. 2. The GSV has clinically significant reflux of 1.7 seconds in the proximal thigh, 4.0 seconds in the mid thigh, 4.4 seconds at the level of left knee, 4.5 seconds in the left upper calf and 2.0 seconds in the left lower calf. 3. The SSV has no significant reflux. 4. The left mid femoral vein has clinically significant reflux of 1.0 seconds and left popliteal vein has clinically significant reflux of 1.0 seconds. Right Lower Venous No evidence of deep vein thrombosis in the common femoral, deep femoral, proximal femoral, mid femoral, distal femoral, popliteal, greater saphenous, small saphenous, posterior tibial and peroneal veins of the right leg. The vessels showed compressibility. Interrogation showed phasic and spontaneous Doppler signals. Right Venous Insufficiency Duplex The exam was performed with the patient in reverse Trendelenburg. Left Lower Venous No evidence of deep vein thrombosis in the common femoral, deep femoral, proximal femoral, mid femoral, distal femoral, popliteal, greater saphenous, small saphenous, posterior tibial and peroneal veins of the left leg. The vessels showed compressibility. Interrogation showed phasic and spontaneous Doppler signals. Intramuscular calf vein is abnormal. The vessel is partially compressible. An echogenic non-occlusive thrombus 2.84cm in length is present (also seen in 01/2025). No evidence of deep vein thrombosis in the gastrocnemius vein of the left leg. The vessel showed compressibility. Left Venous Insufficiency Duplex The exam was performed with the patient in reverse trendelenburg. Weaver Dobby Loom Details A felton scale, color and doppler analysis ultrasound was performed. During the study longitudinal and transverse views were obtained. Pulsed wave doppler was performed. us Ashley Ortiz MD CV VASCULAR PROCEDURES Fi nal Result * XR Hip 2-3 Views Right (07/21/2025 1:09 PM EDT) Anatomical Region Laterality Modality Lower Extremities, Hip Right Radiograp hic Imaging 07/21/2025 5:37 PM EDT Narrative 07/21/2025 5:38 PM EDT AP view of the pelvis. Right hip, 2 views. History right hip pain. There are mild degenerative changes in the right hip joint with mild narrowing of the joint space and marginal osteophytes. There is also bulging of the proximal lateral femoral head which could cause femoral acetabular impingement. There are osteophytes arising from the greater trochanters bilaterally. No fractures, dislocations or destructive lesions. CONCLUSIONS: Degenerative changes. Possible femoral acetabular impingement. No fractures or dislocations. -------- FINAL REPORT -------- Dictated By: Courtney Conley Dictated Date: 07/21/2025 17:37 ET Assigned Physician: Courtney Conley Reviewed and Electronically Signed By: Courtney Conley Signed Date: 07/21/2025 17:38 ET Workstation ID: [id number] Transcribed By: Self Edit Transcribed Date: 07/21/2025 17:37 ET Procedure Note Courtney Conley MD - 07/21/2025 AP view of the pelvis. Right hip, 2 views. History right hip pain. There are mild degenerative changes in the right hip joint with mildnarrowing of the joint space and marginal osteophytes. There is alsobulging of the proximal lateral femoral head which could cause femoralacetabular impingement. There are osteophytes arising from the greatertrochanters bilaterally. No fractures, dislocations or destructivelesions. CONCLUSIONS: Degenerative changes. Possible femoral acetabularimpingement. No fractures or dislocations. -------- FINAL REPORT -------- Dictated By: Courtney Conley Dictated Date: 07/21/2025 17:37 ET Assigned Physician: Courtney Cnoley Reviewed and Electronically Signed By: Courtney Conley Signed Date: 07/21/2025 17:38 ET Workstation ID: [id number] Transcribed By: Self Edit Transcribed Date: 07/21/2025 17:37 ET Annamaria Mann SUAREZ IMJorge Luis XR PROCEDURES Final Result * External MRI Report (07/11/2025 8:23 AM EDT) Anatomical Region Laterality Modality Magnetic Resonan ce Historical Provider MD [facility] MRI PROCEDURES Final Result * Lab use only - Non-affiliated results notification (07/11/2025 8:21 AM EDT) Other Topography unknown / Unknown Historical Provider LAB BLOOD ORDERABLES Nanette l Result * External clinical lab (07/07/2025) Only the most recent of3 resultswithin the time period is included. Provider Betsy Onbase LAB BLOOD ORDERABLES Fin al Result * (ABNORMAL) Lipid panel with reflex to direct LDL (04/22/2025 11:17 AM EDT) Cholesterol 166 0 - 200 mg/dL LAB CHEMISTRY METHOD 04/22/2025 5:01 PM EDT [facility] Triglycerides 179(H) 0 - 150 mg/dL LAB CHEMISTRY METHOD 04/22/2025 5:01 PM EDT [facility] HDL 65 >=40 mg/dL LAB CHEMISTRY METHOD 04/22/2025 5:01 PM EDT [facility] LDL Calculated 65 0 - 100 mg/dL LAB CHEMISTRY METHOD 04/22/2025 5:01 PM EDT [facility] VLDL Cholesterol [place] 35.8 mg/dL LAB CHEMISTRY METHOD 04/22/2025 5:01 PM EDT [facility] Non HDL Chol. (LDL+VLDL) 101 <145 mg/dL LAB CHEMISTRY METHOD 04/22/2025 5:01 PM EDT [facility] Chol/HDL Ratio 2.6 0.0 - 4.4 LAB CHEMISTRY METHOD 04/22/2025 5:01 PM EDT [facility] Blood Venous blood specimen / Unknown Venipuncture / Unknown 04/22/2025 11:17 AM EDT 04/22/2025 11:17 AM EDT Carmine SUAREZ LAB BLOOD ORDERABLES Nanette l Result [facility] [address] [place] [address], [place] [phone] * Microalbumin creatinine urine ratio (04/22/2025 11:17 AM EDT) Creatinine, Urine 47.0 mg/dL LAB CHEMISTRY METHOD 04/22/2025 3:59 PM EDT [facility] Microalb, Ur 8.0 0.0 - 29.0 mg/L LAB CHEMISTRY METHOD 04/22/2025 3:59 PM EDT [facility] Microalb/Creat Ratio 17 <30 mg/g creat LAB CHEMISTRY METHOD 04/22/2025 3:59 PM EDT [facility] Urine Urine specimen obtained by clean catch procedure / Unknown Non-blood Collection / Unknown 04/22/2025 11:17 AM EDT 04/22/2025 11:17 AM EDT Carmine SUAREZ LAB URINE ORDERABLES Nanette l Result Performing Organization Address City/[facility]/ZIP Co de Phone Number [facility] [address] [place] [address], [place] [phone] * Hemoglobin A1c (04/22/2025 11:17 AM EDT) [facility] Hemoglobin A1C 5.9 <6.5 % LAB CHEMISTRY METHOD 04/22/2025 2:37 PM EDT [facility] Mean Bld Glu Estim. 123 mg/dL LAB CHEMISTRY METHOD 04/22/2025 2:37 PM EDT [facility] Blood Venous blood specimen / Unknown Venipuncture / Unknown 04/22/2025 11:17 AM EDT 04/22/2025 11:17 AM EDT Carmine SUAREZ LAB BLOOD ORDERABLES Nanette l Result [facility] [address] [place] [address], [place] [phone] * (ABNORMAL) Comprehensive metabolic panel (04/22/2025 11:17 AM EDT) Sodium 140 133 - 145 mmol/L LAB CHEMISTRY METHOD 04/22/2025 5:01 PM [facility] Potassium 4.3 3.5 - 5.5 mmol/L LAB CHEMISTRY METHOD 04/22/2025 5:01 PM [facility] Chloride 103 96 - 110 mmol/L LAB CHEMISTRY METHOD 04/22/2025 5:01 PM [facility] CO2 32 21 - 32 mmol/L LAB CHEMISTRY METHOD 04/22/2025 5:01 PM [facility] Anion Gap 5 3 - 11 LAB CHEMISTRY METHOD 04/22/2025 5:01 PM [facility] Glucose 85 70 - 100 mg/dL LAB CHEMISTRY METHOD 04/22/2025 5:01 PM [facility] BUN 19 5 - 25 mg/dL LAB CHEMISTRY METHOD 04/22/2025 5:01 PM [facility] Creatinine 0.67 0.50 - 1.10 mg/dL LAB CHEMISTRY METHOD 04/22/2025 5:01 PM [facility] eGFR 92 >=60 mL/min/1. 73m2 LAB CHEMISTRY METHOD 04/22/2025 5:01 PM [facility] Comment:Calculation based on the Chronic Kidney Disease Epidemiology Collaboration (CKD-EPI) equation refit without adjustment for race. BUN/Creatinine Ratio 28.4 LAB CHEMISTRY METHOD 04/22/2025 5:01 PM [facility] Calcium 9.1 8.5 - 10.5 mg/dL LAB CHEMISTRY METHOD 04/22/2025 5:01 PM [facility] AST (SGOT) 8(L) 10 - 42 unit/L LAB CHEMISTRY METHOD 04/22/2025 5:01 PM [facility] ALT (SGPT) 19 10 - 60 unit/L LAB CHEMISTRY METHOD 04/22/2025 5:01 PM [facility] Alkaline Phosphatase 44 42 - 121 unit/L LAB CHEMISTRY METHOD 04/22/2025 5:01 PM EDT [facility] Total Protein 7.2 6.0 - 8.0 g/dL LAB CHEMISTRY METHOD 04/22/2025 5:01 PM EDT [facility] Albumin 4.2 3.2 - 5.0 g/dL LAB CHEMISTRY METHOD 04/22/2025 5:01 PM EDT [facility] Total Bilirubin 0.4 0.0 - 1.4 mg/dL LAB CHEMISTRY METHOD 04/22/2025 5:01 PM EDT [facility] Blood Venous blood specimen / Unknown Venipuncture / Unknown 04/22/2025 11:17 AM EDT 04/22/2025 11:17 AM EDT Carmine SUAREZ LAB BLOOD ORDERABLES Nanette l Result [facility] [address] [place] [address], [place] [phone] * Hepatitis C antibody (10/13/2024 11:20 AM EST) Hepatitis C Antibody Negative Negative LAB CHEMISTRY METHOD 10/13/2024 8:04 PM EST [facility] Blood Venous blood specimen / Unknown Venipuncture / Unknown 10/13/2024 11:20 AM EST 10/13/2024 11:20 AM EST Carmine SUAREZ LAB BLOOD ORDERABLES Nanette l Result [facility] [address] [place] [address], [place] [phone] * JUANA SCREENING DIGITAL (08/26/2024 5:21 PM EDT) Anatomical Region Laterality Modality Mammography 08/26/2024 1:49 PM EDT Narrative 08/26/2024 5:21 PM EDT [facility] Diagnostic Imaging Department [address] [place] [address] Patient: VAUGHN FU Libia SernaB./Age/Sex: 1950 - 73 - F Unit#: [id number] Location/Status: SPDIMAM/REG CLI Mnemonic/Ordering Site: [facility] Ordering Physician: ISIAH MCCORMACK Juana Screening Digital - 08/26/24 - [id number] Report Status:Signed EXAM: SCREENING MAMMOGRAPHY, BILATERAL HISTORY: [...] Procedure Note Steven Pickens MD - 08/30/2024 [facility] Diagnostic Imaging Department [address] [place] [address] Patient: FUVAUGHN /Age/Sex: 1950 - 73 - F Unit#: [id number] Location/Status: SPDIMAM/REG CLI Mnemonic/Ordering Site: [facility] Ordering Physician: ISIAH MCCORMACK Juana Screening Digital - 08/26/24 - [id number] Report Status:Signed EXAM: SCREENING MAMMOGRAPHY, BILATERAL HISTORY: [...] MD Dic Date/Time: 08/26/241712 Sign date/Time: 08/26/241720 Isiah Mccormack MD IMG BI PROCEDURES Final Resu lt from Last 3 Months or Most Recently Relevant to Health Maintenance Insurance MEDICARE [employer] Advance Directives Documents on File Type Date Recorded Patient Firer Automatic Stoker Expl anation Power of Casing Tester 11/27/2024 6:05 AM HCP Health Care Decision [...] currently active code status orders. Care Teams Advertising Account Representative Relationship Specialty Start Date End Date Carmine Chaparro PA [address] [place] [id number] PCP - General Internal Medicine 09/03/24
--- OUTSIDE RECORDS SUMMARY | 2025-08-11 22:31 | XMS_ITS ---
Author Organization [facility] Address [address] [place] [address] Phone Care Team Providers Care Sign Letterer Name Role Phone Carmine Chaparro Primary Care Provider [phone] Active Problems Problem Noted Date Diagnosed Date Claudication of both lower extremities (CMS/[facility] V24) 01/29/2025 Assessment & Plan (01/29/2025 [...] ELDER; Future Lung nodule 11/04/2024 Adrenal nodule ([facility] V24) 11/04/2024 Breast cancer ([facility] V24, [facility] V28) 024 Diabetes mellitus ([facility] V24, [facility] V28) Diverticulitis 10/13/2024 Fatty liver 10/13/2024 Hyperparathyroidism ([place] 142324) 10/07/2024 Parathyroid adenoma 10/07/2024 Age related osteoporosis 07/29/2024 Acute deep vein thrombosis ( DVT) of distal vein of left lower extremity ([facility] V24, [facility] V28) 08/10/2022 TRESSA (obstructive sleep apnea) [...] to 16 cm H2O sent to [facility]. Hyperparathyroidism ([facility] V24) 10/17/2021 Hand arthritis 10/08/2019 Type 2 diabetes mellitus wit hout complication, without long-term current use of insulin ([facility] V24, [facility] V28) 07/16/2019 Bilateral carotid bruits 05/14/2018 [...] her diet and start walking again. Current Treatment and Therapy Plans No current plan information found. Past Treatment and Therapy Plans No past plan information found. Lifetime Dose Tracking * Chemical Lifetime Dose Automatic Entry Manual Entr y CTDIvol 17.99 mGy 17.99 mGy 0 mGy
--- OUTSIDE RECORDS SUMMARY | 2025-08-11 22:32 | XMS_ITS | Encounter Summary ---
Author Organization [facility] [place] [address] Care Team Providers Care Road Builder Name Role Phone Carmine Chaparro Primary Care Provider [phone] Encounter Details Date Type Department Care Team (Late st Contact Info) Description 07/30/2025 Results Follow-Up Endocrinology [address] [address] Chayo Howard [place] Social History Tobacco Use Types Packs/Day [...] for your loved ones. For example, children's counselor or elderly care for an older [...] PM EST documented as of this encounter Plan of Treatment Upcoming Encounters Date Type Department Care Team (Late st Contact Info) Description 08/27/2025 11:00 AM EDT [facility] [address] [phone] 09/28/2025 1:30 PM EST Office Visit V[facility] Surgery - [place] [address] [place] [address] Jag Loera MD [address] [place] [phone] 10/06/2025 9:30 AM EST Office Visit [facility] Hematology Oncology [address] [place] [phone] Philly Cameron MD [address] [place] [address] 10/12/2025 11:00 AM EST Office Visit [facility]ocrinology [facility] [address] [place] [phone] Adriana Morgan PA [address] [place] [address] 01/27/2026 10:35 AM EDT Office Visit Pulmonology - [place] [address] [facility] [address] [place] [phone] Liliana Jameson NP [address] [place] [address] 06/16/2026 1:30 PM EDT Office Visit [facility] [place] [address] [place] [phone] Ginna Del Real MD [address] [place] [address] documented as of this encounter Visit Diagnoses Not on filedocumented in this encounter Additional Health Concerns Assessment Noted Time PHQ-9 Depression Total Score: 0 06/25/20 25 10:32 AM EDT documented as of this encounter Care Teams Road Builder Relationship Specialty Start Date End Date Carmine Chaparro PA [address] [place] [address] PCP - General Internal Medicine 09/03/24 documented as of this encounter
--- OUTSIDE RECORDS SUMMARY | 2025-08-11 22:32 | XMS_ITS | Patient Health Record ---
Author Organization [facility] Address [address] [facility] [address] [place] [address] Care Team Providers Care Security Dispatcher Name Role Phone Jeff Lu Primary Care [...] of [place] [address] [place] [phone] [id number] Navarro , Viola Self - patient is the insured [facility] [address] [place] [address] [phone] [id number] Viola Navarro Self - patient is the [...]
--- OUTSIDE RECORDS SUMMARY | 2025-08-11 22:32 | XMS_ITS | Encounter Summary ---
Author Organization [employer] Address [address] [place] [address] Care Team Providers Care Chemical Radiation Technician Name Role Phone Carmine Chaparro Primary Care Provider [phone] Encounter Details Date Type Department Care Team (Late st Contact Info) Description 07/29/2025 Results Follow-Up [facility] - [place] [address] [address] Ashley Ortiz MD [address] [place] [phone] Social History Tobacco Use Types Packs/Day Years [...] EDT [facility]ointment [facility] [address] [phone] 09/28/2025 1:30 PM EST Office Visit [facility] [place] [address] [place] [address] Jag Loera MD [address] [place] [phone] 10/06/2025 9:30 AM EST Office Visit [facility] Hematology Oncology [address] [place] [phone] Philly Cameron MD [address] [place] [address] 10/12/2025 11:00 AM EST Office Visit Endocrinology [address] [phone] Adriana Morgan PA [address] [place] [address] 01/27/2026 10:35 AM EDT Office Visit Pulmonology [facility] [address] [facility] [address] [place] [phone] Liliana Jameson NP [address] [place] [phone] 06/16/2026 1:30 PM EDT Office Visit [facility] [place] [address] [place] [phone] Ginna Del Real MD [address] [place] [address] documented as of this encounter Visit Diagnoses Not on filedocumented in this encounter Additional Health Concerns Assessment Noted Time PHQ-9 Depression Total Score: 0 04/22/20 25 10:32 AM EDT documented as of this encounter Care Teams Chemical Radiation Technician Relationship Specialty Start Date End Date Carmine Chaparro PA [address] [place] [address] PCP - General Internal Medicine 09/03/24 documented as of this encounter
--- OUTSIDE RECORDS SUMMARY | 2025-08-11 22:32 | XMS_ITS | Patient Health Record ---
Author Organization [facility] Address [address] [facility] [place] [address] Care Team Providers Care Inserting Press Operator Name Role Phone Carmine Castor Primary Care Provider Unav ailable Black, Skye Unavailable [phone] YoungIsis santo Unavailable [phone] Allergies Allergen (clinical drug ingredient) Drug/Non Drug [...] HCl 10 MG Oral; Duration: 90 Not-Taking [place] Saline Nasal Gel Active Triamcinolone Acetonide 0.1 [...] Ordered Date Performed Result Body Sit e [id number] 04/17/2025 N/A Encounters Encounter Location Date [facility] [address] 10/06/2024 Isis Young Dystrophic nail L60.3 and Type 2 diabetes mellitus with diabetic polyneuropathy E11.42 [facility] [address] [address] 04/17/2025 Isis Young Ingrown nail L60.[address] [address] 09/18/2024 [facility]es [facility] [address] 04/17/2025 Isis Young [address] [address] 05/08/2025 Skye Cespedes Assessments Encounter Date Diagnosis (ICD Code) Assessment Notes Treatment Notes Treatment Clinical Notes Section Notes 10/06/2024 Dystrophic nail (ICD-10 - L60.3) 04/17/2025 Ingrown nail (ICD-10 - L60.0) 10/06/2024 Type 2 diabetes mellitus with diabetic polyneuropathy (ICD-10 - E11.42) Plan Of Treatment Pending Test Test Name Order Date [id number]-Lkcoovpy Plate 09/30/2020 58568-Bsoheupn Plate 06/05/2022 [id number] 08/11/2021 12685-YIN 04/17/2025 43834- Debride <25 sq cm 09/12/2021 30564- Debride <25 sq cm 10/14/2020 [id number] SKIN/TISSUE 08/29/2021 81643- I&D ABSCESS-COMPLICATED,MULTI 02/2023 63726-QJGJ SKIN LESIONS, 2 TO 4 06/11/20 38387-OEMU NAIL(S) 06/11/2023 48670-WIDQ NAIL(S) 06/05/2022 [id number]-UYVQ NAIL(S) 12/04/2022 Insurance Providers Payer Name Payer Address Payer Phone Subscriber Number Group Number Insured Name Patient Relationship to Insured Coverage Start Date Coverage End Date Medicare [employer] [address] [place] [address] [id number] Viola Navarro Self - patient is the insured [facility] [address] [place] [address] [id number] Alfred Navarro Spouse - patient is the [...] Libby Villarreal- blood clot left leg 2024 [facility]- acute sigmoid diverticu litis- complications with a micropherferation 09/08/21-09/10/21
== END ==
LOC: HO.SL 19:30
PROVIDERS: PCP Physician Assistant Medical; Visit Provider Physician Assistant Medical
DX: G25.81 Restless legs syndrome (principal); G47.19 Other hypersomnia
CPT/HCPCS: 95810

== ENCOUNTER → 2025-08-11 22:38 | Outpatient (BNV) | payer MEDICARE, BC, SELFPAY | PROVIDERS: PCP Physician Assistant Medical; Visit Provider Psychiatry & Neurology Neurology | DX: G47.33 Obstructive sleep apnea (adult) (pediatric) (principal) | CPT/HCPCS: 95810 ==

== ENCOUNTER 2025-09-11 07:09 | Outpatient (AMB) | payer MEDICARE, BC, SELFPAY ==
--- OUTSIDE RECORDS SUMMARY | 2024-07-30 12:00 | XMS_ITS | Encounter Summary ---
Author Organization [employer] Address [address] [place] [address] Care Team Providers Care Electrical And Instrumentation Manager Name Role Phone Carmine Chaparro Primary Care Provider [phone] Encounter Details Date Type Department Care Team [...] you may not have stable housing? No 08/28/2025 Food Access & Nutrition Answer Date Rec orded Do you have access to a vari ety of food including fruits and vegetables? Yes 08/28/2025 Health Literacy Answer Date Recorded How often do you need to hav e someone help you when you read instructions, pamphlets, or other written material from your doctor or pharmacy? Never 08/28/2025 Caregiver: How often do you need to have someone help you when you read instructions, pamphlets, or other written material from your doctor or pharmacy? Not on file 08/28/2025 Financial Risk Answer Date Recorded How hard is it for you to pa y for the very basics like food, housing, medical care, and air conditioning / heating? Not very hard 08/28/2025 Transportation Answer Date Recorded Has the lack of transportati on kept you from meetings, work, or from getting things needed for daily living? No Has the lack of transportati on kept you from medical appointments or from getting medications? No 08/28/2025 Social Isolation Answer Date Recorded How often do you feel lonely or isolated from ose around you? Never 08/28/2025 Food Risk Answer Date Recorded Within the past 12 months we worried whether our food would run out before we got money to buy more. Never true 08/28/2025 Within the past 12 months th e food we bought just didn't last and we didn't have money to get more. Never true 08/28/2025 Dependent Care Answer Date Recorded Do you need help finding or paying for care for your loved ones. For example, early childhood lead teacher or elderly care for an older adult? No 08/28/2025 Education Answer Date Recorded Do you think completing more education or training, like finishing a GED, going to college, or learning a trade, would be helpful for you? N/A 08/28/2025 Employment and Income Answer Date Recor ded During the last four weeks, have you been actively looking for work? No 08/28/2025 Living Situation Answer Date Recorded What is your living situation? Unrecognized valu e 08/28/2025 Interpersonal Safety Answer Date Record ed Physical [...] Care Team (Late st Contact Info) Description 09/18/2025 10:45 AM EST Appointment Radiology Department - [address] [phone] 09/28/2025 1:30 PM EST Office Visit Vascular Surgery - [place] [address] [place] [address] Jag Loera MD [address] [place] [phone] 10/06/2025 9:30 AM EST Office Visit [facility] Hematology Oncology [address] [place] [phone] Philly Cameron MD [address] [place] [address] 10/12/2025 11:00 AM EST Office Visit Endocrinology - [place] [address] [place] [phone] Adriana Morgan PA [address] [place] [address] 01/27/2026 10:35 AM EDT Office Visit Pulmonology [facility] [address] [facility] [address] [place] [phone] Liliana Jameson NP [address] [place] [phone] 06/16/2026 1:30 PM EDT Office Visit [facility] - [place] [address] [place] [phone] Ginna Del Real MD [address] [place] [phone] documented as of this encounter Procedures Procedure Name Priority Date/Time Associated Diagnosis Comments ..MISCELLANEOUS REFERENCE LAB TEST 07/30/2024 documented in this encounter Results * Miscellaneous reference lab test (07/30/2024) us Provider Onbase LAB BLOOD ORDERABLES Final Re sult documented in this encounter Visit Diagnoses Diagnosis Age-related osteoporosis without current pathological fracture documented in this encounter Care Teams Electrical And Instrumentation Manager Relationship Specialty Start Date End Date Carmine Chpaarro PA PCP - General Internal Medicine 01/03/21 09/02/24 documented as of this encounter
--- OUTSIDE RECORDS SUMMARY | 2024-09-18 09:30 | XMS_ITS ---
Author Organization [facility] Address [address] [place] [address] Care Team Providers Care Water Resource Project Manager Name Role Phone Carmine Castro Primary Care Provider Unav ailable Black, Skye Unavailable [phone] Isis Young Unavailable [phone] Medications Medication SIG (Take, Route, Frequency, Duration) [...] Active Encounters Encounter Location Date Provider Diagnosis [facility] [place] [address] [place] [address] 09/18/2024 Isis Young Plan Of Treatment No Information Progress Notes * Viola NAVARRO MDOB:1949 (74 yo F)Acc No.[id number]:09/18/2024 Progress Note Patient: Abbe Viola SCHULER Libia Provider: Reji Young DPM :1950 A ge:73 Y S ex:Female Date:09/18/2024 Address:[address] [place] [address] , [facility] Pcp:ERICK Brooke Subjective: * Chief Complaints: * [...] Date: 11/18/2023 Generated for Paulina cody/Art/Kelechi on: 11/11/2024 07:14 AM EST
--- OUTSIDE RECORDS SUMMARY | 2025-05-11 05:15 | XMS_ITS ---
Author Organization [facility] Address [address] [place] [address] Care Team Providers Care Senior Hr Business Partner Name Role Phone Carmine Castro Primary Care Provider Unav ailable Black, Skye Unavailable [phone] Isis Young Unavailable [phone] Encounters Encounter Location Date Provider Diagnosis [facility] [address] [place] [address] 05/11/2025 Isis Young Plan Of Treatment No Information Progress Notes * Viola NAVARRO MDOB:1949 (74 yo F)Acc No.[id number]:05/11/2025 Progress Notes Patient: Naeem RODRIGUEZise [place]ia Provider: Reji Young DPM :1950 A ge:74 Y S ex:Female Date:05/11/2025 Address:[address] [place] Pcp:ERICK Brooke Subjective: * Chief Complaints: * * Medical History: Objective: * Vitals: Assessment: Plan: * Treatment: * Images: * The named appointment provid er may or may not be the originator of this progress note, and it is not deemed complete until electronically signed by the appointment provider. Sign off status: Pending * Provider: Reji Young DPM Date: 0 05/11/2025 Generated for Paulina cody/Art/Olegarioransmitting on: 11/11/2024 07:14 AM EST
--- OUTSIDE RECORDS SUMMARY | 2025-09-08 14:30 | XMS_ITS | Encounter Summary ---
Author Organization [employer] Address [address] [place] [address] Care Team Providers Care Gas Meter Mechanic Name Role Phone Carmine Chaparro Primary Care Provider [phone] Reason for Visit * Reason Comments ear infection Encounter Details Date Type Department Care Team (Late st Contact Info) Description 09/08/2025 2:30 PM EST Office Visit Adult Medicine [facility] [place] [address] [place] [address] Lenin Kat PA [address] [place], [place] Acute viral sinusitis (Primary Dx); Upper respiratory tract infection, unspecified type; Nonintractable headache, unspecified chronicity pattern, unspecified headache type; Postnasal drip; Tinnitus aurium, bilateral; Benign skin mole Social History Tobacco Use Types Packs/Day Years Used Date Smoking Tobacco: Former Cigarettes 0.3 2.6 0 04/02/1967 - 10/29/1969 Smokeless Tobacco: Never Tobacco Cessation:Counseling Given: Not Answered Alcohol Use Standard Drinks/Week Comments Yes 0 [...] isolated from th ose around you? Never 08/28/2025 Food Risk [...] your loved ones. For example, early childhood educator aide or elderly care for an older adult? [...] Reading Time Taken Comments Blood Pressure 98/60 09/08/2025 2:12 PM EST Pulse 73 09/08/2025 2:12 PM EST Temperature 36.7 C (98 F) 09/08/2025 2:12 PM EST Respiratory Rate 16 09/08/2025 2:12 PM EST Oxygen Saturation 96% 09/08/2025 2:12 PM EST Inhaled Oxygen Concentration - - Weight 63.7 kg (140 lb 6.4 oz) 09/08/2025 2:12 P M EST Height 163.8 cm (5' 4.5 ) 09/08/2025 2:12 PM EST Body Mass Index 23.73 09/08/2025 2:12 PM EST documented in this encounter Ordered Prescriptions Prescription Sig Dispense Quantity Refills Last Filled Start Date End Date pseudoephedrine (Sudafed 12 Hour) 120 mg 12 hr tabletIndications:U pper respiratory tract infection, unspecified type Take 1 tablet (120 mg total) by mouth every 12 (twelve) hours. Do not crush, chew, or split. 20 each 1 09/08/2025 documented in this encounter Progress Notes * Paris Beauchamp [place] - 09/08/2025 2:30 PM EST Depression Screening Will the patient answer the depression risk questions?: Yes Over the last 2 weeks, how often have you been bothered by little interest or pleasure in doing things?: Not at all Over the last 2 weeks, how often have you been bothered by feeling down, depressed, or hopeless?: Not at all Depression Risk: 0 Visit Vitals BP 98/60 Pulse 73 Temp 36.7 ??C (98 ??F) (Temporal) Resp 16 Ht 1.638 m (64.5 ) Wt 63.7 kg (140 lb 6.4 oz) SpO2 96% BMI 23.73 kg/m?? OB Status Postmenopausal Smoking Status Former BSA 1.69 m?? * ERICK Stoner - 09/08/2025 2:30 PM EST PATIENT'S PCP: ERICK Cortez LAST VISIT IN THIS DEPARTMENT: Visit date not found Viola Navarro is a 74 y.o. (: 1950) female who presents today for: Chief Complaint Patient presents with ear infection SUBJECTIVE History of Present Illness The patient is a 74-year-old female who presents for evaluation of right ear pressure post recent URI. She reports an episode of severe pressure in her right ear, described as a loud swishing and percolator-like sound, which occurred at 3:00 AM two nights prior. This was accompanied by a sensation of fullness and intermittent stinging in the same ear. The symptoms persisted for approximately 18 hours, until she retired to bed at 9:00 PM. Upon awakening, the swishing had subsided, but the sensation of fullness and occasional stinging remained. She has a long-standing history of tinnitus in both ears. She mention she had a perforation of her tympanic membrane a few years ago on the right side. She does not report any associated fever or hearing loss. Mild ear pain was present yesterday, but none today. She has not had any recent dental procedures, with her last dental visit being a month ago. She continues to experience a sensation of pressure in her ear, which has slightly improved since yesterday. She also reports a small headache and ear stinging upon awakening for the past three days. She has been using a neti pot nightly since the onset of these symptoms, which provides temporary relief for about an hour. She has been experiencing postnasal drip since the onset of her current symptoms, which has not improved. She also reports a recent viral illness characterized by a sore throat and cough, without chest pain. She does not report any nasal drainage but reports thick mucus in the back of her throat. She uses a gel at night due to dryness caused by CPAP use. She has been experiencing intermittent headaches for some time, but they have become more noticeable over the past two weeks with her URI. Her dentist recently adjusted her appliance due to suspectedbruxism, but she continues to experience headaches. She took one tablet of ibuprofen the day beforeyesterday and has been consuming coffee to alleviate her headaches. She has a mole on her face that started bleeding because she was picking at it. It looks like a mole. She saw her at the beginning of the year and is not due again. It just happened within 2 weeks. She has very dry eyes, which affects her vision. She is going to see a specialist again this Sunday. She saw somebody in [place], but he is too far away and wants too much money to fix it. She has an appointment in September for the regular eye doctor for her yearly visit. Social History: Coffee/Tea/Caffeine-containing Drinks: Drinks decaf tea, limits caffeine to one drink per day Sleep: Reports difficulty sleeping, limits caffeine intake to improve sleep Review Of System Review of Systems Constitutional: Negative for chills and fever. HENT: Positive for postnasal drip, sinus pressure, sinus pain and tinnitus. Negative for ear discharge, ear pain, hearing loss and rhinorrhea. Neurological: Positive for headaches. The following portions of the patient's chart were reviewed in this encounter and updated as appropriate: OBJECTIVE Vitals: 09/08/25 1412 BP: 98/60 Pulse: 73 Resp: 16 Temp: 36.7 ??C (98 ??F) TempSrc: Temporal SpO2: 96% Weight: 63.7 kg (140 lb 6.4 oz) Height: 1.638 m (64.5 ) BP Readings from Last 5 Encounters: 09/08/25 98/60 09/01/25 127/78 08/28/25 106/52 07/21/25 106/62 06/10/25 98/60 Body mass index is 23.73 kg/m??. Plan is deferred until next visit Wt Readings from Last 5 Encounters: 09/08/25 63.7 kg (140 lb 6.4 oz) 09/01/25 64.2 kg (141 lb 9.6 oz) 08/28/25 64.2 kg (141 lb 9.6 oz) 08/27/25 62.6 kg (138 lb) 07/21/25 63.4 kg (139 lb 12.8 oz) Allergies[1] Active Medication: Current Outpatient Medications Medication Instructions ammonium lactate (AMLACTIN) 12 % cream 1 APPLICATION EXTERNALLY TWICE A DAY 30 DAYS for 30 blood sugar diagnostic (OneTouch Verio test strips) test strip USE TO CHECK BLOOD SUGARS ONCE DAILY cholecalciferol (VITAMIN D-3) 25 mcg (1,000 unit) capsule 2 capsules, Every 24 hours clindamycin phosphate 1 % gel, once daily Apply to affected area twice daily as needed cyclobenzaprine (FLEXERIL) 10 mg tablet 1 tablet, As needed fluticasone propionate (FLONASE) 50 mcg/actuation nasal spray 1 spray, Each Nostril, Daily, spray/apply 1 spray in each nostril daily. lancets 30 gauge misc USE TO TEST BLOOD SUGAR ONCE DAILY levothyroxine (SYNTHROID, LEVOTHROID) 125 mcg, oral, Daily meclizine (ANTIVERT) 25 mg tablet Take 1 tablet (25 mg total) by mouth as needed. omeprazole (PRILOSEC) 40 mg, oral, 2 times daily ondansetron ODT (ZOFRAN-ODT) 8 mg, translingual, Every 8 hours PRN Repatha SureClick 140 mg, subcutaneous, Every 14 days sodium chloride (OCEAN) 0.65 % nasal spray 1 spray, As needed traZODone (DESYREL) 100 mg, oral, Nightly PRN triamcinolone (KENALOG) 0.1 % lotion External for 30 zoledronic acid (RECLAST) 5 mg/100 mL piggyback 5 mg, Once Physical Exam Constitutional: Appearance: Normal appearance. HENT: Right Ear: Hearing and external ear normal. No decreased hearing noted. Tenderness (moderate tenderness in the ear canal) present. No drainage. There is no impacted cerumen. No mastoid tenderness. Tympanic membrane is not scarred, perforated or erythematous. Left Ear: Hearing, tympanic membrane and external ear normal. No decreased hearing noted. No drainage or tenderness. There is no impacted cerumen. No mastoid tenderness. Tympanic membrane is not scarred, perforated or erythematous. Ears: Comments: Patient had some debris in the ear canal slightly covering the right tympanic membrane. Did not appear to be perforated. Nose: No nasal tenderness. Right Sinus: Maxillary sinus tenderness (mild) present. No frontal sinus tenderness. Left Sinus: No maxillary sinus tenderness or frontal sinus tenderness. Eyes: General: Right eye: No discharge. Left eye: No discharge. Conjunctiva/sclera: Right eye: Right conjunctiva is not injected. Left eye: Left conjunctiva is not injected. Cardiovascular: Rate and Rhythm: Normal rate and regular rhythm. Heart sounds: No murmur heard. Pulmonary: Effort: Pulmonary effort is normal. Breath sounds: Normal breath sounds and air entry. No decreased breath sounds, wheezing, rhonchi orrales. Skin: Comments: New mole appearing on the upper right side of her face, near her hairline. Neurological: Mental Status: She is alert. Imaging No Pertinent Imaging Laboratory: CBC: Lab Results Component Value Date WBC 6.9 02/17/2025 HGB 14.3 02/17/2025 HCT 42.6 02/17/2025 MCV 89.7 02/17/2025 PLT 240 02/17/2025 CMP: Lab Results Component Value Date NA 138 08/28/2025 K 4.1 08/28/2025 CL 103 08/28/2025 CO2 30 08/28/2025 GLUCOSE 153 (H) 08/28/2025 BUN 14 08/28/2025 CREATININE 0.93 08/28/2025 CALCIUM 8.7 08/28/2025 PROT 6.7 08/28/2025 ALBUMIN 3.9 08/28/2025 BILITOT 0.4 08/28/2025 AST 13 08/28/2025 ALT 17 08/28/2025 ALKPHOS 53 08/28/2025 EGFR 65 08/28/2025 Lab Results Component Value Date LDLCALC 31 08/28/2025 No diagnosis found. Assessment & Plan Viral Sinusitis post URI: - She reports experiencing extreme pressure in her right ear, which started two nights ago and lasted for approximately 18 hours. The pressure has since decreased but she continues to feel fullness and occasional stinging in the ear. - There is no associated hearing loss or fever. - Prescribed Sudafed to help with congestion and relieve symptoms. Patient's blood pressure is under control. - Patient to continue Flonase as needed - Patient will follow-up in 1 week: Can consider offering an antihistamine at this time. 2. Tinnitus: She has a history of chronic tinnitus in both ears. No significant changes in the tinnitus, that she has noticed Patient will call the office if she has any changes in her hearing 3. Postnasal drip: - She has been experiencing postnasal drip and thick mucus in the back of her throat since the onset of her symptoms. - She uses a neti pot nightly, which provides temporary relief. Patient to continue using Neti pot relief of symptoms. 3. Headache: - She has been experiencing minor headaches for the past three days, which are more noticeable in the last two weeks with her URI - The headaches are described as pressure-like. - The headaches are relieved by ibuprofen. Patient can continue ibuprofen as needed for headache. 4. Mole: - Patient states she has a new mole that appeared on the right side of her face - Patient regularly follows with dermatology - Will further investigate this lesion on our 1 week follow-up Patient understands the plan and is in agreement with the plan. Patient will follow-up in 1 week. FOLLOW-UP: No follow-ups on file. ERICK Stoner [address] [address] I have obtained verbal consent from Viola Navarro prior to the recording. I have advised Driss Navarro that she may refuse the recording and require the recording to be turned off at any timeduring this encounter. Today's documentation was made using voice recognition software.This note may contain grammatical errors secondary to this software. [1] Allergies Allergen Reactions Acetaminophen-Codeine Nausea And Vomiting Albuterol Headache and Other SIDE EFFECT Headaches Atorvastatin Other and Weakness Muscle pain Muscle weakness Calcium Headache Cortisone Other Injection in hip : No rash, no trouble breathing, no vomiting or diarrhea She developed her menses 8 days after which lasted 10 days and weight loss for several days Also developed paresthesias after injection in foot Skin redness Ezetimibe Oxycodone Headache Scopolamine Headache Severe migraine Niacin Itching and Rash Within minutes developed hives and redness as soon as outdoor exposure. Cosigned by Trevor Wallace MD at 09/09/2025 8:22 AM EST documented in this encounter Plan of Treatment Upcoming Encounters Date Type Department Care Team (Late st Contact Info) Description 09/18/2025 10:45 AM EST Appointment Radiology Department [address] [phone] 09/28/2025 1:30 PM EST Office Visit Vascular Surgery - [place] [address] [place] [id number] Jag Loera MD [address] [place] [address] 10/06/2025 9:30 AM EST Office Visit [facility] Hematology Oncology [address] [place] [phone] Philly Cameron MD [address] [place] [address] 10/12/2025 11:00 AM EST Office Visit Endocrinology - [address] [phone] Adriana [place] PA [address] [place], [place] 01/27/2026 10:35 AM EDT Office Visit Pulmonology - [place] [address] [facility] [address] [place] [phone] Liliana Jameson NP [address] [place] [address] 06/16/2026 1:30 PM EDT Office Visit [facility] [place] [address] [place] [phone] Ginna Del Real MD [address] [place], [place] documented as of this encounter Visit Diagnoses Diagnosis Acute viral sinusitis- Primary Upper respiratory tract infection, unspecified type Nonintractable headache, unspecified chronicity pattern, unspecified headache type Postnasal drip Tinnitus aurium, bilateral Benign skin mole documented in this encounter Discontinued Medications Medication Sig Discontinue Reason Start Date End Da te colesevelam (WelChoL) 625 mg tablet Take 2 tablets (1,250 mg total) by mouth 1 (one) time each day in the morning. Take with meal(s) and a liquid. Patient Discharge 05/05/2025 09/08/2025 estradioL (ESTRACE) 0.01 % (0.1 mg/gram) vaginal cream Patient Discharge 02/27/2019 09/08/2025 documented as of this encounter Additional Health Concerns Assessment Noted Time PHQ-9 Depression Total Score: 0 09/08/20 25 2:12 PM EST A fall risk assessment has been complete d for the patient 08/28/2025 2:42 PM EDT documented as of this encounter Care Teams Gas Meter Mechanic Relationship Specialty Start Date End Date Carmine Chaparro PA [address] [place] [address] PCP - General Internal Medicine 09/03/24 documented as of this encounter
[2025-09-11 07:12] VITALS: BP 110/82; PULSE 85; TEMP 36.8; O2SAT 98; BMI 23.0
--- NOTE | 2025-09-11 07:12 | AM.OFFWIN_ITS ---
Intake Vital Signs 09/11/25 07:12 Height 5 ft 5 in Weight 138 lb BMI 23.0 BP 110/82 Blood Pressure Location Lt brachial Position Sitting Pulse 85 Pulse Source Pulse Oximeter Temp 98.2 F Temp Source Oral Pulse Oximetry (%) 98 Oxygen Delivery Method Room Air Intake Visit Reasons: EP right ear is clogged Intake Note: Patient presents c/o right ear pain x5 days. Patient Tobacco Use Status: Former Tobacco user Allergies calcium Allergy (Unknown, Verified 09/11/25 07:15) Headache ezetimibe Allergy (Unknown, Verified 09/11/25 07:15) Unknown albuterol Adverse Reaction (Verified 09/11/25 07:15) Headache atorvastatin Adverse Reaction (Verified 09/11/25 07:15) Muscle Pain codeine Adverse Reaction (Verified 09/11/25 07:15) Nausea and Vomiting cortisone Adverse Reaction (Verified 09/11/25 07:15) Rash niacin Adverse Reaction (Verified 09/11/25 07:15) Itching, rash oxycodone Adverse Reaction (Verified 09/11/25 07:15) Headache scopolamine Adverse Reaction (Verified 09/11/25 07:15) Headache Do you need a note to return to daycare/school/sports/work: No HPI HPI Comments History of Present Illness Details History of Present Illness - The patient is a 74-year-old female pr esenting with right ear canal blockage and associated symptoms. - The patient reports the onset of ear b lockage 5 days ago, initially managed with Sudafed as advised by a previous physician, but discontinued due to gastrointestinal discomfort. - Symptoms progressed to include nausea without vomiting, inability to eat, and headache when lying down. - The patient describes initial auditory disturbances, including loud noises and percolating sounds, which have since resolved. - The patient has been using Flonase onc e daily for a week Review of Systems - Ears: Reports ear blockage, auditory d isturbances, and tenderness. Denies any hearing loss. - Gastrointestinal: Reports nausea witho ut vomiting, inability to eat. - Neurological: Reports headache when ly ing down. Denies dizziness or balance issues. - Sleep: Reports sleep disturbances, inc luding blender helper awakenings and poor sleep quality. All systems reviewed and are unremarkable except as noted in HPI Physical Exam General: Cooperative, healthy appearing, comfortable, no acute distress and well developed Orientation: Patient oriented x3 Limitations: No limitations Head: Normal to inspection, but patient reports head pain when lying down Ears: Right EAC tender with erythema, cerumen blocking good view of TM, left EAC normal and TM normal Nose: Normal External nose present Face and sinus: Normal facial exam Eyes: Appearance normal, both eyes and all related structures Neck: Normal visual inspection and Yes full ROM Respiratory: Normal respiratory effort and able to speak in complete sentences. 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 Fatty liver Claudication of both lower extremities Bilateral carotid bruits Age related osteoporosis Adrenal nodule DVT (deep venous thrombosis) Perforation of sigmoid colon due to diverticulitis Diverticulitis Diverticulitis UTI (urinary tract infection) Diabetes High cholesterol Breast cancer Hypothyroid Abdominal pain Surgical History History of root canal procedure History of tonsillectomy History of back surgery History of lumpectomy of right breast History of repair of right rotator cuff History of cholecystectomy (1972) Family History Father Colon cancer Social History Household Members: Spouse Housing: House Do you presently have visiting nurse or other home services: No Patient Tobacco Use Status: Former Tobacco user Tobacco use type: Cigarette Cigarette Packs Per Day: 0.5 Cigarettes Per Day: 10.0 Years Smoked: 7 Second Hand Smoke Exposure: No Advance Directives Date on File: 09/09/21 service: No Current occupational status: retired Physical Exam Vital Signs: Last Vital Signs Temp 98.2 F 09/11/25 07:12 Pulse 85 09/11/25 07:12 BP 110/82 09/11/25 07:12 Pulse Ox 98 09/11/25 07:12 Oxygen Delivery Method Room Air 09/11/25 07:12 BMI result Body Mass Index 23.0 Assessment & Plan Assessment & Plan (1) Otitis externa: Code(s): H60.90 - Unspecified otitis externa, unspecified ear Qualifiers: Otitis externa type: diffuse Chronicity: acute Laterality: right Qualified Code(s): H60.311 - Diffuse otitis externa, right ear Plan: Plan Patient was informed and verbally consented to the use of an ambient scribe for clinic note documentation during this visit. - Prescribed ear drops containing a steroid and antibiotic to reduce inflammation and treat infection. - Recommended continuation of Flonase to address fluid behind the tympanic membrane, with dosage adjustment to one spray twice daily. - If no improvement, please follow up with PCP. Medications: New vdnenmlm-nndxtywhi-RO 3.5-10,000-1 mg/mL-unit/mL-% 4 drps otic (ear) right Q8H 10 mL 0RF 7 days Coding Level of Care Code New Pt Level 3 (03625) Diagnoses Acute diffuse otitis externa of right ear H60.311 Otitis externa type: diffuse Chronicity: acute Laterality: right
--- OUTSIDE RECORDS SUMMARY | 2025-09-11 07:14 | XMS_ITS ---
Author Organization [facility] Address [address] [place] [address] Phone Care Team Providers Care Produce Weigher Name Role Phone Carmine Chaparro Primary Care Provider [phone] Active Problems Problem Noted Date Diagnosed Date Acquired hammer toe of left foot 09/08/2025 Acquired hammer toe of right foot 09/08/2025 Chronic foot ulcer ([facility] V24, [facility] V28) Cystocele with incomplete uterovaginal prolapse 09/08/2025 Cystocele, midline 09/08/2025 Mixed incontinence 09/08/2025 Other acquired deformities of left foot 09/08/20 25 Polyneuropathy due to type 2 diabetes mellitus ([facility] V24, [facility] V28) 09/08/2025 Primary localized osteoarthrosis of ankle and fo ot 09/08/2025 Rectocele 09/08/2025 Claudication of both lower extremities ([facility] V24) 01/29/2025 Assessment & Plan (01/29/2025 8:22 [...] Future Mixed hyperlipidemia 01/29/2025 Assessment & Plan (08/28/2025 2:19 PM EDT): Orders: Lipid panel with reflex to direct LDL; Future Microalbumin creatinine urine ratio; Future Comprehensive metabolic panel; Future Hemoglobin A1c; Future Thyroid stimulating hormone with reflex to free t4 and free t3; Future Parathyroid hormone intact; Future US Head Neck Soft Tissue; Future Ambulatory referral to General Surgery; Future XR Chest 2 Views; Future Assessment & Plan (01/29/2025 8:22 AM EDT): [...] ELDER; Future Lung nodule 11/04/2024 Adrenal nodule ([facility] V24) 11/04/2024 Breast cancer ([facility] V24, [facility] V28) 024 Diabetes mellitus ([facility] V24, [facility] V28) Diverticulitis 10/13/2024 Hyperparathyroidism ([facility] V24) 10/07/2024 Parathyroid adenoma 10/07/2024 Age related osteoporosis 07/29/2024 Dyspepsia 01/16/2024 Basal cell carcinoma (BCC) 12/27/2023 Lumbar spondylosis 10/09/2023 Overview (09/08/2025): Last Assessment & Plan: Ms. Navarro continues to feel incapacitated by right sided upper buttock pain. Per Dr. De's notes, her hips look great and that should not be the issue. She has had several injections including 2 at the SI joint. All of these provided 1 day of improvement about 3 to 4 days after the injection. She has tried multiple NSAIDs that cause GI upset so is currently on Celebrex. She is tolerating this but has not noticed any significant improvement from it. Her pain is worst with sitting or laying down at night and she is unable to lay on either side for more than 3 minutes. She wore an SI belt for 6 hours 1 day which made her symptoms worse. So far, the only benefit has been from ice. On exam, she prefers to stand. She is acutely tender at the right SI joint. Strength is 5 out of 5, sensation intact, gait is steady. Review of the lumbar spine MRI at [facility] dated 03/18/2024 shows maintenance of the normal lordosis with no central stenosis. There is no significant disc bulge or herniation. There is very mild facet arthropathy on the left at L4-5 without clear compression of the descending L5 nerve root. At this point, I do not believe this is a lumbar radiculopathy but may be right sacroiliitis. She is going to continue the Celebrex, continue using ice and will give the SI belt another try but starting with short intervals maybe 1 hour at a time. We briefly discussed the option of an SI fuse and she would like to avoid major surgery if possible. She is certainly welcome to follow-up with us if her situation worsens and she wishes to consider that. I would then refer her to Dr. Lopez. Ganglion of right wrist 07/10/2023 Atopic dermatitis 12/20/2022 Actinic keratosis 12/20/2022 Acute deep vein thrombosis ( DVT) of distal vein of left lower extremity ([facility] V24, [facility] V28) 08/10/2022 Nocturnal hypoxia 07/02/2022 Overview (09/08/2025): Patient's average oxygen while sleep was 90% and katey 80% with 113min spent <88%. TRESSA (obstructive sleep apnea) 05/18/2022 Overview (10/13/2024): [...] H2O sent to [facility] [place]. Assessment & Plan (08/28/2025 2:19 PM EDT): Orders: Lipid panel with reflex to direct LDL; Future Microalbumin creatinine urine ratio; Future Comprehensive metabolic panel; Future Hemoglobin A1c; Future Thyroid stimulating hormone with reflex to free t4 and free t3; Future Parathyroid hormone intact; Future US Head Neck Soft Tissue; Future Ambulatory referral to General Surgery; Future XR Chest 2 Views; Future Disorder of pigmentation 12/08/2021 Epidermoid cyst of skin 12/08/2021 Melanocytic nevus 12/08/2021 Hyperparathyroidism ([facility] V24) 10/17/2021 Assessment & Plan (08/28/2025 2:19 PM EDT): Orders: Lipid panel with reflex to direct LDL; Future Microalbumin creatinine urine ratio; Future Comprehensive metabolic panel; Future Hemoglobin A1c; Future Thyroid stimulating hormone with reflex to free t4 and free t3; Future Parathyroid hormone intact; Future US Head Neck Soft Tissue; Future Ambulatory referral to General Surgery; Future XR Chest 2 Views; Future Focal nodular hyperplasia of liver 10/06/2021 Hemangioma of skin and subcutaneous tissue 02/09 Hand arthritis 10/08/2019 Type 2 diabetes mellitus wit hout complication, without long-term current use of insulin ([facility] V24, [facility] V28) 07/16/2019 Assessment & Plan (08/28/2025 2:19 PM EDT): Orders: Lipid panel with reflex to direct LDL; Future Microalbumin creatinine urine ratio; Future Comprehensive metabolic panel; Future Hemoglobin A1c; Future Thyroid stimulating hormone with reflex to free t4 and free t3; Future Parathyroid hormone intact; Future US Head Neck Soft Tissue; Future Ambulatory referral to General Surgery; Future XR Chest 2 Views; Future Bilateral carotid bruits 05/14/2018 Gastroesophageal reflux disease without esophagi tis 04/02/2018 Angioma serpiginosum 03/09/2015 Non-neoplastic nevus 09/08/2014 Impaired fasting glucose 03/10/2013 Positive PEPE (antinuclear antibody) 03/06/2013 Overview (09/08/2025): Of uncertain signig Diverticulitis of colon without hemorrhage 06/03 Overview (09/08/2025): Incidental finding at colonoscopy. Prolapse of vaginal wall 05/13/2012 Overview (09/08/2025): Dr. Kent - 05/09 Family history of chronic ischemic heart disease 12/05/2011 Dysplastic nevus 05/25/2006 Neoplasm of uncertain behavior of skin 6 Overview (09/08/2025): Dysplastic nevus 04/28 right deltoid Hypothyroidism 12/12/2005 Assessment & Plan (08/28/2025 2:19 PM EDT): Orders: Lipid panel with reflex to direct LDL; Future Microalbumin creatinine urine ratio; Future Comprehensive metabolic panel; Future Hemoglobin A1c; Future Thyroid stimulating hormone with reflex to free t4 and free t3; Future Parathyroid hormone intact; Future US Head Neck Soft Tissue; Future Ambulatory referral to General Surgery; Future XR Chest 2 Views; Future Dermatophytosis of nail 12/12/2005 Generalized osteoarthrosis of hand 12/12/2005 Overview (09/08/2025): IMO update Migraine without aura 12/12/2005 Overview (09/08/2025): IMO update Pure hypercholesterolemia 12/02/2005 Overview (10/13/2024): UNABLE TO [...] adjust her diet and start walking again. Assessment & Plan (08/28/2025 2:19 PM EDT): Orders: Lipid panel with reflex to direct LDL; Future Microalbumin creatinine urine ratio; Future Comprehensive metabolic panel; Future Hemoglobin A1c; Future Thyroid stimulating hormone with reflex to free t4 and free t3; Future Parathyroid hormone intact; Future US Head Neck Soft Tissue; Future Ambulatory referral to General Surgery; Future XR Chest 2 Views; Future Current Treatment and Therapy Plans No current plan information found. Past Treatment and Therapy Plans No past plan information found. Lifetime Dose Tracking * Chemical Lifetime Dose Automatic Entry Manual Entr y CTDIvol 17.99 mGy 17.99 mGy 0 mGy Resolved Problems Problem Noted Date Diagnosed Date Resolved Date Fatty liver 10/13/2024 09/08/2025
--- OUTSIDE RECORDS SUMMARY | 2025-09-11 07:14 | XMS_ITS | Clinical Summary ---
Author Organization [facility] Address [address] [place] [address] Care Team Providers Care Psychiatric Security Nurse Name Role Phone Carmine Chaparro PA-C Primary [...] age to complete this topic Care Teams Psychiatric Security Nurse Relationship Specialty Start Date End Date Carmine Chaparro PA-C PCP - General Medical Services 04/13/21
--- OUTSIDE RECORDS SUMMARY | 2025-09-11 07:14 | XMS_ITS | Clinical Summary ---
Author Organization [facility] Address [address] [place] [phone] Phone Care Team Providers Care Crown Buffer Name Role Phone Carmine Chaparro Primary Care Provider [phone] Allergies Active Allergy Reactions Criticality Noted Date [...] into a venous catheter 1 (one) time. Active cholecalciferol (VITAMIN D-3) 25 mcg (1,000 [...] mg total) by mouth if needed. Active evolocumab (Repatha SureClick) 140 mg/mL pen injector injectionIndications: Chest discomfort,Type 2 diabetes mellitus without complication, without long-term current use of insulin ([facility] V24, [facility] V28),Hypothyroidism, unspecified type,Hyperparathyroid ism ([facility] V24),Acute deep vein thrombosis (DVT) of distal vein of left lower extremity ([facility] V24, [facility] V28),Age related osteoporosis, unspecified pathological fracture presence,Mixed hyperlipidemia Inject 1 mL (140 mg total) under the skin every 14 (fourteen) days. 6 mL 3 025 Active traZODone (DESYREL) 50 mg tablet Take 2 tablets (100 mg total) by mouth at bedtime as needed for sleep. 90 tablet 11 025 Active omeprazole (PriLOSEC) [address] capsuleIndications:Ga stroesophageal reflux disease without esophagitis Take 1 capsule (40 mg total) by mouth 2 (two) times a day. 180 capsule 1 Active fluticasone propionate (FLONASE) 50 mcg/actuation nasal spray Administer 1 spray into each nostril 1 (one) time each day. spray/apply 1 spray in each nostril daily. 48 g 1 Active levothyroxine (SYNTHROID, LEVOTHROID) 125 mcg tablet TAKE 1 TABLET BY MOUTH EVERY DAY 90 tablet 1 Active clindamycin phosphate 1 % gel, once daily Apply to affected area twice daily as needed 30 mL 11 Active pseudoephedrine (Sudafed 12 Hour) 120 mg 12 hr tabletIndications:Upp er respiratory tract infection, unspecified type Take 1 tablet (120 mg total) by mouth every 12 (twelve) hours. Do not crush, chew, or split. 20 each 1 Active levothyroxine (SYNTHROID, LEVOTHROID) 125 mcg tablet TAKE 1 TABLET BY MOUTH EVERY DAY 90 tablet 1 025 08/14 Discontinued colesevelam (WelChoL) 625 mg tablet Take 2 tablets (1,250 mg total) by mouth 1 (one) time each day in the morning. Take with meal(s) and a liquid. 60 each 11 025 09/08 Discontinued( Patient Discharge) estradioL (ESTRACE) 0.01 % (0.1 mg/gram) vaginal cream 019 09/08 Discontinued( Patient Discharge) Active Problems Problem Noted Date Diagnosed Date Acquired hammer toe of left foot 09/08/2025 Acquired hammer toe of right foot 09/08/2025 Chronic foot ulcer ([facility] V24, [facility] V28) Cystocele with incomplete uterovaginal prolapse 09/08/2025 Cystocele, midline 09/08/2025 Mixed incontinence 09/08/2025 Other acquired deformities of left foot 09/08/20 25 Polyneuropathy due to type 2 diabetes mellitus (CMS/[facility] V24, [facility] V28) 09/08/2025 Primary localized osteoarthrosis of ankle and fo ot 09/08/2025 Rectocele 09/08/2025 Claudication of both lower extremities ([facility] V24) 01/29/2025 Assessment & Plan [...] Future Lung nodule 11/04/2024 Adrenal nodule ([facility] V24) 11/04/2024 Breast cancer ([facility] V24, [facility] V28) 024 Diabetes mellitus ([facility] V24, [facility] V28) Diverticulitis 10/13/2024 Hyperparathyroidism ([facility] V24) 10/07/2024 Parathyroid adenoma 10/07/2024 Age related osteoporosis 07/29/2024 Dyspepsia 01/16/2024 Basal cell carcinoma (BCC) 12/27/2023 Lumbar spondylosis 10/09/2023 Overview (09/08/2025): Last Assessment & Plan: Ms. Fu continues to feel incapacitated by right sided [...] Review of the lumbar spine MRI at [facility] dated 03/18/2024 shows maintenance of the normal [...] left lower extremity (CMS/HCC V24, CMS/HCC V28) 08/10/2022 Nocturnal hypoxia 07/02/2022 Overview (09/08/2025): [...] 16 cm H2O sent to [facility]. Assessment & Plan (08/28/2025 2:19 PM EDT): [...] of skin 12/08/2021 Melanocytic nevus 12/08/2021 Hyperparathyroidism ([facility] V24) 10/17/2021 Assessment & Plan (08/28/2025 2:19 [...] complication, without long-term current use of insulin ([facility] V24, [facility] V28) 07/16/2019 Assessment & Plan (08/28/2025 2:19 [...] Generalized osteoarthrosis of hand 12/12/2005 Overview (09/08/2025): O update Migraine without aura 12/12/2005 Overview (09/08/2025): [...] Surgery; Future XR Chest 2 Views; Future Resolved Problems Problem Noted Date Diagnosed Date Resolved Date Fatty liver 10/13/2024 09/08/2025 Encounters Date Type Department Care Team Description 09/08/2025 2:30 PM EST Office Visit Adult Medicine [place] - [address] [phone] Lenin Kat PA Acute viral sinusitis (Primary Dx); Upper respiratory tract infection, unspecified type; Nonintractable headache, unspecified chronicity pattern, unspecified headache type; Postnasal drip; Tinnitus aurium, bilateral; Benign skin mole 09/01/2025 4:00 PM EST Consult General Surgery - [address] [place] [address] Ginna Del Real MD Adenopathy (Primary Dx); History of parathyroidectomy; History of breast cancer 08/29/2025 Results Follow-Up Adult Medicine [facility] - [address] [phone] Carmine Chaparro PA 08/28/2025 2:00 PM EDT Lab Draw [facility] - [address] Neck mass; Type 2 diabetes mellitus without complication, without long-term current use of insulin (CMS/HCC V24, CMS/HCC V28); Hyperparathyroidism (CMS/HCC V24); Mixed hyperlipidemia; Pure hypercholesterolemia ; Hypothyroidism, unspecified type; TRESSA (obstructive sleep apnea) 08/28/2025 1:45 PM EDT - 08/28/2025 11:59 PM EDT Hospital Encounter XRAY - [address] [phone] Neck mass; Type 2 diabetes mellitus without complication, without long-term current use of insulin ([facility] V24, [facility] V28); Hyperparathyroidism ([facility] V24); Mixed hyperlipidemia; Pure hypercholesterolemia ; Hypothyroidism, unspecified type; TRESSA (obstructive sleep apnea) Discharge Disposition: Home or Self Care 08/28/2025 1:00 PM EDT Office Visit [place] [facility] [place] - [address] [phone] Carmine Chaparro PA Type 2 diabetes mellitus without complication, without long-term current use of insulin ([facility] V24, [facility] V28) (Primary Dx); Neck mass; Hyperparathyroidism ([facility] V24); Mixed hyperlipidemia; Pure hypercholesterolemia ; Hypothyroidism, unspecified type; TRESSA (obstructive sleep apnea); Routine general medical examination at a health care facility 08/27/2025 10:32 AM EDT - 08/27/2025 11:59 PM EDT Hospital Encounter [facility] at [address] [phone] History of invasive breast cancer; History of therapeutic radiation; Encounter for screening mammogram for malignant neoplasm of breast Discharge Disposition: Home or Self Care 08/27/2025 Telephone Gastroenterology - [address] [phone] Sushma Soto MD 07/30/2025 9:32 AM EDT - 07/30/2025 11:59 PM EDT Hospital Encounter Bone Density - [address] [phone] Age related osteoporosis, unspecified pathological fracture presence Discharge Disposition: Home or Self Care 07/30/2025 Results Follow-Up Endocrinology - [address] [phone] Chayo Howard MA 07/29/2025 Results Follow-Up Vascular Surgery - [place] [address] [facility] [address] [place] [phone] Ashley Ortiz MD 07/24/2025 12:00 PM EDT Ancillary Procedure [facility] - [facility] [address] [place] [phone] Varicose veins of lower extremity with pain, bilateral 07/21/2025 1:02 PM EDT - 07/21/2025 11:59 PM EDT [facility] [address] [place], [place] [phone] Right hip pain Discharge Disposition: Home or Self Care 07/21/2025 12:30 PM EDT Office Visit Adult Medicine [facility] [address] [place], [place] [phone] Annamaria Darnell PA Chronic left SI joint pain (Primary Dx); Right hip pain; Need for prophylactic vaccination and inoculation against influenza 07/01/2025 Telephone Pulmonology - [place] [address] [facility] [address] [place] [phone] Lea Anderson MA 06/26/2025 Telephone Adult Medicine [facility] [address] [place] [address] Carmine Chaparro PA from Last 3 Months Immunizations Immunization Administration Dates Next Due Influenza Quadravalent, 0.5m l (Fluad) 65yo and older 06/22/2023,07/19/2022 Influenza Quadravalent, 0.5m l (Fluzone High-dose) 65yo and older 07/10/2021 Influenza Quadrivalent, 0.5m l, preservative free (Fluarix; FluLaval; Fluzone) ages 6mo and older (Afluria) 3yo and older 07/20/2020,08/10/2016 Influenza trivalent, 0.5mL ( Fluad) 65yo and older 07/21/2025 Influenza trivalent, 0.5mL ( Fluzone High-dose) 65yo and older 07/04/2024,07/10/2019,08/02/2018,07/19 Influenza trivalent, 0.5mL, preservative free (Fluarix; FluLaval; Fluzone) ages 6mo and older (Afluria) 3 years and older 06/30/2024,06/29/2021,08/17/2014 Influenza trivalent, with pr eservative (Fluzone; Afluria) 6mo and older 08/06/2015,07/12/2012,07/29/2009,07/31,09/28/2007 Pfizer (ages 12 & older) Biv alent, COVID-19 07/19/2022 Pfizer SARS-CoV-2 COVID-19, mRNA, LNP-S, preservative free [...] HISTORICAL MOLE (REMOVAL OF) COLONOSCOPY 03/07/2004 PROCEDURE: NV COLONOSCOPY FLX DX W/COLLJ SPEC WHEN PFRMD; COMMENT: diverticulosis SHOULDER SURGERY 2018 Right PROCEDURE: HISTORICAL SHOULDER SURGERY; COMMENT: dr. bang, RTC BACK SURGERY dr lou PROCEDURE: HISTORICAL BACK SURGERY; COMMENT: disc surgery laminectemy lumbar approx 1986, then 2013 APPENDECTOMY CATARACT EXTRACTION, BILATERAL BREAST LUMPECTOMY Right Medical History Medical History Date Comments Pure [...] Alive Father (Age 74) cancer col on, [place], DM Mother Alive rheumatoid arth ritis Other [...] for your loved ones. For example, childcare administrator or elderly care for an older [...] 11/19/2024 3: 16 PM EST Obstetrics History Para Term AB IAB SAB Ectopic Multiple Livin g Live Births 2 Last Filed Vital Signs Vital Sign Reading [...] Mass Index 23.73 09/08/2025 2:12 PM EST Plan of Treatment Upcoming Encounters Date Type Department Care Team (Late st Contact Info) Description 09/18/2025 10:45 AM EST Appointment Radiology Department - [address] [phone] 09/28/2025 1:30 PM EST Office Visit Vascular Surgery - [place] [address] [place] [phone] Jag Loera MD [address] [place] [phone] 10/06/2025 9:30 AM EST Office Visit [facility] Hematology Oncology [address] [place] [phone] Philly Cameron MD [address] [place] [address] 10/12/2025 11:00 AM EST Office Visit Endocrinology - [address] [phone] Adriana Morgan PA [address] [place] [address] 01/27/2026 10:35 AM EDT Office Visit Pulmonology - [place] [address] [facility] [address] [place] [phone] Liliana Jameson NP [address] [place] [phone] 06/16/2026 1:30 PM EDT Office Visit [facility] [address] [phone] Ginna Del Real MD [address] [place] [phone] Health Maintenance Due Date Last Done Comments Diabetes: Annual Foot Exam 1960 COVID-19 Vaccine ( season) 2025 07/19/2022, 07/18/2022, 02/13/2022, Additional history exists Diabetes: Annual Retina Eye Exam 10/02/2025 10/02/2024 Diabetes: Blood Sugar Control Test (HGBA1C) 02/25/2026 08/28/2025, 04/22/2025, 10/13/2024 Diabetes: Annual Urine Albumin-Creatinine Ratio (uACR) 08/28/2026 08/28/2025, 04/22/2025, 10/13/2024 Diabetes: Annual GFR (Glomerular Filtration Rate) 08/28/2026 08/28/2025, 04/22/2025, 12/22/2024, Additional history exists Falls Risk Assessment 08/28/2026 08/28/2025, 025 Medicare Annual Wellness Visit 08/28/2026 08/28/2025 Social Influencers of Health Screening 08/28/2026 08/28/2025 Breast Cancer Screening 08/27/2027 08/27/20, 08/26/2024, 08/23/2020, Additional history exists Cholesterol Screening (Lipid Panel) 08/28/2030 08/28/2025, 04/22/2025, 02/10/2025, Additional history exists DTaP,Tdap,and Td Vaccines (3 - Td or Tdap) 07/19/2031 07/19/2021, 11/28/2010 Osteoporosis Screening (Bone Density Screening) 07/30/2035 07/30/2025, 03/20/2023, 07/07/2021, Additional history exists Pneumococcal Vaccine: 50+ Years Completed 04/02/2018, 01/18/2017 Zoster Vaccines Completed 04/28/2019, 01/27, 02/13/2019, Additional history exists Hepatitis C Screening Completed 10/13/2024 Influenza Vaccine Completed 07/21/2025, , 06/30/2024, Additional history exists Depression Screening Completed 09/08/2025 Colorectal Cancer Screening: Colonoscopy Discontinued HIB Vaccines Aged Out No longer eligi ble based on patient's age to complete this topic HPV Vaccines Aged Out No longer eligi ble based on patient's age to complete this topic Hepatitis A Vaccines Aged Out No long er eligible based on patient's age to complete this topic Hepatitis B Vaccines Aged Out No long [...] age to complete this topic RSV Immunization Adult Patients Discontinued RSV Immunization Patients Under 20 months Aged Out No longer eligible based on patient's age to complete this topic Varicella Vaccines Aged Out No longer eligible based on patient's age to complete this topic Medical Devices Implanted Type Area Shipping Associate Device Identifier Shelf Expiration Date Model / Serial / Lot Dental Implants Dental Implants Bilateral: Mouth Hemostat Flour Collgn 1gm [facility] - [id number] Implanted:Qty : 1 on 11/27/2024 by Ginna Del Real MD at [facility] Hemostasis Left: Parathyroid CR BARD - DAVOL DIV 08/25/2027 [id number] / SNA / [id number] Procedures Procedure Name Priority Date/Time Associated Diagnosis Comments LIPID PANEL WITH REFLEX TO DIRECT LDL Routine 08/28/2025 2:06 PM EDT Neck mass Type 2 diabetes mellitus without complication, without long-term current use of insulin ([facility] V24, [facility] V28) Hyperparathyroidism ([facility] V24) Mixed hyperlipidemia Pure hypercholesterolemia Hypothyroidism, unspecified type TRESSA (obstructive sleep apnea) MICROALBUMIN CREATININE URINE RATIO Routine 08/28/2025 2:06 PM EDT Neck mass Type 2 diabetes mellitus without complication, without long-term current use of insulin ([facility] V24, [facility] V28) Hyperparathyroidism ([facility] V24) Mixed hyperlipidemia Pure hypercholesterolemia Hypothyroidism, unspecified type TRESSA (obstructive sleep apnea) COMPREHENSIVE METABOLIC PANEL Routine 08/28/2025 2:06 PM EDT Neck mass Type 2 diabetes mellitus without complication, without long-term current use of insulin ([facility] V24, [facility] V28) Hyperparathyroidism ([facility] V24) Mixed hyperlipidemia Pure hypercholesterolemia Hypothyroidism, unspecified type TRESSA (obstructive sleep apnea) HEMOGLOBIN A1C Routine 08/28/2025 2:06 PM EDT Neck mass Type 2 diabetes mellitus without complication, without long-term current use of insulin ([facility] V24, [facility] V28) Hyperparathyroidism ([facility] V24) Mixed hyperlipidemia Pure hypercholesterolemia Hypothyroidism, unspecified type TRESSA (obstructive sleep apnea) THYROID STIMULATING HORMONE WITH REFLEX TO FREE T4 AND FREE T3 Routine 08/28/2025 2:06 PM EDT Neck mass Type 2 diabetes mellitus without complication, without long-term current use of insulin ([facility] V24, [facility] V28) Hyperparathyroidism ([facility] V24) Mixed hyperlipidemia Pure hypercholesterolemia Hypothyroidism, unspecified type TRESSA (obstructive sleep apnea) PARATHYROID HORMONE INTACT Routine 08/28/2025 2:06 PM EDT Neck mass Type 2 diabetes mellitus without complication, without long-term current use of insulin ([facility] V24, [facility] V28) Hyperparathyroidism ([facility] V24) Mixed hyperlipidemia Pure hypercholesterolemia Hypothyroidism, unspecified type TRESSA (obstructive sleep apnea) XR CHEST 2 VIEWS Routine 08/28/2025 1:56 PM EDT Neck mass Type 2 diabetes mellitus without complication, without long-term current use of insulin ([facility] V24, [facility] V28) Hyperparathyroidism ([facility] V24) Mixed hyperlipidemia Pure hypercholesterolemia Hypothyroidism, unspecified type TRESSA (obstructive sleep apnea) MG MAMMO DIGITAL SCREENING W EUSEBIO BILAT Routine 08/27/2025 10:57 AM EDT History of invasive breast cancer History of therapeutic radiation Encounter for screening mammogram for malignant neoplasm of breast BD BONE DENSITY DXA AXIAL SKELETON Routine [...] CLINICAL LAB 07/07/2025 EXTERNAL CLINICAL LAB 07/07/2025 HEPATITIS C ANTIBODY Routine 10/13/2024 11:20 AM EST Hyperparathyroidism (CMS/HCC V24) Parathyroid adenoma Age related osteoporosis, unspecified pathological fracture presence Type 2 diabetes mellitus without complication, without long-term current use of insulin (CMS/HCC V24, CMS/HCC V28) Hypothyroidism, unspecified type Pure hypercholesterolemia TRESSA (obstructive sleep apnea) Fatty liver Adrenal adenoma, unspecified laterality Lung nodule Primary insomnia from Last 3 Months or Most Recently Relevant to Health Maintenance Results * Thyroid stimulating hormone with reflex to free t4 and free t3 (08/28/2025 2:06 PM EDT) TSH 1.12 0.40 - 4.00 mcIU/mL LAB CHEMISTRY METHOD 08/28/2025 7:[address] [facility] Blood Venous blood specimen / Unknown Venipuncture / Unknown 08/28/2025 2:06 PM EDT 08/28/2025 2:07 PM EDT us Carmine SUAREZ LAB BLOOD ORDERABLES Nanette l Result [facility] [address] [place] [address], [place] [phone] * (ABNORMAL) Lipid panel with reflex to direct LDL (08/28/2025 2:06 PM EDT) Cholesterol 125 0 - 200 mg/dL LAB CHEMISTRY METHOD 08/28/2025 6:[address] [facility] Triglycerides 167(H) 0 - 150 mg/dL LAB CHEMISTRY METHOD 08/28/2025 6:[address] [facility] HDL 61 >=40 mg/dL LAB CHEMISTRY METHOD 08/28/2025 6:[address] [facility] LDL Calculated 31 0 - 100 mg/dL LAB CHEMISTRY METHOD 08/28/2025 6:[address] [facility] Comment:Estimated LDL Calcul ated using equation: Total cholesterol - HDL cholesterol - (Triglycerides/5) VLDL Cholesterol [place] 33.4 mg/dL LAB CHEMISTRY METHOD 08/28/2025 6:[address] [facility] Non HDL Chol. (LDL+VLDL) 64 <145 mg/dL LAB CHEMISTRY METHOD 08/28/2025 6:[address] [facility] Chol/HDL Ratio 2.0 0.0 - 4.4 LAB CHEMISTRY METHOD 08/28/2025 6:[address] [facility] Blood Venous blood specimen / Unknown Venipuncture / Unknown 08/28/2025 2:06 PM EDT 08/28/2025 2:07 PM EDT Carmine SUAREZ LAB BLOOD ORDERABLES Nanette l Result [facility] [address] [place] [address], [place] [phone] * Microalbumin creatinine urine ratio (08/28/2025 2:06 PM EDT) [facility] Creatinine, Urine 53.0 mg/dL LAB CHEMISTRY METHOD 08/28/2025 6:[address] [facility] Microalb, Ur <5.0 0.0 - 29.0 mg/L LAB CHEMISTRY METHOD 08/28/2025 6:[address] [facility] Microalb/Creat Ratio <9 <30 mg/g creat LAB CHEMISTRY METHOD 08/28/2025 6:[address] [facility] Urine Urine specimen obtained by clean catch procedure / Unknown Non-blood Collection / Unknown 08/28/2025 2:06 PM EDT 08/28/2025 2:07 PM EDT Carmine SUAREZ LAB URINE ORDERABLES Nanette l Result Performing Organization Address City/[facility]/ZIP Co de Phone Number [facility] [address] [place] [address], * Parathyroid hormone intact (08/28/2025 2:06 PM EDT) [facility] PTH 53.5 18.5 - 88.0 pcg/mL LAB CHEMISTRY METHOD 08/28/2025 7:[address] [facility] Blood Venous blood specimen / Unknown Venipuncture / Unknown 08/28/2025 2:06 PM EDT 08/28/2025 2:07 PM EDT Carmine SUAREZ LAB BLOOD ORDERABLES Nanette l Result [facility] [address] [place] [address], [place] [phone] * Hemoglobin A1c (08/28/2025 2:06 PM EDT) [facility] Hemoglobin A1C 5.9 <6.5 % LAB CHE[facility]STRY [facility] Mean Bld Glu Estim. 123 mg/dL LAB CHEMISTRY METHOD 08/28/2025 10:05 PM [facility] Blood Venous blood specimen / Unknown Venipuncture / Unknown 08/28/2025 2:06 PM EDT 08/28/2025 2:07 PM EDT Carmine SUAREZ LAB BLOOD ORDERABLES Nanette l Result [facility] [address] [place] [address], [place] [phone] * (ABNORMAL) Comprehensive metabolic panel (08/28/2025 2:06 PM EDT) Sodium 138 133 - 145 mmol/L LAB CHEMISTRY METHOD 08/28/2025 6:32 PM [facility] Potassium 4.1 3.5 - 5.5 mmol/L LAB CHEMISTRY METHOD 08/28/2025 6:32 PM [facility] Chloride 103 96 - 110 mmol/L LAB CHEMISTRY METHOD 08/28/2025 6:32 PM [facility] CO2 30 21 - 32 mmol/L LAB CHEMISTRY METHOD 08/28/2025 6:32 PM [facility] Anion Gap 5 3 - 11 LAB CHEMISTRY METHOD 08/28/2025 6:32 PM [facility] Glucose 153(H) 70 - 100 mg/dL LAB CHEMISTRY METHOD 08/28/2025 6:32 PM [facility] BUN 14 5 - 25 mg/dL LAB CHEMISTRY METHOD 08/28/2025 6:32 PM [facility] Creatinine 0.93 0.50 - 1.10 mg/dL LAB CHEMISTRY METHOD 08/28/2025 6:32 PM [facility] eGFR 65 >=60 mL/min/1. 73m2 LAB CHEMISTRY METHOD 08/28/2025 6:[address] [facility] Comment:Calculation based on the Chronic Kidney Disease Epidemiology Collaboration (CKD-EPI) equation refit without adjustment for race. BUN/Creatinine Ratio 15.1 LAB CHEMISTRY METHOD 08/28/2025 6:[address] [facility] Calcium 8.7 8.5 - 10.5 mg/dL LAB CHEMISTRY METHOD 08/28/2025 6:[address] [facility] AST (SGOT) 13 10 - 42 unit/L LAB CHEMISTRY METHOD 08/28/2025 6:32 PM [facility] ALT (SGPT) 17 10 - 60 unit/L LAB CHEMISTRY METHOD [facility]/28[facility]25 [facility] Alkaline Phosphatase 53 42 - 121 unit/L LAB CHEMISTRY METHOD 08/28/2025 6:32 PM [facility] Total Protein 6.7 6.0 - 8.0 g/dL LAB CHEMISTRY METHOD 08/28/2025 6:[address] [facility] Albumin 3.9 3.2 - 5.0 g/dL LAB CHEMISTRY METHOD 08/28/2025 6:32 PM [facility] Total Bilirubin 0.4 0.0 - 1.4 mg/dL LAB CHEMISTRY METHOD 08/28/2025 6:[address] [facility] Blood Venous blood specimen / Unknown Venipuncture / Unknown 08/28/2025 2:06 PM EDT 08/28/2025 2:07 PM EDT us Carmine SUAREZ LAB BLOOD ORDERABLES Nanette morfin Result [facility] [address] [place] [address], * XR Chest 2 Views (08/28/2025 1:56 PM EDT) Anatomical Region Laterality Modality Body Radiographic Jayleen ging 08/28/2025 5:25 PM EDT Impressions 08/28/2025 5:28 PM EDT No evidence of an acute chest process. POS - [id number] -------- FINAL REPORT -------- Dictated By: Rossi Rose Dictated Date: 08/28/2025 17:25 ET Assigned Physician: Rossi Rose Reviewed and Electronically Signed By: Rossi Rose Signed Date: 08/28/2025 17:28 ET Workstation ID: [id number] Transcribed By: Self Edit Transcribed Date: 08/28/2025 17:25 ET Narrative 08/28/2025 5:28 PM EDT EXAM: Chest x-ray HISTORY: Cough and chest discomfort. COMPARISON: 08/18/2019 and 07/05/2017, chest CT 11/03/2024 FINDINGS: PA and lateral views of the chest were performed. No focal infiltrate, pleural effusion, or evidence of pulmonary edema. Minimal bibasilar scarring. No pneumothorax. Heart is not enlarged. Mediastinal contours are stable. No new compression deformities. Procedure Note Rossi Rose MD - 08/28/2025 EXAM: Chest x-ray HISTORY: Cough and chest discomfort. COMPARISON: 08/18/2019 and 07/05/2017, chest CT 11/03/2024 FINDINGS: PA and lateral views of the chest were performed. No focal infiltrate, pleural effusion, or evidence of pulmonary edema.Minimal bibasilar scarring. No pneumothorax. Heart is not enlarged.Mediastinal contours are stable. No new compression deformities. IMPRESSION: No evidence of an acute chest process. POS - [id number] -------- FINAL REPORT -------- Dictated By: Rossi Rose Dictated Date: 08/28/2025 17:25 ET Assigned Physician: Rossi Rose Reviewed and Electronically Signed By: Rossi Rose Signed Date: 08/28/2025 17:28 ET Workstation ID: [id number] Transcribed By: Self Edit Transcribed Date: 08/28/2025 17:25 ET Carmine D Staropoli PA IMG XR PROCEDURES Final R esult * MG Mammo Digital Screening w Eusebio bilat (08/27/2025 10:57 AM EDT) Anatomical Region Laterality Modality Breast Bilateral Mammography 08/27/2025 11:2 4 AM EDT Impressions 08/27/2025 11:57 AM EDT No mammographic evidence of malignancy. No suspicious interval change. A negative mammogram in the presence of a clinically suspicious palpable abnormality does not preclude the possibility of malignancy or alter the indications for biopsy. ASSESSMENT: BI-RADS 2: BENIGN RECOMMENDATION(S): 1: Routine screening mammogram BILATERAL in 1 year. [facility] [address], [address] -------- FINAL REPORT -------- Dictated By: Steven Pickens Dictated Date: 08/27/2025 11:24 ET Assigned Physician: Steven Pickens Reviewed and Electronically Signed By: Steven Pickens Signed Date: 08/27/2025 11:57 ET Workstation ID: [id number] Transcribed By: Self Edit Transcribed Date: 08/27/2025 11:26 ET Narrative 08/27/2025 11:57 AM EDT EXAM: SCREENING MAMMOGRAPHY, BILATERAL HISTORY: SCREENING. Personal history of right lumpectomy for breast cancer. COMPARISON: 08/26/24, 08/17/23, 08/15/22, 08/11/21 and left mammography 08/11/20, 02/15/19, and 02/02/18 TECHNIQUE: Synthesized CC and MLO projections of each breast. Tomosynthesis of each breast in the CC and MLO projections. ADDITIONAL IMAGING: None Computer-aided detection was employed with the kontakt.ioD Mobi-Moto AI 3-D. TISSUE DENSITY: There are scattered areas of fibroglandular density. (BI-RADS category B) FINDINGS: RIGHT BREAST: No suspicious mass. No suspicious calcification. No distortion. No additional suspicious right breast findings LEFT BREAST: No suspicious mass. No suspicious calcification. No distortion. No change in equal density focal asymmetry superficial 2 o'clock position 3 cm from the left nipple. No additional suspicious left breast findings Procedure Note Steven Pickens MD - 08/27/2025 EXAM: SCREENING MAMMOGRAPHY, BILATERAL HISTORY: SCREENING. Personal history of right lumpectomy for breastcancer. COMPARISON: 08/26/24, 08/17/23, 08/15/22, 08/11/21 and left [id number]/14/20, 02/15/19, and 02/02/18 TECHNIQUE: Synthesized CC and MLO projections of each breast.Tomosynthesis of each breast in the CC and MLO projections. ADDITIONAL IMAGING: None Computer-aided detection was employed with the iCAD Mobi-Moto AI 3-D. TISSUE DENSITY: There are scattered areas of fibroglandular density.(BI-RADS category B) FINDINGS: RIGHT BREAST: No suspicious mass. No suspicious calcification. No distortion. Noadditional suspicious right breast findings LEFT BREAST: No suspicious mass. No suspicious calcification. No distortion. No change in equal density focal asymmetry superficial 2 o'clock position3 cm from the left nipple. No additional suspicious left breast findings IMPRESSION: No mammographic evidence of malignancy. No suspicious interval change. A negative mammogram in the presence of a clinically suspicious palpableabnormality does not preclude the possibility of malignancy or alter theindications for biopsy. ASSESSMENT: BI-RADS 2: BENIGN RECOMMENDATION(S): 1: Routine screening mammogram BILATERAL in 1 year. [facility] location[facility] [address], [address] -------- FINAL REPORT -------- Dictated By: Steven Pickens Dictated Date: 08/27/2025 11:24 ET Assigned Physician: Steven Pickens Reviewed and Electronically Signed By: Steven Pickens Signed Date: 08/27/2025 11:57 ET Workstation ID: [id number] Transcribed By: Self Edit Transcribed Date: 08/27/2025 11:26 ET us Ginna Del Real MD IMG BI PROCEDURES Final Result * BD Bone Density DXA Axial Skeleton (07/30/2025 10:04 AM EDT) Anatomical Region Laterality Modality Wrist, Hip, L-spine Bone Densito metry 07/30/2025 3:07 PM EDT Impressions 07/30/2025 3:09 PM EDT Impression: This patient is considered to have osteopenia by WHO criteria. FRAX not reported since the patient is being treated for osteoporosis. The [facility] Department of Internal Medicine recommends using National [...] alternative screening schedule based on alcon Tello., [facility] November 16, 2011 for patients with osteopenia [...] Signed Date: 07/30/2025 15:09 ET Workstation ID: [id number] Transcribed By: Self Edit Transcribed Date: 07/30/2025 [...] patient is being treated for osteoporosis. The [facility] Department of Internal Medicine recommendsusing National Osteoporosis [...] alternative screening schedule based on alcon [place]., [place] for patients with osteopenia (based on [...] Signed Date: 07/30/2025 15:09 ET Workstation ID: [id number] Transcribed By: Self Edit Transcribed Date: 07/30/2025 [...] performed with the patient in reverse trendelenburg. Property Maintenance Technician Details A felton scale, color and doppler [...] Signed Date: 07/21/2025 17:38 ET Workstation ID: [id number] Transcribed By: Self Edit Transcribed Date: 07/21/2025 [...] Signed Date: 07/21/2025 17:38 ET Workstation ID: [id number] Transcribed By: Self Edit Transcribed Date: 07/21/2025 17:37 ET Annamaria SUAREZ IMG XR PROCEDURES Final Result * External MRI Report (07/11/2025 8:23 AM EDT) Anatomical Region Laterality Modality Magnetic Resonan ce Historical Provider IMG MRI PROCEDURES Final Result * Lab use only - Non-affiliated results notification (07/11/2025 8:21 AM EDT) Other Topography unknown / Unknown Historical Provider LAB BLOOD ORDERABLES Nanette l Result * External clinical lab (07/07/2025) Only the most recent of3 resultswithin the time period is included. Provider [place] [facility] LAB BLOOD ORDERABLES Fin al Result * Hepatitis C antibody (10/13/2024 11:20 AM EST) Hepatitis C Antibody Negative Negative LAB CHEMISTRY METHOD 10/13/2024 8:[address] [facility] Blood Venous blood specimen / Unknown Venipuncture / Unknown 10/13/2024 11:20 AM EST 10/13/2024 11:20 AM EST Carmine SUAREZ LAB BLOOD ORDERABLES Nanette l Result [facility] [address] [place] [address], [place] [phone] from Last 3 Months or Most Recently Relevant to Health Maintenance Insurance MEDICARE [facility] Advance Directives Documents on File Type Date Recorded Patient Bed Teacher Expl anation Power of Fabricator Assembler [employer] 11/27/2024 6:05 AM HCP Health Care Decision [...] currently active code status orders. Care Teams Crown Buffer Relationship Specialty Start Date End Date Carmine Chaparro PA [address] [place] [phone] PCP - General Internal Medicine 09/03/24
--- OUTSIDE RECORDS SUMMARY | 2025-09-11 07:15 | XMS_ITS | Encounter Summary ---
Author Organization [facility] Address [address] [place] [address] Care Team Providers Care Drycleaner Name Role Phone Carmine Chaparro Primary Care Provider [phone] Encounter Details Date Type Department Care Team (Late st Contact Info) Description 07/29/2025 Results Follow-Up Vascular Surgery - [place] [address] [address] Ashley Ortiz MD [address] [place] [phone] Social History Tobacco Use Types Packs/Day Years [...] for your loved ones. For example, child support officer or elderly care for an older adult? [...] 10:45 AM EST Appointment Radiology Department - [address] [address] 09/28/2025 1:30 PM EST Office Visit Vascular Surgery - [place] [address] [facility] [address] [place] [address] Jag Loera MD [address] [place] [phone] 10/06/2025 9:30 AM EST Office Visit [facility] Hematology Oncology [address] [place] [phone] Philly Cameron MD [address] [place] [address] 10/12/2025 11:00 AM EST Office Visit Endocrinology - [address] [phone] Adriana Morgan PA [address] [place] [address] 01/27/2026 10:35 AM EDT Office Visit Pulmonology [facility] 175 [facility] 200 [place] [phone] Liliana Jameson NP [address] [place] [phone] 06/16/2026 1:30 PM EDT Office Visit [facility] [place] [address] [place] [phone] Ginna Del Real MD [address] [place] [address] documented as of this encounter Visit Diagnoses Not on filedocumented in this encounter Additional Health Concerns Assessment Noted Time PHQ-9 Depression Total Score: 0 04/22/20 25 10:32 AM EDT documented as of this encounter Care Teams Drycleaner Relationship Specialty Start Date End Date Carmine Chaparro PA [address] [place] [address] PCP - General Internal Medicine 09/03/24 documented as of this encounter
--- OUTSIDE RECORDS SUMMARY | 2025-09-11 07:15 | XMS_ITS | Patient Health Record ---
Author Organization [employer] [facility] Address [address] [facility] [address] [place] [address] Care Team Providers Care Foundry Superintendant Name Role Phone Jeff Lu Primary Care [...] of [place] [address] [place]EN [place]YNOSO [phone] [id number] Navarro , Viola Self - patient is the insured [facility] and [facility] [address] [place] [address] [phone] [id number] Viola Navarro Self - patient is the [...]
--- OUTSIDE RECORDS SUMMARY | 2025-09-11 07:15 | XMS_ITS | Patient Health Record ---
Author [facility] Address [address] [place] [address] Care Team Providers Care Law Clerk Name Role Phone Carmine Castro Primary Care Provider Unav ailable Black, Skye Unavailable [phone] YoungIsis santo Unavailable [phone] Allergies Allergen (clinical drug ingredient) Drug/Non Drug [...] HCl 10 MG Oral; Duration: 90 Not-Taking [place] Saline Nasal Gel Active Triamcinolone Acetonide 0.1 [...] Ordered Date Performed Result Body Sit e 90068-ARF 04/17/2025 N/A Encounters Encounter Location Date Provider [facility] [address] 10/06/2024 Isis Young Dystrophic nail L60.3 and Type 2 diabetes mellitus with diabetic polyneuropathy E11.42 [facility] [address] [address] 04/17/2025 Isis Young Ingrown nail L60.[address] [address] 09/18/2024 [facility]e Cespedes [facility] [address] 04/17/2025 Isis Young [address] [address] 05/08/2025 Skye Cespedes Assessments Encounter Date Diagnosis (ICD Code) Assessment Notes Treatment Notes Treatment Clinical Notes Section Notes 10/06/2024 Dystrophic nail (ICD-10 - L60.3) 04/17/2025 Ingrown nail (ICD-10 - L60.0) 10/06/2024 Type 2 diabetes mellitus with diabetic polyneuropathy (ICD-10 - E11.42) Plan Of Treatment Pending Test Test Name Order Date 12831-Wjpfeclm Plate 09/30/2020 41946-Pbtpxcvf Plate 06/05/2022 [id number] 08/11/2021 [id number] 04/17/2025 10562- Debride <25 sq cm 09/12/2021 46589- Debride <25 sq cm 10/14/2020 [id number] SKIN/TISSUE 08/29/2021 67168- I&D ABSCESS-COMPLICATED,MULTI 02/2023 02833-VREL SKIN LESIONS, 2 TO 4 06/11/20 [id number] NAIL(S) 06/11/2023 [id number] NAIL(S) 06/05/2022 10032-RJVT NAIL(S) 12/04/2022 Insurance Providers Payer Name Payer Address Payer Phone Subscriber Number Group Number Insured Name Patient Relationship to Insured Coverage Start Date Coverage End Date Medicare National [employer]t [employer] [address] [place] [address] [id number] Viola Navarro Self - patient is the insured [facility] [address] [place] [address] [id number] Alfred Navarro Spouse - patient is the [...] Libby Villarreal- blood clot left leg 2024 [facility] [place]- acute sigmoid diverticu litis- complications with a micropherferation 09/08/21-09/10/21
--- OUTSIDE RECORDS SUMMARY | 2025-09-11 07:15 | XMS_ITS | Encounter Summary ---
Author Organization [facility] [place] [address] Care Team Providers Care Nail Artist Name Role Phone Carmine Chaparro Primary Care Provider [phone] Encounter Details Date Type Department Care Team (Late st Contact Info) Description 07/30/2025 Results Follow-Up Endocrinology [address] [address] Chayo Howard [place] Social History Tobacco Use [...] for your loved ones. For example, childcare attendant or elderly care for an older adult? [...] 09/18/2025 10:45 AM EST Appointment Radiology Department [facility] [address] [place] [address] 09/28/2025 1:30 PM EST Office Visit Vascular Surgery - [place] [address] [place] [address] Jag Loera MD [address] [place] [address] 10/06/2025 9:30 AM EST Office Visit [facility] Hematology Oncology [address] [place] [phone] Philly Cameron MD [address] [place] [address] 10/12/2025 11:00 AM EST Office Visit Endocrinology - [place] [address] [place] [address] Adriana Morgan PA [address] [place], [place] 01/27/2026 10:35 AM EDT Office Visit Pulmonology [facility] 175 [facility] 200 [place] [phone] Liliana Jameson NP [address] [place] [address] 06/16/2026 1:30 PM EDT Office Visit [facility] - [place] [address] [place] [phone] Ginna Del Real MD [address] [place] [address] documented as of this encounter Visit Diagnoses Not on filedocumented in this encounter Additional Health Concerns Assessment Noted Time PHQ-9 Depression Total Score: 0 06/25/20 25 10:32 AM EDT documented as of this encounter Care Teams Nail Artist Relationship Specialty Start Date End Date Carmine Chaparro PA [address] [place] [address] PCP - General Internal Medicine 09/03/24 documented as of this encounter
--- OUTSIDE RECORDS SUMMARY | 2025-09-11 07:15 | XMS_ITS | Encounter Summary ---
Author Organization [facility] Address [address] [place] [address] Care Team Providers Care Computer Systems Engineer Name Role Phone Carmine Chaparro Primary Care Provider [phone] Encounter Details Date Type Department Care Team (Late st Contact Info) Description 08/29/2025 Results Follow-Up Adult Medicine [address] [phone] Carmine Chaparro PA [address] [place] [address] Social History Tobacco Use Types Packs/Day Years [...] for your loved ones. For example, child protective services specialist or elderly care for an older [...] 10:45 AM EST Appointment Radiology Department - [address] [address] 09/28/2025 1:30 PM EST Office Visit Vascular Surgery - [place] [address] [facility] 210 [place] [address] Jag Loera MD [address] [place] [phone] 10/06/2025 9:30 AM EST Office Visit [facility] Hematology Oncology [address] [place] [phone] Philly Cameron MD [address] [place] [address] 10/12/2025 11:00 AM EST Office Visit Endocrinology - [address] [phone] Adriana Morgan PA [address] [place] [address] 01/27/2026 10:35 AM EDT Office Visit Pulmonology [facility] 175 [facility] 200 [place] [phone] Liliana Jameson NP [address] [place] [phone] 06/16/2026 1:30 PM EDT Office Visit [facility] - [place] [address] [place] [phone] Ginna Del Real MD [address] [place] [address] documented as of this encounter Visit Diagnoses Not on filedocumented in this encounter Additional Health Concerns Assessment Noted Time PHQ-9 Depression Total Score: 0 08/28/20 25 2:46 PM EDT A fall risk assessment has been complete d for the patient 08/28/2025 2:42 PM EDT documented as of this encounter Care Teams Computer Systems Engineer Relationship Specialty Start Date End Date Carmine Chaparro PA [address] [place] [address] PCP - General Internal Medicine 09/03/24 documented as of this encounter
== END 2025-09-11 07:54 | disposition home or self-care (01) ==
PROVIDERS: PCP Physician Assistant Medical; Visit Provider Physician Assistant
DX: H60.311 Diffuse otitis externa, right ear (principal)

== ENCOUNTER → 2025-09-11 07:09 | Outpatient (BNVA) | payer MEDICARE, BC, SELFPAY | PROVIDERS: PCP Physician Assistant Medical; Visit Provider Physician Assistant | DX: H60.311 Diffuse otitis externa, right ear (principal) | CPT/HCPCS: 99202 ==

== ENCOUNTER 2025-09-14 07:09 | Outpatient (AMB) | payer MEDICARE, BC, SELFPAY ==
--- OUTSIDE RECORDS SUMMARY | 2024-07-30 12:00 | XMS_ITS | Encounter Summary ---
Author Organization [employer] Address [address] [place] [address] Care Team Providers Care Plumber Gasfitter Name Role Phone Carmine Chaparro Primary Care Provider +1 -[phone] Encounter Details Date Type Department Care Team [...] care for your loved ones. For example, children's tutor nursery or elderly care for an older adult? [...] 10:45 AM EST Appointment Radiology Department - [address] [address] 09/28/2025 1:30 PM EST Office Visit Vascular Surgery - [place] [address] [place] [address] Jag Loera MD [address] [place] [phone] 10/06/2025 9:30 AM EST Office Visit [facility] Hematology Oncology [address] [place] [phone] Philly Cameron MD [address] [place] [address] 10/12/2025 11:00 AM EST Office Visit Endocrinology - [place] [address] [place] [address] Adriana Morgan PA [address] [place] [address] 01/27/2026 10:35 AM EDT Office Visit Pulmonology [facility] 175 [facility] [address] [place] [address] Liliana Jameson NP [address] [place] [phone] 06/16/2026 1:30 PM EDT Office Visit [facility] [place] [address] [place] [phone] Ginna Del Real MD 230 [place] [phone] documented as of this encounter Procedures Procedure Name Priority Date/Time Associated Diagnosis Comments ..MISCELLANEOUS REFERENCE LAB TEST 07/30/2024 documented in this encounter Results * Miscellaneous reference lab test (07/30/2024) us Provider Onbase LAB BLOOD ORDERABLES Final Re sult documented in this encounter Visit Diagnoses Diagnosis Age-related osteoporosis without current pathological fracture documented in this encounter Care Teams Plumber Gasfitter Relationship Specialty Start Date End Date Carmine Chaparro PA PCP - General Internal Medicine 01/03/21 09/02/24 documented as of this encounter
--- OUTSIDE RECORDS SUMMARY | 2024-09-18 09:30 | XMS_ITS ---
Author Organization [facility] Address [address] [place] [address] Care Team Providers Care Brake Engineer Name Role Phone Carmine Castro Primary Care Provider Unav ailable Black, Skye Unavailable [phone] Isis Young Unavailable [phone] Medications Medication SIG (Take, Route, Frequency, Duration) [...] Active Encounters Encounter Location Date Provider Diagnosis [facility] [place] [address] [place] [address] 09/18/2024 Isis Young Plan Of Treatment No Information Progress Notes * Viola NAVARRO MDOB:1949 (74 yo F)Acc No.[id number]:09/18/2024 Progress Note Patient: Abbe Viola SCHULER Libia Provider: Reji Young DPM :1950 A ge:73 Y S ex:Female Date:09/18/2024 Address:[address] [place] [address] , [facility] Pcp:ERICK Brooke Subjective: * Chief Complaints: * [...] Date: 11/18/2023 Generated for Paulina cody/Art/Kelechi on: 11/14/2024 07:32 AM EST
--- OUTSIDE RECORDS SUMMARY | 2025-05-11 05:15 | XMS_ITS ---
Author Organization [facility] Address [address] [place] [address] Care Team Providers Care Die Repairer Forging Name Role Phone Carmine Castro Primary Care Provider Unav ailable Black, Skye Unavailable [phone] Isis Young Unavailable [phone] Encounters Encounter Location Date Provider Diagnosis [facility] [address] [place] [address] 05/11/2025 Isis Young Plan Of Treatment No Information Progress Notes * Viola NAVARRO MDOB:1949 (74 yo F)Acc No.[id number]:05/11/2025 Progress Notes Patient: Naeem RODRIGUEZise Libia Provider: Reji Young DPM :1950 A ge:74 Y S ex:Female Date:05/11/2025 Address:[address] [place] Pcp:ERICK Brooke Subjective: * Chief Complaints: * [...] 0 05/11/2025 Generated for Paulina cody/Art/Olegarioransmitting on: 11/14/2024 07:31 AM EST
[2025-09-14 07:12] VITALS: BP 116/70; PULSE 88; TEMP 36.8; O2SAT 96; BMI 23.1
--- NOTE | 2025-09-14 07:12 | MHC.OFFWIV ---
Intake Vital Signs 09/14/25 07:12 Height 5 ft 5 in Weight 139 lb BMI 23.1 BP 116/70 Blood Pressure Location Lt brachial Position Sitting Pulse 88 Pulse Source Pulse Oximeter Temp 98.2 F Temp Source Oral Pulse Oximetry (%) 96 Oxygen Delivery Method Room Air Intake Visit Reasons: EP-sinus and chest congestion, cough Intake Note: Patient presents c/o sinus congestion, chest congestion & cough x5 days. Patient seen on 09/11 for ear problems & currently using ABX ear drops. Patient Tobacco Use Status: Former Tobacco user Allergies calcium Allergy (Unknown, Verified 09/14/25 07:15) Headache ezetimibe Allergy (Unknown, Verified 09/14/25 07:15) Unknown albuterol Adverse Reaction (Verified 09/14/25 07:15) Headache atorvastatin Adverse Reaction (Verified 09/14/25 07:15) Muscle Pain codeine Adverse Reaction (Verified 09/14/25 07:15) Nausea and Vomiting cortisone Adverse Reaction (Verified 09/14/25 07:15) Rash niacin Adverse Reaction (Verified 09/14/25 07:15) Itching, rash oxycodone Adverse Reaction (Verified 09/14/25 07:15) Headache scopolamine Adverse Reaction (Verified 09/14/25 07:15) Headache Do you need a note to return to daycare/school/sports/work: No HPI HPI Comments History of Present Illness Details 74-year-old female presents to the walk-in clinic with complaints of upper respiratory symptoms. She reports headaches, fatigue, sinus congestion, chest congestion, and cough since Sunday. She states she had a similar episode at the end of July and was evaluated by her PCP at [facility]; chest X-ray at that time was unremarkable. She was instructed to take Sudafed and rest, which led to temporary improvement, but her symptoms worsened again on Sunday. She was seen on 09/11 at the walk-in clinic for right ear pain and was diagnosed with right otitis media; she is currently using antibiotic ear drops as prescribed. Patient denies fevers, chills, nausea, or vomiting. 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 Fatty liver Claudication of both lower extremities Bilateral carotid bruits Age related osteoporosis Adrenal nodule DVT (deep venous thrombosis) Perforation of sigmoid colon due to diverticulitis Diverticulitis Diverticulitis UTI (urinary tract infection) Diabetes High cholesterol Breast cancer Hypothyroid Abdominal pain Surgical History History of root canal procedure History of tonsillectomy History of back surgery History of lumpectomy of right breast History of repair of right rotator cuff History of cholecystectomy (1972) Family History Father Colon cancer Social History Household Members: Spouse Housing: House Do you presently have visiting nurse or other home services: No Patient Tobacco Use Status: Former Tobacco user Tobacco use type: Cigarette Cigarette Packs Per Day: 0.5 Cigarettes Per Day: 10.0 Years Smoked: 7 Second Hand Smoke Exposure: No Advance Directives Date on File: 09/09/21 service: No Current occupational status: retired Review of Systems Const All systems reviewed & are unremarkable except as noted in HPI and below Physical Exam Vital Signs: Last Vital Signs Temp 98.2 F 09/14/25 07:12 Pulse 88 09/14/25 07:12 BP 116/70 09/14/25 07:12 Pulse Ox 96 09/14/25 07:12 Oxygen Delivery Method Room Air 09/14/25 07:12 BMI result Body Mass Index 23.1 Const General: no acute distress Nutritional Appearance: well nourished Orientation/consciousness: patient oriented x3 HEENT Head: Yes normocephalic Ears: external ears normal and TM abnormal bulging on the left, wth effusion ( ) serosanguinous on the right, erythematous on the right, with fluid behind the TM on the left and retracted on the right General nose exam: Nasal discharge present Face and sinus: Yes sinuses nontender Mouth: moist mucous membranes Throat: Yes uvula midline Resp Effort & Inspection: normal respiratory effort Auscultation: clear to auscultation bilaterally, no crackles, no rales, no rhonchi and no wheezes Cardio Heart sounds: S1 normal heart sound present and S2 normal heart sound present Neuro General: patient oriented x3 Assessment & Plan Assessment & Plan (1) Cough: Code(s): R05.9 - Cough, unspecified Plan: History of Right Otitis Media ? currently on antibiotic ear drops and symptoms not mentioned as worsening. Upper Respiratory Infection (viral vs. sinusitis vs. early bronchitis) ? given persistent sinus/chest congestion, cough, and headache without fever. Ordered Amoxicillin 500 mg for 5 days. Continue supportive care: hydration, rest, warm fluids, saline nasal spray, steam inhalation. May continue Sudafed or other OTC decongestants if no contraindications. Consider adding intranasal corticosteroid (e.g., Flonase) for sinus congestion. Start Guaifenesin or honey-based cough syrup for chest congestion/cough. Monitor for red flags: fever, shortness of breath, chest pain, worsening ear pain, persistent symptoms. If cough worsens or persists, Will consider repeat chest X-ray or evaluation for bacterial sinusitis/bronchitis. Continue current antibiotic ear drops as prescribed for right Otitis media. Follow up with PCP or return to clinic if symptoms worsen or fail to improve. Medications: New amoxicillin 500 mg PO BID 10 caps 0RF 5 days R05.9 - Cough, unspecified dextromethorphan-guaifenesin 5-100 mg/5 mL (Mucinex Fast-Max DM Max) 10 mL PO Q4-8H PRN 1,000 mL 0RF cough R05.9 - Cough, unspecified Coding Level of Care Code Est Pt Level 4 (94925) Diagnoses Cough R05.9 Time Spent (min) 20
--- OUTSIDE RECORDS SUMMARY | 2025-09-14 07:31 | XMS_ITS | Clinical Summary ---
Author Organization [facility] Address [address] [place] [address] Care Team Providers Care Shredding Machine Knife Changer Name Role Phone Carmine Chaparro PA-C Primary [...] age to complete this topic Care Teams Shredding Machine Knife Changer Relationship Specialty Start Date End Date Carmine Chaparro PA-C PCP - General Medical Services 04/13/21
--- OUTSIDE RECORDS SUMMARY | 2025-09-14 07:31 | XMS_ITS | Clinical Summary ---
Author Organization [facility] Address [address] [place] [phone] Phone Care Team Providers Care Picker Name Role Phone Carmine Chaparro Primary Care Provider [phone] Allergies Active Allergy Reactions Criticality Noted Date [...] complication, without long-term current use of insulin ([facility] V24, [facility] V28),Hypothyroidism, unspecified type,Hyperparathyroidi sm ([facility] V24),Acute deep vein thrombosis (DVT) of distal vein of left lower extremity ([facility] V24, [facility] V28),Age related osteoporosis, unspecified pathological fracture presence,Mixed hyperlipidemia Inject 1 mL (140 mg total) under the skin every 14 (fourteen) days. 6 mL 3 025 Active traZODone (DESYREL) 50 mg tablet Take 2 tablets (100 mg total) by mouth at bedtime as needed for sleep. 90 tablet 11 025 Active omeprazole (PriLOSEC) [address] capsuleIndications:Gas troesophageal reflux disease without esophagitis Take 1 capsule (40 mg total) by mouth 2 (two) times a day. 180 capsule 1 025 Active fluticasone propionate (FLONASE) 50 mcg/actuation nasal spray Administer 1 spray into each nostril 1 (one) time each day. spray/apply 1 spray in each nostril daily. 48 g 1 025 Active levothyroxine (SYNTHROID, LEVOTHROID) 125 mcg tablet TAKE 1 TABLET BY MOUTH EVERY DAY 90 tablet 1 025 Active clindamycin phosphate 1 % gel, once daily Apply to affected area twice daily as needed 30 mL 11 025 Active pseudoephedrine (Sudafed 12 Hour) 120 mg 12 hr tabletIndications:Uppe r respiratory tract infection, unspecified type Take 1 tablet (120 mg total) by mouth every 12 (twelve) hours. Do not crush, chew, or split. 20 each 1 025 Active colesevelam (WelChoL) 625 mg tablet Take 2 tablets (1,250 mg total) by mouth 1 (one) time each day in the morning. Take with meal(s) and a liquid. 60 each 11 025 2024 Disconti nued(Pat ient Discharg e) estradioL (ESTRACE) 0.01 % (0.1 mg/gram) vaginal cream 019 2024 Disconti nued(Pat ient Discharg e) Active Problems Problem Noted Date Diagnosed Date Acquired hammer toe of left foot 09/08/2025 Acquired hammer toe of right foot 09/08/2025 Chronic foot ulcer ([facility] V24, [facility] V28) Cystocele with incomplete uterovaginal prolapse 09/08/2025 Cystocele, midline 09/08/2025 Mixed incontinence 09/08/2025 Other acquired deformities of left foot 09/08/20 25 Polyneuropathy due to type 2 diabetes mellitus ([facility] V24, [facility] V28) 09/08/2025 Primary localized osteoarthrosis of ankle and fo ot 09/08/2025 Rectocele 09/08/2025 Claudication of both lower extremities ([facility] V24) 01/29/2025 Assessment & Plan [...] ELDER; Future Lung nodule 11/04/2024 Adrenal nodule ([facility]/HCC V24) 11/04/2024 Breast cancer ([facility]/HCC V24, CMS/HCC V28) 024 Diabetes mellitus ([facility]/HCC V24, [facility]/HCC V28) Diverticulitis 10/13/2024 Hyperparathyroidism ([facility] V24) 10/07/2024 Parathyroid adenoma 10/07/2024 Age related [...] Review of the lumbar spine MRI at [facility] dated 03/18/2024 shows maintenance of the normal [...] of skin 12/08/2021 Melanocytic nevus 12/08/2021 Hyperparathyroidism ([facility] V24) 10/17/2021 Assessment & Plan [...] complication, without long-term current use of insulin ([facility] V24, [facility] V28) 07/16/2019 Assessment & Plan [...] 2:30 PM EST Office Visit Adult Medicine [address] [phone] Lenin Kat PA Acute viral sinusitis (Primary Dx); Upper respiratory tract infection, unspecified type; Nonintractable headache, unspecified chronicity pattern, unspecified headache type; Postnasal drip; Tinnitus aurium, bilateral; Benign skin mole 09/01/2025 4:00 PM EST Consult General Surgery - [address] [place] [address] Ginna Del Real MD Adenopathy (Primary Dx); History of parathyroidectomy; History of breast cancer 08/29/2025 Results Follow-Up Adult Medicine [address] [phone] Carmine Chaparro PA 08/28/2025 2:00 PM EDT Lab Draw Station - [address] Neck mass; Type 2 diabetes mellitus without complication, without long-term current use of insulin (CMS/HCC V24, CMS/HCC V28); Hyperparathyroidism (CMS/HCC V24); Mixed hyperlipidemia; Pure hypercholesterolemia ; Hypothyroidism, unspecified type; TRESSA (obstructive sleep apnea) 08/28/2025 1:45 PM EDT - 08/28/2025 11:59 PM EDT Hospital Encounter XRAY - [address] [phone] Neck mass; Type 2 diabetes mellitus without complication, without long-term current use of insulin ([facility] V24, [facility] V28); Hyperparathyroidism ([facility] V24); Mixed hyperlipidemia; Pure hypercholesterolemia ; Hypothyroidism, unspecified type; TRESSA (obstructive sleep apnea) Discharge Disposition: Home or Self Care 08/28/2025 1:00 PM EDT Office Visit Adult Medicine East - [address] [phone] Carmine Chaparro PA Type 2 diabetes mellitus without complication, without long-term current use of insulin (CMS/[facility] V24, CMS/[facility] V28) (Primary Dx); Neck mass; Hyperparathyroidism ([facility] V24); Mixed hyperlipidemia; Pure hypercholesterolemia ; Hypothyroidism, unspecified type; TRESSA (obstructive sleep apnea); Routine general medical examination at a [facility] care facility 08/27/2025 10:32 AM EDT - 08/27/2025 11:59 PM EDT [facility]counter [facility] at [address] [phone] History of invasive breast cancer; History of therapeutic radiation; Encounter for screening mammogram for malignant neoplasm of breast Discharge Disposition: Home or Self Care 08/27/2025 Telephone Gastroenterology - [address] [phone] Sushma Soto MD 07/30/2025 9:32 AM EDT - 07/30/2025 11:59 PM EDT Hospital Encounter Bone Density - [address] [phone] Age related osteoporosis, unspecified pathological fracture presence Discharge Disposition: Home or Self Care 07/30/2025 Results Follow-Up Endocrinology - [address] [phone] Chayo Howard [place] 07/29/2025 Results Follow-Up Vascular Surgery - [facility] [address] [place] [phone] Ashley Ortiz MD 07/24/2025 12:00 PM EDT Ancillary Procedure [facility] [address] [place] [address] Varicose veins of lower extremity with pain, bilateral 07/21/2025 1:02 PM EDT - 07/21/2025 11:59 PM EDT Hospital Encounter [facility] [address] [place] [address] Right hip pain Discharge Disposition: Home or Self Care 07/21/2025 12:30 PM EDT Office Visit Adult Medicine [facility] [address] [place] [address] Annamaria Darnell PA Chronic left SI joint pain (Primary Dx); Right hip pain; Need for prophylactic vaccination and inoculation against influenza 07/01/2025 Telephone Pulmonology - [facility] [address] [facility] [address] [place] [phone] Joaquín Grider [facility] [place] 06/26/2025 Telephone Adult Medicine [address] [phone] Carmine Chaparro PA from Last 3 Months [...] HISTORICAL MOLE (REMOVAL OF) COLONOSCOPY 03/07/2004 PROCEDURE: MS COLONOSCOPY FLX DX W/COLLJ SPEC WHEN PFRMD; [...] right breast in female, estrogen receptor positive ([facility] V24, [facility] V28) 09/20/2020 DX:Malignant neoplasm of ri ght breast in female, estrogen receptor positive ([facility]) PONV (postoperative nausea a nd vomiting) Hyperparathyroidism ([facility] V24) Family History Medical History [...] Alive Father (Age 74) cancer col on, [place], DM Mother Alive rheumatoid arth ritis Other [...] for your loved ones. For example, child and adolescent psychologist or elderly care for an older [...] 10:45 AM EST Appointment Radiology Department - [address] [phone] 09/28/2025 1:30 PM EST Office Visit Vascular Surgery - [facility] [address] [facility] [address] [place] [phone] Jag Loera MD [address] [place] [phone] 10/06/2025 9:30 AM EST Office Visit [facility] Hematology Oncology [address] [place] [phone] Philly Cameron MD [address] [place] [address] 10/12/2025 11:00 AM EST Office Visit Endocrinology - [address] [phone] Adriana Morgan PA [address] [place] [address] 01/27/2026 10:35 AM EDT Office Visit Pulmonology - [facility] 200 [place] [phone] Liliana Jameson NP [address] [place] [phone] 06/16/2026 1:30 PM EDT Office Visit [email or web address] Care [address] [phone] Ginna Del Real MD [address] [place] [phone] Health Maintenance Due Date Last [...] this topic Medical Devices Implanted Type Area Enrollment Nurse Device Identifier Shelf Expiration Date Model / Serial / Lot Dental Implants Dental Implants Bilateral: Mouth Hemostat Flour Collgn 1gm [facility] - na - [id number] Implanted:Qty : 1 on 11/27/2024 by Ginna Del Real MD at [facility] Hemostasis Left: Parathyroid CR BARD - DAVOL DIV 08/25/2027 [id number] / SNA / [id number] Procedures Procedure Name Priority Date/Time Associated Diagnosis Comments LIPID PANEL WITH REFLEX TO DIRECT LDL Routine 08/28/2025 2:06 PM EDT Neck mass Type 2 diabetes mellitus without complication, without long-term current use of insulin ([facility] V24, [facility] V28) Hyperparathyroidism ([facility] V24) Mixed hyperlipidemia Pure hypercholesterolemia Hypothyroidism, unspecified type TRESSA (obstructive sleep apnea) MICROALBUMIN CREATININE URINE RATIO Routine 08/28/2025 2:06 PM EDT Neck mass Type 2 diabetes mellitus without complication, without long-term current use of insulin ([facility] V24, [facility] V28) Hyperparathyroidism ([facility] V24) Mixed hyperlipidemia Pure hypercholesterolemia Hypothyroidism, unspecified type TRESSA (obstructive sleep apnea) COMPREHENSIVE METABOLIC PANEL Routine 08/28/2025 2:06 PM EDT Neck mass Type 2 diabetes mellitus without complication, without long-term current use of insulin ([facility] V24, [facility] V28) Hyperparathyroidism ([facility] V24) Mixed hyperlipidemia Pure hypercholesterolemia Hypothyroidism, unspecified type TRESSA (obstructive sleep apnea) HEMOGLOBIN A1C Routine 08/28/2025 2:06 PM EDT Neck mass Type 2 diabetes mellitus without complication, without long-term current use of insulin ([facility] V24, [facility] V28) Hyperparathyroidism ([facility] V24) Mixed hyperlipidemia Pure hypercholesterolemia Hypothyroidism, unspecified type TRESSA (obstructive sleep apnea) THYROID STIMULATING HORMONE WITH REFLEX TO FREE T4 AND FREE T3 Routine 08/28/2025 2:06 PM EDT Neck mass Type 2 diabetes mellitus without complication, without long-term current use of insulin ([facility] V24, [facility] V28) Hyperparathyroidism ([facility] V24) Mixed hyperlipidemia Pure hypercholesterolemia Hypothyroidism, unspecified type TRESSA (obstructive sleep apnea) PARATHYROID HORMONE INTACT Routine 08/28/2025 2:06 PM EDT Neck mass Type 2 diabetes mellitus without complication, without long-term current use of insulin ([facility] V24, [facility] V28) Hyperparathyroidism ([facility] V24) Mixed hyperlipidemia Pure hypercholesterolemia Hypothyroidism, unspecified type TRESSA (obstructive sleep apnea) XR CHEST 2 VIEWS Routine 08/28/2025 1:56 PM EDT Neck mass Type 2 diabetes mellitus without complication, without long-term current use of insulin ([facility] V24, [facility] V28) Hyperparathyroidism ([facility] V24) Mixed hyperlipidemia Pure hypercholesterolemia [...] CMS/HCC V28) Hypothyroidism, unspecified type Pure hypercholesterolemia TRSESA (obstructive sleep apnea) Fatty liver Adrenal adenoma, unspecified laterality Lung nodule Primary insomnia from Last 3 Months or Most Recently Relevant to Health Maintenance Results * Thyroid stimulating hormone with reflex to free t4 and free t3 (08/28/2025 2:06 PM EDT) TSH 1.12 0.40 - 4.00 mcIU/mL LAB CHEMISTRY METHOD 08/28/2025 7:42 PM EDT [facility] Blood Venous blood specimen / Unknown Venipuncture / Unknown 08/28/2025 2:06 PM EDT 08/28/2025 2:07 PM EDT us Carmine SUAREZ LAB BLOOD ORDERABLES Nanette morfin Result [facility] [address] [place] [address], [place] [phone] * (ABNORMAL) Lipid panel with reflex to direct LDL (08/28/2025 2:06 PM EDT) Cholesterol 125 0 - 200 mg/dL LAB CHEMISTRY METHOD 08/28/2025 6:32 PM EDT [facility] Triglycerides 167(H) 0 - 150 mg/dL LAB CHEMISTRY METHOD 08/28/2025 6:32 PM EDT [facility] HDL 61 >=40 mg/dL LAB CHEMISTRY METHOD 08/28/2025 6:32 PM EDT [facility] LDL Calculated 31 0 - 100 mg/dL LAB CHEMISTRY METHOD 08/28/2025 6:32 PM EDT [facility] Comment:Estimated LDL Calcul ated using equation: Total cholesterol - HDL cholesterol - (Triglycerides/5) VLDL Cholesterol Dakotah 33.4 mg/dL LAB CHEMISTRY METHOD 08/28/2025 6:32 PM EDT [facility] Non HDL Chol. (LDL+VLDL) 64 <145 mg/dL LAB CHEMISTRY METHOD 08/28/2025 6:32 PM EDT [facility] Chol/HDL Ratio 2.0 0.0 - 4.4 LAB CHEMISTRY METHOD 08/28/2025 6:32 PM EDT [facility] Blood Venous blood specimen / Unknown Venipuncture / Unknown 08/28/2025 2:06 PM EDT 08/28/2025 2:07 PM EDT us Carmine SUAREZ LAB BLOOD ORDERABLES Nanette morfin Result [facility] [address] [place] [address], [place] [phone] * Microalbumin creatinine urine ratio (08/28/2025 2:06 PM EDT) Creatinine, Urine 53.0 mg/dL LAB CHEMISTRY METHOD 08/28/2025 6:58 PM EDT [facility] Microalb, Ur <5.0 0.0 - 29.0 mg/L LAB CHEMISTRY METHOD 08/28/2025 6:58 PM EDT [facility] Microalb/Creat Ratio <9 <30 mg/g creat LAB CHEMISTRY METHOD 08/28/2025 6:58 PM EDT [facility] Urine Urine specimen obtained by clean catch procedure / Unknown Non-blood Collection / Unknown 08/28/2025 2:06 PM EDT 08/28/2025 2:07 PM EDT Carmine SUAREZ LAB URINE ORDERABLES Nanette l Result Performing Organization Address [facility]/ZIP Co de Phone Number [facility] [address] [place] [address], * Parathyroid hormone intact (08/28/2025 2:06 PM EDT) PTH 53.5 18.5 - 88.0 pcg/mL LAB CHEMISTRY METHOD 08/28/2025 7:30 PM EDT [facility] Blood Venous blood specimen / Unknown Venipuncture / Unknown 08/28/2025 2:06 PM EDT 08/28/2025 2:07 PM EDT Carmine SUAREZ LAB BLOOD ORDERABLES Nanette l Result [facility] [address] [place] [address], [place] [phone] * Hemoglobin A1c (08/28/2025 2:06 PM EDT) Hemoglobin A1C 5.9 <6.5 % LAB CHEMISTRY METHOD 08/28/2025 10:05 PM EDT [facility] Mean Bld Glu Estim. 123 mg/dL LAB CHEMISTRY METHOD 08/28/2025 10:05 PM [facility] Blood Venous blood specimen / Unknown Venipuncture / Unknown 08/28/2025 2:06 PM EDT 08/28/2025 2:07 PM EDT us Carmine SUAREZ LAB BLOOD ORDERABLES Nanette l Result [facility] [address] [place] [address], [place] [phone] * (ABNORMAL) Comprehensive metabolic panel (08/28/2025 2:06 PM EDT) Sodium 138 133 - 145 mmol/L LAB CHEMISTRY METHOD 08/28/2025 6:32 PM [facility] Potassium 4.1 3.5 - 5.5 mmol/L LAB CHEMISTRY METHOD 08/28/2025 6:32 PM [facility] Chloride 103 96 - 110 mmol/L LAB CHEMISTRY METHOD 08/28/2025 6:32 PM [facility] CO2 30 21 - 32 mmol/L LAB CHEMISTRY METHOD 08/28/2025 6:32 PM [facility] Anion Gap 5 3 - 11 LAB CHEMISTRY METHOD 08/28/2025 6:32 PM [facility] Glucose 153(H) 70 - 100 mg/dL LAB CHEMISTRY METHOD 08/28/2025 6:32 PM [facility] BUN 14 5 - 25 mg/dL LAB CHEMISTRY METHOD 08/28/2025 6:32 PM [facility] Creatinine 0.93 0.50 - 1.10 mg/dL LAB CHEMISTRY METHOD 08/28/2025 6:32 PM [facility] eGFR 65 >=60 mL/min/1. 73m2 LAB CHEMISTRY METHOD 08/28/2025 6:32 PM EDT [facility] Comment:Calculation based on the Chronic Kidney Disease Epidemiology Collaboration (CKD-EPI) equation refit without adjustment for race. BUN/Creatinine Ratio 15.1 LAB CHEMISTRY METHOD 08/28/2025 6:32 PM EDT [facility] Calcium 8.7 8.5 - 10.5 mg/dL LAB CHEMISTRY METHOD 08/28/2025 6:32 PM EDT [facility] AST (SGOT) 13 10 - 42 unit/L LAB CHEMISTRY METHOD 08/28/2025 6:32 PM EDT [facility] ALT (SGPT) 17 10 - 60 unit/L LAB CHEMISTRY METHOD 08/28/2025 6:32 PM EDT [facility] Alkaline Phosphatase 53 42 - 121 unit/L LAB CHEMISTRY METHOD 08/28/2025 6:32 PM EDT [facility] Total Protein 6.7 6.0 - 8.0 g/dL LAB CHEMISTRY METHOD 08/28/2025 6:32 PM EDT [facility] Albumin 3.9 3.2 - 5.0 g/dL LAB CHEMISTRY METHOD 08/28/2025 6:32 PM EDT [facility] Total Bilirubin 0.4 0.0 - 1.4 mg/dL LAB CHEMISTRY METHOD 08/28/2025 6:32 PM EDT [facility] Blood Venous blood specimen / Unknown Venipuncture / Unknown 08/28/2025 2:06 PM EDT 08/28/2025 2:07 PM EDT us Carmine SUAREZ LAB BLOOD ORDERABLES Nanette l Result [facility] [address] [place] [address], * XR Chest 2 Views (08/28/2025 1:56 PM EDT) Anatomical Region Laterality Modality Body Radiographic Jayleen ging 08/28/2025 5:25 PM EDT Impressions 08/28/2025 5:28 PM EDT No evidence of an acute chest process. POS - [id number] -------- FINAL REPORT -------- Dictated By: Rossi Rose Dictated Date: 08/28/2025 17:25 ET Assigned Physician: Rossi Rose Reviewed and Electronically Signed By: Rossi Rose Signed Date: 08/28/2025 17:28 ET Workstation ID: [id number] Transcribed By: Self Edit Transcribed Date: 08/28/2025 [...] of an acute chest process. POS - [id number] -------- FINAL REPORT -------- Dictated By: Rossi Rose Dictated Date: 08/28/2025 17:25 ET Assigned Physician: Rossi Rose Reviewed and Electronically Signed By: Rossi Rose Signed Date: 08/28/2025 17:28 ET Workstation ID: [id number] Transcribed By: Self Edit Transcribed Date: 08/28/2025 17:25 ET us Carmine SUAREZ IMG XR PROCEDURES Final R esult * [...] year. [facility]amm[facility] [address], [address] -------- FINAL REPORT -------- Dictated By: Steven Pickens Dictated Date: 08/27/2025 11:24 ET Assigned Physician: Steven Pickens Reviewed and Electronically Signed By: Steven Pickens Signed Date: 08/27/2025 11:57 ET Workstation ID: [id number] Transcribed By: Self Edit Transcribed Date: 08/27/2025 [...] Computer-aided detection was employed with the [employer] AI 3-D. TISSUE DENSITY: There are scattered [...] COMPARISON: 08/26/24, 08/17/23, 08/15/22, 08/11/21 and left [id number]/14/20, 02/15/19, and 02/02/18 TECHNIQUE: Synthesized CC and MLO projections of each breast.Tomosynthesis of each breast in the CC and MLO projections. ADDITIONAL IMAGING: None Computer-aided detection was employed with the [employer] AI 3-D. TISSUE DENSITY: There are scattered [...] year. [facility]ammography location[facility] [address], [address] -------- FINAL REPORT -------- Dictated By: Steven Pickens Dictated Date: 08/27/2025 11:24 ET Assigned Physician: Steven Pickens Reviewed and Electronically Signed By: Steven Pickens Signed Date: 08/27/2025 11:57 ET Workstation ID: [id number] Transcribed By: Self Edit Transcribed Date: 08/27/2025 [...] patient is being treated for osteoporosis. The [facility] Department of Internal Medicine recommends using [...] alternative screening schedule based on alcon Tello., [facility] November 16, 2011 for patients with osteopenia [...] Signed Date: 07/30/2025 15:09 ET Workstation ID: [id number] Transcribed By: Self Edit Transcribed Date: 07/30/2025 [...] patient is being treated for osteoporosis. The [facility] Department of Internal Medicine recommendsusing National [...] alternative screening schedule based on alcon Tello., NEJJanuary 2011 for patients with osteopenia (based on [...] Signed Date: 07/30/2025 15:09 ET Workstation ID: [id number] Transcribed By: Self Edit Transcribed Date: 07/30/2025 [...] performed with the patient in reverse trendelenburg. Insurance Claims Specialist Details A felton scale, color and doppler [...] Signed Date: 07/21/2025 17:38 ET Workstation ID: [id number] Transcribed By: Self Edit Transcribed Date: 07/21/2025 [...] Signed Date: 07/21/2025 17:38 ET Workstation ID: [id number] Transcribed By: Self Edit Transcribed Date: 07/21/2025 [...] resultswithin the time period is included. Provider [facility] LAB BLOOD ORDERABLES Fin al Result * Hepatitis C antibody (10/13/2024 11:20 AM EST) Hepatitis C Antibody Negative Negative LAB CHEMISTRY METHOD 10/13/2024 8:04 PM EST [facility] Blood Venous blood specimen / Unknown Venipuncture / Unknown 10/13/2024 11:20 AM EST 10/13/2024 11:20 AM EST Carmine SUAREZ LAB BLOOD ORDERABLES Nanette l Result [facility] [address] [place] [address], from Last 3 Months or Most Recently Relevant to Health Maintenance Insurance MEDICARE [facility] Advance Directives Documents on File Type Date Recorded Patient Cloth Seconds Sorter Expl anation Power of Shingles Roofer Helper 11/27/2024 6:05 AM HCP Health Care Decision [...] currently active code status orders. Care Teams Picker Relationship Specialty Start Date End Date Carmine Chaparro PA [address] [place] [id number] PCP - General Internal Medicine 09/03/24
--- OUTSIDE RECORDS SUMMARY | 2025-09-14 07:31 | XMS_ITS ---
Author Organization [facility] Address [address] [place] [address] Phone Care Team Providers Care Drilling Assistant Name Role Phone Carmine Chaparro Primary Care Provider [phone] Active Problems Problem Noted Date Diagnosed Date Acquired hammer toe of left foot 09/08/2025 Acquired hammer toe of right foot 09/08/2025 Chronic foot ulcer ([facility] V24, [facility] V28) Cystocele with incomplete uterovaginal prolapse 09/08/2025 Cystocele, midline 09/08/2025 Mixed incontinence 09/08/2025 Other acquired deformities of left foot 09/08/20 25 Polyneuropathy due to type 2 diabetes mellitus ([facility] V24, [facility] V28) 09/08/2025 Primary localized osteoarthrosis of ankle and fo ot 09/08/2025 Rectocele 09/08/2025 Claudication of both lower extremities ([facility] V24) 01/29/2025 Assessment & Plan (01/29/2025 [...] ELDER; Future Lung nodule 11/04/2024 Adrenal nodule ([facility] V24) 11/04/2024 Breast cancer ([facility] V24, [facility] V28) 024 Diabetes mellitus ([facility] V24, [facility] V28) Diverticulitis 10/13/2024 Hyperparathyroidism ([facility] V24) 10/07/2024 Parathyroid adenoma 10/07/2024 Age [...] Review of the lumbar spine MRI at [facility] dated 03/18/2024 shows maintenance of the normal [...] of distal vein of left lower extremity ([facility] V24, [facility] V28) 08/10/2022 Nocturnal hypoxia 07/02/2022 Overview (09/08/2025): [...] to 16 cm H2O sent to [facility]. Assessment & Plan (08/28/2025 2:19 PM EDT): [...] of skin 12/08/2021 Melanocytic nevus 12/08/2021 Hyperparathyroidism ([facility] V24) 10/17/2021 Assessment & Plan (08/28/2025 2:19 [...] complication, without long-term current use of insulin ([facility] V24, [facility] V28) 07/16/2019 Assessment & Plan (08/28/2025 2:19 [...]
--- OUTSIDE RECORDS SUMMARY | 2025-09-14 07:32 | XMS_ITS | Encounter Summary ---
Author Organization [facility] Address [address] [place] [address] Care Team Providers Care Emergency Response Officer Name Role Phone Carmine Chaparro Primary Care Provider [phone] Encounter Details Date Type Department Care Team (Late st Contact Info) Description 08/29/2025 Results Follow-Up Adult Medicine [address] [phone] Carmine Chaparro PA [address] [place] [address] Social History Tobacco Use Types Packs/Day Years [...] 10:45 AM EST Appointment Radiology Department - [address] [address] 09/28/2025 1:30 PM EST Office Visit Vascular Surgery - [place] [address] [facility] [address] [place] [address] Jag Loera MD [address] [place] [phone] 10/06/2025 9:30 AM EST Office Visit [facility] Hematology Oncology [address] [place] [phone] Philly Cameron MD [address] [place] [address] 10/12/2025 11:00 AM EST Office Visit Endocrinology - [address] [phone] Adriana Morgan PA [address] [place] [address] 01/27/2026 10:35 AM EDT Office Visit Pulmonology [facility] 175 [facility] [address] [place] [phone] Liliana Jameson NP [address] [place] [phone] 06/16/2026 1:30 PM EDT Office Visit [facility] [place] [address] [place] [phone] Ginna Del Real MD [address] [place] [address] documented as of this encounter Visit Diagnoses Not on filedocumented in this encounter Additional Health Concerns Assessment Noted Time PHQ-9 Depression Total Score: 0 08/28/20 25 2:46 PM EDT A fall risk assessment has been complete d for the patient 08/28/2025 2:42 PM EDT documented as of this encounter Care Teams Emergency Response Officer Relationship Specialty Start Date End Date Carmine Chaparro PA [address] [place] [address] PCP - General Internal Medicine 09/03/24 documented as of this encounter
--- OUTSIDE RECORDS SUMMARY | 2025-09-14 07:33 | XMS_ITS | Encounter Summary ---
Author Organization [facility] [place] [address] Care Team Providers Care Chemical Process Engineer Name Role Phone Carmine Chaparro Primary Care Provider [phone] Encounter Details Date Type Department Care Team (Late st Contact Info) Description 07/30/2025 Results Follow-Up Endocrinology [address] [phone] Chayo Howard [place] Social History Tobacco Use [...] 09/18/2025 10:45 AM EST Appointment Radiology Department [facility] [address] [place] [address] 09/28/2025 1:30 PM EST Office Visit Vascular Surgery - [place] [address] [place] [address] Jag Loera MD [address] [place] [address] 10/06/2025 9:30 AM EST Office Visit [facility] Hematology Oncology [address] [place] [phone] Philly Cameron MD [address] [place] [address] 10/12/2025 11:00 AM EST Office Visit Endocrinology - [place] [address] [place] [address] Adriana Morgan PA [address] [place], [place] 01/27/2026 10:35 AM EDT Office Visit Pulmonology [facility] 175 [facility] 200 [place] [phone] Liliana Jameson NP [address] [place] [address] 06/16/2026 1:30 PM EDT Office Visit [facility] [place] [address] [place] [phone] Ginna Del Real MD [address] [place] [address] documented as of this encounter Visit Diagnoses Not on filedocumented in this encounter Additional Health Concerns Assessment Noted Time PHQ-9 Depression Total Score: 0 06/25/20 25 10:32 AM EDT documented as of this encounter Care Teams Chemical Process Engineer Relationship Specialty Start Date End Date Carmine Chaparro PA [address] [place] [address] PCP - General Internal Medicine 09/03/24 documented as of this encounter
--- OUTSIDE RECORDS SUMMARY | 2025-09-14 07:33 | XMS_ITS | Patient Health Record ---
Author Organization [facility] Address [address] [facility] [address] [place] [address] Care Team Providers Care Wooden Box Maker Name Role Phone Jeff Lu Primary Care [...] of [place] [address] [place] [phone] [id number] Navarro , Viola Self - patient is the insured [facility] [address] [place] [address] [phone] [id number] Viola Navarro Self - patient is the [...]
--- OUTSIDE RECORDS SUMMARY | 2025-09-14 07:33 | XMS_ITS | Encounter Summary ---
Author Organization [facility] Address [address] [place] [address] Care Team Providers Care Air Intercept Controller Name Role Phone Carmine Chaparro Primary Care Provider [phone] Encounter Details Date Type Department Care Team (Late st Contact Info) Description 07/29/2025 Results Follow-Up Vascular Surgery - [place] [address] [address] Ashley Ortiz MD [address] [place] [phone] Social History Tobacco Use Types Packs/Day Years [...] 10:45 AM EST Appointment Radiology Department - [address] [address] 09/28/2025 1:30 PM EST Office Visit Vascular Surgery - [place] [address] [facility] [address] [place] [address] Jag Loera MD [address] [place] [phone] 10/06/2025 9:30 AM EST Office Visit [facility] Hematology Oncology [address] [place] [phone] Philly Cameron MD [address] [place] [address] 10/12/2025 11:00 AM EST Office Visit Endocrinology - [address] [phone] Adriana Morgan PA [address] [place] [address] 01/27/2026 10:35 AM EDT Office Visit Pulmonology [facility] 175 [facility] [address] [place] [phone] Liliana Jameson NP [address] [place] [phone] 06/16/2026 1:30 PM EDT Office Visit [facility] [place] [address] [place] [phone] Ginna Del Real MD [address] [place] [address] documented as of this encounter Visit Diagnoses Not on filedocumented in this encounter Additional Health Concerns Assessment Noted Time PHQ-9 Depression Total Score: 0 04/22/20 25 10:32 AM EDT documented as of this encounter Care Teams Air Intercept Controller Relationship Specialty Start Date End Date Carmine Chaparro PA [address] [place] [address] PCP - General Internal Medicine 09/03/24 documented as of this encounter
--- OUTSIDE RECORDS SUMMARY | 2025-09-14 07:34 | XMS_ITS | Patient Health Record ---
Author Organization [facility] Address [address] [facility] [place] [address] Care Team Providers Care Driver Manager Name Role Phone Carmine Castro Primary Care Provider Unav ailable Black, Skye Unavailable [phone] YoungIsis santo Unavailable [phone] Allergies Allergen (clinical drug ingredient) Drug/Non Drug [...] HCl 10 MG Oral; Duration: 90 Not-Taking Ulman Saline Nasal Gel Active Triamcinolone Acetonide 0.1 [...] Ordered Date Performed Result Body Sit e 57661-GMM 04/17/2025 N/A Encounters Encounter Location Date Provider Diagnosis [facility] [address] 10/06/2024 Isis Young Dystrophic nail L60.3 and Type 2 diabetes mellitus with diabetic polyneuropathy E11.42 [facility] [address] [address] 04/17/2025 Isis Young Ingrown nail L60.[address] [address] 09/18/2024 Skye Cespedes [facility] [address] 04/17/2025 Isis Young [address] [address] 05/08/2025 Skye Cespedes Assessments Encounter Date Diagnosis (ICD Code) Assessment Notes Treatment Notes Treatment Clinical Notes Section Notes 10/06/2024 Dystrophic nail (ICD-10 - L60.3) 04/17/2025 Ingrown nail (ICD-10 - L60.0) 10/06/2024 Type 2 diabetes mellitus with diabetic polyneuropathy (ICD-10 - E11.42) Plan Of Treatment Pending Test Test Name Order Date [id number]-Gmcyczln Plate 09/30/2020 55929-Rpzijscz Plate 06/05/2022 11414-VLB 08/11/2021 19356-FOQ 04/17/2025 64202- Debride <25 sq cm 09/12/2021 13803- Debride <25 sq cm 10/14/2020 67095-MKSXBSV SKIN/TISSUE 08/29/2021 95816- I&D ABSCESS-COMPLICATED,MULTI 02/2023 91932-BCOT SKIN LESIONS, 2 TO 4 06/11/20 80758-JWML NAIL(S) 06/11/2023 18817-HFZG NAIL(S) 06/05/2022 05254-PIYP NAIL(S) 12/04/2022 Insurance Providers Payer Name Payer Address Payer Phone Subscriber Number Group Number Insured Name Patient Relationship to Insured Coverage Start Date Coverage End Date Medicare National [employer] [address] [place] [address] [id number] Viola Navarro Self - patient is the insured [facility] [address] [place] [address] [id number] Alfred Navarro Spouse - patient is the [...] Libby Villarreal- blood clot left leg 2024 [facility] sigmoid diverticu litis- complications with a micropherferation 09/08/21-09/10/21
== END 2025-09-14 08:22 | disposition home or self-care (01) ==
PROVIDERS: PCP Physician Assistant Medical; Visit Provider Nurse Practitioner Family
DX: R05.9 Cough, unspecified (principal)

== ENCOUNTER → 2025-09-14 07:09 | Outpatient (BNVA) | payer MEDICARE, BC, SELFPAY | PROVIDERS: PCP Physician Assistant Medical; Visit Provider Nurse Practitioner Family | DX: R05.9 Cough, unspecified (principal) | CPT/HCPCS: 99212 ==

== ENCOUNTER 2025-09-17 08:12 | Outpatient (AMB) | payer MEDICARE, BC, SELFPAY ==
[2025-09-17 08:25] VITALS: BP 130/70; PULSE 84; TEMP 36.8; O2SAT 98; BMI 23.1
--- NOTE | 2025-09-17 08:25 | AM.OFFWIN_ITS ---
Intake Vital Signs 09/17/25 08:25 Height 5 ft 5 in Weight 139 lb BMI 23.1 BP 130/70 Blood Pressure Location Lt brachial Position Sitting Pulse 84 Pulse Source Pulse Oximeter Temp 98.2 F Temp Source Oral Pulse Oximetry (%) 98 Oxygen Delivery Method Room Air Intake Visit Reasons: EP-head & chest congestion Intake Note: Patient returns c/o chest congestion - seen on 09/14 & prescribed Amoxicillin but patient states it has moved down into her chest. Patient Tobacco Use Status: Former Tobacco user Allergies calcium Allergy (Unknown, Verified 09/17/25 08:28) Headache ezetimibe Allergy (Unknown, Verified 09/17/25 08:28) Unknown albuterol Adverse Reaction (Verified 09/17/25 08:28) Headache atorvastatin Adverse Reaction (Verified 09/17/25 08:) Muscle Pain codeine Adverse Reaction (Verified 09/17/25 08:28) Nausea and Vomiting cortisone Adverse Reaction (Verified 09/17/25 08:28) Rash niacin Adverse Reaction (Verified 09/17/25 08:28) Itching, rash oxycodone Adverse Reaction (Verified 09/17/25 08:28) Headache scopolamine Adverse Reaction (Verified 09/17/25 08:28) Headache HPI HPI Comments History of Present Illness Details 74-year-old female presents to the walk- in clinic with ongoing chest congestion, chest tightness, and wheezing. Symptoms have persisted despite being on Amoxicillin 500 mg BID for a 5-day course (1 day remaining). Reports no improvement. Endorses productive cough. Denies fevers, chills, nausea, or vomiting. 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 Fatty liver Claudication of both lower extremities Bilateral carotid bruits Age related osteoporosis Adrenal nodule DVT (deep venous thrombosis) Perforation of sigmoid colon due to diverticulitis Diverticulitis Diverticulitis UTI (urinary tract infection) Diabetes High cholesterol Breast cancer Hypothyroid Abdominal pain Surgical History History of root canal procedure History of tonsillectomy History of back surgery History of lumpectomy of right breast History of repair of right rotator cuff History of cholecystectomy (1972) Family History Father Colon cancer Social History Household Members: Spouse Housing: House Do you presently have visiting nurse or other home services: No Patient Tobacco Use Status: Former Tobacco user Tobacco use type: Cigarette Cigarette Packs Per Day: 0.5 Cigarettes Per Day: 10.0 Years Smoked: 7 Second Hand Smoke Exposure: No Advance Directives Date on File: 09/09/21 service: No Current occupational status: retired Review of Systems Const All systems reviewed & are unremarkable except as noted in HPI and below Physical Exam Vital Signs: Last Vital Signs Temp 98.2 F 09/17/25 08:25 Pulse 84 09/17/25 08:25 BP 130/70 09/17/25 08:25 Pulse Ox 98 09/17/25 08:25 Oxygen Delivery Method Room Air 09/17/25 08:25 BMI result Body Mass Index 23.1 Const General: no acute distress Nutritional Appearance: well nourished Orientation/consciousness: patient oriented x3 Resp Effort & Inspection: normal respiratory effort, no audible wheezes and Actively coughing Auscultation: no crackles, no rales, no rhonchi and wheezes lower bilaterally Cardio Heart sounds: S1 normal heart sound present and S2 normal heart sound present Neuro General: patient oriented x3, gait normal and moves all extremities Psych Speech and movement: Normal speech and movement present Assessment & Plan Assessment & Plan (1) Cough: Code(s): R05.9 - Cough, unspecified Plan: Acute bronchitis vs. COPD exacerbation vs Asthma Exacerbation. Lack of clinical improvement with Amoxicillin suggests likely viral etiology or need for broader coverage if bacterial component suspected. Ordered Chest Xray to rule out pneumonia given persistent symptoms. Ordered Z-pack for 3 days. Ordered Prednisone Orders: Orders XR chest 2V Today R05.9 - Cough, unspecified Medications: New prednisone 50 mg PO DAILY 5 tabs 0RF Wheezing and SOB R05.9 - Cough, unspecified azithromycin 500 mg PO DAILY 3 tabs 0RF 3 days R05.9 - Cough, unspecified Coding Level of Care Code Est Pt Level 4 (11750) Diagnoses Cough R05.9 Time Spent (min) 20
== END 2025-09-17 09:08 | disposition home or self-care (01) ==
PROVIDERS: PCP Physician Assistant Medical; Visit Provider Nurse Practitioner Family
DX: R05.9 Cough, unspecified (principal)

== ENCOUNTER 2025-09-17 08:12 | Outpatient (REF) | payer MEDICARE, BC, SELFPAY ==
--- OUTSIDE RECORDS SUMMARY | 2024-09-18 09:30 | XMS_ITS ---
Author Organization [facility] Address [address] [place] [address] Care Team Providers Care Inspector Conveyor Line Name Role Phone Carmine Castro Primary Care Provider Unav ailable Black, Skye Unavailable [phone] Isis Young Unavailable [phone] Medications Medication SIG (Take, Route, Frequency, Duration) [...] Active Encounters Encounter Location Date Provider Diagnosis [facility] [place] [address] [place] [address] 09/18/2024 Isis Young Plan Of Treatment No Information Progress Notes * Viola NAVARRO MDOB:1949 (74 yo F)Acc No.[id number]:09/18/2024 Progress Note Patient: Abbe Viola SCHULER Lib[place] Provider: Reji Young DPM :1950 A ge:73 Y S ex:Female Date:09/18/2024 Address:[address] [place] [address] , [facility] Pcp:ERICK Brooke Subjective: * Chief Complaints: * [...] Date: 11/18/2023 Generated for Paulina cody/Art/Kelechi on: 11/17/2024 10:24 AM EST
--- OUTSIDE RECORDS SUMMARY | 2025-05-11 05:15 | XMS_ITS ---
Author Organization [facility] Address [address] [place] [address] Care Team Providers Care Patent Searcher Name Role Phone Carmine Castro Primary Care Provider Unav ailable Black, Skye Unavailable [phone] Isis Young Unavailable [phone] Encounters Encounter Location Date Provider Diagnosis [facility] [address] [place] [address] 05/11/2025 Isis Young Plan Of Treatment No Information Progress Notes * Viola NAVARRO MDOB:1949 (74 yo F)Acc No.[id number]:05/11/2025 Progress Notes Patient: Naeem RODRIGUEZise [place]ia Provider: Reji Young DPM :1950 A ge:74 Y S ex:Female Date:05/11/2025 Address:[address] [place] Pcp:ERICK Brooke Subjective: * Chief Complaints: * [...] 0 05/11/2025 Generated for Paulina cody/Art/Olegarioransmitting on: 11/17/2024 10:23 AM EST
--- NOTE | ~2025-09-17 | XR_ITS ---
EXAMINATION: XR CHEST CLINICAL INFORMATION: R05.9 - Cough, unspecified COMPARISON: None available. TECHNIQUE: PA and lateral views FINDINGS: Hyperinflated lungs. No consolidation, pleural effusion or pneumothorax. Cardiomediastinal silhouette size is normal. Mild to moderate multilevel thoracolumbar spondylosis. Osteopenia versus osteoporosis. 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 Electronically signed by: Michel Gabriel MD 09/17/2025 10:41 AM [facility]
--- OUTSIDE RECORDS SUMMARY | 2025-09-17 10:23 | XMS_ITS | Patient Health Record ---
Author Organization [facility] Address [address] [facility] [address] [place] [address] Care Team Providers Care Plastics Scientist Name Role Phone Jeff Lu Primary Care [...] of [place] [address] [place] [phone] [id number] Navarro , Viola Self - patient is the insured [facility] [address] [place] [address] [phone] [id number] Viola Navarro Self - patient is the [...]
--- OUTSIDE RECORDS SUMMARY | 2025-09-17 10:25 | XMS_ITS | Clinical Summary ---
Author Organization [facility] Address [address] [place] [address] Care Team Providers Care Ramp Supervisor Name Role Phone Carmine Chaparro PA-C Primary [...] age to complete this topic Care Teams Ramp Supervisor Relationship Specialty Start Date End Date Carmine Chaparro PA-C PCP - General Medical Services 04/13/21
--- OUTSIDE RECORDS SUMMARY | 2025-09-17 10:25 | XMS_ITS | Patient Health Record ---
Author Organization [facility] Address [address] [facility] [place] [address] Care Team Providers Care Hazmat Tanker Driver Name Role Phone Carmine Castro Primary Care Provider Unav ailable Black, Skye Unavailable [phone] YoungIsis santo Unavailable [phone] Allergies Allergen (clinical drug ingredient) Drug/Non Drug [...] Active scopolamine Scopolamine headache Drug Allergy Act coribn Results Component Value Reference Range Notes HEMOGLOBIN [...] HCl 10 MG Oral; Duration: 90 Not-Taking Varney Saline Nasal Gel Active Triamcinolone Acetonide 0.1 [...] Ordered Date Performed Result Body Sit e 94255-QGY 04/17/2025 N/A Encounters Encounter Location Date Provider Diagnosis [facility] [address] 10/06/2024 Isis Young Dystrophic nail L60.3 and Type 2 diabetes mellitus with diabetic polyneuropathy E11.42 [facility] [address] [address] 04/17/2025 Isis Young Ingrown nail L60.[address] [address] 09/18/2024 Skye Cespedes [facility] [address] 04/17/2025 Isis Young [address] [address] 05/08/2025 Skye Cespedes Assessments Encounter Date Diagnosis (ICD Code) Assessment Notes Treatment Notes Treatment Clinical Notes Section Notes 10/06/2024 Dystrophic nail (ICD-10 - L60.3) 04/17/2025 Ingrown nail (ICD-10 - L60.0) 10/06/2024 Type 2 diabetes mellitus with diabetic polyneuropathy (ICD-10 - E11.42) Plan Of Treatment Pending Test Test Name Order Date [id number]-Kbvldkho Plate 09/30/2020 68095-Yglejykg Plate 06/05/2022 57779-BUD 08/11/2021 [id number] 04/17/2025 93529- Debride <25 sq cm 09/12/2021 15954- Debride <25 sq cm 10/14/2020 65533-ISGGTWP SKIN/TISSUE 08/29/2021 13806- I&D ABSCESS-COMPLICATED,MULTI 02/2023 66800-ABTK SKIN LESIONS, 2 TO 4 06/11/20 48214-TKAY NAIL(S) 06/11/2023 93923-CZUB NAIL(S) 06/05/2022 34849-KOKF NAIL(S) 12/04/2022 Insurance Providers Payer Name Payer Address Payer Phone Subscriber Number Group Number Insured Name Patient Relationship to Insured Coverage Start Date Coverage End Date Medicare National Govt Sv[employer] [address] [place] [address] [id number] Viola Navarro Self - patient is the insured [facility] [address] [place] [address] [id number] Alfred Navarro Spouse - patient is the [...] Libby Villarreal- blood clot left leg 2024 [facility]- acute sigmoid diverticu litis- complications with a micropherferation 09/08/21-09/10/21
== END 2025-09-17 08:13 | disposition home or self-care (01) ==
LOC: HO.HMGCX 08:12
PROVIDERS: PCP Physician Assistant Medical; Visit Provider Nurse Practitioner Family
DX: R05.9 Cough, unspecified (principal); Z87.891 Personal history of nicotine dependence
CPT/HCPCS: 71046; 99212

== ENCOUNTER → 2025-09-17 08:53 | Outpatient (BNV) | payer MEDICARE, BC, SELFPAY | PROVIDERS: PCP Physician Assistant Medical; Visit Provider Radiology Diagnostic Radiology | DX: R05.9 Cough, unspecified (principal) | CPT/HCPCS: 71046 ==

== ENCOUNTER 2025-10-15 14:46 | Outpatient (AMB) | payer MEDICARE, BC, SELFPAY ==
--- OUTSIDE RECORDS SUMMARY | 2024-07-30 12:00 | XMS_ITS | Encounter Summary ---
Author Organization [place] [address] Care Team Providers Care Hay Buckler Name Role Phone Carmine Chaparro Primary Care Provider [phone] Encounter Details Date Type Department Care Team (Latest Contact Info) Description 07/30/2024 1:00 PM EDT Hospital Encounter TH HISTORIC ENCOUNTERS EASTERN CONVERSION ONLY Age-related osteoporosis without current pathological fracture Social History Tobacco Use Types Packs/Day Years Used Date Smoking Tobacco: Former Cigarettes 0.3 2.6 0 04/02/1967 - 10/29/1969 Smokeless Tobacco: Never Alcohol Use Standard Drinks/Week Comments Yes 0 (1 standard drink = 0.6 oz pur e alcohol) rarely Housing Instability Answer Date Recorde d Are you worried that in the next 2 months you may not have stable housing? No 09/22/2025 Food Access & Nutrition Answer Date Rec orded Do you have access to a vari ety of food including fruits and vegetables? Yes 09/22/2025 Health Literacy Answer Date Recorded How often do you need to hav e someone help you when you read instructions, pamphlets, or other written material from your doctor or pharmacy? Never 09/22/2025 Caregiver: How often do you need to have someone help you when you read instructions, pamphlets, or other written material from your doctor or pharmacy? Not on file 09/22/2025 Financial Risk Answer Date Recorded How hard is it for you to pa y for the very basics like food, housing, medical care, and air conditioning / heating? Not very hard 09/22/2025 Transportation Answer Date Recorded Has the lack of transportati on kept you from meetings, work, or from getting things needed for daily living? No Has the lack of transportati on kept you from medical appointments or from getting medications? No 09/22/2025 Social Isolation Answer Date Recorded How often do you feel lonely or isolated from th ose around you? Never 09/22/2025 Food Risk Answer Date Recorded Within the past 12 months we worried whether our food would run out before we got money to buy more. Never true 09/22/2025 Within the past 12 months th e food we bought just didn't last and we didn't have money to get more. Never true 09/22/2025 Dependent Care Answer Date Recorded Do you need help finding or paying for care for your loved ones. For example, child psychologist or elderly care for an older adult? No 09/22/2025 Education Answer Date Recorded Do you think completing more education or training, like finishing a GED, going to college, or learning a trade, would be helpful for you? N/A 09/22/2025 Employment and Income Answer Date Recor ded During the last four weeks, have you been actively looking for work? No 09/22/2025 Living Situation Answer Date Recorded What is your living situation? Unrecognized valu e 09/22/2025 Interpersonal Safety Answer Date Record ed Physical Abuse Unrecognized value 11/27/2024 Verbal Abuse Unrecognized value 11/27/2024 Comments No Sex and Gender Information Value Date Recorded Sex Assigned at Female 11/19/2024 3:08 PM EST Legal Sex Female 7:40 AM EST Gender Identity Female 11/19/2024 3:08 PM EST Sexual Orientation Straight 11/19/2024 3: 16 PM EST documented as of this encounter Last Filed Vital Signs Vital Sign Reading Time Taken Comments Blood Pressure - - Pulse - - Temperature - - Respiratory Rate - - Oxygen Saturation - - Inhaled Oxygen Concentration - - Weight 61.4 kg (135 lb 5.8 oz) 07/30/2024 1:08 P M EDT Height 163.8 cm (5' 4.5 ) 10/04/2023 8:56 AM EST Body Mass Index 22.53 07/04/2024 10:13 AM EDT documented in this encounter Progress Notes * Historical, Notes Results - 07/30/2024 1:00 PM EDT Pt arrives with for first reclast infusion. Uptodate and FDA package insert materials provided and reviewed. Pt reports her dentist already knows she is on this and has no upcoming dental procedures. Labs reviewed, medication released. Encouraged PO hydration. Intake completed. Pt rested during infusion and tolerated without incident. Pt also provided complete 250mL NS IV fluid flush. Pt stable upon discharge with apts in place. Reviewed important contact information- may call infusion room with questions but also can reach out to prescribing PA at endocrinology. Left ambulatory with at 1435. documented in this encounter Plan of Treatment Upcoming Encounters Date Type Department Care Team (Late st Contact Info) Description 11/03/2025 11:30 AM EST Office Visit Vascular Surgery - [place] [address] [place] [address] Reena Cope PA [address] [place] [phone] 11/16/2025 2:00 PM EST Appointment [facility] [address] [place] [phone] 11/24/2025 12:00 PM EST Office Visit Adult Medicine [address] [phone] Brandan Cuba MD [address] [place] [address] 01/08/2026 10:45 AM EDT Office Visit Adult Medicine [address] [phone] Carmine Chaparro PA [address] [place] [phone] 01/27/2026 10:35 AM EDT Office Visit Pulmonology [facility] [address] [facility] [address] [place] [phone] Liliana Jameson NP [address] [place] [phone] 06/16/2026 1:30 PM EDT Office Visit [facility] - [place] [address] [place] [phone] Ginna Del Real MD [address] [place] [phone] documented as of this encounter Procedures Procedure Name Priority Date/Time Associated Diagnosis Comments ..MISCELLANEOUS REFERENCE LAB TEST 07/30/2024 documented in this encounter Results * Miscellaneous reference lab test (07/30/2024) us Provider Onbase LAB BLOOD ORDERABLES Final Re sult documented in this encounter Visit Diagnoses Diagnosis Age-related osteoporosis without current pathological fracture documented in this encounter Care Teams Hay Buckler Relationship Specialty Start Date End Date Carmine Chaparro PA PCP - General Internal Medicine 01/03/21 09/02/24 documented as of this encounter
--- OUTSIDE RECORDS SUMMARY | 2024-09-18 09:30 | XMS_ITS ---
Author Organization [facility] Address [address] [place] [address] Care Team Providers Care Clinical Aide Name Role Phone Carmine Castro Primary Care Provider Unav ailable Black, Skye Unavailable [phone] Isis Young Unavailable [phone] Medications Medication SIG (Take, Route, Frequency, Duration) Notes Start Date End Date Status Ammonium Lactate 12 % 1 APPLICATION EXTERNALLY TWICE A DAY 30 DAYS; Duration: 30 Active Exemestane Not-Takin g Amoxicillin-Pot Clavulanate 875-125 MG as directed Orally Not-Taking Anastrozole 1 MG 1 tablet Orally Once a day; Duration: 30 day(s) Not-Taking Amitriptyline HCl 10 MG Oral; Duration: 90 Not-Taking Raloxifene HCl Not-T aking Cyclobenzaprine HCl 10 MG 1 tablet at bedtime as needed Orally Once a day; Duration: 30 day(s) Not-Taking Estradiol Not-Taking Cephalexin 500 MG 1 capsule Orally every 12 hrs; Duration: 10 days Not-Taking eliquis 5 mg twice a day Not-T aking Vitamin D (Cholecalciferol) 25 MCG (1000 UT) 1 capsule Orally Once a day; Duration: 30 day(s) 09/27/2020 Active OneTouch Delica Lancets 30G - ; Duration: 90 Active Fluticasone Propionate 50 MCG/ACT Nasal; Duration: 90 PRN Active Triamcinolone Acetonide 0.1 % External; Duration: 30 PRN Active traZODone HCl 100 MG 1 tablet at bedtime Orally Once a day Active Ondansetron 4 MG 1 tablet on the tongue and allow to dissolve Orally Once a day; Duration: 30 day(s) Active Omeprazole 40 MG 1 capsule 30 minutes before morning meal Orally Once a day PRN Active Repatha SureClick 140 MG/ML Subcutaneous; Duration: 84 Active Levothyroxine Sodium 125 MCG Oral; Duration: 90 Active Meclizine HCl 25 MG 1 tablet as needed Orally Once a day; Duration: 30 day(s) PRN 09/27/2020 Active Restasis MultiDose 0.05 % 1 drop into affected eye Ophthalmic Twice a day Active Clindamycin HCl PRN Acti ve Ketoconazole PRN Active Encounters Encounter Location Date Provider Diagnosis [facility] [place] [address] [place] [address] 09/18/2024 Isis Young Plan Of Treatment No Information Progress Notes * Viola NAVARRO MDOB:1949 (74 yo F)Acc No.[id number]:09/18/2024 Progress Note Patient: Abbe Viola SCHULER Libia Provider: Reji Young DPM :1950 A ge:73 Y S ex:Female Date:09/18/2024 Address:[address] [place] [address] , [facility] Pcp:ERICK Brooke Subjective: * Chief Complaints: * * Medical History: * Medications: T aking Clindamycin HCl , Notes to Pharmacist: PRN, Taking Ketoconazole , Notes to Pharmacist: PRN, Taking Restasis MultiDose 0.05 % Emulsion 1 drop into affected eye Ophthalmic Twice a day , Taking Ondansetron 4 MG Tablet Disintegrating 1 tablet on the tongue and allow to dissolve Orally Once a day , Taking Omeprazole 40 MG Capsule Delayed Release 1 capsule 30 minutes before morning meal Orally Once a day , Notes to Pharmacist: PRN, Taking Repatha SureClick 140 MG/ML Solution Auto-injector Subcutaneous , Taking Levothyroxine Sodium 125 MCG Tablet Oral , Taking Meclizine HCl 25 MG Tablet 1 tablet as needed Orally Once a day , Notes to Pharmacist: PRN, Taking OneTouch Delica Lancets 30G - Miscellaneous , Taking Fluticasone Propionate 50 MCG/ACT Suspension Nasal , Notes to Pharmacist: PRN, Taking Triamcinolone Acetonide 0.1 % Lotion External , Notes to Pharmacist: PRN, Taking traZODone HCl 100 MG Tablet 1 tablet at bedtime Orally Once a day , Taking Vitamin D (Cholecalciferol) 25 MCG (1000 UT) Capsule 1 capsule Orally Once a day , Taking Ammonium Lactate 12 % Cream 1 APPLICATION EXTERNALLY TWICE A DAY 30 DAYS , Not-Taking/PRN Raloxifene HCl , Not-Taking/PRN Cyclobenzaprine HCl 10 MG Tablet 1 tablet at bedtime as needed Orally Once a day , Not-Taking/PRN Estradiol , Not-Taking/PRN Cephalexin 500 MG Capsule 1 capsule Orally every 12 hrs , Not-Taking/PRN eliquis 5 mg Tablet , Notes to Pharmacist: twice a day, Not-Taking/PRN Exemestane , Not-Taking/PRN Amoxicillin- Pot Clavulanate 875-125 MG Tablet as directed Orally , Not-Taking/PRN Anastrozole 1 MG Tablet 1 tablet Orally Once a day , Not-Taking/PRN Amitriptyline HCl 10 MG Tablet Oral Objective: * Vitals: Assessment: Plan: * Treatment: * Images: * The named appointment provid er may or may not be the originator of this progress note, and it is not deemed complete until electronically signed by the appointment provider. Sign off status: Pending * Provider: Reji Young DPM Date: 11/18/2023 Generated for Paulina cody/Art/Kelechi on: 12/16/2024 06:52 PM EST
--- OUTSIDE RECORDS SUMMARY | 2025-05-11 05:15 | XMS_ITS ---
Author Organization [facility] Address [address] [place] [address] Care Team Providers Care Fitness Assistant Name Role Phone Carmine Castro Primary Care Provider Unav ailable Black, Skye Unavailable [phone] Isis Young Unavailable [phone] Encounters Encounter Location Date Provider Diagnosis [facility] [address] [place] [address] 05/11/2025 Isis Young Plan Of Treatment No Information Progress Notes * Viola NAVARRO MDOB:1949 (74 yo F)Acc No.[id number]:05/11/2025 Progress Notes Patient: Naeem RODRIGUEZise [place] Provider: Reji Young DPM :1950 A ge:74 Y S ex:Female Date:05/11/2025 Address:[address] [place] Pcp:ERICK Brooke Subjective: * Chief Complaints: * [...] 0 05/11/2025 Generated for Paulina cody/Art/Olegarioransmitting on: 12/16/2024 06:52 PM EST
--- OUTSIDE RECORDS SUMMARY | 2025-10-12 11:00 | XMS_ITS | Encounter Summary ---
Author Organization [facility] Address [address] [place] [address] Care Team Providers Care Hotel Administrative Assistant Name Role Phone Carmine Chaparro Primary Care Provider [phone] Reason for Visit * Reason Comments Results F/u bone density res ults Encounter Details Date Type Department Care Team (Late st Contact Info) Description 10/12/2025 11:00 AM EST Office Visit Endocrinology - [address] [phone] Adriana Morgan PA [address] [place] [address] Age related osteoporosis, unspecified pathological fracture presence (Primary Dx); Hypothyroidism, unspecified type; Vitamin D deficiency Social History Tobacco Use Types Packs/Day Years [...] for your loved ones. For example, child watch attendant or elderly care for an older [...] Sign Reading Time Taken Comments Blood Pressure 112/55 10/12/2025 11:09 AM EST Pulse 76 10/12/2025 11:09 AM EST Temperature - - Respiratory Rate 15 10/12/2025 11:09 AM EST Oxygen Saturation - - Inhaled Oxygen Concentration - - Weight 62.6 kg (138 lb) 10/12/2025 11:09 AM EST Height 162.6 cm (5' 4 ) 10/12/2025 11:09 AM EST Body Mass Index 23.69 10/12/2025 11:09 AM EST documented in this encounter Progress Notes * ERICK Faulkner - 10/12/2025 11:00 AM EST CHIEF COMPLAINT: Results (F/u bone density results) IDENTIFIER: Viola Navarro is a 74 y.o. old female HPI: Patient 74-year-old female presents today for a follow-up on osteoporosis. History of hyperparathyroidism, underwent parathyroid surgery in October 2024. Small parathyroid adenoma was located just inferolateral to the left inferior thyroid gland. Most recent PTH is 53.5 with a calcium level of 8.7. She continues to take vitamin D 1000 units/day. With osteoporosis. Recent bone density scan shows T-score -1.9 of the lumbar spine -2.4 of the lefthip. She received her first Reclast at the beginning of July 2024. No recent falls or fractures. With hypothyroidism, on levothyroxine. Lab Results Component Value Date TSH 1.12 08/28/2025 History: Had a bone density in February 2023 which showed osteopenia of the lumbar spine and osteoporosis in the right femoral neck with T-score -2.6. FRAX score suggesting treatment. Patient tries to remain active, routine walking somewhat limited by chronic hip pain. She drinks alcohol once or twice a month. Stopped smoking in 1969 No drug use. No history of kidney stones. No chronic steroid use. Menopause at age 51 Menarche at age 17?, Patient is unsure. ROS: GENERAL: No malaise GI: No abdominal discomfort ENDO: see HPI NEURO: No persistent headache, syncope PAST MEDICAL HISTORY: Patient Active Problem List Diagnosis Date Noted Age related osteoporosis 10/12/2025 Acquired hammer toe of left foot 09/08/2025 Acquired hammer toe of right foot 09/08/2025 Chronic foot ulcer ([facility] V24, [facility] V28) 09/08/2025 Cystocele with incomplete uterovaginal prolapse 09/08/2025 Cystocele, midline 09/08/2025 Mixed incontinence 09/08/2025 Other acquired deformities of left foot 09/08/2025 Polyneuropathy due to type 2 diabetes mellitus ([facility] V24, [facility] V28) 09/08/2025 Primary localized osteoarthrosis of ankle and foot 09/08/2025 Rectocele 09/08/2025 Claudication of both lower extremities ([facility] V24) 01/29/2025 Mixed hyperlipidemia 01/29/2025 Lung nodule 11/04/2024 Adrenal nodule ([facility] V24) 11/04/2024 Breast cancer ([facility] V24, [facility] V28) 10/13/2024 Diabetes mellitus ([facility] V24, [facility] V28) 10/13/2024 Diverticulitis 10/13/2024 Hyperparathyroidism ([facility] V24) 10/07/2024 Parathyroid adenoma 10/07/2024 Age related osteoporosis 07/29/2024 Dyspepsia 01/16/2024 Basal cell carcinoma (BCC) 12/27/2023 Lumbar spondylosis 10/09/2023 Ganglion of right wrist 07/10/2023 Atopic dermatitis 12/20/2022 Actinic keratosis 12/20/2022 Acute deep vein thrombosis (DVT) of distal vein of left lower extremity ([facility] V24, [facility] V28) 08/10/2022 Nocturnal hypoxia 07/02/2022 TRESSA (obstructive sleep apnea) 05/18/2022 Disorder of pigmentation 12/08/2021 Epidermoid cyst of skin 12/08/2021 Melanocytic nevus 12/08/2021 Hyperparathyroidism ([facility] V24) 10/17/2021 Focal nodular hyperplasia of liver 10/06/2021 Hemangioma of skin and subcutaneous tissue 02/10/2020 Hand arthritis 10/08/2019 Type 2 diabetes mellitus without complication, without long-term current use of insulin ([facility] V24, [facility] V28) 07/16/2019 Bilateral carotid bruits 05/14/2018 Gastroesophageal reflux disease without esophagitis 04/02/2018 Angioma serpiginosum 03/09/2015 Non-neoplastic nevus 09/08/2014 Impaired fasting glucose 03/10/2013 Positive PEPE (antinuclear antibody) 03/06/2013 Diverticulitis of colon without hemorrhage 06/03/2012 Prolapse of vaginal wall 05/13/2012 Family history of chronic ischemic heart disease 12/05/2011 Dysplastic nevus 05/25/2006 Neoplasm of uncertain behavior of skin 05/25/2006 Hypothyroidism 12/12/2005 Dermatophytosis of nail 12/12/2005 Generalized osteoarthrosis of hand 12/12/2005 Migraine without aura 12/12/2005 Pure hypercholesterolemia 12/02/2005 Past Surgical History: Procedure Laterality Date APPENDECTOMY BACK SURGERY dr lou PROCEDURE: HISTORICAL BACK SURGERY; COMMENT: disc surgery laminectemy lumbar approx 1986, then 2013 BREAST LUMPECTOMY Right CATARACT EXTRACTION, BILATERAL CHOLECYSTECTOMY 1969 PROCEDURE: HISTORICAL CHOLECYSTECTOMY COLONOSCOPY 03/07/2004 PROCEDURE: CT COLONOSCOPY FLX DX W/COLLJ SPEC WHEN PFRMD; COMMENT: diverticulosis MOLE REMOVAL PROCEDURE: HISTORICAL MOLE (REMOVAL OF) SHOULDER SURGERY Right 2018 PROCEDURE: HISTORICAL SHOULDER SURGERY; COMMENT: dr. bang, [facility] TONSILLECTOMY PROCEDURE: HISTORICAL TONSILLECTOMY SOCIAL HISTORY: Social History Tobacco Use Smoking status: Former Current packs/day: 0.00 Average packs/day: 0.3 packs/day for 2.6 years (0.8 ttl pk-yrs) Types: Cigarettes Start date: 04/02/1967 Quit date: 10/29/1969 Years since quittin.9 Smokeless tobacco: Never Substance Use Topics Alcohol use: Yes Comment: rarely FAMILY HISTORY: Family History Problem Relation Name Age of Onset Glaucoma Father Heart attack Father Colon cancer Father 75 Basal cell carcinoma Mother Nose...probable BCC by pts. description Heart attack Mother cad, stent Arthritis Mother hx RA Breast cancer Other m & p aunts& p aunts Squamous cell carcinoma Son Breast cancer Other 60 Blindness Neg Hx Cataracts Neg Hx Macular degeneration Neg Hx Strabismus Neg Hx Family Status Relation Name Status Father at age 74 cancer colon, [place], DM Mother Alive rheumatoid arthritis Other m & p aunts& p aunts Other Son (Not Specified) Other (Not Specified) Neg Hx (Not Specified) Brother Alive dm Brother Alive Brother Alive Brother Alive Brother Alive No partnership data on file MEDICATIONS DISCONTINUED/REORDERED: There are no discontinued medications. ACTIVE MEDICATIONS: Outpatient Medications Marked as Taking for the 10/12/25 encounter (Office Visit) with ERICK Faulkner Medication Sig Dispense Refill albuterol HFA (PROAIR HFA ; PROVENTIL HFA ; VENTOLIN HFA) 90 mcg/actuation inhaler Inhale 2 puffs by mouth every 4 (four) hours if needed for wheezing or shortness of breath. ammonium lactate (AMLACTIN) 12 % cream 1 APPLICATION EXTERNALLY TWICE A DAY 30 DAYS for 30 blood sugar diagnostic ([employer] Verio test strips) test strip USE TO CHECK BLOOD SUGARS ONCE DAILY budesonide (PULMICORT) 0.25 mg/2 mL nebulizer solution TAKE 2 ML (0.25 MG TOTAL) BY NEBULIZATION 2 (TWO) TIMES A DAY. RINSE MOUTH WITH WATER AFTER USE TO REDUCE AFTERTASTE AND INCIDENCE OF CANDIDIASIS. DO NOT SWALLOW. 60 mL 1 cholecalciferol (VITAMIN D-3) 25 mcg (1,000 unit) capsule 2 capsules (2,000 Units total) 1 (one) time each day at the same time. clindamycin phosphate 1 % gel, once daily Apply to affected area twice daily as needed 30 mL 11 cyclobenzaprine (FLEXERIL) 10 mg tablet Take 1 tablet (10 mg total) by mouth if needed. doxycycline (VIBRAMYCIN) 100 mg capsule Take 1 capsule (100 mg total) by mouth 2 (two) times a day for 10 days. Take with at least 8 ounces (large glass) of water, do not lie down for 30 minutes after. Administer 2 hours before or after multivitamins, antacids, or other products containing polyvalent cations (i.e., calcium, iron, magnesium, selenium, zinc). 20 each 0 evolocumab (Repatha SureClick) 140 mg/mL pen injector injection Inject 1 mL (140 mg total) under the skin every 14 (fourteen) days. 6 mL 3 fluticasone propionate (FLONASE) 50 mcg/actuation nasal spray Administer 1 spray into each nostril 1 (one) time each day. spray/apply 1 spray in each nostril daily. 48 g 1 ipratropium-albuteroL (DUONEB) 0.5-2.5 mg/3 mL nebulizer solution Take 3 mL by nebulization every 6(six) hours. 360 mL 2 lancets 30 gauge misc USE TO TEST BLOOD SUGAR ONCE DAILY levothyroxine (SYNTHROID, LEVOTHROID) 125 mcg tablet TAKE 1 TABLET BY MOUTH EVERY DAY 90 tablet 1 lotilaner (Xdemvy) 0.25 % drops Administer into affected eye(s). meclizine (ANTIVERT) 25 mg tablet Take 1 tablet (25 mg total) by mouth as needed. omeprazole (PriLOSEC) [address] capsule Take 1 capsule (40 mg total) by mouth 2 (two) times a day. 180 capsule 1 ondansetron ODT (ZOFRAN-ODT) 8 mg disintegrating tablet Dissolve 1 tablet (8 mg total) on top of the tongue every 8 (eight) hours if needed for nausea or vomiting. 12 tablet 0 predniSONE (DELTASONE) 20 mg tablet Take 3 tabs (60mg) daily for 3 days, then take 2 tabs (40mg) daily for 3 days, then take 1 tab (20mg) daily for 3 days. 18 tablet 0 sodium chloride (OCEAN) 0.65 % nasal spray Administer 1 spray into each nostril if needed for congestion. traZODone (DESYREL) 50 mg tablet Take 2 tablets (100 mg total) by mouth at bedtime as needed for sleep. 90 tablet 11 triamcinolone (KENALOG) 0.1 % lotion External for 30 varenicline tartrate (Tyrvaya) 0.03 mg/spray spray, metered, non-aerosol Administer into affected nostril(s). zoledronic acid (RECLAST) 5 mg/100 mL piggyback Infuse 100 mL (5 mg total) into a venous catheter 1(one) time. ALLERGIES: Acetaminophen-codeine, Albuterol, Atorvastatin, Calcium, Cortisone, Ezetimibe, Oxycodone, Scopolamine, and Niacin PHYSICAL EXAM: Blood pressure 112/55, pulse 76, resp. rate 15, height 1.626 m (64 ), weight 62.6 kg (138 lb). Bodymass index is 23.69 kg/m??. Plan is deferred until next visit APPEARANCE: Alert and in no acute distress Heart: RRR Lungs: Clear to auscultation NEURO: Awake, alert LABS: Lab Results Component Value Date HGBA1C 5.9 08/28/2025 HGBA1C 5.9 04/22/2025 HGBA1C 5.7 10/13/2024 Lab Results Component Value Date MICROALBUR <5.0 08/28/2025 LDLCALC 31 08/28/2025 CREATININE 0.93 08/28/2025 MICROALBCREA <9 08/28/2025 Lab Results Component Value Date GLUCOSE 153 (H) 08/28/2025 IMAGING: IMPRESSION: 1. Age related osteoporosis, unspecified pathological fracture presence 2. Hypothyroidism, unspecified type 3. Vitamin D deficiency PLAN: Osteoporosis: Recent bone density scan results are reviewed, left hip T-score - 2.4, osteopenia. Patient agrees to another Reclast infusion. Ordered, will complete through [facility]. Complete labs before infusion Continue with vitamin D, weightbearing exercises. Hypothyroidism, on levothyroxine, recent TSH normal. Return here in 1 year for reevaluation. Medication and lab orders: Orders Placed This Encounter Procedures Basic metabolic panel None ERICK Burrell on 10/12/2025 at 1:41 PM EST * Ivelisse Narvaez RN - 10/12/2025 11:00 AM EST Message sent to Nusrat to schedule infusion Last infusion 07/30/24 documented in this encounter Plan of Treatment Upcoming Encounters Date Type Department Care Team (Late st Contact Info) Description 11/03/2025 11:30 AM EST Office Visit Vascular Surgery - [place] [address] [place] [phone] Reena Cope PA [address] [place] [address] 11/16/2025 2:00 PM EST Appointment [facility] [address] [place] [phone] 11/24/2025 12:00 PM EST Office Visit Adult Medicine [facility] [address] [place] [address] Brandan Cuba MD [address] [place], [place] 01/08/2026 10:45 AM EDT Office Visit Adult Medicine [address] [phone] Carmine Chaparro PA [address] [place] [phone] 01/27/2026 10:35 AM EDT Office Visit Pulmonology [facility] 175 [facility] [address] [place] [phone] Liliana Jameson NP [address] [place] [phone] 06/16/2026 1:30 PM EDT Office Visit Breast Care Center [facility] [address] [place] [phone] Ginna Del Real MD [address] [place] [address] Scheduled Orders Name Type Priority Associated Diagnoses Orde r Schedule Basic metabolic panel Lab Routine Age related osteoporosis, unspecified pathological fracture presence Expected: 10/12/2025, Expires: 10/12/2026 documented as of this encounter Visit Diagnoses Diagnosis Age related osteoporosis, unspecified pathological fracture presence- Primary Hypothyroidism, unspecified type Vitamin D deficiency documented in this encounter Additional Health Concerns Assessment Noted Time PHQ-9 Depression Total Score: 0 09/22/20 25 2:23 PM EST A fall risk assessment has been complete d for the patient 08/28/2025 2:42 PM EDT documented as of this encounter Care Teams Hotel Administrative Assistant Relationship Specialty Start Date End Date Carmine Chaparro PA [address] [place] [address] PCP - General Internal Medicine 09/03/24 documented as of this encounter
--- OUTSIDE RECORDS SUMMARY | 2025-10-14 10:39 | XMS_ITS | Encounter Summary ---
Author Organization [facility] Address [address] [place] [address] Care Team Providers Care Maintenance Technician 2Nd Shift Name Role Phone Carmine Chaparro Primary Care Provider [phone] Reason for Visit * Therapy (Routine) - Authorized Specialty Diagnoses / Procedures Referred By Contcraig ocampo Referred To Contact Pulmonology Diagnoses Wheeze Procedures Pulmonary function testing: Spirometry, Spirometry with Bronchodilator Carmine Chaparro PA [address] [place] [address] Phone: tel: fax: Pulmonology [facility] [address] [address] Phone: tel: fax: Referral ID Status Reason Start Date Expiration Date V isits Requested Visits Authorized [id number] Authorized 09/21/2025 09/21/2026 1 1 Encounter Details Date Type Department Care Team ([facility] st Contact Info) Description 10/14/2025 10:39 AM EST Hospital Encounter [facility] [address] [place] [address] Arrived Social History Tobacco Use Types Packs/Day Years [...] AM EST Office Visit Vascular Surgery - [place] 300 [facility] [address] [place] [phone] Reena Cope PA [address] [place] [phone] 11/16/2025 2:00 PM EST Appointment [facility] 271 [facility] 2nd [place] [phone] 11/24/2025 12:00 PM EST Office Visit Adult Medicine [facility] [address] [place] [address] Brandan Cuba MD [address] [place], [place] 01/08/2026 10:45 AM EDT Office Visit Adult Medicine [facility] [address] [place] [address] Carmine Chaparro PA [address] [place] [phone] 01/27/2026 10:35 AM EDT Office Visit Pulmonology - [place] 175 [facility] [address] [place] [phone] Liliana Jameson NP [address] [place] [address] 06/16/2026 1:30 PM EDT Office Visit [address] [phone] Ginna Del Real MD [address] [place] [phone] documented as of this encounter Procedures Procedure Name Priority Date/Time Associated Diagnosis Comments HC SPIROMETRY BRONCHODILATION RESPONSIVENESS PRE/POST BRONCHODILATOR ADMINISTRATION Routine 10/14/2025 11:44 AM EST [facility]ze documented in this encounter Visit Diagnoses Not on filedocumented in this encounter Administered Medications Inactive Administered Medications - up to 3 most recent administrations Medication Order MAR Action Action Date Dose Rate Site albuterol 2.5 mg /3 mL (0.083 %) nebulizer solution 2.5 mg 2.5 mg, nebulization, Once, On Sun10/14/25 at 1115, For 1 dose Given 10/14/2025 11:29 AM EST 2.5 mg documented in this encounter Orders Medications Ordered That Yousuf ht Not Have Been Administered Count Last Ordered Date First Ordered Date albuterol 2.5 mg /3 mL (0.08 3 %) nebulizer solution 2.5 mg 1 10/14/2025 documented in this encounter Additional Health Concerns Assessment Noted Time PHQ-9 Depression Total Score: 0 09/22/20 2:23 PM EST A fall risk assessment has been complete d for the patient 08/28/2025 2:42 PM EDT documented as of this encounter Care Teams Maintenance Technician 2Nd Shift Relationship Specialty Start Date End Date Carmine Chaparro PA [address] [place] [address] PCP - General Internal Medicine 09/03/24 documented as of this encounter
--- NOTE | 2025-10-15 14:57 | MHC.OFFVIS ---
Vital Signs 10/15/25 14:58 Height 5 ft 5 in Weight 138 lb 8 oz BMI 23.0 BP 110/76 Blood Pressure Location Lt brachial Position Sitting Pulse 81 Pulse Source Pulse Oximeter Pulse Oximetry (%) 96 Oxygen Delivery Method Room Air Intake Visit Reasons: 3 mo follow up Intake Note: Patient presents follow up TRESSA. PSG/Compliance in chart(AHI-4, MABEL-81%(83/90days, >=4hrs-83%, Average Usage-5hrs 45min, Pressure-5cm, Med Leaks-1.1, AHI-1.9)). Patient states she uses but doesnt sleep. Migraine from straps. Accompanied by: Self / Same As Patient Allergies calcium Allergy (Unknown, Verified 10/15/25 15:02) Headache ezetimibe Allergy (Unknown, Verified 10/15/25 15:02) Unknown albuterol Adverse Reaction (Verified 10/15/25 15:02) Headache atorvastatin Adverse Reaction (Verified 10/15/25 15:02) Muscle Pain codeine Adverse Reaction (Verified 10/15/25 15:02) Nausea and Vomiting cortisone Adverse Reaction (Verified 10/15/25 15:02) Rash niacin Adverse Reaction (Verified 10/15/25 15:02) Itching, rash oxycodone Adverse Reaction (Verified 10/15/25 15:02) Headache scopolamine Adverse Reaction (Verified 10/15/25 15:02) Headache HPI Comments Details: 74 year old female with bronchitis, copd, presents for a f/u of psg in lab study. Interval med hx: Pancolitis and bronchitis for one month on abx and steroids recently. PMH Sep 2019 She had r. breast cancer with lumpectomy and radiation in remission. Parathyroid RLL removed at [facility] in Oct 2024. TRESSA Compliance Report is reviewed with pt 06/2025 to 09/2025 Total avg use is 83/90days, >=4hrs-83%, daily use is 5 hours and 45 min. Pressures are 5cmH20, Med leaks 1.1cmH20 and AHI is 1/9/her. Since April 2022 she was diagnosed with TRESSA and has Bronchitis, COPD, she has been compliant on cpap, her DME is [facility]. She continues to have multiple arousals with gasping for weeks due to bronchitis. Her sleep has improved by 2 hours since using her cpap and she says she feels refreshed when she uses her cpap. When she takes her trazadone 100mg po at night she can have about 8 hours. Headaches have not improved and the rubber straps on her mask are very uncomfortable, she would like to try a different mask, as he has dizziness which can last all day. She has GERD and takes omeprazole 40mg po daily. Her memory is poor she has difficulty remembering appointments, tasks, directions and names of people. She has difficulty with recalling words, loses attention and focus easily. She had a lower Back injury Laminectomy L5 in 1986- Sacro-iliac joint pain and now receives novacaine injections, tried cortisone with no improvement. She had nightly discomfort in her r. foot, and burning sensation of heat on the plantar surface, like a heating pad is placed there, and pain migrates to the rest of the foot. Denies paresthesias. Had 2 DVTs on L. leg, superficial, treated with eliquis in March 2025, and wears compression stockings. [facility] Medical History Cough TRESSA (obstructive sleep apnea) Lung nodule Hand arthritis GERD with apnea without esophagitis Fatty liver Claudication of both lower extremities Bilateral carotid bruits Age related osteoporosis Adrenal nodule DVT (deep venous thrombosis) Perforation of sigmoid colon due to diverticulitis Diverticulitis Diverticulitis UTI (urinary tract infection) Diabetes High cholesterol Breast cancer Hypothyroid Abdominal pain Surgical History History of root canal procedure History of tonsillectomy History of back surgery History of lumpectomy of right breast History of repair of right rotator cuff History of cholecystectomy (1972) Family History Father Colon cancer Social History Household Members: Spouse Housing: House Do you presently have visiting nurse or other home services: No Patient Tobacco Use Status: Former Tobacco user Tobacco use type: Cigarette Cigarette Packs Per Day: 0.5 Cigarettes Per Day: 10.0 Years Smoked: 7 Second Hand Smoke Exposure: No Advance Directives Date on File: 09/09/21 service: No Current occupational status: retired Physical Exam Vital Signs: Last Vital Signs Pulse 81 10/15/25 14:58 BP 110/76 10/15/25 14:58 Pulse Ox 96 10/15/25 14:58 Oxygen Delivery Method Room Air 10/15/25 14:58 BMI result Body Mass Index 23.0 Const General: cooperative, comfortable and no acute distress Nutritional Appearance: average body habitus Orientation/consciousness: patient oriented x3 HEENT Face and sinus: Yes face symmetric (l. eye meibomian gland / ptosis) Teeth and gingiva: other (mallampti score of 4) Neck Neck: Yes full ROM Resp Effort & Inspection: able to speak in complete sentences and Actively coughing Neuro General: patient oriented x3 and moves all extremities Cranial nerves: Yes Facial sensation intact/muscles of mastication intact, Yes Normal accommodation reflex present, Yes Normal facial strength present, Yes Midline tongue present, Yes Ability to bilaterally rotate head present and Yes Ability to bilaterally elevate shoulders present Cognition (Neuro): normal cognition Gait exam (Neuro): Normal gait present Motor exam (neuro): 5/5 motor strength present throughout and Normal motor muscle tone present throughout Psych Appearance: well kempt Mental Status: mental status grossly normal Thought process: Normal thought process present Thought content: Normal thought content present Results Reviewed Results Reviewed: PSG reviewed with pt AHI is 4/hr and oxygen nadirs to 85%. She has copd with bronchitis. Assessment & Plan Assessment & Plan (1) TRESSA on CPAP: Code(s): G47.33 - Obstructive sleep apnea (adult) (pediatric) Category: Medical (2) Excessive daytime sleepiness: Code(s): G47.19 - Other hypersomnia Category: Medical (3) RLS (restless legs syndrome): Code(s): G25.81 - Restless legs syndrome Category: Medical (4) Bilateral headaches: Comment: will send rx for new mask. Code(s): R51.9 - Headache, unspecified Category: Medical (5) Insomnia: Code(s): G47.00 - Insomnia, unspecified Category: Medical Qualifiers: Insomnia type: unspecified Qualified Code(s): G47.00 - Insomnia, unspecified (6) Bronchitis: Code(s): J40 - Bronchitis, not specified as acute or chronic Category: Medical Plan PSG reviewed with pt. AHI is 4/hr and o2 desaturation to 85%, she has bronchitis, copd, and treated for tressa since 2021. History of insomnia 3hour a sleep per night per pt on trazadone 100mg po qpm. H/O Menieres Disease, pt education provided re: dietary modifications and Jon maneuvers with PT - Vestibular Headaches will change out her mask for the p90 airfit freedom category full face medium sized mask and monitor for compliance. F/U in 6 months. Medications: New magnesium oxide 400 mg PO DAILY 90 tabs 3RF 3 months Coding Level of Care Code Est Pt Level 4 (89570) Diagnoses TRESSA on CPAP G47.33 Excessive daytime sleepiness G47.19 RLS (restless legs syndrome) G25.81 Bilateral headaches R51.9 Insomnia, unspecified type G47.00 Insomnia type: unspecified Bronchitis J40
[2025-10-15 14:58] VITALS: BP 110/76; PULSE 81; O2SAT 96; BMI 23.0
--- OUTSIDE RECORDS SUMMARY | 2025-10-15 18:53 | XMS_ITS | Encounter Summary ---
[facility] Address [address] [place] [address] Care Team Providers Care Hot Box Checker Name Role Phone Carmine Chaparro Primary Care Provider [phone] Encounter Details Date Type Department Care Team (Late st Contact Info) Description 08/29/2025 Results Follow-Up Adult [address] [phone] Carmine Chaparro PA [address] [place] [phone] Social History Tobacco Use Types Packs/Day Years [...] your loved ones. For example, child life specialist or elderly care for an older [...] AM EST Office Visit Vascular Surgery - [place] [address] [place] [phone] Reena Cope PA [address] [place] [phone] 11/16/2025 2:00 PM EST Appointment [facility] [address] [facility] [address] [place] [phone] 11/24/2025 12:00 PM EST Office Visit Adult Medicine [facility] [address] [place] [address] Brandan Cuba MD [address] [place], [place] 01/08/2026 10:45 AM EDT Office Visit Adult Medicine [address] [phone] Carmine Chaparro PA [address] [place] [phone] 01/27/2026 10:35 AM EDT Office Visit Pulmonology - [place] [address] [facility] [address] [place] [phone] Liliana Jameson NP [address] [place] [phone] 06/16/2026 1:30 PM EDT Office Visit [facility] - [place] [address] [place] [phone] Ginna Del Real MD [address] [place] [phone] documented as of this encounter Visit Diagnoses Not on filedocumented in this encounter Additional Health Concerns Assessment Noted Time PHQ-9 Depression Total Score: 0 08/28/20 2:46 PM EDT A fall risk assessment has been complete d for the patient 08/28/2025 2:42 PM EDT documented as of this encounter Care Teams Hot Box Checker Relationship Specialty Start Date End Date Carmine Chaparro PA [address] [place] [address] PCP - General Internal Medicine 09/03/24 documented as of this encounter
--- OUTSIDE RECORDS SUMMARY | 2025-10-15 18:53 | XMS_ITS | Clinical Summary ---
Author Organization [facility] Address [address] [place] [address] Phone Care Team Providers Care Pullman Car Clerk Name Role Phone Carmine Chaparro Primary Care Provider [phone] Allergies Active Allergy Reactions Criticality Noted Date [...] mouth as needed. Active blood sugar diagnostic (Subarctic LimitedTouch Verio test strips) test strip USE TO CHECK BLOOD SUGARS ONCE DAILY 2018 Active lancets 30 gauge misc USE TO TEST BLOOD SUGAR ONCE DAILY 2018 Active zoledronic acid (RECLAST) 5 mg/100 mL piggyback Infuse 100 mL (5 mg total) into a venous catheter 1 (one) time. 2023 Active cholecalciferol (VITAMIN D-3) 25 mcg (1,000 unit) capsule 2 capsules (2,000 Units total) 1 (one) time each day at the same time. 2019 Active triamcinolone (KENALOG) 0.1 % lotion External for 30 Acti ve ammonium lactate (AMLACTIN) 12 % cream 1 [...] needed for nausea or vomiting. 12 tablet 2024 Active cyclobenzaprine (FLEXERIL) 10 mg tablet Take 1 tablet (10 mg total) by mouth if needed. Active evolocumab (Repatha SureClick) 140 mg/mL pen injector injectionIndications: Chest discomfort,Type 2 diabetes mellitus without complication, without long-term current use of insulin ([facility] V24, [facility] V28),Hypothyroidism, unspecified type,Hyperparathyroid ism ([facility] V24),Acute deep vein thrombosis (DVT) of distal vein of left lower extremity ([facility] V24, [facility] V28),Age related osteoporosis, unspecified pathological fracture presence,Mixed hyperlipidemia Inject 1 mL (140 mg total) under the skin every 14 (fourteen) days. 6 mL 3 2024 Active traZODone (DESYREL) 50 mg tablet Take 2 tablets (100 mg total) by mouth at bedtime as needed for sleep. 90 tablet 11 2024 Active omeprazole (PriLOSEC) [address] capsuleIndications:Ga stroesophageal reflux disease without esophagitis Take 1 capsule (40 mg total) by mouth 2 (two) times a day. 180 capsule 1 2024 Active fluticasone propionate (FLONASE) 50 mcg/actuation nasal spray Administer 1 spray into each nostril 1 (one) time each day. spray/apply 1 spray in each nostril daily. 48 g 1 2024 Active levothyroxine (SYNTHROID, LEVOTHROID) 125 mcg tablet TAKE 1 TABLET BY MOUTH EVERY DAY 90 tablet 1 2024 Active clindamycin phosphate 1 % gel, once daily Apply to affected area twice daily as needed 30 mL 11 2024 Active lotilaner (Xdemvy) 0.25 % dropsIndications:Eye disorder Administer into affected eye(s). 2024 Active varenicline tartrate (Tyrvaya) 0.03 mg/spray spray, metered, non-aerosolIndication s:Dryness of eye, unspecified laterality Administer into affected nostril(s). 2024 Active albuterol HFA (PROAIR HFA ; PROVENTIL HFA ; VENTOLIN HFA) 90 mcg/actuation inhaler Inhale 2 puffs by mouth every 4 (four) hours if needed for wheezing or shortness of breath. 2024 Active ipratropium-albuteroL (DUONEB) 0.5-2.5 mg/3 mL nebulizer solutionIndications:C ough, unspecified type,Wheezing Take 3 mL by nebulization every 6 (six) hours. 360 mL 2 03/24 Active budesonide (PULMICORT) 0.25 mg/2 mL nebulizer solutionIndications:P roductive cough,Cough, unspecified type,Wheezing TAKE 2 ML (0.25 MG TOTAL) BY NEBULIZATION 2 (TWO) TIMES A DAY. RINSE MOUTH WITH WATER AFTER USE TO REDUCE AFTERTASTE AND INCIDENCE OF CANDIDIASIS. DO NOT SWALLOW. 60 mL 1 2024 Active predniSONE (DELTASONE) 20 mg tablet Take 3 tabs (60mg) daily for 3 days, then take 2 tabs (40mg) daily for 3 days, then take 1 tab (20mg) daily for 3 days. 18 tablet 10/19 Active doxycycline (VIBRAMYCIN) 100 mg capsule Take 1 capsule (100 mg total) by mouth 2 (two) times a day for 10 days. Take with at least 8 ounces (large glass) of water, do not lie down for 30 minutes after. Administer 2 hours before or after multivitamins, antacids, or other products containing polyvalent cations (i.e., calcium, iron, magnesium, selenium, zinc). 20 each 10/20 Active pseudoephedrine (Sudafed 12 Hour) 120 mg 12 hr tabletIndications:Upp er respiratory tract infection, unspecified type Take 1 tablet (120 mg total) by mouth every 12 (twelve) hours. Do not crush, chew, or split. 20 each 1 10/06 Discontinued guselkumab (Tremfya Pen) 200 mg/2 mL pen injectorIndications:E ye disorder 09/18 Discontinued cefuroxime (CEFTIN) 500 mg tablet Take 1 tablet (500 mg total) by mouth 2 (two) times a day for 10 days. 20 each 10/12 Additional Information Patient not taking.Reported on 10/12/2025 predniSONE (DELTASONE) 10 mg tablet Take 30 mg PO daily for 3 days, then take 20 mg PO daily for 3 days, then 10 mg PO daily for 3 days, then stop 18 tablet 10/06 Discontinued fluconazole (DIFLUCAN) 150 mg tablet Take 1 tablet (150 mg total) by mouth See administration instructions for 1 day. Take one tab now. Repeat in 7 days if symptoms persist. 2 tablet 09/25 budesonide (PULMICORT) 0.25 mg/2 mL nebulizer solutionIndications:P roductive cough,Subacute maxillary sinusitis Take 2 mL (0.25 mg total) by nebulization 2 (two) times a day. Rinse mouth with water after use to reduce aftertaste and incidence of candidiasis. Do not swallow. 60 mL 1 10/07 Discontinued( Reorder) budesonide (PULMICORT) 0.25 mg/2 mL nebulizer solutionIndications:P roductive cough,Subacute maxillary sinusitis Take 2 mL (0.25 mg total) by nebulization 2 (two) times a day. Rinse mouth with water after use to reduce aftertaste and incidence of candidiasis. Do not swallow. 60 mL 1 10/09 Discontinued Active Problems Problem Noted Date Diagnosed Date Age related osteoporosis 10/12/2025 Acquired hammer toe of left foot 09/08/2025 Acquired hammer toe of right foot 09/08/2025 Chronic foot ulcer 09/08/2025 Cystocele with incomplete uterovaginal prolapse 09/08/2025 Cystocele, midline 09/08/2025 Mixed incontinence 09/08/2025 Other acquired deformities of left foot 09/08/20 25 Polyneuropathy due to type 2 diabetes mellitus 1 11/08/2024 Primary localized osteoarthrosis of ankle and fo ot 09/08/2025 Rectocele 09/08/2025 Claudication of both lower extremities Assessment & Plan (01/29/2025 8:22 AM EDT): [...] ELDER; Future Lung nodule 11/04/2024 Adrenal nodule 11/04/2024 Breast cancer 10/13/2024 Diabetes mellitus 10/13/2024 Diverticulitis 10/13/2024 Hyperparathyroidism 10/07/2024 Parathyroid adenoma 10/07/2024 Age related osteoporosis [...] the lumbar spine MRI at [facility] dated 03/18/2024 shows maintenance of the normal [...] of distal vein of left lower extremity 08/10/2022 Nocturnal hypoxia 07/02/2022 Overview (09/08/2025): Patient's [...] 16 cm H2O sent to [facility]. Assessment & Plan (08/28/2025 2:19 PM EDT): [...] of skin 12/08/2021 Melanocytic nevus 12/08/2021 Hyperparathyroidism 10/17/2021 Assessment & Plan (08/28/2025 2:19 PM [...] complication, without long-term current use of insulin 07/16/2019 Assessment & Plan (08/28/2025 2:19 PM [...] Encounters Date Type Department Care Team Description 10/14/2025 10:39 AM EST Hospital Encounter [facility] Pulmonary [address] [place] [address] Arrived 10/14/2025 Results Follow-Up Adult Medicine [address] [phone] Carmine Chaparro PA 10/12/2025 11:00 AM EST Office Visit Endocrinology - [address] [phone] Adriana Morgan PA Age related osteoporosis, unspecified pathological fracture presence (Primary Dx); Hypothyroidism, unspecified type; Vitamin D deficiency 10/07/2025 Results Follow-Up Adult Medicine [address] [phone] Carmine Chaparro PA 10/07/2025 Telephone Adult Medicine [address] [phone] Carmine Chaparro, PA 10/06/2025 1:28 PM EST - 10/06/2025 11:59 PM EST Hospital Encounter CT Scan - [address] [phone] Productive cough Discharge Disposition: Home or Self Care 10/06/2025 1:28 PM EST - 10/06/2025 11:59 PM EST Hospital Encounter CT Scan - [address] [phone] Subacute maxillary sinusitis Discharge Disposition: Home or Self Care 10/06/2025 12:30 PM EST Office Visit Adult Medicine [address] [phone] Annamaria Darnell PA Productive cough (Primary Dx); Subacute maxillary sinusitis; Former smoker 10/06/2025 9:30 AM EST Office Visit [facility] Hematology Oncology [address] [place] [phone] Philly Cameron MD Malignant neoplasm of right breast in female, estrogen receptor positive, unspecified site of breast ([facility]/HCC V24, [facility] V28) (Primary Dx) 10/06/2025 Telephone Adult Medicine [address] [phone] Carmine Chaparro PA 10/03/2025 Telephone Adult Medicine [address] [phone] Carmine Chaparro PA 09/25/2025 1:00 PM EST Office Visit Pulmonology [facility] [address] [phone] Lakia Razo MD Cough, unspecified type (Primary Dx); Wheezing 09/25/2025 Telephone Pulmonology [facility] [address] [phone] Lakia Razo MD 09/25/2025 Telephone Pulmonology - [place] 175 [facility] [address] [place] [address] Lakia Razo MD 09/25/2025 Telephone Pulmonology - [place] 175 [facility] [address] [place] [address] Liliana Jameson NP 09/22/2025 2:30 PM EST Office Visit Adult Medicine [address] [phone] Anahy Valdes PA Lower respiratory infection (e.g., bronchitis, pneumonia, pneumonitis, pulmonitis) (Primary Dx); Upper respiratory symptom; Screening for depression; Encounter for screening involving social determinants of health (SDoH) 09/22/2025 Telephone Adult Medicine [address] [phone] Carmine Chaparro PA 09/18/2025 10:22 AM EST - 09/18/2025 11:59 PM EST Hospital Encounter Radiology Department - [address] [phone] Neck mass; Hyperparathyroidism (CMS/HCC V24); Hypothyroidism, unspecified type Discharge Disposition: Home or Self Care 09/18/2025 Results Follow-Up Adult Medicine [address] [phone] Carmine Chaparro PA 09/08/2025 2:30 PM EST Office Visit Adult Medicine [address] [phone] Lenin Kat PA Acute viral sinusitis (Primary Dx); Upper respiratory tract infection, unspecified type; Nonintractable headache, unspecified chronicity pattern, unspecified headache type; Postnasal drip; Tinnitus aurium, bilateral; Benign skin mole 09/01/2025 4:00 PM EST Consult General Surgery - [place] 175 [facility] [address] [place] [address] Ginna Burks MD Adenopathy (Primary Dx); History of parathyroidectomy; History of breast cancer 08/29/2025 Results Follow-Up Adult Medicine [address] [phone] Carmine Chaparro PA 08/28/2025 2:00 PM EDT Lab Draw [address] Neck mass; Type 2 diabetes mellitus without complication, without long-term current use of insulin (CMS/HCC V24, CMS/HCC V28); Hyperparathyroidism (CMS/HCC V24); Mixed hyperlipidemia; Pure hypercholesterolemia ; Hypothyroidism, unspecified type; TRESSA (obstructive sleep apnea) 08/28/2025 1:45 PM EDT - 08/28/2025 11:59 PM EDT Hospital Encounter [address] [phone] Neck mass; Type 2 diabetes mellitus without complication, without long-term current use of insulin (CMS/HCC V24, CMS/HCC V28); Hyperparathyroidism (CMS/HCC V24); Mixed hyperlipidemia; Pure hypercholesterolemia ; Hypothyroidism, unspecified type; TRESSA (obstructive sleep apnea) Discharge Disposition: Home or Self Care 08/28/2025 1:00 PM EDT Office Visit [address] [phone] Carmine Chaparro PA Type 2 diabetes mellitus without complication, without long-term current use of insulin (CMS/HCC V24, CMS/HCC V28) (Primary Dx); Neck mass; Hyperparathyroidism (CMS/HCC V24); Mixed hyperlipidemia; Pure hypercholesterolemia ; Hypothyroidism, unspecified type; TRESSA (obstructive sleep apnea); Routine general medical examination at a health care facility 08/27/2025 10:32 AM EDT - 08/27/2025 11:59 PM EDT Hospital Encounter [facility] [address] [phone] History of invasive breast cancer; History of therapeutic radiation; Encounter for screening mammogram for malignant neoplasm of breast Discharge Disposition: Home or Self Care 08/27/2025 Telephone Gastroenterology - [address] [place] [phone] Sushma Soto MD 07/30/2025 9:32 AM EDT - 07/30/2025 11:59 PM EDT Hospital Encounter Bone Density - [address] [phone] Age related osteoporosis, unspecified pathological fracture presence Discharge Disposition: Home or Self Care 07/30/2025 Results Follow-Up Endocrinology - [address] [phone] Chayo Howard [place] 07/29/2025 Results Follow-Up Vascular Surgery - [place] [address] [facility] [address] [place] [address] Ashley Ortiz MD 07/24/2025 12:00 PM EDT Ancillary Procedure [facility] [address] [facility] [address] [place] [address] Varicose veins of lower extremity with pain, bilateral 07/21/2025 1:02 PM EDT - 07/21/2025 11:59 PM EDT Hospital Encounter XRAY - [address] [phone] Right hip pain Discharge Disposition: Home or Self Care 07/21/2025 12:30 PM EDT Office Visit [facility] - [address] [phone] Annamaria Darnell PA Chronic left SI joint pain (Primary Dx); Right hip pain; Need for prophylactic vaccination and inoculation against influenza from Last 3 Months Immunizations Immunization Administration [...] HISTORICAL MOLE (REMOVAL OF) COLONOSCOPY 03/07/2004 PROCEDURE: KS COLONOSCOPY FLX DX W/COLLJ SPEC WHEN PFRMD; [...] Pulse 76 10/12/2025 11:09 AM EST Temperature 35.9 C (96.6 F) 10/06/2025 12:32 PM EST Respiratory Rate 15 10/12/2025 11:09 AM EST Oxygen Saturation 96% 10/06/2025 12:32 PM EST Inhaled Oxygen Concentration - - Weight 62.6 kg (138 lb) 10/12/2025 11:09 AM EST Height 162.6 cm (5' 4 ) 10/12/2025 11:09 AM EST Body Mass Index 23.69 10/12/2025 11:09 AM EST Plan of Treatment Upcoming Encounters Date Type Department Care Team (Late st Contact Info) Description 11/03/2025 11:30 AM EST Office Visit Vascular Surgery - [place] [address] [place] [phone] Reena Cope PA [address] [place] [phone] 11/16/2025 2:00 PM EST Appointment [facility] [address] [place] [phone] 11/24/2025 12:00 PM EST Office Visit Adult Medicine [address] [phone] Brandan Cuba MD [address] [place] [address] 01/08/2026 10:45 AM EDT Office Visit Adult Medicine [address] [phone] Carmine Chaparro, PA [address] [place] [phone] 01/27/2026 10:35 AM EDT Office Visit Pulmonology [facility] 175 [facility] [address] [place] [phone] Liliana Jameson NP [address] [place] [phone] 06/16/2026 1:30 PM EDT Office Visit Breast Care Center [facility] [address] [place] [phone] Ginna Del Real MD [address] [place] [phone] Health Maintenance Due Date Last Done Comments [...] 08/28/2026 08/28/2025 Social Influencers of Health Screening 09/22/2026 09/22/2025 Breast Cancer Screening 08/27/2027 08/27/20, 08/26/2024, 08/23/2020, [...] 06/30/2024, Additional history exists Depression Screening Completed 09/22/2025 Colorectal Cancer Screening: Colonoscopy Discontinued HIB Vaccines [...] this topic Medical Devices Implanted Type Area Branch Services Manager Device Identifier Shelf Expiration Date Model / Serial / Lot Dental Implants Dental Implants Bilateral: Mouth Hemostat Flour Collgn 1gm Lorenz[employer]or [employer] - [facility] - [id number] Implanted:Qty : 1 on 11/27/2024 by Ginna Del Real MD at [facility] Hemostasis Left: Parathyroid CR BARD - DAVOL DIV 08/25/2027 [id number] / SNA / [id number] Procedures Procedure Name Priority Date/Time Associated Diagnosis Comments HC SPIROMETRY BRONCHODILATION RESPONSIVENESS PRE/POST BRONCHODILATOR ADMINISTRATION Routine 10/14/2025 11:[address] SINUSES WO CONTRAST Routine 1:40 PM EST Subacute maxillary sinusitis CT CHEST WO CONTRAST Routine 10/06/2025 1:40 PM EST Productive cough POC RAPID [id number], MOLECULAR Routine 09/22/2025 2:36 PM EST Upper respiratory symptom POC INFLUENZA A/B Routine 09/22/2025 2:3 6 PM EST Upper respiratory symptom US HEAD NECK SOFT TISSUE Routine 09/18/2025 10:47 AM EST Neck mass Hyperparathyroidism ([facility] V24) Hypothyroidism, unspecified type EXTERNAL XRAY REPORT 09/17/2025 EXTERNAL XRAY REPORT 09/17/2025 EXTERNAL XRAY REPORT 09/17/2025 LIPID PANEL WITH REFLEX TO DIRECT LDL Routine 08/28/2025 2:06 PM EDT Neck mass Type 2 diabetes mellitus without complication, without long-term current use of insulin ([facility] V24, [facility] V28) Hyperparathyroidism ([facility] V24) Mixed hyperlipidemia Pure hypercholesterolemi a Hypothyroidism, unspecified type TRESSA (obstructive sleep apnea) MICROALBUMIN CREATININE URINE RATIO Routine 08/28/2025 2:06 PM EDT Neck mass Type 2 diabetes mellitus without complication, without long-term current use of insulin ([facility] V24, [facility] V28) Hyperparathyroidism ([facility] V24) Mixed hyperlipidemia Pure hypercholesterolemi a Hypothyroidism, unspecified type TRESSA (obstructive sleep apnea) COMPREHENSIVE METABOLIC PANEL Routine 08/28/2025 2:06 PM EDT Neck mass Type 2 diabetes mellitus without complication, without long-term current use of insulin ([facility] V24, [facility] V28) Hyperparathyroidism ([facility] V24) Mixed hyperlipidemia Pure hypercholesterolemi a Hypothyroidism, unspecified type TRESSA (obstructive sleep apnea) HEMOGLOBIN A1C Routine 08/28/2025 2:06 PM EDT Neck mass Type 2 diabetes mellitus without complication, without long-term current use of insulin ([facility] V24, [facility] V28) Hyperparathyroidism ([facility] V24) Mixed hyperlipidemia Pure hypercholesterolemi a Hypothyroidism, unspecified type TRESSA (obstructive sleep apnea) THYROID STIMULATING HORMONE WITH REFLEX TO FREE T4 AND FREE T3 Routine 08/28/2025 2:06 PM EDT Neck mass Type 2 diabetes mellitus without complication, without long-term current use of insulin ([facility] V24, [facility] V28) Hyperparathyroidism ([facility] V24) Mixed hyperlipidemia Pure hypercholesterolemi a Hypothyroidism, unspecified type TRESSA (obstructive sleep apnea) PARATHYROID HORMONE INTACT Routine 08/28/2025 2:06 PM EDT Neck mass Type 2 diabetes mellitus without complication, without long-term current use of insulin ([facility] V24, [facility] V28) Hyperparathyroidism ([facility] V24) Mixed hyperlipidemia Pure hypercholesterolemi a Hypothyroidism, unspecified type TRESSA (obstructive sleep apnea) XR CHEST 2 VIEWS Routine 08/28/2025 1:56 PM EDT Neck mass Type 2 diabetes mellitus without complication, without long-term current use of insulin ([facility] V24, [facility] V28) Hyperparathyroidism ([facility] V24) Mixed hyperlipidemia Pure hypercholesterolemi a Hypothyroidism, unspecified type TRESSA (obstructive sleep apnea) [...] bilateral XR HIP 2-3 VIEWS RIGHT Routine 1:09 PM EDT Right hip pain HEPATITIS C ANTIBODY Routine 10/13/2024 11:20 AM EST Hyperparathyroidism ([facility] V24) Parathyroid adenoma Age related osteoporosis, unspecified pathological fracture presence Type 2 diabetes mellitus without complication, without long-term current use of insulin ([facility] V24, [facility] V28) Hypothyroidism, unspecified type Pure hypercholesterolemi a TRESSA (obstructive sleep apnea) Fatty liver Adrenal adenoma, unspecified laterality Lung nodule Primary insomnia from Last 3 Months or Most Recently Relevant to Health Maintenance Results * Pulmonary function testing: Spirometry, Spirometry with Bronchodilator (10/14/2025 11:44 AM EST) Narrative Lakia Razo MD - 10/14/2025 5:44 PM EST Table formatting from the original result was not included. Images from the original result were not included. [facility] [address] [place] [address] Pulmonary Functions Report Date of service: 10/14/25 Patient Name: Viola Fu Date of : 1950 Age: 74 y.o. Gender: female Ordering Provider: ERICK Brooke Diagnosis listed on Order: Wheeze Reason for Exam: Order Questions Answers Reason for Exam: sob, wheeze Which PFTs would you like to perform? Spirometry,Spirometry with Bronchodilator SPIROMETRY: FEV1 is 108 % predicted and an FVC is 108 % predicted. The FEV1/FVC ratio is 98% of normal, no response to bronchodilators noted. LUNG VOLUMES: Total lung capacity (TLC): 90% predicted. Residual volume (RV): 77% predicted RV/TLC ratio is 85% of normal DIFFUSION CAPACITY: DLCO 93% predicted. DlCO/VA 96% of predicted COMPARISONS: INTERPRETATION: This pulmonary function test shows normal spirometry and diffusion. There is no evidence of lung disease based on this PFT Lakia Razo MD us Carmine SUAREZ PFT ORDERABLES Final Res ult * CT Sinuses wo Contrast (10/06/2025 1:40 PM EST) Anatomical Region Laterality Modality Head and Neck Computed Tomogra phy 10/06/2025 8:47 PM EST Impressions 10/06/2025 8:52 PM EST Chronic pansinusitis as described. -------- FINAL REPORT -------- Dictated By: Nancy Goss Dictated Date: 10/06/2025 20:47 ET Assigned Physician: Nancy Goss Reviewed and Electronically Signed By: Nancy Goss Signed Date: 10/06/2025 20:52 ET Workstation ID: [id number] Transcribed By: Self Edit Transcribed Date: 10/06/2025 20:47 ET Narrative 10/06/2025 8:[address] SINUSES WO CONTRAST HISTORY: Ear fullness. Sinus fullness. Postnasal drip x6 weeks. TECHNIQUE: Sequential axial sections were obtained through the paranasal sinuses without intravenous contrast. Reformatted coronal images were obtained. PRIORS: None. FINDINGS: There is mild nasal septal deviation to the left. There is moderate membrane thickening of the right frontal sinus. There is mild membrane thickening of the left frontal sinus. There is opacification of most of the ethmoid air cells. There is thickening of the sphenoid sinus. There is moderate membrane thickening of the maxillary sinuses, left greater than right. The mastoid air cells are clear. The osteomeatal units are occluded bilaterally. The sphenoethmoidal recesses are occluded. There is no obvious destruction of the bony margins of the paranasal sinuses. No discrete soft tissue masses are seen. The visualized orbits and contents are unremarkable. Procedure Note Nancy Goss MD - 10/06/2025 CT SINUSES WO CONTRAST HISTORY: Ear fullness. Sinus fullness. Postnasal drip x6 weeks. TECHNIQUE: Sequential axial sections were obtained through the paranasalsinuses without intravenous contrast. Reformatted coronal images wereobtained. PRIORS: None. FINDINGS: There is mild nasal septal deviation to the left. There is moderate membrane thickening of the right frontal sinus. There ismild membrane thickening of the left frontal sinus. There is opacificationof most of the ethmoid air cells. There is thickening of the sphenoidsinus. There is moderate membrane thickening of the maxillary sinuses,left greater than right. The mastoid air cells are clear. The osteomeatal units are occluded bilaterally. The sphenoethmoidalrecesses are occluded. There is no obvious destruction of the bony marginsof the paranasal sinuses. No discrete soft tissue masses are seen. The visualized orbits and contents are unremarkable. IMPRESSION: Chronic pansinusitis as described. -------- FINAL REPORT -------- Dictated By: Nancy Goss Dictated Date: 10/06/2025 20:47 ET Assigned Physician: Nancy Goss Reviewed and Electronically Signed By: Nancy Goss Signed Date: 10/06/2025 20:52 ET Workstation ID: [id number] Transcribed By: Self Edit Transcribed Date: 10/06/2025 20:47 ET us Annamaria Mann SUAREZ IMG CT PROCEDURES Final Result * CT Chest wo Contrast (10/06/2025 1:40 PM EST) Anatomical Region Laterality Modality Body Computed Tomogra phy 10/06/2025 8:34 PM EST Impressions 10/06/2025 8:47 PM EST Stable tiny bilateral pulmonary nodules. Stable benign left adrenal adenoma. No new findings. -------- FINAL REPORT -------- Dictated By: Nancy Goss Dictated Date: 10/06/2025 20:34 ET Assigned Physician: Nancy Goss Reviewed and Electronically Signed By: Nancy Goss Signed Date: 10/06/2025 20:47 ET Workstation ID: [id number] Transcribed By: Self Edit Transcribed Date: 10/06/2025 20:34 ET Narrative 10/06/2025 8:[address] CHEST WITHOUT CONTRAST HISTORY: Productive cough greater than 6 weeks. COMPARISON: CT chest 11/03/2024, 01/29/2023, and 02/24/2022. TECHNIQUE: Multidetector CT is obtained from lung apex to base without IV contrast. Sagittal and coronal reformatted images obtained. Automated exposure control utilized. FINDINGS: Lungs/pleura: 2 mm juxtapleural pulmonary nodule right middle lobe image 122 is unchanged. 4 mm pulmonary nodule right middle lobe on image 149 is stable. There is mild scarring of the right upper lobe unchanged. On image 103 there is a 5 mm faint groundglass opacity abutting the pleura of the lateral left upper lobe, and this is unchanged. No mass or infiltrate. No pleural effusions. Lymph nodes: Sensitivity for lymphadenopathy is limited without IV contrast. Subcentimeter mediastinal lymph nodes. No definite enlarged hilar lymph nodes. Cardiovascular: No cardiomegaly, pericardial effusion, or thoracic aortic aneurysm. There is mild atherosclerosis of the aorta. Soft tissues: Thyroid gland is not enlarged. No esophageal abnormality. Upper abdomen: 2.3 x 1.2 cm benign left adrenal adenoma is unchanged. Bones: There is mild degenerative change of the spine. Procedure Note Nancy Goss MD - 10/06/2025 CT CHEST WITHOUT CONTRAST HISTORY: Productive cough greater than 6 weeks. COMPARISON: CT chest 11/03/2024, 01/29/2023, and 02/24/2022. TECHNIQUE: Multidetector CT is obtained from lung apex to base without IVcontrast. Sagittal and coronal reformatted images obtained. Automatedexposure control utilized. FINDINGS: Lungs/pleura: 2 mm juxtapleural pulmonary nodule right middle lobe [id number] is unchanged. 4 mm pulmonary nodule right middle lobe on image 149 isstable. There is mild scarring of the right upper lobe unchanged. On [id number] there is a 5 mm faint groundglass opacity abutting the pleura of thelateral left upper lobe, and this is unchanged. No mass or infiltrate. Nopleural effusions. Lymph nodes: Sensitivity for lymphadenopathy is limited without IVcontrast. Subcentimeter mediastinal lymph nodes. No definite enlargedhilar lymph nodes. Cardiovascular: No cardiomegaly, pericardial effusion, or thoracic aorticaneurysm. There is mild atherosclerosis of the aorta. Soft tissues: Thyroid gland is not enlarged. No esophageal abnormality. Upper abdomen: 2.3 x 1.2 cm benign left adrenal adenoma is unchanged. Bones: There is mild degenerative change of the spine. IMPRESSION: Stable tiny bilateral pulmonary nodules. Stable benign left adrenaladenoma. No new findings. -------- FINAL REPORT -------- Dictated By: Nancy Goss Dictated Date: 10/06/2025 20:34 ET Assigned Physician: Nancy Goss Reviewed and Electronically Signed By: Nancy Goss Signed Date: 10/06/2025 20:47 ET Workstation ID: [id number] Transcribed By: Self Edit Transcribed Date: 10/06/2025 20:34 ET Annamaria SUAREZ IMG CT PROCEDURES Final Result * Poc Rapid [id number]-PRC, MOLECULAR (09/22/2025 2:36 PM EST) COVID-19/SARS- COV-2 Rapid POC Negative Negative Internal Control Pass Yes Yes Swab Nasopharyngeal structure / Unknown 09/22/2025 2:36 PM EST Anahy SUAREZ POINT OF CARE TEST ENTER/EDIT O RDERABLES Final Result * POC Influenza A/B manually resulted (09/22/2025 2:36 PM EST) Pathologist [facility] [place] Rapid Influenza A AGN POC Negative Negative Rapid Influenza B AGN POC Negative Negative Internal Control Pass Yes Yes Swab 09/22/2025 2:36 PM EST Anahy SUAREZ POINT OF CARE TEST ENTER/EDIT O RDERABLES Final Result * US Head Neck Soft Tissue (09/18/2025 10:47 AM EST) Anatomical Region Laterality Modality Head and Neck Ultrasound 09/18/2025 2:34 PM EST Impressions 09/18/2025 2:35 PM EST No focal abnormality in area of clinical concern -------- FINAL REPORT -------- Dictated By: Aziza Lee Dictated Date: 09/18/2025 14:34 ET Assigned Physician: Aziza Lee Reviewed and Electronically Signed By: Aziza Lee Signed Date: 09/18/2025 14:35 ET Workstation ID: [id number] Transcribed By: Self Edit Transcribed Date: 09/18/2025 14:34 ET Narrative 09/18/2025 2:35 PM EST EXAMINATION: US HEAD NECK SOFT TISSUE 09/18/2025 10:47 AM Patient : 1950 CLINICAL DATA/INDICATIONS: NECK MASS, NONPULSATILE, SOLITARY, NO FEVER right posterior neck mass COMPARISON: None TECHNIQUE: Multiple grayscale images of the subcutaneous soft tissues of the right posterior neck were obtained in area of palpable concern. FINDINGS: No focal fluid collection or mass lesion is identified in area of clinical concern. If further evaluation is necessary, consider CT soft tissue neck with IV contrast Procedure Note Aziza Lee MD - 09/18/2025 EXAMINATION: US HEAD NECK SOFT TISSUE 09/18/2025 10:47 AM Patient :1950 CLINICAL DATA/INDICATIONS: NECK MASS, NONPULSATILE, SOLITARY, NO FEVER right posterior neck mass COMPARISON: None TECHNIQUE: Multiple grayscale images of the subcutaneous soft tissues ofthe right posterior neck were obtained in area of palpable concern. FINDINGS: No focal fluid collection or mass lesion is identified in area of clinicalconcern. If further evaluation is necessary, consider CT soft tissue neckwith IV contrast IMPRESSION: No focal abnormality in area of clinical concern -------- FINAL REPORT -------- Dictated By: Aziza Lee Dictated Date: 09/18/2025 14:34 ET Assigned Physician: Aziza Lee Reviewed and Electronically Signed By: Aziza Lee Signed Date: 09/18/2025 14:35 ET Workstation ID: [id number] Transcribed By: Self Edit Transcribed Date: 09/18/2025 14:34 ET Carmine SUAREZ IMG US PROCEDURES Final R esult * External Xray Report (09/17/2025) Only the most recent of3 resultswithin the time period is included. Anatomical Region Laterality Modality Radiographic Jayleen ging Provider [facility] IMG XR PROCEDURES Final Result * Thyroid stimulating hormone with reflex to free t4 and free t3 (08/28/2025 2:06 PM EDT) TSH 1.12 0.40 - 4.00 mcIU/mL LAB CHEMISTRY METHOD 08/28/2025 7:42 PM EDT [facility] Blood Venous blood specimen / Unknown Venipuncture / Unknown 08/28/2025 2:06 PM EDT 08/28/2025 2:07 PM EDT us Carmine SUAREZ LAB BLOOD ORDERABLES Nanette l Result [facility] [address] [place] [address], [place] [phone] * (ABNORMAL) Lipid panel with reflex to direct LDL (08/28/2025 2:06 PM EDT) Cholesterol 125 0 - 200 mg/dL LAB CHEMISTRY METHOD 08/28/2025 6:32 PM EDT [facility] Triglycerides 167(H) 0 - 150 mg/dL LAB CHEMISTRY METHOD 08/28/2025 6:32 PM EDT [facility] HDL 61 >=40 mg/dL LAB CHEMISTRY METHOD 08/28/2025 6:32 PM EDT [facility] LDL Calculated 31 0 - 100 mg/dL LAB CHEMISTRY METHOD 08/28/2025 6:32 PM EDT [facility] Comment:Estimated LDL Calcul ated using equation: Total cholesterol - HDL cholesterol - (Triglycerides/5) VLDL Cholesterol [place] 33.4 mg/dL LAB CHEMISTRY METHOD 08/28/2025 6:32 PM EDT [facility] Non HDL Chol. (LDL+VLDL) 64 <145 mg/dL LAB CHEMISTRY METHOD 08/28/2025 6:32 PM EDT [facility] Chol/HDL Ratio 2.0 0.0 - 4.4 LAB CHEMISTRY METHOD 08/28/2025 6:32 PM [facility] Blood Venous blood specimen / Unknown Venipuncture / Unknown 08/28/2025 2:06 PM EDT 08/28/2025 2:07 PM EDT Carmine SUAREZ LAB BLOOD ORDERABLES Nanette l Result Performing Organization Address [facility]/ZIP Co de Phone Number [facility] [address] [place] [address], [place] [phone] * Microalbumin creatinine urine ratio (08/28/2025 2:06 PM EDT) Creatinine, Urine 53.0 mg/dL LAB CHEMISTRY METHOD 08/28/2025 6:58 PM EDT [facility] Microalb, Ur <5.0 0.0 - 29.0 mg/L LAB CHEMISTRY METHOD 08/28/2025 6:58 PM EDT [facility] Microalb/Creat Ratio <9 <30 mg/g creat LAB CHEMISTRY METHOD 08/28/2025 6:58 PM EDT [facility] Urine Urine specimen obtained by clean catch procedure / Unknown Non-blood Collection / Unknown 08/28/2025 2:06 PM EDT 08/28/2025 2:07 PM EDT Carmine SUAREZ LAB URINE ORDERABLES Nanette l Result Performing Organization Address [facility] de Phone Number [facility] [address] [place] [address], [place] [phone] * Parathyroid hormone intact (08/28/2025 2:06 PM EDT) PTH 53.5 18.5 - 88.0 pcg/mL LAB CHEMISTRY METHOD 08/28/2025 7:30 PM EDT [facility] Blood Venous blood specimen / Unknown Venipuncture / Unknown 08/28/2025 2:06 PM EDT 08/28/2025 2:07 PM EDT Carmine SUAREZ LAB BLOOD ORDERABLES Nanette l Result [facility] [address] [place] [address], [place] [phone] * Hemoglobin A1c (08/28/2025 2:06 PM EDT) [facility] Hemoglobin A1C 5.9 <6.5 % LAB CHEMISTRY METHOD 08/28/2025 10:05 PM EDT [facility] Mean Bld Glu Estim. 123 mg/dL LAB CHEMISTRY METHOD 08/28/2025 10:05 PM EDT [facility] Blood Venous blood specimen / Unknown Venipuncture / Unknown 08/28/2025 2:06 PM EDT 08/28/2025 2:07 PM EDT Carmine SUAREZ LAB BLOOD ORDERABLES Nanette l Result Performing Organization Address [facility]/ZIP Co de Phone Number [facility] [address] [place] [address], [place] [phone] * (ABNORMAL) Comprehensive metabolic panel (08/28/2025 2:06 PM EDT) [facility] Sodium 138 133 - 145 mmol/L LAB CHEMISTRY METHOD 08/28/2025 6:32 PM T [facility] Potassium 4.1 3.5 - 5.5 mmol/L LAB CHEMISTRY METHOD 08/28/2025 6:32 PM T [facility] Chloride 103 96 - 110 mmol/L LAB CHEMISTRY METHOD 08/28/2025 6:32 PM [facility] CO2 30 21 - 32 mmol/L LAB CHEMISTRY METHOD 08/28/2025 6:32 PM T [facility] Anion Gap 5 3 - 11 LAB CHEMISTRY METHOD 08/28/2025 6:32 PM [facility] Glucose 153(H) 70 - 100 mg/dL LAB CHEMISTRY METHOD 08/28/2025 6:32 PM T [facility] BUN 14 5 - 25 mg/dL LAB CHEMISTRY METHOD 08/28/2025 6:32 PM [facility] Creatinine 0.93 0.50 - 1.10 mg/dL LAB CHEMISTRY METHOD 08/28/2025 6:32 PM [facility] eGFR 65 >=60 mL/min/1. 73m2 LAB CHEMISTRY METHOD 08/28/2025 6:32 PM [facility] Comment:Calculation based on the Chronic Kidney Disease Epidemiology Collaboration (CKD-EPI) equation refit without adjustment for race. BUN/Creatinine Ratio 15.1 LAB CHEMISTRY METHOD 08/28/2025 6:32 PM [facility] Calcium 8.7 8.5 - 10.5 mg/dL LAB CHEMISTRY METHOD 08/28/2025 6:32 PM [facility] AST (SGOT) 13 10 - 42 unit/L LAB CHEMISTRY METHOD 08/28/2025 6:32 PM [facility] ALT (SGPT) 17 10 - 60 unit/L LAB CHEMISTRY METHOD 08/28/2025 6:32 PM [facility] Alkaline Phosphatase 53 42 - 121 unit/L LAB CHEMISTRY METHOD 08/28/2025 6:32 PM [facility] Total Protein 6.7 6.0 - 8.0 g/dL LAB CHEMISTRY METHOD 08/28/2025 6:32 PM [facility] Albumin 3.9 3.2 - 5.0 g/dL LAB CHEMISTRY METHOD 08/28/2025 6:32 PM [facility] Total Bilirubin 0.4 0.0 - 1.4 mg/dL LAB CHEMISTRY METHOD 08/28/2025 6:32 PM [facility] Blood Venous blood specimen / Unknown Venipuncture / Unknown 08/28/2025 2:06 PM EDT 08/28/2025 2:07 PM EDT us Carmine SUAREZ LAB BLOOD ORDERABLES Nanette l Result [facility] [address] [place] [address], * XR Chest 2 Views (08/28/2025 1:56 PM EDT) Anatomical Region Laterality Modality Body Radiographic Jayleen ging 08/28/2025 5:25 PM EDT Impressions 08/28/2025 5:28 PM EDT No evidence of an acute chest process. POS - [id number] -------- FINAL REPORT -------- Dictated By: Rossi Rose Dictated Date: 08/28/2025 17:25 ET Assigned Physician: Rossi Rose Reviewed and Electronically Signed By: Rossi Rose Signed Date: 08/28/2025 17:28 ET Workstation ID: [id number] Transcribed By: Self Edit Transcribed Date: 08/28/2025 [...] of an acute chest process. POS - [id number] -------- FINAL REPORT -------- Dictated By: Rossi Rose Dictated Date: 08/28/2025 17:25 ET Assigned Physician: Rossi Rose Reviewed and Electronically Signed By: Rossi Rose Signed Date: 08/28/2025 17:28 ET Workstation ID: [id number] Transcribed By: Self Edit Transcribed Date: 08/28/2025 17:25 ET Carmine SUAREZ IMG XR PROCEDURES Final R [...] year. Mamm[facility] location[facility] [address], [address] -------- FINAL REPORT -------- Dictated By: Steven Pickens Dictated Date: 08/27/2025 11:24 ET Assigned Physician: Steven Pickens Reviewed and Electronically Signed By: Steven Pickens Signed Date: 08/27/2025 11:57 ET Workstation ID: [id number] Transcribed By: Self Edit Transcribed Date: 08/27/2025 [...] Computer-aided detection was employed with the [employer] AI 3-D. TISSUE DENSITY: There are scattered [...] COMPARISON: 08/26/24, 08/17/23, 08/15/22, 08/11/21 and left [id number]/14/20, 02/15/19, and 02/02/18 TECHNIQUE: Synthesized CC and [...] year. Mammography location: [facility] [address], [address] -------- FINAL REPORT -------- Dictated By: Steven Pickens Dictated Date: 08/27/2025 11:24 ET Assigned Physician: Steven Pickens Reviewed and Electronically Signed By: Steven Pickens Signed Date: 08/27/2025 11:57 ET Workstation ID: [id number] Transcribed By: Self Edit Transcribed Date: 08/27/2025 [...] patient is being treated for osteoporosis. The [facility] Department of Internal Medicine recommends using National [...] alternative screening schedule based on alcon Tello., [facility] November 16, 2011 for patients [...] Signed Date: 07/30/2025 15:09 ET Workstation ID: [id number] Transcribed By: Self Edit Transcribed Date: 07/30/2025 [...] patient is being treated for osteoporosis. The [facility] Department of Internal Medicine recommendsusing National Osteoporosis [...] Signed Date: 07/30/2025 15:09 ET Workstation ID: [id number] Transcribed By: Self Edit Transcribed Date: 07/30/2025 15:07 ET us Adriana SUAREZ IMJorge Luis DXA PROCEDURES Final Result * Vascular US [...] performed with the patient in reverse trendelenburg. Remittance Clerk Details A felton scale, color and doppler [...] Signed Date: 07/21/2025 17:38 ET Workstation ID: [id number] Transcribed By: Self Edit Transcribed Date: 07/21/2025 [...] Signed Date: 07/21/2025 17:38 ET Workstation ID: [id number] Transcribed By: Self Edit Transcribed Date: 07/21/2025 17:37 ET Annamaria SUAREZ IMG XR PROCEDURES Final Result * Hepatitis C antibody (10/13/2024 11:20 AM EST) Hepatitis C Antibody Negative Negative LAB CHEMISTRY METHOD 10/13/2024 8:04 PM EST [facility] Blood Venous blood specimen / Unknown Venipuncture / Unknown 10/13/2024 11:20 AM EST 10/13/2024 11:20 AM EST Carmine SUAREZ LAB BLOOD ORDERABLES Nanette l Result [facility] [address] [place] [address], from Last 3 Months or Most Recently Relevant to Health Maintenance Insurance MEDICARE [facility] Advance Directives Documents on File Type Date Recorded Patient Hyperion Administrator Expl anation Power of Track Hoe Operator 11/27/2024 6:05 AM HCP Health Care Decision [...] currently active code status orders. Care Teams Pullman Car Clerk Relationship Specialty Start Date End Date Carmine Chaparro PA [address] [place] [id number] PCP - General Internal Medicine 09/03/24
--- OUTSIDE RECORDS SUMMARY | 2025-10-15 18:53 | XMS_ITS | Encounter Summary ---
[facility] Address [address] [place] [address] Care Team Providers Care Transit Bus Operator Name Role Phone Carmine Chaparro Primary Care Provider [phone] Encounter Details Date Type Department Care Team (Late st Contact Info) Description 10/14/2025 Results Follow-Up Adult [address] [phone] Carmine Chaparro PA [address] [place] [phone] Social History Tobacco Use Types Packs/Day Years [...] or isolated from ose around you? Never 09/22/2025 Food Risk [...] your loved ones. For example, early childhood coordinator or elderly care for an older adult? [...] AM EST Office Visit Vascular Surgery - [place] [address] [place] [phone] Reena Cope PA [address] [place] [phone] 11/16/2025 2:00 PM EST Appointment [facility] [address] [facility] 2nd [place] [phone] 11/24/2025 12:00 PM EST Office Visit Adult Medicine [facility] [address] [place] [address] Brandan Cuba MD [address] [place], [place] 01/08/2026 10:45 AM EDT Office Visit Adult Medicine [address] [phone] Carmine Chaparro PA [address] [place] [phone] 01/27/2026 10:35 AM EDT Office Visit Pulmonology [facility] [address] [facility] [address] [place] [phone] Liliana Jameson NP [address] [place] [phone] 06/16/2026 1:30 PM EDT Office Visit Breast Care Center [facility] [address] [place] [phone] Ginna Del Real MD [address] [place] [phone] documented as of this encounter Visit Diagnoses Not on filedocumented in this encounter Additional Health Concerns Assessment Noted Time PHQ-9 Depression Total Score: 0 11/25/20 25 2:23 PM EST A fall risk assessment has been complete d for the patient 08/28/2025 2:42 PM EDT documented as of this encounter Care Teams Transit Bus Operator Relationship Specialty Start Date End Date Carmine Chaparro PA [address] [place] [address] PCP - General Internal Medicine 09/03/24 documented as of this encounter
--- OUTSIDE RECORDS SUMMARY | 2025-10-15 18:53 | XMS_ITS | Clinical Summary ---
Author Organization [employer] [facility] Prior to 03/28/25 Address [address] [place] [address] Care Team Providers Care Lead Php Developer Name Role Phone Carmine Chaparro PA-C [...] age to complete this topic Care Teams Lead Php Developer Relationship Specialty Start Date End Date Carmine Chaparro PA-C PCP - General Medical Services 04/13/21
--- OUTSIDE RECORDS SUMMARY | 2025-10-15 18:53 | XMS_ITS | Encounter Summary ---
Author Organization [facility] Address [address] [place] [address] Care Team Providers Care Machine Welder Name Role Phone Carmine Chaparro Primary Care Provider [phone] Reason for Visit * Reason Onset Date Comments Results 10/07/2025 Encounter Details Date Type Department Care Team ([facility] st Contact Info) Description 10/07/2025 Telephone Adult Medicine [address] [phone] Carmine Chaparro PA [address] [place] [phone] Social History Tobacco Use Types Packs/Day Years [...] loved ones. For example, child protective services social worker or elderly care for an older [...] as of this encounter Progress Notes * Ilene Tobias MA - 10/12/2025 9:55 AM EST Duplicate message, Merushart message was sent to pt by pcp. * Chantelle Machuca - 10/07/2025 10:30 AM EST Inform patient: ANY URGENT OR ABNORMAL RESULTS WIILL RESULT IN A CALL BACK TO THE PATIENT JOE. Type of test: :catscan chest & sinus Date test was performed: 10/06/2025 Where was the test performed: [facility] Who ordered this test?: Annamaria Darnell Is the doctor here today?: yes Can the message wait until the doctor returns?: no IF PATIENT'S PCP IS NOT IN INSTRUCT PATIENT THAT THEY WILL RECEIVE A CALL BACK WHEN THE PCP IS IN THE OFFICE NEXT. documented in this encounter Plan of Treatment Upcoming Encounters Date Type Department Care Team (Late st Contact Info) Description 11/03/2025 11:30 AM EST Office Visit Vascular Surgery - [place] [address] [place] [phone] Reena Cope PA [address] [place] [phone] 11/16/2025 2:00 PM EST Appointment [facility] [address] [facility] [address] [place] [address] 11/24/2025 12:00 PM EST Office Visit Adult Medicine [address] [phone] Brandan Cuba MD [address] [place] [address] 01/08/2026 10:45 AM EDT Office Visit Adult Medicine [address] [phone] Carmine Chaparro PA [address] [place] [phone] 01/27/2026 10:35 AM EDT Office Visit Pulmonology - [place] [address] [facility] [address] [place] [phone] Liliana Jameson NP [address] [place] [phone] 06/16/2026 1:30 PM EDT Office Visit Breast Care Center - [place] [address] [place] [phone] Gnina Del Real MD [address] [place] [phone] documented as of this encounter Visit Diagnoses Not on filedocumented in this encounter Additional Health Concerns Assessment Noted Time PHQ-9 Depression Total Score: 0 09/22/20 25 2:23 PM EST A fall risk assessment has been complete d for the patient 08/28/2025 2:42 PM EDT documented as of this encounter Care Teams Machine Welder Relationship Specialty Start Date End Date Carmine Chaparro PA [address] [place] [address] PCP - General Internal Medicine 09/03/24 documented as of this encounter
--- OUTSIDE RECORDS SUMMARY | 2025-10-15 18:53 | XMS_ITS ---
Author Organization [facility] Address [address] [place] [address] Phone Care Team Providers Care Clinical Team Lead Name Role Phone Carmine Chaparro Primary Care Provider [phone] [phone] Active Problems Problem Noted Date Diagnosed Date [...] Review of the lumbar spine MRI at [facility] dated 03/18/2024 shows maintenance of the normal [...] cm H2O sent to [facility]. Assessment & Plan (08/28/2025 2:19 PM EDT): [...] Therapy Plans No current plan information found. Other Current Plans ZOLEDRONIC ACID ( RECLAST )??YEARLY* Plan Start Date:10/12/2025 Plan Provider:Hali Ocampo MD Linked Problems Age related osteoporosis, un specified pathological fracture presence Treatment Medications No medications scheduled. Past Treatment and Therapy Plans No past plan information found. Lifetime Dose Tracking * Chemical Lifetime Dose Automatic Entry Manual Entr y CTDIvol 58.71 mGy 58.71 mGy 0 mGy Resolved Problems Problem Noted Date Diagnosed Date Resolved Date Fatty liver 10/13/2024 09/08/2025
--- OUTSIDE RECORDS SUMMARY | 2025-10-15 18:53 | XMS_ITS | Patient Health Record ---
[facility] Address [address] [place] [address] Care Team Providers Care Shipping Order Clerk Name Role Phone Carmine Castro Primary Care Provider Unav ailable Black, Skye Unavailable [phone] YoungIsis santo Unavailable [phone] Allergies Allergen (clinical drug ingredient) Drug/Non Drug [...] HCl 10 MG Oral; Duration: 90 Not-Taking [place] Saline Nasal Gel Active Triamcinolone Acetonide 0.1 [...] Ordered Date Performed Result Body Sit e [id number] 04/17/2025 N/A Encounters Encounter Location Date Provider [facility] [address] [place] [phone] 04/17/2025 Isis Young Ingrown nail L60.[address] [facility] [phone] 04/17/2025 Isis Young [facility] [phone] 05/08/2025 Skye Cespedes Assessments Encounter Date Diagnosis (ICD Code) Assessment Notes Treatment Notes Treatment Clinical Notes Section Notes 04/17/2025 Ingrown nail (ICD-10 - L60.0) Plan Of Treatment Pending Test Test Name Order Date [id number]-Raljyryb Plate 09/30/2020 [id number]-Dwioavhc Plate 06/05/2022 [id number] 08/11/2021 [id number] 04/17/2025 48357- Debride <25 sq cm 09/12/2021 24752- Debride <25 sq cm 10/14/2020 [id number] SKIN/TISSUE 08/29/2021 46395- I&D ABSCESS-COMPLICATED,MULTI 02/2023 80025-FAVD SKIN LESIONS, 2 TO 4 06/11/20 23 15859-CGHC NAIL(S) 06/11/2023 87239-DVLW NAIL(S) 06/05/2022 [id number]-TOYY NAIL(S) 12/04/2022 Insurance Providers Payer Name Payer Address Payer Phone Subscriber Number Group Number Insured Name Patient Relationship to Insured Coverage Start Date Coverage End Date Medicare National [employer] [address] [place] [phone] [id number] Viola Navarro Self - patient is the insured [facility] [address] [place] [address] [id number] Alfred Navarro Spouse - patient is the [...] Libby Villarreal- blood clot left leg 2024 [facility]- acute sigmoid diverticu litis- complications with a micropherferation 09/08/21-09/10/21
--- OUTSIDE RECORDS SUMMARY | 2025-10-15 18:53 | XMS_ITS | Clinical Summary ---
Author Organization [facility] Address [address] [place] [address] Care Team Providers Care College Associate Name Role Phone Unavailable Primary Care Provider Unavailabl e Social History Tobacco Use Types Packs/Day Years Used Date Smoking Tobacco: Never Assessed Comments Unknown Sex and Gender Information Value Date Recorded Sex Assigned at Not on file Legal Sex Female 10:10 AM EST Gender Identity Not on file Sexual Orientation Not on file Plan of Treatment Upcoming Encounters Date Type Department Care Team (Late st Contact Info) Description 11/09/2025 8:00 AM EST Clinical Support [facility] [address], [place] [phone] Suresh Vallejo MD [address] [place] [phone] Swetha Bailey Au.D [address] [place] [phone] Health Maintenance Due Date Last Done Comments Advance Care Planning 1950 Hepatitis C Virus Screening 1950 DTaP/Tdap/Td Vaccines (1 - Tdap) 1970 Mammogram 1991 Colonoscopy 1996 Pneumococcal Vaccines 50+ (1 of 1 - PCV) 2001 Zoster (Shingles) Vaccine (1 of 2) 2001 DXA Bone Density (Females,Ag es 65 and older) 2016 COVID-19 Vaccine ( - 2024-2 6 season) 2025 RSV Vaccine 50 years and old er and Patients (1 - 1-dose 75+ series) 2026 Influenza Vaccine Completed 07/21/2025 Hepatitis B Vaccines Aged Out No long er eligible based on patient's age to complete this topic Insurance MEDICARE PART A & B
--- OUTSIDE RECORDS SUMMARY | 2025-10-15 18:53 | XMS_ITS | Patient Health Record ---
Author Organization [facility] Address [address] [place] [address] Care Team Providers Care Learning And Development Administrator Name Role Phone Jeff Lu Primary [...] of [place] [address] [place] [phone] [id number] Navarro , Viola Self - patient is the insured [facility] [address] [place] [address] [phone] [id number] Viola Navarro Self - patient is the [...]
--- OUTSIDE RECORDS SUMMARY | 2025-10-15 18:53 | XMS_ITS | Encounter Summary ---
[facility] Organization [facility] Address [address] [place] [address] Care Team Providers Care Retort Condenser Attendant Name Role Phone Carmine Chaparro Primary Care Provider [phone] Encounter Details Date Type Department Care Team (Late st Contact Info) Description 09/18/2025 Results Follow-Up Adult [address] [phone] Carmine Chaparro PA [address] [place] [phone] Social History Tobacco Use Types Packs/Day Years [...] care for your loved ones. For example, director of early childhood education or elderly care for an older adult? [...] AM EST Office Visit V[facility] [place] [address] [place] [phone] Reena Cope PA [address] [place] [address] 11/16/2025 2:[address] [facility] [address] [facility] 2nd [place] [phone] 11/24/2025 12:00 PM EST Office Visit Adult Medicine [facility] [address] [place] [address] Brandan Cuba MD [address] [place], [place] 01/08/2026 10:45 AM EDT Office Visit Adult Medicine [address] [phone] Carmine Chaparro PA [address] [place] [phone] 01/27/2026 10:35 AM EDT Office Visit Pulmonology [facility] [address] [facility] [address] [place] [phone] Liliana Jameson NP [address] [place] [address] 06/16/2026 1:30 PM EDT Office Visit Breast Care [facility] [address] [place] [phone] Ginna Del Real MD [address] [place] [phone] documented as of this encounter Visit Diagnoses Not on filedocumented in this encounter Additional Health Concerns Assessment Noted Time PHQ-9 Depression Total Score: 0 11/11/20 25 2:12 PM EST A fall risk assessment has been complete d for the patient 08/28/2025 2:42 PM EDT documented as of this encounter Care Teams Retort Condenser Attendant Relationship Specialty Start Date End Date Carmine Chaparro PA [address] [place] [address] PCP - General Internal Medicine 09/03/24 documented as of this encounter
--- OUTSIDE RECORDS SUMMARY | 2025-10-15 18:53 | XMS_ITS | Encounter Summary ---
[facility] Organization [facility] Address [address] [place] [address] Care Team Providers Care Registrar Assistant Name Role Phone Carmine Mcghee Primary Care Provider [phone] Encounter Details Date Type Department Care Team (Late st Contact Info) Description 10/07/2025 Results Follow-Up Adult [address] [phone] Carmine Mcghee PA [address] [place] [phone] Social History Tobacco Use Types Packs/Day Years [...] PM EST documented as of this encounter Ordered Prescriptions Prescription Sig Dispense Quantity Refills Last Filled Start Date End Date doxycycline (VIBRAMYCIN) 100 mg capsule Take 1 capsule (100 mg total) by mouth 2 (two) times a day for 10 days. Take with at least 8 ounces (large glass) of water, do not lie down for 30 minutes after. Administer 2 hours before or after multivitamins, antacids, or other products containing polyvalent cations (i.e., calcium, iron, magnesium, selenium, zinc). 20 each 10/10/2025 5 predniSONE (DELTASONE) 20 mg tablet Take 3 tabs (60mg) daily for 3 days, then take 2 tabs (40mg) daily for 3 days, then take 1 tab (20mg) daily for 3 days. 18 tablet 10/10/2025 5 documented in this encounter Progress Notes * ERICK Brooke - 10/10/2025 11:05 AM ESTAddended by: CARMINE MCGHEE on: 10/10/2025 11:05 AM Modules accepted: Orders * ERICK Brooke - 10/10/2025 11:04 AM EST Spoke with patient she is still symptomatic. Ct did show pansinusitis will try tx with doxy and prednisone. We can try reaching out to [facility] ent on Sunday to see if this can be moved up * Maricarmen Aguilera [place] - 10/07/2025 3:24 PM EST See TE 10/07/25 documented in this encounter Plan of Treatment Upcoming Encounters Date Type Department Care Team (Late st Contact Info) Description 11/03/2025 11:30 AM EST Office Visit Vascular Surgery - [place] [address] [place] [address] Reena Cope PA [facility] [place] [phone] 11/16/2025 2:00 PM EST Appointment [facility] [address] [facility] [address] [place] [phone] 11/24/2025 12:00 PM EST Office Visit Adult Medicine [facility] [address] [place] [address] Brandan Cuba MD [address] [place], [place] 01/08/2026 10:45 AM EDT Office Visit Adult [address] [phone] Carmine Mcghee PA [address] [place] [phone] 01/27/2026 10:35 AM EDT Office Visit Pulmonology - [place] [address] [facility] [address] [place] [phone] Liliana Jameson NP [address] [place] [phone] 06/16/2026 1:30 PM EDT Office Visit Breast Care Center [facility] [address] [place] [phone] Ginna Del Real MD [address] [place] [phone] documented as of this encounter Visit Diagnoses Diagnosis Subacute pansinusitis- Primary documented in this encounter Additional Health Concerns Assessment Noted Time PHQ-9 Depression Total Score: 0 09/22/20 2:23 PM EST A fall risk assessment has been complete d for the patient 08/28/2025 2:42 PM EDT documented as of this encounter Care Teams Registrar Assistant Relationship Specialty Start Date End Date Carmine Mcghee PA [address] [place] [address] PCP - General Internal Medicine 09/03/24 documented as of this encounter
== END 2025-10-15 15:57 | disposition home or self-care (01) ==
LOC: HO.HSMS 14:46
PROVIDERS: PCP Physician Assistant Medical; Visit Provider Physician Assistant Medical
DX: G47.33 Obstructive sleep apnea (adult) (pediatric) (principal); G47.19 Other hypersomnia; G25.81 Restless legs syndrome; R51.9 Headache, unspecified; G47.00 Insomnia, unspecified; J40 Bronchitis, not specified as acute or chronic
CPT/HCPCS: 99214

== ENCOUNTER → 2025-10-15 14:46 | Outpatient (BNVA) | payer MEDICARE, BC, SELFPAY | PROVIDERS: PCP Physician Assistant Medical; Visit Provider Physician Assistant Medical | DX: G47.33 Obstructive sleep apnea (adult) (pediatric) (principal); G47.19 Other hypersomnia; G47.00 Insomnia, unspecified; Z99.89 Dependence on other enabling machines and devices; G25.81 Restless legs syndrome; R51.9 Headache, unspecified; J40 Bronchitis, not specified as acute or chronic; Z87.891 Personal history of nicotine dependence | CPT/HCPCS: 99212 ==